=== PATIENT | male | born 1965 | race Caucasian/White ===

== ENCOUNTER 2019-03-15 06:37 | Outpatient (RCR) | payer MEDICARE, SELFPAY | END 2019-03-16 00:01 | LOC: GILAB 06:37 | PROVIDERS: Family Provider Internal Medicine Infectious Disease; Visit Provider Internal Medicine Cardiovascular Disease | DX: K81.9 Cholecystitis, unspecified (principal) | CPT/HCPCS: 80053; 82550; 83615; 85025; 85610; 96365 ×4; 96367 ×4; G0463 ×4; J0878 ×4; J1335 ×4; J7050 ×4 ==

== ENCOUNTER 2019-04-09 06:19 | Outpatient (RCR) | payer MEDICARE, SELFPAY ==
[2019-03-17 07:05] VITALS: BP 99/86; PULSE 88; RESP 18; O2SAT 98
[2019-03-17 07:17] VITALS: BMI 33.1
[2019-03-17] MEDS: ertapenem 1,000 MG in sodium chloride 0.9% (plus) 100 ML 200 MG IV (08:20)
[2019-03-18 07:01] VITALS: BP 102/80; PULSE 101; RESP 18; TEMP 36.8; O2SAT 96
[2019-03-18] MEDS: ertapenem 1,000 MG in sodium chloride 0.9% (plus) 100 ML 200 MG IV (07:10)
[2019-03-19] MEDS: ertapenem 1,000 MG in sodium chloride 0.9% (plus) 100 ML 200 MG IV (06:30)
[2019-03-19 06:48] VITALS: BP 95/79; PULSE 103; RESP 18; TEMP 36.4; O2SAT 94
[2019-03-20] MEDS: ertapenem 1,000 MG in sodium chloride 0.9% (plus) 100 ML 200 MG IV (07:03)
[2019-03-20 07:09] VITALS: BP 109/79; PULSE 88; RESP 18; TEMP 36.3; O2SAT 97
[2019-03-21] MEDS: ertapenem 1,000 MG in sodium chloride 0.9% (plus) 100 ML 200 MG IV (07:19)
[2019-03-21 07:49] VITALS: BP 106/85; PULSE 96; RESP 18; TEMP 36.2; O2SAT 96
[2019-03-21 08:09] LABS: Basophils % 0.1 %; Hematocrit 31.3 % (42.0-52.0); Mean Corpuscular HGB Conc 31.9 g/dL (30.0-36.0); Mean Corpuscular Volume 87.7 fL (80-94); Mean Platelet Volume 10.2 fL (7.4-10.4); Monocytes # 0.5 10^3/uL (0.2-0.9); Monocytes % 5.6 %; Neutrophils # 7.6 10^3/uL (1.8-7.7); Neutrophils % 82.6 %; Nucleated Red Blood Cells % 0 %; Platelet Count 279 10^3/cmm (130-400); Red Blood Count 3.57 10^6/uL (4.1-5.3); Red Cell Distribution Width 15.3 % (12.1-15.1); White Blood Count 9.2 10^3/uL (4.0-10.0)
[2019-03-21 08:23] LABS: Lactate Dehydrogenase 244 U/L (135-225)
[2019-03-21 08:24] LABS: Alanine Aminotransferase 39 U/L (0-41); Albumin Level 4.4 g/dL (3.5-5.2); Alkaline Phosphatase 144 IU/L (40-130); Aspartate Amino Transferase 28 U/L (0-40); Blood Urea Nitrogen 53 mg/dL (6-20); Calcium 10.2 mg/Dl (8.6-10.0); Carbon Dioxide 25 mmol/L (22-29); Chloride 103 mmol/L (98-107); Creatine Phosphokinase 15 U/L (39-308); Globulin 2.9 g/dL (1.3-4.6); Glucose 256 mg/dL (74-109); Sodium 141 mmol/L (136-145); Total Bilirubin 0.3 mg/dL (0.15-1.2); Total Protein 7.3 g/dL (6.6-8.7)
[2019-03-22 06:40] VITALS: BP 107/86; PULSE 96; RESP 16; TEMP 36.4; O2SAT 100
[2019-03-22] MEDS: ertapenem 1,000 MG in sodium chloride 0.9% (plus) 100 ML 200 MG IV (07:02)
--- NOTE | 2019-03-22 08:48 | SUR.OPER ---
BOTH CENTRAL LINES FLUSHED WITH 10ML STERILE SALINE PER WRITTEN ORDERS. END CAPS APPLIED. PT DC'ED IN STABLE CONDITION
[2019-03-23 06:47] VITALS: BP 125/92; PULSE 100; RESP 18; TEMP 36.1; O2SAT 100
[2019-03-23] MEDS: ertapenem 1,000 MG in sodium chloride 0.9% (plus) 100 ML 200 MG IV (06:55)
[2019-03-24] MEDS: ertapenem 1,000 MG in sodium chloride 0.9% (plus) 100 ML 200 MG IV (06:50)
[2019-03-24 06:55] VITALS: BP 106/90; PULSE 97; RESP 18; TEMP 36.3; O2SAT 100
--- NOTE | 2019-03-24 08:26 | SUR.OPER ---
OLD TRANSPARENT DRESSING REMOVED AND SITE CLEANED WITH CHLORAPREP. SUTURES PATENT. NEW TRANSPARENT DRESSING APPLIED.STERILE TECHNIQUE USED.
[2019-03-25 06:44] VITALS: BP 109/94; PULSE 90; RESP 18; TEMP 36; O2SAT 97
[2019-03-25] MEDS: ertapenem 1,000 MG in sodium chloride 0.9% (plus) 100 ML 200 MG IV (07:12)
--- NOTE | 2019-03-25 09:27 | PC.NURSE ---
Spoke with nurse at [facility] in contact with Dr. Jem Lerma. I explained the order stated to only flush the power port with 5 - 20 NS. However our facility protocol states to flush with 500 units Heparin. I received a verbal order to flush with 500 units Heparin per [facility] protocol. Order placed in computer chart.
[2019-03-26 06:45] VITALS: BP 139/89; PULSE 95; RESP 18; TEMP 36.2
[2019-03-26] MEDS: ertapenem 1,000 MG in sodium chloride 0.9% (plus) 100 ML 100 MG IV (07:15)
[2019-03-27] MEDS: ertapenem 1,000 MG in sodium chloride 0.9% (plus) 100 ML 100 MG IV (06:52)
[2019-03-27 07:09] VITALS: BP 104/90; PULSE 90; RESP 18; TEMP 36.9; O2SAT 97
--- NOTE | 2019-03-27 07:20 | SUR.PREOP ---
PATIENT STATED NO CHANGE IN MEDICATIONS
[2019-03-28] MEDS: ertapenem 1,000 MG in sodium chloride 0.9% (plus) 100 ML 200 MG IV (06:30)
[2019-03-28 06:47] VITALS: BP 110/88; PULSE 88; RESP 18; TEMP 36.5; O2SAT 95
[2019-03-28 07:58] LABS: Basophils # 0.1 10^3/uL (0.0-0.1); Basophils % 0.9 %; Eosinophils # 0.1 10^3/uL (0.0-0.8); Eosinophils % 1.9 %; Hematocrit 33.1 % (42.0-52.0); Hemoglobin 10.4 g/dL (11.7-16.6); Lymphocytes # 1.2 10^3/uL (0.8-4.8); Lymphocytes % 16.6 %; Mean Corpuscular HGB Conc 31.4 g/dL (30.0-36.0); Mean Corpuscular Hemoglobin 28.4 pg (28.0-34.0); Mean Corpuscular Volume 90.4 fL (80-94); Mean Platelet Volume 11.5 fL (7.4-10.4); Monocytes # 0.5 10^3/uL (0.2-0.9); Monocytes % 7.3 %; Neutrophils # 5.1 10^3/uL (1.8-7.7); Neutrophils % 72.6 %; Nucleated Red Blood Cells % 0 %; Platelet Count 187 10^3/cmm (130-400); Red Blood Count 3.66 10^6/uL (4.1-5.3); Red Cell Distribution Width 17.5 % (12.1-15.1)
[2019-03-28 08:12] LABS: INR 1.35 (0.8-1.2)
[2019-03-28 08:20] LABS: Alanine Aminotransferase 39 U/L (0-41); Albumin Level 3.9 g/dL (3.5-5.2); Alkaline Phosphatase 146 IU/L (40-130); Anion Gap 22.3 (5-19); Aspartate Amino Transferase 19 U/L (0-40); Blood Urea Nitrogen 39 mg/dL (6-20); Calcium 9.2 mg/Dl (8.6-10.0); Carbon Dioxide 22 mmol/L (22-29); Chloride 109 mmol/L (98-107); Creatine Phosphokinase 21 U/L (39-308); Globulin 3.4 g/dL (1.3-4.6); Glomerular Filtration Rate 57.3 mL/min (90-130); Glucose 206 mg/dL (74-109); Lactate Dehydrogenase 263 U/L (135-225); Potassium 4.3 mmol/L (3.5-5.1); Sodium 149 mmol/L (136-145); Total Bilirubin 0.3 mg/dL (0.15-1.2); Total Protein 7.3 g/dL (6.6-8.7)
[2019-03-29 06:25] VITALS: BP 104/85; PULSE 89; RESP 18; TEMP 36; O2SAT 97
[2019-03-29] MEDS: ertapenem 1,000 MG in sodium chloride 0.9% (plus) 100 ML 200 MG IV (07:00)
--- NOTE | 2019-03-29 08:07 | PC.NURSE ---
Pharmacy did not have enough Daptomycin to give the pt the correct dose. Humberto from pharmacy made some calls and determined more of the medication would be delivered around 0800. I appologized and informed the pt of the issue. The pt verbalized his frustrations and said he was here daily and didn't understand what takes so long to get the medication to him and infused. I explained that the Daptomycin is an expensive medication and had to be mixed up before it could be brought to us to give to him. I told him that this specific medication takes some time to mix, that I was very sorry we didn't have it this morning but explained he could wait on if he wanted. He did not want to wait for the medication. He stated maybe I should start calling you guys at 0600 and say I'm on my way. I told him this would be a good idea to let us know when he is headed our way and we could call the pharmacy so they can start mixing his medication and then maybe we can get it to him as soon as he gets here at 0630.
[2019-03-30] MEDS: ertapenem 1,000 MG in sodium chloride 0.9% (plus) 100 ML 200 MG IV (06:38)
[2019-03-30 06:59] VITALS: BP 116/97; PULSE 90; RESP 18; TEMP 36.2; O2SAT 98
[2019-03-31 06:36] VITALS: PULSE 85; RESP 18; TEMP 37.1; O2SAT 97
--- NOTE | 2019-03-31 06:38 | PC.NURSE ---
blood pressure would not read patient has a LVAD.
[2019-03-31] MEDS: ertapenem 1,000 MG in sodium chloride 0.9% (plus) 100 ML 200 MG IV (06:42)
[2019-04-02 06:15] VITALS: BP 115/90; PULSE 88; RESP 18; TEMP 36.9; O2SAT 98
[2019-04-02] MEDS: ertapenem 1,000 MG in sodium chloride 0.9% (plus) 100 ML 200 MG IV (06:20)
[2019-04-03 06:15] VITALS: BP 115/91; PULSE 92; RESP 18; TEMP 36.4; O2SAT 98
[2019-04-03] MEDS: ertapenem 1,000 MG in sodium chloride 0.9% (plus) 100 ML 200 MG IV (06:26)
[2019-04-04 06:30] VITALS: BP 100/79; PULSE 93; RESP 18; TEMP 36.2; O2SAT 94
[2019-04-04] MEDS: ertapenem 1,000 MG in sodium chloride 0.9% (plus) 100 ML 200 MG IV (06:52)
[2019-04-04 06:55] LABS: Basophils # 0.1 10^3/uL (0.0-0.1); Basophils % 0.8 %; Eosinophils # 0.1 10^3/uL (0.0-0.8); Eosinophils % 1.2 %; Hematocrit 33.4 % (42.0-52.0); Hemoglobin 10.8 g/dL (11.7-16.6); Lymphocytes # 1.3 10^3/uL (0.8-4.8); Lymphocytes % 18.2 %; Mean Corpuscular HGB Conc 32.3 g/dL (30.0-36.0); Mean Corpuscular Hemoglobin 28.7 pg (28.0-34.0); Mean Corpuscular Volume 88.8 fL (80-94); Monocytes # 0.7 10^3/uL (0.2-0.9); Monocytes % 9.2 %; Neutrophils # 5.1 10^3/uL (1.8-7.7); Neutrophils % 70.2 %; Nucleated Red Blood Cells % 0 %; Platelet Count 189 10^3/cmm (130-400); Red Blood Count 3.76 10^6/uL (4.1-5.3); Red Cell Distribution Width 18.9 % (12.1-15.1); White Blood Count 7.3 10^3/uL (4.0-10.0)
[2019-04-04 07:08] LABS: INR 1.55 (0.8-1.2)
[2019-04-04 07:14] LABS: Alanine Aminotransferase 31 U/L (0-41); Albumin Level 4.1 g/dL (3.5-5.2); Alkaline Phosphatase 120 IU/L (40-130); Anion Gap 14.2 (5-19); Aspartate Amino Transferase 24 U/L (0-40); Blood Urea Nitrogen 35 mg/dL (6-20); Calcium 9.3 mg/Dl (8.6-10.0); Carbon Dioxide 22 mmol/L (22-29); Chloride 105 mmol/L (98-107); Creatine Phosphokinase 31 U/L (39-308); Globulin 3.1 g/dL (1.3-4.6); Glomerular Filtration Rate 48.6 mL/min (90-130); Glucose 146 mg/dL (74-109); Lactate Dehydrogenase 264 U/L (135-225); Potassium 4.2 mmol/L (3.5-5.1); Sodium 137 mmol/L (136-145); Total Bilirubin 0.5 mg/dL (0.15-1.2); Total Protein 7.2 g/dL (6.6-8.7)
[2019-04-05] MEDS: ertapenem 1,000 MG in sodium chloride 0.9% (plus) 100 ML 200 MG IV (06:42)
[2019-04-05 06:43] VITALS: BP 112/90; PULSE 97; RESP 18; TEMP 36.4; O2SAT 100
--- NOTE | 2019-04-05 06:51 | PC.NURSE ---
DRESSING WAS CHANGED ON 04/01, AT [facility]
--- NOTE | 2019-04-05 07:29 | PC.NURSE ---
04/02/19 PATIENT STATED THAT [facility] CHANGED HIS CENTRAL LINE DRESSING ON 04/01/19; DRESSING WAS CLEAN, DRY AND INTACT, GOOD BLOOD RETURN, SALINE AND HEP FLUSH PER PROTOCOL.
[2019-04-06 06:15] VITALS: BP 124/101; PULSE 98; RESP 18; TEMP 36.5; O2SAT 99
[2019-04-06] MEDS: ertapenem 1,000 MG in sodium chloride 0.9% (plus) 100 ML 200 MG IV (06:32)
[2019-04-07 06:20] VITALS: BP 117/95; PULSE 105; RESP 18; TEMP 36.7; O2SAT 100
[2019-04-07] MEDS: ertapenem 1,000 MG in sodium chloride 0.9% (plus) 100 ML 200 MG IV (06:30)
[2019-04-07 06:42] LABS: Basophils # 0.1 10^3/uL (0.0-0.1); Basophils % 0.8 %; Eosinophils # 0.1 10^3/uL (0.0-0.8); Eosinophils % 1.6 %; Hematocrit 34.5 % (42.0-52.0); Lymphocytes # 1.2 10^3/uL (0.8-4.8); Lymphocytes % 18.7 %; Mean Corpuscular HGB Conc 31.9 g/dL (30.0-36.0); Mean Corpuscular Hemoglobin 28.6 pg (28.0-34.0); Mean Corpuscular Volume 89.6 fL (80-94); Mean Platelet Volume 10.9 fL (7.4-10.4); Monocytes # 0.5 10^3/uL (0.2-0.9); Monocytes % 7.6 %; Neutrophils # 4.3 10^3/uL (1.8-7.7); Neutrophils % 70.6 %; Nucleated Red Blood Cells % 0 %; Platelet Count 170 10^3/cmm (130-400); Red Blood Count 3.85 10^6/uL (4.1-5.3); Red Cell Distribution Width 19.1 % (12.1-15.1); White Blood Count 6.2 10^3/uL (4.0-10.0)
[2019-04-07 06:48] LABS: INR 1.62 (0.8-1.2)
[2019-04-07 06:56] LABS: Alanine Aminotransferase 31 U/L (0-41); Albumin Level 3.9 g/dL (3.5-5.2); Alkaline Phosphatase 108 IU/L (40-130); Anion Gap 15.4 (5-19); Aspartate Amino Transferase 22 U/L (0-40); Blood Urea Nitrogen 28 mg/dL (6-20); Calcium 9.9 mg/Dl (8.6-10.0); Carbon Dioxide 23 mmol/L (22-29); Chloride 107 mmol/L (98-107); Creatine Phosphokinase 22 U/L (39-308); Globulin 3.2 g/dL (1.3-4.6); Glomerular Filtration Rate 45.1 mL/min (90-130); Glucose 138 mg/dL (74-109); Lactate Dehydrogenase 276 U/L (135-225); Potassium 4.4 mmol/L (3.5-5.1); Sodium 141 mmol/L (136-145); Total Bilirubin 0.5 mg/dL (0.15-1.2); Total Protein 7.1 g/dL (6.6-8.7)
--- NOTE | 2019-04-07 07:47 | SUR.OPER ---
IV MEDS INFUSED.DOUBLE LUMEN CENTRAL LINE FLUSHED WITH HEPARIN FLUSH. LABS FAXED TO [facility] PER REQUESTED. PT LEFT IN STABLE CONDITION.
[2019-04-08 06:40] VITALS: BP 124/93; PULSE 88; RESP 18; TEMP 37.1; O2SAT 98
[2019-04-08] MEDS: ertapenem 1,000 MG in sodium chloride 0.9% (plus) 100 ML 200 MG IV (06:46)
--- NOTE | 2019-04-08 08:38 | PC.NURSE ---
BOTH PORTS FLUSHED WITH 10ML NS, AND 5ML HEP LOCK FLUSH AFTER INFUSIONS DONE
[2019-04-09 06:30] VITALS: BP 129/89; PULSE 93; RESP 18; TEMP 36.6; O2SAT 98
[2019-04-09] MEDS: ertapenem 1,000 MG in sodium chloride 0.9% (plus) 100 ML 200 MG IV (06:32)
[2019-04-10] MEDS: ertapenem 1,000 MG in sodium chloride 0.9% (plus) 100 ML 200 MG IV (06:46)
[2019-04-10 06:53] VITALS: BP 112/90; PULSE 94; RESP 18; TEMP 36.9; O2SAT 100
[2019-04-11] MEDS: ertapenem 1,000 MG in sodium chloride 0.9% (plus) 100 ML 200 MG IV (06:29)
[2019-04-11 06:32] VITALS: BP 120/93; PULSE 92; RESP 18; TEMP 36.8; O2SAT 96
[2019-04-12 06:25] VITALS: BP 117/91; PULSE 84; RESP 18; TEMP 36.6; O2SAT 98
[2019-04-12] MEDS: ertapenem 1,000 MG in sodium chloride 0.9% (plus) 100 ML 200 MG IV (06:38)
[2019-04-13 06:27] VITALS: BP 115/97; PULSE 87; RESP 18; TEMP 36.5; O2SAT 99
[2019-04-13] MEDS: ertapenem 1,000 MG in sodium chloride 0.9% (plus) 100 ML 200 MG IV (06:30)
[2019-04-13 07:13] LABS: Basophils % 0.6 %; Eosinophils # 0.1 10^3/uL (0.0-0.8); Eosinophils % 2.2 %; Hematocrit 36.1 % (42.0-52.0); Hemoglobin 11.4 g/dL (11.7-16.6); Lymphocytes # 1.2 10^3/uL (0.8-4.8); Lymphocytes % 21.4 %; Mean Corpuscular HGB Conc 31.6 g/dL (30.0-36.0); Mean Corpuscular Hemoglobin 29.4 pg (28.0-34.0); Mean Platelet Volume 11.2 fL (7.4-10.4); Monocytes # 0.5 10^3/uL (0.2-0.9); Monocytes % 8.5 %; Neutrophils # 3.6 10^3/uL (1.8-7.7); Neutrophils % 66.9 %; Nucleated Red Blood Cells % 0 %; Platelet Count 176 10^3/cmm (130-400); Red Blood Count 3.88 10^6/uL (4.1-5.3); Red Cell Distribution Width 19.9 % (12.1-15.1); White Blood Count 5.4 10^3/uL (4.0-10.0)
[2019-04-13 07:21] LABS: INR 1.25 (0.8-1.2)
[2019-04-13 07:31] LABS: Alanine Aminotransferase 28 U/L (0-41); Albumin Level 4.3 g/dL (3.5-5.2); Alkaline Phosphatase 97 IU/L (40-130); Anion Gap 15.4 (5-19); Aspartate Amino Transferase 20 U/L (0-40); Blood Urea Nitrogen 27 mg/dL (6-20); Calcium 9.2 mg/dL (8.5-10.5); Carbon Dioxide 22 mmol/L (22-29); Chloride 106 mmol/L (98-107); Creatine Phosphokinase 27 U/L (39-308); Globulin 2.8 g/dL (1.3-4.6); Glomerular Filtration Rate 45.1 mL/min (90-130); Glucose 137 mg/dL (74-109); Lactate Dehydrogenase 256 U/L (135-225); Potassium 4.4 mmol/L (3.5-5.1); Sodium 139 mmol/L (136-145); Total Bilirubin 0.8 mg/dL (0.15-1.2); Total Protein 7.1 g/dL (6.6-8.7)
[2019-04-14 06:25] VITALS: BP 112/95; PULSE 93; RESP 18; TEMP 36.2; O2SAT 97
[2019-04-14] MEDS: ertapenem 1,000 MG in sodium chloride 0.9% (plus) 100 ML 200 MG IV (06:27)
[2019-04-15] MEDS: ertapenem 1,000 MG in sodium chloride 0.9% (plus) 100 ML 200 MG IV (06:25)
[2019-04-15 06:34] VITALS: BP 118/98; PULSE 89; RESP 18; TEMP 36.7; O2SAT 98
[2019-04-16 06:20] VITALS: BP 113/95; PULSE 91; RESP 16; TEMP 36.5; O2SAT 97
[2019-04-16] MEDS: ertapenem 1,000 MG in sodium chloride 0.9% (plus) 100 ML 200 MG IV (06:26)
== END 2019-04-16 23:59 | disposition home or self-care (01) ==
LOC: GILAB 06:19
PROVIDERS: PCP Internal Medicine Cardiovascular Disease; Visit Provider Emergency Medicine
DX: Z95.811 Presence of heart assist device (principal)
CPT/HCPCS: 36415; 36430; 36592; 80053; 82550; 83615; 85025; 85610; 96365; 96366; 96367; 96374; 96375; J0878; J1335; J1642; J7050

== ENCOUNTER 2019-05-12 06:30 | Outpatient (RCR) | payer MEDICARE, SELFPAY ==
[2019-04-17] MEDS: ertapenem 1,000 MG in sodium chloride 0.9% (plus) 100 ML 200 MG IV (07:35)
[2019-04-17 07:48] VITALS: BP 103/89; PULSE 82; RESP 18; TEMP 36.6; O2SAT 97
[2019-04-18] MEDS: ertapenem 1,000 MG in sodium chloride 0.9% (plus) 100 ML 200 MG IV (06:10)
[2019-04-18 06:43] VITALS: BP 121/100; PULSE 89; RESP 18; TEMP 36.6; O2SAT 97
[2019-04-19 06:25] VITALS: BP 130/93; PULSE 84; RESP 16; TEMP 36.5; O2SAT 97
[2019-04-19] MEDS: ertapenem 1,000 MG in sodium chloride 0.9% (plus) 100 ML 200 MG IV (06:28)
[2019-04-19 06:30] VITALS: BMI 33.1
[2019-04-20 06:18] VITALS: BP 127/98; PULSE 95; RESP 18; TEMP 35.9; O2SAT 98
[2019-04-20] MEDS: ertapenem 1,000 MG in sodium chloride 0.9% (plus) 100 ML 200 MG IV (06:32)
[2019-04-20 06:33] LABS: Basophils % 0.2 %; Eosinophils % 0.2 %; Hematocrit 37.3 % (42.0-52.0); Hemoglobin 11.9 g/dL (11.7-16.6); Lymphocytes # 1.2 10^3/uL (0.8-4.8); Lymphocytes % 14.7 %; Mean Corpuscular HGB Conc 31.9 g/dL (30.0-36.0); Mean Corpuscular Hemoglobin 28.3 pg (28.0-34.0); Mean Corpuscular Volume 88.8 fL (80-94); Monocytes # 0.5 10^3/uL (0.2-0.9); Monocytes % 6.7 %; Neutrophils # 6.2 10^3/uL (1.8-7.7); Nucleated Red Blood Cells % 0 %; Platelet Count 208 10^3/cmm (130-400); Red Cell Distribution Width 18.5 % (12.1-15.1); White Blood Count 8.1 10^3/uL (4.0-10.0)
[2019-04-20 06:45] LABS: INR 4.81 (0.8-1.2)
[2019-04-20 06:53] LABS: Alanine Aminotransferase 42 U/L (0-41); Albumin Level 4.4 g/dL (3.5-5.2); Alkaline Phosphatase 157 IU/L (40-130); Anion Gap 17.5 (5-19); Aspartate Amino Transferase 26 U/L (0-40); Blood Urea Nitrogen 41 mg/dL (6-20); Calcium 10.2 mg/dL (8.5-10.5); Carbon Dioxide 26 mmol/L (22-29); Chloride 103 mmol/L (98-107); Creatine Phosphokinase 23 U/L (39-308); Globulin 3.1 g/dL (1.3-4.6); Glomerular Filtration Rate 48.6 mL/min (90-130); Glucose 291 mg/dL (74-109); Lactate Dehydrogenase 269 U/L (135-225); Potassium 4.5 mmol/L (3.5-5.1); Sodium 142 mmol/L (136-145); Total Bilirubin 0.4 mg/dL (0.15-1.2); Total Protein 7.5 g/dL (6.6-8.7)
[2019-04-21] MEDS: ertapenem 1,000 MG in sodium chloride 0.9% (plus) 100 ML 200 MG IV (06:17)
[2019-04-21 06:19] VITALS: BP 122/96; PULSE 101; RESP 16; TEMP 36.7
[2019-04-22] MEDS: ertapenem 1,000 MG in sodium chloride 0.9% (plus) 100 ML 200 MG IV (06:45)
[2019-04-22 06:50] VITALS: BP 111/94; PULSE 96; RESP 18; TEMP 36.6; O2SAT 98
[2019-04-23] MEDS: ertapenem 1,000 MG in sodium chloride 0.9% (plus) 100 ML 200 MG IV (06:49)
[2019-04-23 06:52] VITALS: BP 114/87; PULSE 88; RESP 16; TEMP 36.1; O2SAT 96
[2019-04-24 06:25] VITALS: BP 116/93; PULSE 99; RESP 18; TEMP 36.8; O2SAT 97
[2019-04-24] MEDS: ertapenem 1,000 MG in sodium chloride 0.9% (plus) 100 ML 200 MG IV (06:37)
[2019-04-25] MEDS: ertapenem 1,000 MG in sodium chloride 0.9% (plus) 100 ML 200 MG IV (06:28)
[2019-04-25 06:34] VITALS: BP 124/99; PULSE 104; RESP 18; TEMP 36.6; O2SAT 94
[2019-04-26] MEDS: ertapenem 1,000 MG in sodium chloride 0.9% (plus) 100 ML 200 MG IV (06:23)
[2019-04-26 06:34] VITALS: BP 101/85; PULSE 90; RESP 18; TEMP 37; O2SAT 95
[2019-04-27] MEDS: ertapenem 1,000 MG in sodium chloride 0.9% (plus) 100 ML 200 MG IV (06:15)
[2019-04-27 06:22] VITALS: BP 111/90; PULSE 100; RESP 18; TEMP 36.6; O2SAT 97
[2019-04-27 06:28] LABS: Basophils # 0.1 10^3/uL (0.0-0.1); Basophils % 0.6 %; Eosinophils # 0.1 10^3/uL (0.0-0.8); Eosinophils % 0.9 %; Hematocrit 38.1 % (42.0-52.0); Hemoglobin 12.4 g/dL (11.7-16.6); Lymphocytes # 1.5 10^3/uL (0.8-4.8); Lymphocytes % 16.6 %; Mean Corpuscular HGB Conc 32.5 g/dL (30.0-36.0); Mean Corpuscular Hemoglobin 29.3 pg (28.0-34.0); Mean Corpuscular Volume 90.1 fL (80-94); Mean Platelet Volume 10.6 fL (7.4-10.4); Monocytes # 0.9 10^3/uL (0.2-0.9); Monocytes % 10.1 %; Neutrophils # 6.3 10^3/uL (1.8-7.7); Nucleated Red Blood Cells % 0 %; Platelet Count 248 10^3/cmm (130-400); Red Blood Count 4.23 10^6/uL (4.1-5.3); Red Cell Distribution Width 18.8 % (12.1-15.1)
[2019-04-27 06:40] LABS: INR 3.04 (0.8-1.2)
[2019-04-27 06:50] LABS: Alanine Aminotransferase 42 U/L (0-41); Albumin Level 4.2 g/dL (3.5-5.2); Alkaline Phosphatase 153 IU/L (40-130); Anion Gap 16.5 (5-19); Aspartate Amino Transferase 27 U/L (0-40); Blood Urea Nitrogen 42 mg/dL (6-20); Calcium 9.6 mg/dL (8.5-10.5); Carbon Dioxide 25 mmol/L (22-29); Chloride 104 mmol/L (98-107); Creatine Phosphokinase 23 U/L (39-308); Creatinine Clr Calc Pharmacy 81.0627; Globulin 3.1 g/dL (1.3-4.6); Glomerular Filtration Rate 52.6 mL/min (90-130); Glucose 249 mg/dL (65-115); Lactate Dehydrogenase 336 U/L (135-225); Potassium 4.5 mmol/L (3.5-5.1); Sodium 141 mmol/L (136-145); Total Bilirubin 0.4 mg/dL (0.15-1.2); Total Protein 7.3 g/dL (6.6-8.7)
[2019-04-28 06:18] VITALS: BP 107/85; PULSE 88; RESP 18; TEMP 36.8; O2SAT 100
[2019-04-28] MEDS: ertapenem 1,000 MG in sodium chloride 0.9% (plus) 100 ML 200 MG IV (06:28)
[2019-04-29 06:22] VITALS: BP 116/92; PULSE 94; RESP 18; TEMP 36.5; O2SAT 100
[2019-04-29] MEDS: ertapenem 1,000 MG in sodium chloride 0.9% (plus) 100 ML 200 MG IV (06:31)
[2019-04-30 06:23] VITALS: BP 120/97; PULSE 109; RESP 18; TEMP 36; O2SAT 96
[2019-04-30] MEDS: ertapenem 1,000 MG in sodium chloride 0.9% (plus) 100 ML 200 MG IV (06:24)
--- NOTE | 2019-05-01 06:02 | SUR.PREOP ---
patient called at 0600 and stated he is sick and is not coming today,notified kenya in pharmacy of this
[2019-05-02] MEDS: ertapenem 1,000 MG in sodium chloride 0.9% (plus) 100 ML 175 MG IV (06:37)
[2019-05-02 06:45] VITALS: BP 98/81; PULSE 86; RESP 18; TEMP 36.9; O2SAT 99
[2019-05-03 06:14] VITALS: BP 107/90; PULSE 88; RESP 16; TEMP 36.3; O2SAT 99
[2019-05-03] MEDS: ertapenem 1,000 MG in sodium chloride 0.9% (plus) 100 ML 200 MG IV (06:15)
[2019-05-04] MEDS: ertapenem 1,000 MG in sodium chloride 0.9% (plus) 100 ML 200 MG IV (06:25)
[2019-05-04 06:26] LABS: Basophils % 0.6 %; Eosinophils # 0.1 10^3/uL (0.0-0.8); Eosinophils % 1.7 %; Hematocrit 35.3 % (42.0-52.0); Hemoglobin 11.7 g/dL (11.7-16.6); Lymphocytes # 1.3 10^3/uL (0.8-4.8); Lymphocytes % 18.2 %; Mean Corpuscular HGB Conc 33.1 g/dL (30.0-36.0); Mean Corpuscular Hemoglobin 29.9 pg (28.0-34.0); Mean Corpuscular Volume 90.3 fL (80-94); Mean Platelet Volume 10.5 fL (7.4-10.4); Monocytes # 0.7 10^3/uL (0.2-0.9); Monocytes % 9.7 %; Neutrophils % 68.8 %; Nucleated Red Blood Cells % 0 %; Platelet Count 212 10^3/cmm (130-400); Red Blood Count 3.91 10^6/uL (4.1-5.3); Red Cell Distribution Width 19.4 % (12.1-15.1); White Blood Count 7.2 10^3/uL (4.0-10.0)
[2019-05-04 06:32] VITALS: BP 120/96; PULSE 98; RESP 18; TEMP 36.4; O2SAT 98
[2019-05-04 06:40] LABS: INR 4.39 (0.8-1.2)
[2019-05-04 06:49] LABS: Alanine Aminotransferase 33 U/L (0-41); Alkaline Phosphatase 140 IU/L (40-130); Anion Gap 16.9 (5-19); Aspartate Amino Transferase 15 U/L (0-40); Blood Urea Nitrogen 40 mg/dL (6-20); Calcium 9.6 mg/dL (8.5-10.5); Carbon Dioxide 25 mmol/L (22-29); Chloride 101 mmol/L (98-107); Creatine Phosphokinase 21 U/L (39-308); Globulin 3.2 g/dL (1.3-4.6); Glomerular Filtration Rate 39.4 mL/min (90-130); Glucose 219 mg/dL (65-115); Lactate Dehydrogenase 288 U/L (135-225); Potassium 3.9 mmol/L (3.5-5.1); Sodium 139 mmol/L (136-145); Total Bilirubin 0.5 mg/dL (0.15-1.2); Total Protein 7.2 g/dL (6.6-8.7)
[2019-05-05 06:20] VITALS: BP 125/98; PULSE 107; RESP 20; TEMP 37.3; O2SAT 98
[2019-05-05] MEDS: ertapenem 1,000 MG in sodium chloride 0.9% (plus) 100 ML 200 MG IV (06:25)
[2019-05-06 06:34] VITALS: BP 123/71; PULSE 97; RESP 18; TEMP 36.6; O2SAT 98
[2019-05-06] MEDS: ertapenem 1,000 MG in sodium chloride 0.9% (plus) 100 ML 200 MG IV (06:36)
[2019-05-07 06:29] VITALS: BP 141/87; PULSE 104; RESP 18; TEMP 36.2; O2SAT 95
[2019-05-07] MEDS: ertapenem 1,000 MG in sodium chloride 0.9% (plus) 100 ML 200 MG IV (06:43)
[2019-05-08] MEDS: ertapenem 1,000 MG in sodium chloride 0.9% (plus) 100 ML 100 MG IV (06:34)
[2019-05-08 06:42] VITALS: BP 96/82; PULSE 51; RESP 18; TEMP 37.3; O2SAT 96
[2019-05-09 06:24] VITALS: BP 146/84; PULSE 83; RESP 18; TEMP 37.1; O2SAT 97
[2019-05-09] MEDS: ertapenem 1,000 MG in sodium chloride 0.9% (plus) 100 ML 100 MG IV (06:27)
[2019-05-10 06:30] VITALS: BP 114/75; PULSE 101; RESP 20; TEMP 36.4; O2SAT 97
[2019-05-10] MEDS: ertapenem 1,000 MG in sodium chloride 0.9% (plus) 100 ML 200 MG IV (06:33)
[2019-05-11 06:25] VITALS: BP 108/87; PULSE 84; RESP 18; TEMP 37.1; O2SAT 98
[2019-05-11] MEDS: ertapenem 1,000 MG in sodium chloride 0.9% (plus) 100 ML 200 MG IV (06:35)
[2019-05-11 06:53] LABS: Hematocrit 33.2 % (42.0-52.0); Hemoglobin 10.8 g/dL (11.7-16.6); Mean Corpuscular HGB Conc 32.5 g/dL (30.0-36.0); Mean Corpuscular Hemoglobin 28.6 pg (28.0-34.0); Mean Corpuscular Volume 88.1 fL (80-94); Mean Platelet Volume 10.8 fL (7.4-10.4); Platelet Count 227 10^3/cmm (130-400); Red Blood Count 3.77 10^6/uL (4.1-5.3); Red Cell Distribution Width 19.9 % (12.1-15.1); White Blood Count 6.9 10^3/uL (4.0-10.0)
[2019-05-11 07:09] LABS: Alanine Aminotransferase 18 U/L (0-41); Albumin Level 4.1 g/dL (3.5-5.2); Alkaline Phosphatase 121 IU/L (40-130); Anion Gap 17.3 (5-19); Aspartate Amino Transferase 13 U/L (0-40); Blood Urea Nitrogen 39 mg/dL (6-20); Calcium 9.9 mg/dL (8.5-10.5); Carbon Dioxide 25 mmol/L (22-29); Chloride 100 mmol/L (98-107); Creatine Phosphokinase 16 U/L (39-308); Glomerular Filtration Rate 48.6 mL/min (90-130); Glucose 159 mg/dL (65-115); Lactate Dehydrogenase 297 U/L (135-225); Potassium 4.3 mmol/L (3.5-5.1); Sodium 138 mmol/L (136-145); Total Bilirubin 0.6 mg/dL (0.15-1.2); Total Protein 7.1 g/dL (6.6-8.7)
[2019-05-11 07:12] LABS: INR 2.14 (0.8-1.2)
[2019-05-11 07:37] LABS: Absolute Segmented Neutrophil 3.5 10/cmm (1.6-7.1); Band Neutrophils Absolute 1.3 10^3/cmm (0.0-1.2); Lymphocytes 23 %; Monocytes Absolute 0.5 10^3/cmm (0.1-0.6); Ovalocytes 1+; Platelet Estimate Normal (Normal); Poikilocytosis 1+; Segmented Neutrophils 51 %; Tear Drop Cells 1+; Total Cells Counted 100 (0-100)
[2019-05-12 06:30] VITALS: BP 121/91; PULSE 95; RESP 18; TEMP 36.7; O2SAT 95
[2019-05-12] MEDS: ertapenem 1,000 MG in sodium chloride 0.9% (plus) 100 ML 200 MG IV (06:40)
[2019-05-13 06:23] VITALS: BP 108/89; PULSE 83; RESP 18; TEMP 36.5; O2SAT 97
[2019-05-13] MEDS: ertapenem 1,000 MG in sodium chloride 0.9% (plus) 100 ML 200 MG IV (06:32)
[2019-05-14 06:27] VITALS: BP 126/70; PULSE 84; RESP 18; TEMP 36.6; O2SAT 97
[2019-05-14] MEDS: ertapenem 1,000 MG in sodium chloride 0.9% (plus) 100 ML 200 MG IV (06:34)
== END 2019-05-15 23:59 | disposition home or self-care (01) ==
LOC: GILAB 06:30
PROVIDERS: Family Provider Internal Medicine Infectious Disease; PCP Internal Medicine Cardiovascular Disease; Visit Provider Internal Medicine Cardiovascular Disease
DX: Z95.811 Presence of heart assist device (principal)
CPT/HCPCS: 15852; 36415; 36592; 80053; 82550; 83615; 85007; 85025; 85027; 85610; 96365; 96367; J0878; J1335; J1642; J7050

== ENCOUNTER 2019-06-03 16:47 | Outpatient (CLI) | payer MEDICARE, SELFPAY ==
[2019-06-03 17:55] LABS: Basophils # 0.1 10^3/uL (0.0-0.1); Eosinophils # 0.2 10^3/uL (0.0-0.8); Eosinophils % 2.6 %; Hematocrit 28.6 % (42.0-52.0); Hemoglobin 8.8 g/dL (11.7-16.6); Lymphocytes # 1.3 10^3/uL (0.8-4.8); Lymphocytes % 16.8 %; Mean Corpuscular HGB Conc 30.8 g/dL (30.0-36.0); Mean Corpuscular Hemoglobin 30.4 pg (28.0-34.0); Mean Platelet Volume 10.2 fL (7.4-10.4); Monocytes # 0.6 10^3/uL (0.2-0.9); Monocytes % 7.7 %; Neutrophils # 5.4 10^3/uL (1.8-7.7); Neutrophils % 70.5 %; Nucleated Red Blood Cells % 0 %; Platelet Count 364 10^3/cmm (130-400); Red Blood Count 2.89 10^6/uL (4.1-5.3); Red Cell Distribution Width 20.9 % (12.1-15.1); White Blood Count 7.7 10^3/uL (4.0-10.0)
[2019-06-03 18:10] LABS: INR 1.29 (0.8-1.2)
[2019-06-03 18:33] LABS: Alanine Aminotransferase 13 U/L (0-41); Albumin Level 3.9 g/dL (3.5-5.2); Alkaline Phosphatase 136 IU/L (40-130); Anion Gap 19.5 (5-19); Aspartate Amino Transferase 19 U/L (0-40); Blood Urea Nitrogen 47 mg/dL (6-20); Calcium 9.6 mg/dL (8.5-10.5); Carbon Dioxide 22 mmol/L (22-29); Chloride 104 mmol/L (98-107); Globulin 3.9 g/dL (1.3-4.6); Glomerular Filtration Rate 26.8 mL/min (90-130); Glucose 151 mg/dL (65-115); Osmolality Calculated 291 mOsm/kg (285-295); Potassium 5.5 mmol/L (3.5-5.1); Sodium 140 mmol/L (136-145); Total Bilirubin 0.6 mg/dL (0.15-1.2); Total Protein 7.8 g/dL (6.6-8.7)
[2019-06-03 19:03] LABS: Lactate Dehydrogenase 426 U/L (135-225)
== END 2019-06-03 16:48 | disposition home or self-care (01) ==
LOC: LAB 16:53
PROVIDERS: Family Provider Internal Medicine Infectious Disease; PCP Internal Medicine Cardiovascular Disease; Visit Provider Internal Medicine Cardiovascular Disease
DX: I50.22 Chronic systolic (congestive) heart failure (principal); E11.9 Type 2 diabetes mellitus without complications; T82.7XXD Infection and inflammatory reaction due to other cardiac and vascular devices, implants and grafts, subsequent encounter; Y83.8 Other surgical procedures as the cause of abnormal reaction of the patient, or of later complication, without mention of misadventure at the time of the procedure
CPT/HCPCS: 80053; 83615; 85025; 85610

== ENCOUNTER 2019-06-11 13:30 | Outpatient (REF) | payer MEDICARE, SELFPAY | END 2019-06-11 13:31 | disposition home or self-care (01) | LOC: LAB 13:30 | PROVIDERS: Family Provider Internal Medicine Infectious Disease; PCP Internal Medicine Cardiovascular Disease; Visit Provider Internal Medicine Cardiovascular Disease | DX: Z01.89 Encounter for other specified special examinations (principal) | CPT/HCPCS: 85025 ==

== ENCOUNTER 2019-06-18 15:52 | Outpatient (CLI) | payer MEDICARE, SELFPAY ==
[2019-06-18 16:22] LABS: Basophils # 0.1 10^3/uL (0.0-0.1); Eosinophils # 0.2 10^3/uL (0.0-0.8); Eosinophils % 2.5 %; Hematocrit 32.7 % (42.0-52.0); Hemoglobin 10.2 g/dL (11.7-16.6); Lymphocytes # 1.4 10^3/uL (0.8-4.8); Lymphocytes % 20.6 %; Mean Corpuscular HGB Conc 31.2 g/dL (30.0-36.0); Mean Corpuscular Hemoglobin 31.8 pg (28.0-34.0); Mean Corpuscular Volume 101.9 fL (80-94); Mean Platelet Volume 11.5 fL (7.4-10.4); Monocytes # 0.6 10^3/uL (0.2-0.9); Monocytes % 8.5 %; Neutrophils # 4.6 10^3/uL (1.8-7.7); Nucleated Red Blood Cells % 0 %; Platelet Count 213 10^3/cmm (130-400); Red Blood Count 3.21 10^6/uL (4.1-5.3); Red Cell Distribution Width 19.3 % (12.1-15.1); White Blood Count 6.8 10^3/uL (4.0-10.0)
[2019-06-18 16:28] LABS: INR 1.33 (0.8-1.2)
[2019-06-18 17:50] LABS: Alanine Aminotransferase 22 U/L (0-41); Albumin Level 4.4 g/dL (3.5-5.2); Alkaline Phosphatase 134 IU/L (40-130); Anion Gap 18.9 (5-19); Aspartate Amino Transferase 17 U/L (0-40); Blood Urea Nitrogen 42 mg/dL (6-20); Calcium 9.4 mg/dL (8.5-10.5); Carbon Dioxide 20 mmol/L (22-29); Chloride 106 mmol/L (98-107); Glomerular Filtration Rate 36.9 mL/min (90-130); Glucose 128 mg/dL (65-115); Lactate Dehydrogenase 345 U/L (135-225); Osmolality Calculated 291 mOsm/kg (285-295); Potassium 3.9 mmol/L (3.5-5.1); Sodium 141 mmol/L (136-145); Total Bilirubin 0.6 mg/dL (0.15-1.2); Total Protein 7.4 g/dL (6.6-8.7)
== END 2019-06-18 15:53 | disposition home or self-care (01) ==
LOC: LAB 15:58
PROVIDERS: Family Provider Internal Medicine Infectious Disease; PCP Internal Medicine Cardiovascular Disease; Visit Provider Internal Medicine Cardiovascular Disease
DX: I50.22 Chronic systolic (congestive) heart failure (principal); N17.9 Acute kidney failure, unspecified; Z48.815 Encounter for surgical aftercare following surgery on the digestive system; Z43.9 Encounter for attention to unspecified artificial opening; Z79.01 Long term (current) use of anticoagulants
CPT/HCPCS: 80053; 83615; 85025; 85610

== ENCOUNTER 2019-06-24 13:59 | Outpatient (REF) | payer MEDICARE, SELFPAY ==
[2019-06-24 14:12] LABS: Basophils # 0.1 10^3/uL (0.0-0.1); Basophils % 1.1 %; Eosinophils # 0.1 10^3/uL (0.0-0.8); Eosinophils % 1.7 %; Hematocrit 33.1 % (42.0-52.0); Hemoglobin 10.5 g/dL (11.7-16.6); Lymphocytes # 1.2 10^3/uL (0.8-4.8); Lymphocytes % 18.4 %; Mean Corpuscular HGB Conc 31.7 g/dL (30.0-36.0); Mean Corpuscular Hemoglobin 31.6 pg (28.0-34.0); Mean Corpuscular Volume 99.7 fL (80-94); Mean Platelet Volume 11.3 fL (7.4-10.4); Monocytes # 0.6 10^3/uL (0.2-0.9); Monocytes % 8.9 %; Neutrophils # 4.4 10^3/uL (1.8-7.7); Neutrophils % 69.3 %; Nucleated Red Blood Cells % 0 %; Platelet Count 203 10^3/cmm (130-400); Red Blood Count 3.32 10^6/uL (4.1-5.3); Red Cell Distribution Width 18.6 % (12.1-15.1); White Blood Count 6.3 10^3/uL (4.0-10.0)
[2019-06-24 14:21] LABS: INR 1.24 (0.8-1.2)
[2019-06-24 14:33] LABS: Alanine Aminotransferase 16 U/L (0-41); Albumin Level 4.3 g/dL (3.5-5.2); Alkaline Phosphatase 134 IU/L (40-130); Anion Gap 21.2 (5-19); Aspartate Amino Transferase 15 U/L (0-40); Blood Urea Nitrogen 36 mg/dL (6-20); Calcium 9.8 mg/dL (8.5-10.5); Carbon Dioxide 21 mmol/L (22-29); Chloride 102 mmol/L (98-107); Globulin 2.7 g/dL (1.3-4.6); Glomerular Filtration Rate 39.2 mL/min (90-130); Glucose 260 mg/dL (65-115); Lactate Dehydrogenase 316 U/L (135-225); Osmolality Calculated 296 mOsm/kg (285-295); Potassium 4.2 mmol/L (3.5-5.1); Sodium 140 mmol/L (136-145); Total Bilirubin 0.5 mg/dL (0.15-1.2)
== END 2019-06-24 14:00 | disposition home or self-care (01) ==
LOC: LAB 13:59
PROVIDERS: Family Provider Internal Medicine Infectious Disease; PCP Internal Medicine Cardiovascular Disease; Visit Provider Dermatology
DX: I50.22 Chronic systolic (congestive) heart failure (principal); N17.9 Acute kidney failure, unspecified; Z48.815 Encounter for surgical aftercare following surgery on the digestive system; Z79.01 Long term (current) use of anticoagulants
CPT/HCPCS: 80053; 83615; 85025; 85610

== ENCOUNTER 2019-07-02 11:58 | Outpatient (CLI) | payer MEDICARE, SELFPAY ==
[2019-07-02 12:20] LABS: Basophils # 0.1 10^3/uL (0.0-0.1); Basophils % 0.8 %; Eosinophils # 0.1 10^3/uL (0.0-0.8); Eosinophils % 1.3 %; Hematocrit 36.8 % (42.0-52.0); Hemoglobin 11.7 g/dL (11.7-16.6); Lymphocytes # 1.4 10^3/uL (0.8-4.8); Lymphocytes % 13.4 %; Mean Corpuscular HGB Conc 31.8 g/dL (30.0-36.0); Mean Corpuscular Hemoglobin 31.5 pg (28.0-34.0); Mean Corpuscular Volume 99.2 fL (80-94); Mean Platelet Volume 11.1 fL (7.4-10.4); Monocytes # 0.9 10^3/uL (0.2-0.9); Monocytes % 8.3 %; Neutrophils % 75.6 %; Nucleated Red Blood Cells % 0 %; Platelet Count 243 10^3/cmm (130-400); Red Blood Count 3.71 10^6/uL (4.1-5.3); Red Cell Distribution Width 17.4 % (12.1-15.1); White Blood Count 10.6 10^3/uL (4.0-10.0)
[2019-07-02 12:28] LABS: INR 1.47 (0.8-1.2)
[2019-07-02 12:54] LABS: Alanine Aminotransferase 18 U/L (0-41); Albumin Level 4.2 g/dL (3.5-5.2); Alkaline Phosphatase 125 IU/L (40-130); Anion Gap 18.4 (5-19); Aspartate Amino Transferase 15 U/L (0-40); Blood Urea Nitrogen 40 mg/dL (6-20); Calcium 9.8 mg/dL (8.5-10.5); Carbon Dioxide 27 mmol/L (22-29); Chloride 97 mmol/L (98-107); Globulin 2.7 g/dL (1.3-4.6); Glomerular Filtration Rate 32.8 mL/min (90-130); Glucose 211 mg/dL (65-115); Lactate Dehydrogenase 260 U/L (135-225); Osmolality Calculated 290 mOsm/kg (285-295); Potassium 4.4 mmol/L (3.5-5.1); Sodium 138 mmol/L (136-145); Total Bilirubin 0.5 mg/dL (0.15-1.2); Total Protein 6.9 g/dL (6.6-8.7)
== END 2019-07-02 11:59 | disposition home or self-care (01) ==
LOC: LAB 12:01
PROVIDERS: Family Provider Internal Medicine Infectious Disease; PCP Internal Medicine Cardiovascular Disease; Visit Provider Family Medicine
DX: I50.9 Heart failure, unspecified (principal)
CPT/HCPCS: 80053; 83615; 85025; 85610

== ENCOUNTER 2019-12-09 08:11 | Outpatient (RCR) | payer MEDICARE, SELFPAY ==
[2019-12-04] MEDS: ertapenem 1,000 MG in sodium chloride 0.9% (plus) 100 ML 200 MG IV (10:10)
[2019-12-04 10:19] VITALS: BMI 33.1
[2019-12-04 10:23] VITALS: BP 109/92; PULSE 91; RESP 18; TEMP 36; O2SAT 97
[2019-12-05] MEDS: ertapenem 1,000 MG in sodium chloride 0.9% (plus) 100 ML 200 MG IV (08:45)
[2019-12-05 09:14] VITALS: BP 108/88; PULSE 87; RESP 18; TEMP 36.2; O2SAT 98
[2019-12-06] MEDS: ertapenem 1,000 MG in sodium chloride 0.9% (plus) 100 ML 200 MG IV (09:21)
[2019-12-06 09:22] VITALS: BP 94/79; PULSE 82; RESP 18; TEMP 36.4; O2SAT 95
--- NOTE | 2019-12-06 09:28 | SUR.PREOP ---
PATIENT'S WOUND VAC DRESSING CHANGED PER PHYSICIAN'S ORDERS. EXTRA THIN DUODERM APPLIED AROUND WOUNDS FOR SKIN PROTECTION. FOAM CUT TO SIZE AND PLACED IN WOUNDS. BIO-OCCLUSIVE DRESSINGS APPLIED. SUCTION TURNED ON AND WORKING PROPERLY. PATIENT'S OWN WOUND VAC SUPPLIES WERE USED FOR THE DRESSING CHANGE. PATIENT TOLERATED WELL.
[2019-12-07 09:25] VITALS: BP 109/90; PULSE 82; RESP 18; TEMP 36.7; O2SAT 98
[2019-12-07] MEDS: ertapenem 1,000 MG in sodium chloride 0.9% (plus) 100 ML 200 MG IV (09:26)
[2019-12-08 09:11] VITALS: BP 91/74; PULSE 79; RESP 18; TEMP 36.3; O2SAT 98
[2019-12-08] MEDS: ertapenem 1,000 MG in sodium chloride 0.9% (plus) 100 ML 200 MG IV (09:40)
--- NOTE | 2019-12-08 10:00 | SUR.OPER ---
0930 Wound vac to abdomen changed. Two separate wounds noted midline abdomen. Black foam inserted into wounds with bridge in place. Suction applied at 125 mmHg. Wound bed with red granulating tissue noted. Pt tolerated procedure well.
[2019-12-09] MEDS: ertapenem 1,000 MG in sodium chloride 0.9% (plus) 100 ML 200 MG IV (08:33)
[2019-12-09 08:34] VITALS: BP 178/98; PULSE 88; RESP 18; TEMP 36.8; O2SAT 98
[2019-12-10] MEDS: ertapenem 1,000 MG in sodium chloride 0.9% (plus) 100 ML 200 MG IV (06:15)
[2019-12-10 07:38] VITALS: BP 93/80; PULSE 73; RESP 18; TEMP 36.7; O2SAT 97
[2019-12-11] MEDS: ertapenem 1,000 MG in sodium chloride 0.9% (plus) 100 ML 200 MG IV (06:20)
[2019-12-11 06:59] LABS: Basophils # 0.1 10^3/uL (0.0-0.1); Eosinophils # 0.1 10^3/uL (0.0-0.8); Eosinophils % 2.1 %; Hematocrit 32.6 % (42.0-52.0); Hemoglobin 9.7 g/dL (11.7-16.6); Lymphocytes # 1.2 10^3/uL (0.8-4.8); Lymphocytes % 19.8 %; Mean Corpuscular HGB Conc 29.8 g/dL (30.0-36.0); Mean Corpuscular Volume 97.6 fL (80-94); Mean Platelet Volume 11.3 fL (7.4-10.4); Monocytes # 0.4 10^3/uL (0.2-0.9); Monocytes % 6.7 %; Neutrophils # 4.27 10^3/uL (1.8-7.7); Neutrophils % 70.1 %; Nucleated Red Blood Cells % 0 %; Platelet Count 213 10^3/cmm (130-400); Red Blood Count 3.34 10^6/uL (4.1-5.3); Red Cell Distribution Width 16.4 % (12.1-15.1); White Blood Count 6.1 10^3/uL (4.0-10.0)
[2019-12-11 07:20] LABS: Alanine Aminotransferase 16 U/L (0-41); Albumin Level 3.7 g/dL (3.5-5.2); Alkaline Phosphatase 106 IU/L (40-130); Anion Gap 14.3 (5-19); Aspartate Amino Transferase 15 U/L (0-40); Blood Urea Nitrogen 30 mg/dL (6-20); Calcium 8.6 mg/dL (8.5-10.5); Carbon Dioxide 22 mmol/L (22-29); Chloride 107 mmol/L (98-107); Globulin 3.3 g/dL (1.3-4.6); Glomerular Filtration Rate 39.2 mL/min (90-130); Glucose 180 mg/dL (65-115); Osmolality Calculated 299 mOsm/kg (285-295); Potassium 4.3 mmol/L (3.5-5.1); Sodium 139 mmol/L (136-145); Total Bilirubin 0.3 mg/dL (0.15-1.2)
[2019-12-11 07:25] LABS: Vancomycin Trough 16.1 ug/mL (10-15)
[2019-12-11 07:31] VITALS: BP 108/86; PULSE 91; RESP 18; TEMP 36.1; O2SAT 97
[2019-12-12 06:01] VITALS: BP 106/74; PULSE 56; RESP 18; TEMP 36.6; O2SAT 98
[2019-12-12] MEDS: ertapenem 1,000 MG in sodium chloride 0.9% (plus) 100 ML 200 MG IV (06:08)
[2019-12-12 07:24] VITALS: BP 157/107; PULSE 88; RESP 18; TEMP 36.1; O2SAT 99
[2019-12-13] MEDS: ertapenem 1,000 MG in sodium chloride 0.9% (plus) 100 ML 200 MG IV (06:05)
[2019-12-13 07:07] VITALS: BP 112/82; PULSE 81; RESP 18; TEMP 36.4; O2SAT 97
[2019-12-14] MEDS: ertapenem 1,000 MG in sodium chloride 0.9% (plus) 100 ML 200 MG IV (06:05)
[2019-12-14 06:19] VITALS: BP 101/82; PULSE 78; RESP 18; TEMP 36.7; O2SAT 97
[2019-12-15 06:12] VITALS: BP 112/85; PULSE 80; RESP 18; TEMP 36.3; O2SAT 97
[2019-12-15] MEDS: ertapenem 1,000 MG in sodium chloride 0.9% (plus) 100 ML 200 MG IV (06:20)
== END 2019-12-15 23:59 | disposition home or self-care (01) ==
LOC: OPS 08:11
PROVIDERS: PCP Internal Medicine Cardiovascular Disease; Visit Provider Nurse Practitioner
DX: T82.7XXA Infection and inflammatory reaction due to other cardiac and vascular devices, implants and grafts, initial encounter (principal); Y83.8 Other surgical procedures as the cause of abnormal reaction of the patient, or of later complication, without mention of misadventure at the time of the procedure; Z96.89 Presence of other specified functional implants; Z79.01 Long term (current) use of anticoagulants
CPT/HCPCS: 15852; 36415; 80053; 80202; 85025; 85610; 96365; 96367; J1335; J3370; J7050

== ENCOUNTER 2019-12-14 07:52 | Outpatient (CLI) | payer MEDICARE, SELFPAY | END 2019-12-14 07:53 | disposition home or self-care (01) | LOC: WOUND 07:53 | PROVIDERS: PCP Internal Medicine Cardiovascular Disease; Visit Provider Thoracic Surgery (Cardiothoracic Vascular Surgery) | DX: E11.622 Type 2 diabetes mellitus with other skin ulcer (principal); L98.492 Non-pressure chronic ulcer of skin of other sites with fat layer exposed | CPT/HCPCS: 11042; 11045; G0463 ==

== ENCOUNTER 2020-01-05 08:02 | Outpatient (CLI) | payer MEDICARE, SELFPAY | END 2020-01-05 08:03 | disposition home or self-care (01) | LOC: WOUND 08:02 | PROVIDERS: PCP Internal Medicine Cardiovascular Disease; Visit Provider Thoracic Surgery (Cardiothoracic Vascular Surgery) | DX: E11.622 Type 2 diabetes mellitus with other skin ulcer (principal); L98.492 Non-pressure chronic ulcer of skin of other sites with fat layer exposed | CPT/HCPCS: 11042; 11045 ==

== ENCOUNTER 2020-01-12 08:07 | Outpatient (CLI) | payer MEDICARE, SELFPAY | END 2020-01-12 08:08 | disposition home or self-care (01) | LOC: WOUND 08:08 | PROVIDERS: PCP Internal Medicine Cardiovascular Disease; Visit Provider Thoracic Surgery (Cardiothoracic Vascular Surgery) | DX: E11.622 Type 2 diabetes mellitus with other skin ulcer (principal); L98.492 Non-pressure chronic ulcer of skin of other sites with fat layer exposed | CPT/HCPCS: 11042 ==

== ENCOUNTER 2020-01-13 06:05 | Outpatient (RCR) | payer MEDICARE, SELFPAY ==
[2019-12-16 06:21] VITALS: BMI 33.2
[2019-12-16 06:23] VITALS: BP 103/87; PULSE 81; RESP 18; TEMP 36.4; O2SAT 98
[2019-12-16] MEDS: ertapenem 1,000 MG in sodium chloride 0.9% (plus) 100 ML 200 MG IV (06:59)
[2019-12-17] MEDS: ertapenem 1,000 MG in sodium chloride 0.9% (plus) 100 ML 200 MG IV (06:00)
[2019-12-17 07:26] VITALS: BP 101/77; PULSE 84; RESP 18; TEMP 36.8; O2SAT 97
[2019-12-18] MEDS: ertapenem 1,000 MG in sodium chloride 0.9% (plus) 100 ML 200 MG IV (06:20)
[2019-12-18 06:33] VITALS: BP 110/70; PULSE 80; RESP 18; TEMP 36.7; O2SAT 96
[2019-12-18 06:55] LABS: INR 1.94 (0.8-1.2)
[2019-12-18 07:02] LABS: Alanine Aminotransferase 13 U/L (0-41); Albumin Level 3.8 g/dL (3.5-5.2); Alkaline Phosphatase 127 IU/L (40-130); Anion Gap 14.4 (5-19); Aspartate Amino Transferase 13 U/L (0-40); Blood Urea Nitrogen 27 mg/dL (6-20); Calcium 9.1 mg/dL (8.5-10.5); Carbon Dioxide 24 mmol/L (22-29); Chloride 106 mmol/L (98-107); Globulin 3.2 g/dL (1.3-4.6); Glomerular Filtration Rate 48.4 mL/min (90-130); Glucose 123 mg/dL (65-115); Osmolality Calculated 296 mOsm/kg (285-295); Potassium 4.4 mmol/L (3.5-5.1); Sodium 140 mmol/L (136-145); Total Bilirubin 0.5 mg/dL (0.15-1.2)
[2019-12-18 07:47] LABS: Vancomycin Trough 15.3 ug/mL (10-15)
[2019-12-19] MEDS: ertapenem 1,000 MG in sodium chloride 0.9% (plus) 100 ML 200 MG IV (06:15)
[2019-12-19 06:44] VITALS: BP 108/75; PULSE 79; RESP 16; TEMP 36.6; O2SAT 98
[2019-12-19 06:51] LABS: Basophils # 0.1 10^3/uL (0.0-0.1); Basophils % 0.9 %; Eosinophils # 0.1 10^3/uL (0.0-0.8); Eosinophils % 2.1 %; Hematocrit 31.3 % (42.0-52.0); Hemoglobin 9.7 g/dL (11.7-16.6); Lymphocytes # 1.1 10^3/uL (0.8-4.8); Lymphocytes % 18.2 %; Mean Corpuscular Hemoglobin 29.6 pg (28.0-34.0); Mean Corpuscular Volume 95.4 fL (80-94); Mean Platelet Volume 11.3 fL (7.4-10.4); Monocytes # 0.6 10^3/uL (0.2-0.9); Monocytes % 9.5 %; Neutrophils # 3.98 10^3/uL (1.8-7.7); Nucleated Red Blood Cells % 0 %; Platelet Count 181 10^3/cmm (130-400); Red Blood Count 3.28 10^6/uL (4.1-5.3); Red Cell Distribution Width 16.7 % (12.1-15.1); White Blood Count 5.8 10^3/uL (4.0-10.0)
[2019-12-20] MEDS: ertapenem 1,000 MG in sodium chloride 0.9% (plus) 100 ML 200 MG IV (06:05)
[2019-12-20 06:52] VITALS: BP 110/92; PULSE 87; RESP 18; TEMP 36.7; O2SAT 98
[2019-12-21] MEDS: ertapenem 1,000 MG in sodium chloride 0.9% (plus) 100 ML 200 MG IV (06:26)
[2019-12-21 06:27] VITALS: BP 104/86; PULSE 85; RESP 18; TEMP 36.7; O2SAT 98
[2019-12-22] MEDS: ertapenem 1,000 MG in sodium chloride 0.9% (plus) 100 ML 200 MG IV (06:15)
[2019-12-22 07:13] VITALS: BP 112/78; PULSE 73; RESP 18; TEMP 36.3; O2SAT 99
[2019-12-24] MEDS: ertapenem 1,000 MG in sodium chloride 0.9% (plus) 100 ML 200 MG IV (06:15)
[2019-12-24 07:04] VITALS: BP 111/90; PULSE 84; RESP 18; TEMP 36.2; O2SAT 95
[2019-12-25] MEDS: ertapenem 1,000 MG in sodium chloride 0.9% (plus) 100 ML 200 MG IV (06:05)
[2019-12-25 06:17] VITALS: BP 103/80; PULSE 85; RESP 18; TEMP 36.9; O2SAT 98
[2019-12-26 05:45] VITALS: BP 114/80; PULSE 92; RESP 18; TEMP 36.6; O2SAT 94
[2019-12-26] MEDS: ertapenem 1,000 MG in sodium chloride 0.9% (plus) 100 ML 200 MG IV (06:15)
[2019-12-26 06:28] LABS: Basophils # 0.1 10^3/uL (0.0-0.1); Basophils % 1.1 %; Eosinophils # 0.2 10^3/uL (0.0-0.8); Eosinophils % 2.7 %; Hematocrit 32.3 % (42.0-52.0); Hemoglobin 9.9 g/dL (11.7-16.6); Lymphocytes # 1.2 10^3/uL (0.8-4.8); Lymphocytes % 19.1 %; Mean Corpuscular HGB Conc 30.7 g/dL (30.0-36.0); Mean Corpuscular Volume 94.7 fL (80-94); Mean Platelet Volume 10.7 fL (7.4-10.4); Monocytes # 0.6 10^3/uL (0.2-0.9); Monocytes % 9.9 %; Neutrophils # 4.18 10^3/uL (1.8-7.7); Neutrophils % 66.7 %; Nucleated Red Blood Cells % 0 %; Platelet Count 203 10^3/cmm (130-400); Red Blood Count 3.41 10^6/uL (4.1-5.3); Red Cell Distribution Width 16.3 % (12.1-15.1); White Blood Count 6.3 10^3/uL (4.0-10.0)
[2019-12-26 07:07] LABS: Alanine Aminotransferase 11 U/L (0-41); Albumin Level 3.8 g/dL (3.5-5.2); Alkaline Phosphatase 139 IU/L (40-130); Anion Gap 15.1 (5-19); Aspartate Amino Transferase 12 U/L (0-40); Blood Urea Nitrogen 34 mg/dL (6-20); Calcium 8.9 mg/dL (8.5-10.5); Carbon Dioxide 26 mmol/L (22-29); Chloride 101 mmol/L (98-107); Globulin 3.4 g/dL (1.3-4.6); Glomerular Filtration Rate 39.2 mL/min (90-130); Glucose 145 mg/dL (65-115); Osmolality Calculated 296 mOsm/kg (285-295); Potassium 4.1 mmol/L (3.5-5.1); Sodium 138 mmol/L (136-145); Total Bilirubin 0.4 mg/dL (0.15-1.2); Total Protein 7.2 g/dL (6.6-8.7)
[2019-12-26 07:14] LABS: Vancomycin Trough 16.4 ug/mL (10-15)
[2019-12-26 07:58] LABS: INR 1.72 (0.8-1.2)
[2019-12-27] MEDS: ertapenem 1,000 MG in sodium chloride 0.9% (plus) 100 ML 200 MG IV (06:25)
[2019-12-27 07:49] VITALS: BP 112/88; PULSE 75; RESP 18; TEMP 36.1; O2SAT 96
[2019-12-28] MEDS: ertapenem 1,000 MG in sodium chloride 0.9% (plus) 100 ML 200 MG IV (06:21)
[2019-12-28 06:59] VITALS: BP 133/75; PULSE 70; RESP 18; TEMP 36.7; O2SAT 100
[2019-12-29 06:10] VITALS: BP 102/81; PULSE 80; RESP 18; TEMP 36.6; O2SAT 97
[2019-12-29] MEDS: ertapenem 1,000 MG in sodium chloride 0.9% (plus) 100 ML 200 MG IV (06:30)
[2019-12-31 06:05] VITALS: BP 124/81; PULSE 80; RESP 18; TEMP 36.7; O2SAT 98
[2019-12-31] MEDS: ertapenem 1,000 MG in sodium chloride 0.9% (plus) 100 ML 200 MG IV (06:15)
[2020-01-01] MEDS: ertapenem 1,000 MG in sodium chloride 0.9% (plus) 100 ML 200 MG IV (06:25)
[2020-01-01 06:30] VITALS: BP 107/93; PULSE 90; RESP 18; TEMP 36.2; O2SAT 98
[2020-01-01 07:02] LABS: Alanine Aminotransferase 14 U/L (0-41); Albumin Level 3.9 g/dL (3.5-5.2); Alkaline Phosphatase 126 IU/L (40-130); Anion Gap 14.5 (5-19); Aspartate Amino Transferase 20 U/L (0-40); Blood Urea Nitrogen 39 mg/dL (6-20); Calcium 9.3 mg/dL (8.5-10.5); Carbon Dioxide 27 mmol/L (22-29); Chloride 103 mmol/L (98-107); Globulin 3.4 g/dL (1.3-4.6); Glomerular Filtration Rate 36.9 mL/min (90-130); Glucose 158 mg/dL (65-115); Osmolality Calculated 303 mOsm/kg (285-295); Potassium 4.5 mmol/L (3.5-5.1); Sodium 140 mmol/L (136-145); Total Bilirubin 0.4 mg/dL (0.15-1.2); Total Protein 7.3 g/dL (6.6-8.7)
[2020-01-01 07:05] LABS: Vancomycin Trough 14.5 ug/mL (10-15)
[2020-01-02] MEDS: ertapenem 1,000 MG in sodium chloride 0.9% (plus) 100 ML 200 MG IV (06:12)
[2020-01-02 06:25] VITALS: BP 104/80; PULSE 78; RESP 18; TEMP 36.8; O2SAT 97
[2020-01-03] MEDS: ertapenem 1,000 MG in sodium chloride 0.9% (plus) 100 ML 200 MG IV (06:10)
[2020-01-03 07:00] VITALS: BP 113/91; PULSE 96; RESP 18; TEMP 36.8; O2SAT 97
[2020-01-04] MEDS: ertapenem 1,000 MG in sodium chloride 0.9% (plus) 100 ML 200 MG IV (07:00)
[2020-01-04 07:24] VITALS: BP 128/83; PULSE 92; RESP 18; TEMP 36.8; O2SAT 98
[2020-01-04 08:28] LABS: Basophils # 0.1 10^3/uL (0.0-0.1); Basophils % 0.7 %; Eosinophils # 0.2 10^3/uL (0.0-0.8); Eosinophils % 2.1 %; Hematocrit 33.6 % (42.0-52.0); Hemoglobin 10.4 g/dL (11.7-16.6); Lymphocytes # 1.3 10^3/uL (0.8-4.8); Lymphocytes % 17.9 %; Mean Corpuscular Volume 93.6 fL (80-94); Mean Platelet Volume 10.9 fL (7.4-10.4); Monocytes # 0.6 10^3/uL (0.2-0.9); Neutrophils # 4.91 10^3/uL (1.8-7.7); Neutrophils % 70.3 %; Nucleated Red Blood Cells % 0 %; Platelet Count 201 10^3/cmm (130-400); Red Blood Count 3.59 10^6/uL (4.1-5.3); Red Cell Distribution Width 16.8 % (12.1-15.1)
[2020-01-04 08:54] LABS: INR 1.68 (0.8-1.2)
[2020-01-05] MEDS: ertapenem 1,000 MG in sodium chloride 0.9% (plus) 100 ML 300 MG IV (06:01)
[2020-01-05 06:02] VITALS: BP 102/83; PULSE 80; RESP 18; TEMP 36.6; O2SAT 97
[2020-01-06] MEDS: ertapenem 1,000 MG in sodium chloride 0.9% (plus) 100 ML 200 MG IV (06:14)
[2020-01-06 06:17] VITALS: BP 105/89; PULSE 83; RESP 18; TEMP 35.9; O2SAT 98
[2020-01-07] MEDS: ertapenem 1,000 MG in sodium chloride 0.9% (plus) 100 ML 200 MG IV (06:35)
[2020-01-07 06:38] VITALS: BP 114/83; PULSE 83; RESP 18; TEMP 36.4; O2SAT 97
[2020-01-08] MEDS: ertapenem 1,000 MG in sodium chloride 0.9% (plus) 100 ML 200 MG IV (06:20)
[2020-01-08 06:22] VITALS: BP 100/86; PULSE 91; RESP 18; TEMP 36.8; O2SAT 97
[2020-01-08 06:34] LABS: Basophils # 0.1 10^3/uL (0.0-0.1); Basophils % 1.1 %; Eosinophils # 0.1 10^3/uL (0.0-0.8); Eosinophils % 1.6 %; Hematocrit 31.4 % (42.0-52.0); Hemoglobin 9.9 g/dL (11.7-16.6); Lymphocytes # 1.1 10^3/uL (0.8-4.8); Lymphocytes % 17.3 %; Mean Corpuscular HGB Conc 31.5 g/dL (30.0-36.0); Mean Corpuscular Hemoglobin 29.1 pg (28.0-34.0); Mean Corpuscular Volume 92.4 fL (80-94); Mean Platelet Volume 11.2 fL (7.4-10.4); Monocytes # 0.6 10^3/uL (0.2-0.9); Monocytes % 8.8 %; Neutrophils # 4.38 10^3/uL (1.8-7.7); Neutrophils % 70.1 %; Nucleated Red Blood Cells % 0 %; Platelet Count 211 10^3/cmm (130-400); Red Cell Distribution Width 17.5 % (12.1-15.1); White Blood Count 6.3 10^3/uL (4.0-10.0)
[2020-01-08 07:02] LABS: Alanine Aminotransferase 15 U/L (0-41); Albumin Level 3.8 g/dL (3.5-5.2); Alkaline Phosphatase 162 IU/L (40-130); Anion Gap 13.3 (5-19); Aspartate Amino Transferase 11 U/L (0-40); Blood Urea Nitrogen 36 mg/dL (6-20); Calcium 8.8 mg/dL (8.5-10.5); Carbon Dioxide 25 mmol/L (22-29); Chloride 105 mmol/L (98-107); Globulin 3.2 g/dL (1.3-4.6); Glomerular Filtration Rate 41.9 mL/min (90-130); Glucose 248 mg/dL (65-115); Osmolality Calculated 305 mOsm/kg (285-295); Potassium 4.3 mmol/L (3.5-5.1); Sodium 139 mmol/L (136-145); Total Bilirubin 0.4 mg/dL (0.15-1.2)
[2020-01-08 07:23] LABS: Vancomycin Trough 17.2 ug/mL (10-15)
[2020-01-08 07:31] LABS: INR 1.46 (0.8-1.2)
[2020-01-09] MEDS: ertapenem 1,000 MG in sodium chloride 0.9% (plus) 100 ML 200 MG IV (06:17)
[2020-01-09 06:18] VITALS: BP 109/77; PULSE 82; RESP 18; TEMP 36.4; O2SAT 96
[2020-01-10] MEDS: ertapenem 1,000 MG in sodium chloride 0.9% (plus) 100 ML 200 MG IV (06:00)
[2020-01-10 06:48] VITALS: BP 104/89; PULSE 66; RESP 18; TEMP 36.6; O2SAT 98
[2020-01-11] MEDS: ertapenem 1,000 MG in sodium chloride 0.9% (plus) 100 ML 200 MG IV (06:10)
[2020-01-11 06:43] VITALS: BP 110/80; PULSE 92; RESP 18; TEMP 36.7; O2SAT 95
[2020-01-12] MEDS: ertapenem 1,000 MG in sodium chloride 0.9% (plus) 100 ML 200 MG IV (06:15)
[2020-01-12 06:27] VITALS: BP 112/94; PULSE 82; RESP 18; TEMP 36.1; O2SAT 97
[2020-01-13] MEDS: ertapenem 1,000 MG in sodium chloride 0.9% (plus) 100 ML 200 MG IV (06:14)
[2020-01-13 06:16] VITALS: BP 107/87; PULSE 84; RESP 18; TEMP 36.6; O2SAT 97
[2020-01-14] MEDS: ertapenem 1,000 MG in sodium chloride 0.9% (plus) 100 ML 200 MG IV (06:05)
[2020-01-14 06:36] LABS: Basophils # 0.1 10^3/uL (0.0-0.1); Eosinophils # 0.2 10^3/uL (0.0-0.8); Eosinophils % 2.4 %; Hematocrit 32.6 % (42.0-52.0); Hemoglobin 10.4 g/dL (11.7-16.6); Lymphocytes # 1.2 10^3/uL (0.8-4.8); Lymphocytes % 18.3 %; Mean Corpuscular HGB Conc 31.9 g/dL (30.0-36.0); Mean Corpuscular Hemoglobin 29.4 pg (28.0-34.0); Mean Corpuscular Volume 92.1 fL (80-94); Mean Platelet Volume 10.9 fL (7.4-10.4); Monocytes # 0.6 10^3/uL (0.2-0.9); Monocytes % 9.4 %; Neutrophils # 4.62 10^3/uL (1.8-7.7); Nucleated Red Blood Cells % 0 %; Platelet Count 219 10^3/cmm (130-400); Red Blood Count 3.54 10^6/uL (4.1-5.3); Red Cell Distribution Width 18.6 % (12.1-15.1); White Blood Count 6.8 10^3/uL (4.0-10.0)
[2020-01-14 06:48] LABS: INR 1.94 (0.8-1.2)
[2020-01-14 06:54] LABS: Alanine Aminotransferase 14 U/L (0-41); Albumin Level 3.9 g/dL (3.5-5.2); Alkaline Phosphatase 134 IU/L (40-130); Anion Gap 15.2 (5-19); Aspartate Amino Transferase 14 U/L (0-40); Blood Urea Nitrogen 36 mg/dL (6-20); Calcium 9.2 mg/dL (8.5-10.5); Carbon Dioxide 24 mmol/L (22-29); Chloride 103 mmol/L (98-107); Globulin 3.5 g/dL (1.3-4.6); Glomerular Filtration Rate 44.9 mL/min (90-130); Glucose 204 mg/dL (65-115); Osmolality Calculated 300 mOsm/kg (285-295); Potassium 4.2 mmol/L (3.5-5.1); Sodium 138 mmol/L (136-145); Total Bilirubin 0.4 mg/dL (0.15-1.2); Total Protein 7.4 g/dL (6.6-8.7)
[2020-01-14 07:28] VITALS: BP 101/86; PULSE 85; RESP 18; TEMP 36.6; O2SAT 97
[2020-01-15] MEDS: ertapenem 1,000 MG in sodium chloride 0.9% (plus) 100 ML 200 MG IV (06:10)
[2020-01-15 06:27] VITALS: BP 102/82; PULSE 84; RESP 18; TEMP 36.8; O2SAT 96
== END 2020-01-15 23:59 | disposition home or self-care (01) ==
LOC: OPS 06:05
PROVIDERS: PCP Internal Medicine Cardiovascular Disease; Visit Provider Nurse Practitioner
DX: T82.7XXA Infection and inflammatory reaction due to other cardiac and vascular devices, implants and grafts, initial encounter (principal); Y84.8 Other medical procedures as the cause of abnormal reaction of the patient, or of later complication, without mention of misadventure at the time of the procedure; Z79.01 Long term (current) use of anticoagulants
CPT/HCPCS: 15852; 36415; 36592; 80053; 80202; 85025; 85610; 96365; 96366; 96367; J1335; J3370; J7050

== ENCOUNTER 2020-01-16 06:58 | Outpatient (RCR) | payer MEDICARE, SELFPAY ==
[2020-01-16] MEDS: ertapenem 1,000 MG in sodium chloride 0.9% (plus) 100 ML 200 MG IV (07:28)
[2020-01-16 07:38] VITALS: BP 113/87; PULSE 89; RESP 18; TEMP 36.6; O2SAT 95
[2020-01-16 07:42] VITALS: BMI 33.2
[2020-01-17] MEDS: ertapenem 1,000 MG in sodium chloride 0.9% (plus) 100 ML 200 MG IV (06:10)
[2020-01-17 07:01] VITALS: BP 97/81; PULSE 89; RESP 18; TEMP 36.7; O2SAT 96
[2020-01-18] MEDS: ertapenem 1,000 MG in sodium chloride 0.9% (plus) 100 ML 200 MG IV (06:16)
[2020-01-18 06:27] VITALS: BP 108/89; PULSE 90; RESP 18; TEMP 37.1; O2SAT 96
[2020-01-19] MEDS: ertapenem 1,000 MG in sodium chloride 0.9% (plus) 100 ML 200 MG IV (06:37)
[2020-01-19 06:39] VITALS: BP 107/85; PULSE 79; RESP 18; TEMP 36.9; O2SAT 98
[2020-01-21] MEDS: ertapenem 1,000 MG in sodium chloride 0.9% (plus) 100 ML 200 MG IV (06:17)
[2020-01-21 06:20] VITALS: BP 116/82; PULSE 81; RESP 18; TEMP 36.7; O2SAT 98
[2020-01-21 06:26] LABS: Basophils # 0.1 10^3/uL (0.0-0.1); Eosinophils # 0.2 10^3/uL (0.0-0.8); Eosinophils % 2.9 %; Hematocrit 32.8 % (42.0-52.0); Hemoglobin 10.5 g/dL (11.7-16.6); Lymphocytes # 1.2 10^3/uL (0.8-4.8); Lymphocytes % 19.2 %; Mean Corpuscular Hemoglobin 29.6 pg (28.0-34.0); Mean Corpuscular Volume 92.4 fL (80-94); Mean Platelet Volume 10.9 fL (7.4-10.4); Monocytes # 0.6 10^3/uL (0.2-0.9); Monocytes % 9.1 %; Neutrophils # 4.23 10^3/uL (1.8-7.7); Neutrophils % 67.2 %; Nucleated Red Blood Cells % 0 %; Platelet Count 204 10^3/cmm (130-400); Red Blood Count 3.55 10^6/uL (4.1-5.3); Red Cell Distribution Width 19.1 % (12.1-15.1); White Blood Count 6.3 10^3/uL (4.0-10.0)
[2020-01-21 06:42] LABS: Alanine Aminotransferase 14 U/L (0-41); Albumin Level 3.9 g/dL (3.5-5.2); Alkaline Phosphatase 121 IU/L (40-130); Anion Gap 17.2 (5-19); Aspartate Amino Transferase 16 U/L (0-40); Blood Urea Nitrogen 54 mg/dL (6-20); Calcium 8.8 mg/dL (8.5-10.5); Carbon Dioxide 26 mmol/L (22-29); Chloride 102 mmol/L (98-107); Globulin 3.2 g/dL (1.3-4.6); Glomerular Filtration Rate 32.8 mL/min (90-130); Glucose 201 mg/dL (65-115); Osmolality Calculated 312 mOsm/kg (285-295); Potassium 4.2 mmol/L (3.5-5.1); Sodium 141 mmol/L (136-145); Total Bilirubin 0.5 mg/dL (0.15-1.2); Total Protein 7.1 g/dL (6.6-8.7)
[2020-01-22] MEDS: ertapenem 1,000 MG in sodium chloride 0.9% (plus) 100 ML 200 MG IV (06:06)
[2020-01-22 06:22] VITALS: BP 101/80; PULSE 79; RESP 18; TEMP 36.7; O2SAT 98
[2020-01-23] MEDS: ertapenem 1,000 MG in sodium chloride 0.9% (plus) 100 ML 200 MG IV (06:05)
[2020-01-23 06:28] VITALS: BP 96/83; PULSE 81; RESP 18; TEMP 36.7; O2SAT 98
[2020-01-24] MEDS: ertapenem 1,000 MG in sodium chloride 0.9% (plus) 100 ML 200 MG IV (06:10)
[2020-01-24 06:26] VITALS: BP 104/86; PULSE 75; RESP 20; TEMP 36.6; O2SAT 96
[2020-01-25] MEDS: ertapenem 1,000 MG in sodium chloride 0.9% (plus) 100 ML 200 MG IV (06:45)
[2020-01-25 06:46] VITALS: BP 106/90; PULSE 88; RESP 18; TEMP 36.7; O2SAT 98
[2020-01-26] MEDS: ertapenem 1,000 MG in sodium chloride 0.9% (plus) 100 ML 200 MG IV (06:30)
[2020-01-26 06:40] VITALS: BP 98/64; PULSE 86; RESP 18; TEMP 36.7; O2SAT 98
[2020-01-27] MEDS: ertapenem 1,000 MG in sodium chloride 0.9% (plus) 100 ML 200 MG IV (06:23)
[2020-01-27 06:24] VITALS: BP 109/89; PULSE 75; RESP 18; TEMP 36.3; O2SAT 96
[2020-01-28] MEDS: ertapenem 1,000 MG in sodium chloride 0.9% (plus) 100 ML 200 MG IV (06:31)
[2020-01-28 06:32] VITALS: BP 113/85; PULSE 84; RESP 18; TEMP 36.2; O2SAT 99
[2020-01-28 06:43] LABS: Basophils # 0.1 10^3/uL (0.0-0.1); Eosinophils # 0.2 10^3/uL (0.0-0.8); Eosinophils % 2.2 %; Hematocrit 32.2 % (42.0-52.0); Hemoglobin 10.3 g/dL (11.7-16.6); Lymphocytes # 1.1 10^3/uL (0.8-4.8); Lymphocytes % 16.6 %; Mean Corpuscular Hemoglobin 29.3 pg (28.0-34.0); Mean Corpuscular Volume 91.5 fL (80-94); Monocytes # 0.7 10^3/uL (0.2-0.9); Monocytes % 9.5 %; Neutrophils % 70.1 %; Nucleated Red Blood Cells % 0 %; Platelet Count 210 10^3/cmm (130-400); Red Blood Count 3.52 10^6/uL (4.1-5.3); Red Cell Distribution Width 20.1 % (12.1-15.1); White Blood Count 6.9 10^3/uL (4.0-10.0)
[2020-01-28 06:49] LABS: INR 3.23 (0.8-1.2)
[2020-01-28 06:55] LABS: Alanine Aminotransferase 15 U/L (0-41); Albumin Level 4.1 g/dL (3.5-5.2); Alkaline Phosphatase 130 IU/L (40-130); Anion Gap 16.3 (5-19); Aspartate Amino Transferase 14 U/L (0-40); Blood Urea Nitrogen 56 mg/dL (6-20); Carbon Dioxide 25 mmol/L (22-29); Chloride 101 mmol/L (98-107); Globulin 3.4 g/dL (1.3-4.6); Glomerular Filtration Rate 44.9 mL/min (90-130); Glucose 274 mg/dL (65-115); Osmolality Calculated 311 mOsm/kg (285-295); Potassium 4.3 mmol/L (3.5-5.1); Sodium 138 mmol/L (136-145); Total Bilirubin 0.4 mg/dL (0.15-1.2); Total Protein 7.5 g/dL (6.6-8.7)
[2020-01-31 06:10] VITALS: BP 110/89; PULSE 87; RESP 18; TEMP 36.3; O2SAT 99
[2020-01-31] MEDS: ertapenem 1,000 MG in sodium chloride 0.9% (plus) 100 ML 200 MG IV (06:20)
[2020-02-01] MEDS: ertapenem 1,000 MG in sodium chloride 0.9% (plus) 100 ML 200 MG IV (06:00)
[2020-02-01 06:19] VITALS: BP 113/87; PULSE 92; RESP 18; TEMP 36.3; O2SAT 98
[2020-02-02] MEDS: ertapenem 1,000 MG in sodium chloride 0.9% (plus) 100 ML 200 MG IV (06:10)
[2020-02-02 06:14] VITALS: BP 101/83; PULSE 96; RESP 18; TEMP 36.4; O2SAT 96
[2020-02-03 06:16] VITALS: BP 116/93; PULSE 72; RESP 18; TEMP 36.2
[2020-02-03] MEDS: ertapenem 1,000 MG in sodium chloride 0.9% (plus) 100 ML 200 MG IV (06:16)
[2020-02-04] MEDS: ertapenem 1,000 MG in sodium chloride 0.9% (plus) 100 ML 200 MG IV (06:10)
[2020-02-04 06:24] VITALS: PULSE 84; RESP 18; TEMP 36.1; O2SAT 97
[2020-02-05] MEDS: ertapenem 1,000 MG in sodium chloride 0.9% (plus) 100 ML 200 MG IV (06:10)
[2020-02-05 06:27] VITALS: BP 100/60; PULSE 84; RESP 16; TEMP 36.6; O2SAT 97
[2020-02-06] MEDS: ertapenem 1,000 MG in sodium chloride 0.9% (plus) 100 ML 200 MG IV (07:36)
[2020-02-06 07:54] VITALS: BP 109/91; PULSE 103; RESP 18; TEMP 36.6; O2SAT 95
[2020-02-07] MEDS: ertapenem 1,000 MG in sodium chloride 0.9% (plus) 100 ML 200 MG IV (06:20)
[2020-02-07 06:21] VITALS: BP 118/92; PULSE 54; RESP 18; TEMP 36.6; O2SAT 98
[2020-02-08] MEDS: ertapenem 1,000 MG in sodium chloride 0.9% (plus) 100 ML 200 MG IV (07:30)
[2020-02-08 07:31] VITALS: BP 118/93; PULSE 94; RESP 18; TEMP 36.1; O2SAT 100
[2020-02-09] MEDS: ertapenem 1,000 MG in sodium chloride 0.9% (plus) 100 ML 200 MG IV (06:05)
[2020-02-09 06:47] VITALS: BP 108/91; PULSE 88; RESP 18; TEMP 36.5; O2SAT 95
[2020-02-10] MEDS: ertapenem 1,000 MG in sodium chloride 0.9% (plus) 100 ML 200 MG IV (06:00)
[2020-02-10 06:24] VITALS: BP 99/81; PULSE 93; RESP 18; TEMP 36.4; O2SAT 96
[2020-02-11] MEDS: ertapenem 1,000 MG in sodium chloride 0.9% (plus) 100 ML 200 MG IV (06:05)
[2020-02-11 06:10] VITALS: BP 110/60; PULSE 81; RESP 18; TEMP 36.3; O2SAT 96
[2020-02-12 05:57] VITALS: BP 110/87; PULSE 90; RESP 18; TEMP 36.6; O2SAT 94
[2020-02-12] MEDS: ertapenem 1,000 MG in sodium chloride 0.9% (plus) 100 ML 200 MG IV (06:04)
[2020-02-13] MEDS: ertapenem 1,000 MG in sodium chloride 0.9% (plus) 100 ML 200 MG IV (06:00)
[2020-02-13 06:18] VITALS: BP 103/82; PULSE 93; RESP 18; TEMP 36.7; O2SAT 93
[2020-02-14] MEDS: ertapenem 1,000 MG in sodium chloride 0.9% (plus) 100 ML 200 MG IV (06:03)
[2020-02-14 06:05] VITALS: BP 117/88; PULSE 85; RESP 16; TEMP 36.3; O2SAT 97
== END 2020-02-14 23:59 | disposition home or self-care (01) ==
LOC: OPS 06:58
PROVIDERS: PCP Internal Medicine Cardiovascular Disease; Visit Provider Nurse Practitioner
DX: T82.7XXA Infection and inflammatory reaction due to other cardiac and vascular devices, implants and grafts, initial encounter (principal); Z79.01 Long term (current) use of anticoagulants
CPT/HCPCS: 15852; 36415; 80053; 85025; 85610; 96365; 96367; J1335; J3370; J7050

== ENCOUNTER 2020-01-19 07:59 | Outpatient (CLI) | payer MEDICARE, SELFPAY | END 2020-01-19 08:00 | disposition home or self-care (01) | LOC: WOUND 08:00 | PROVIDERS: PCP Internal Medicine Cardiovascular Disease; Visit Provider Thoracic Surgery (Cardiothoracic Vascular Surgery) | DX: E11.622 Type 2 diabetes mellitus with other skin ulcer (principal); L98.492 Non-pressure chronic ulcer of skin of other sites with fat layer exposed | CPT/HCPCS: 11042 ==

== ENCOUNTER 2020-01-25 08:08 | Outpatient (CLI) | payer MEDICARE, SELFPAY | END 2020-01-25 08:09 | disposition home or self-care (01) | LOC: WOUND 08:09 | PROVIDERS: PCP Internal Medicine Cardiovascular Disease; Visit Provider Thoracic Surgery (Cardiothoracic Vascular Surgery) | DX: E11.622 Type 2 diabetes mellitus with other skin ulcer (principal); L98.492 Non-pressure chronic ulcer of skin of other sites with fat layer exposed | CPT/HCPCS: 11042 ==

== ENCOUNTER 2020-02-09 07:51 | Outpatient (CLI) | payer MEDICARE, SELFPAY | END 2020-02-09 07:52 | disposition home or self-care (01) | LOC: WOUND 07:52 | PROVIDERS: PCP Internal Medicine Cardiovascular Disease; Visit Provider Nurse Practitioner Family | DX: E11.622 Type 2 diabetes mellitus with other skin ulcer (principal); L98.492 Non-pressure chronic ulcer of skin of other sites with fat layer exposed | CPT/HCPCS: 11042 ==

== ENCOUNTER 2020-02-23 07:54 | Outpatient (CLI) | payer MEDICARE, SELFPAY | END 2020-02-23 07:55 | disposition home or self-care (01) | LOC: WOUND 07:55 | PROVIDERS: PCP Internal Medicine Cardiovascular Disease; Visit Provider Nurse Practitioner Family | DX: Z09 Encounter for follow-up examination after completed treatment for conditions other than malignant neoplasm (principal) | CPT/HCPCS: 99212 ==

== ENCOUNTER 2020-03-14 08:59 | Outpatient (RCR) | payer MEDICARE, SELFPAY ==
[2020-02-15] MEDS: ertapenem 1,000 MG in sodium chloride 0.9% (plus) 100 ML 200 MG IV (06:00)
[2020-02-15 06:40] VITALS: BP 123/79; PULSE 89; RESP 18; TEMP 35.9; O2SAT 99; BMI 33.0
[2020-02-16] MEDS: ertapenem 1,000 MG in sodium chloride 0.9% (plus) 100 ML 200 MG IV (06:05)
[2020-02-16 06:08] VITALS: BP 111/88; PULSE 83; RESP 18; TEMP 36.2; O2SAT 97
[2020-02-16 06:30] VITALS: BMI 33.0
[2020-02-17] MEDS: ertapenem 1,000 MG in sodium chloride 0.9% (plus) 100 ML 200 MG IV (06:14)
[2020-02-17 06:22] VITALS: BP 101/69; PULSE 86; RESP 18; TEMP 36.6; O2SAT 96
[2020-02-18] MEDS: ertapenem 1,000 MG in sodium chloride 0.9% (plus) 100 ML 200 MG IV (06:10)
[2020-02-18 06:22] VITALS: BP 101/85; PULSE 101; RESP 18; TEMP 36.4; O2SAT 97
[2020-02-18 06:24] LABS: Basophils # 0.1 10^3/uL (0.0-0.1); Eosinophils # 0.2 10^3/uL (0.0-0.8); Eosinophils % 2.4 %; Hematocrit 31.7 % (42.0-52.0); Hemoglobin 10.6 g/dL (11.7-16.6); Lymphocytes # 1.3 10^3/uL (0.8-4.8); Lymphocytes % 18.7 %; Mean Corpuscular HGB Conc 33.4 g/dL (30.0-36.0); Mean Corpuscular Hemoglobin 29.9 pg (28.0-34.0); Mean Corpuscular Volume 89.5 fL (80-94); Mean Platelet Volume 10.7 fL (7.4-10.4); Monocytes # 0.6 10^3/uL (0.2-0.9); Monocytes % 8.8 %; Neutrophils % 68.3 %; Nucleated Red Blood Cells % 0 %; Platelet Count 212 10^3/cmm (130-400); Red Blood Count 3.54 10^6/uL (4.1-5.3); Red Cell Distribution Width 20.7 % (12.1-15.1); White Blood Count 7.2 10^3/uL (4.0-10.0)
[2020-02-18 06:34] LABS: INR 2.58 (0.8-1.2)
[2020-02-18 06:41] LABS: Alanine Aminotransferase 13 U/L (0-41); Albumin Level 3.9 g/dL (3.5-5.2); Alkaline Phosphatase 152 IU/L (40-130); Anion Gap 15.1 (5-19); Aspartate Amino Transferase 12 U/L (0-40); Blood Urea Nitrogen 48 mg/dL (6-20); Calcium 8.9 mg/dL (8.5-10.5); Carbon Dioxide 26 mmol/L (22-29); Chloride 103 mmol/L (98-107); Globulin 3.3 g/dL (1.3-4.6); Glomerular Filtration Rate 41.9 mL/min (90-130); Glucose 321 mg/dL (65-115); Osmolality Calculated 315 mOsm/kg (285-295); Potassium 4.1 mmol/L (3.5-5.1); Sodium 140 mmol/L (136-145); Total Bilirubin 0.5 mg/dL (0.15-1.2); Total Protein 7.2 g/dL (6.6-8.7)
[2020-02-19] MEDS: ertapenem 1,000 MG in sodium chloride 0.9% (plus) 100 ML 200 MG IV (06:10)
[2020-02-19 06:20] VITALS: BP 103/78; PULSE 92; RESP 18; TEMP 36.5; O2SAT 95
[2020-02-20] MEDS: ertapenem 1,000 MG in sodium chloride 0.9% (plus) 100 ML 200 MG IV (06:00)
[2020-02-20 06:19] VITALS: BP 105/85; PULSE 87; RESP 18; TEMP 36; O2SAT 96
[2020-02-21] MEDS: ertapenem 1,000 MG in sodium chloride 0.9% (plus) 100 ML 200 MG IV (06:09)
[2020-02-21 06:26] VITALS: BP 111/77; PULSE 88; RESP 18; TEMP 36.1; O2SAT 96
[2020-02-22] MEDS: ertapenem 1,000 MG in sodium chloride 0.9% (plus) 100 ML 200 MG IV (06:15)
[2020-02-22 06:59] VITALS: BP 111/82; PULSE 95; RESP 18; TEMP 36.1; O2SAT 99
[2020-02-23] MEDS: ertapenem 1,000 MG in sodium chloride 0.9% (plus) 100 ML 200 MG IV (06:32)
[2020-02-23 06:33] VITALS: BP 119/86; PULSE 92; RESP 18; TEMP 36.5; O2SAT 97
[2020-02-24] MEDS: ertapenem 1,000 MG in sodium chloride 0.9% (plus) 100 ML 200 MG IV (06:13)
[2020-02-24 06:19] VITALS: BP 114/81; PULSE 92; RESP 18; TEMP 36.4; O2SAT 94
[2020-02-25 06:27] LABS: Hematocrit 32.9 % (42.0-52.0); Hemoglobin 10.8 g/dL (11.7-16.6); Lymphocytes # 0.7 10^3/uL (0.8-4.8); Lymphocytes % 6.3 %; Mean Corpuscular HGB Conc 32.8 g/dL (30.0-36.0); Mean Corpuscular Hemoglobin 30.1 pg (28.0-34.0); Mean Corpuscular Volume 91.6 fL (80-94); Mean Platelet Volume 10.8 fL (7.4-10.4); Monocytes # 0.5 10^3/uL (0.2-0.9); Neutrophils # 9.48 10^3/uL (1.8-7.7); Neutrophils % 87.9 %; Nucleated Red Blood Cells % 0 %; Platelet Count 253 10^3/cmm (130-400); Red Blood Count 3.59 10^6/uL (4.1-5.3); Red Cell Distribution Width 19.5 % (12.1-15.1); White Blood Count 10.8 10^3/uL (4.0-10.0)
[2020-02-25] MEDS: ertapenem 1,000 MG in sodium chloride 0.9% (plus) 100 ML 200 MG IV (06:29)
[2020-02-25 06:30] VITALS: BP 123/88; PULSE 101; RESP 18; TEMP 36.1; O2SAT 96
[2020-02-25 06:38] LABS: INR 3.16 (0.8-1.2)
[2020-02-25 06:43] LABS: Alanine Aminotransferase 16 U/L (0-41); Albumin Level 3.8 g/dL (3.5-5.2); Alkaline Phosphatase 256 IU/L (40-130); Anion Gap 14.7 (5-19); Aspartate Amino Transferase 10 U/L (0-40); Blood Urea Nitrogen 57 mg/dL (6-20); Calcium 9.6 mg/dL (8.5-10.5); Carbon Dioxide 26 mmol/L (22-29); Chloride 95 mmol/L (98-107); Globulin 3.5 g/dL (1.3-4.6); Glomerular Filtration Rate 39.2 mL/min (90-130); Potassium 4.7 mmol/L (3.5-5.1); Sodium 131 mmol/L (136-145); Total Bilirubin 0.3 mg/dL (0.15-1.2); Total Protein 7.3 g/dL (6.6-8.7)
[2020-02-25 06:56] LABS: Glucose 826 mg/dL (65-115); Osmolality Calculated 328 mOsm/kg (285-295)
[2020-02-25 07:23] LABS: Glucose Point of Care > 600 mg/dL (70-110)
--- NOTE | 2020-02-25 07:41 | PC.NURSE ---
THIS NURSE NOTIFIED BY LAB THAT GLUCOSE IS 826. THIS WAS AFTER PATIENT HAD ALREADY LEFT AFTER HIS APPOINTMENT. PATIENT WAS IMMEDIATELY CALLED TO COME BACK AND HAVE GLUCOSE RECHECKED. PATIENT DROVE BACK WITHIN 20 MINUTES AND GLUCOSE READ HI ON ACCU CHECK. BLOOD WAS DRAWN VIA VENOUS STICK AND SENT TO LAB AND ORDERED STAT. PATIENT WAS TOLD TO GO STRAIGHT TO ER REGARDING HIS GLUCOSE. PT STATED HE WAS NOT STAYING AND THAT HE WAS GOING HOME. PT ALSO STATED THAT HE FELT GOOD AND THAT HE EXPECTED HIS GLUCOSE TO BE HIGH D/T THE CORTISONE SHOTS HE'S HAD TWO DAYS AGO, HE HAD DRANK CHOCOLATE MILK LAST NIGHT, AND HAD NOT TAKEN ANY INSULIN THIS AM. HE LEFT BEFORE SIGNING OUT AMA. PT REQUESTED JUST BEING CALLED WHEN PHYSICIAN NOTIFIED. AFTER PATIENT LEFT, THIS NURSE ATTEMPTED TO NOTIFIY DR. PITTMAN, PATIENT'S RUG CLEANER HELPER IN [facility] WHO MANAGES THE LVAD LINE. CLINIC WAS CLOSED AND THE TIRE MECHANIC ATTEMPTED TO REACH HIM. THE VOCATIONAL NURSING INSTRUCTOR NAMED ELIZABETH WAS REACHED AND THIS NURSE INSISTED TO SPEAK WITH THE PHYSICIAN OR OFFSHORE DIVER NURSE. SHE STATED THAT SHE NEEDED TO TAKE THE INFORMATION AND WOULD CONTACT THE OFFSHORE DIVER NURSE FOR DR. PITTMAN. THIS NURSE STATED THIS WAS AN EMERGENCY AND HAD CRITICAL GLUCOSE LEVEL OF [address] AND NEEDED THIS INFORMATION RELAYED STAT. SHE WAS ALSO TOLD THAT MR. FERNANDEZ AND LEFT AMA AND TO RELAY INFORMATION WELL. SHE STATED SHE WOULD HAVE THE OFFSHORE DIVER NURSE CALL ME BACK WOOD.
[2020-02-25 07:53] LABS: Alanine Aminotransferase 16 U/L (0-41); Albumin Level 4.1 g/dL (3.5-5.2); Alkaline Phosphatase 245 IU/L (40-130); Anion Gap 18.9 (5-19); Aspartate Amino Transferase 11 U/L (0-40); Blood Urea Nitrogen 60 mg/dL (6-20); Calcium 9.7 mg/dL (8.5-10.5); Carbon Dioxide 22 mmol/L (22-29); Chloride 93 mmol/L (98-107); Globulin 3.4 g/dL (1.3-4.6); Glomerular Filtration Rate 39.2 mL/min (90-130); Osmolality Calculated 319 mOsm/kg (285-295); Potassium 4.9 mmol/L (3.5-5.1); Sodium 129 mmol/L (136-145); Total Bilirubin 0.3 mg/dL (0.15-1.2); Total Protein 7.5 g/dL (6.6-8.7)
[2020-02-25 07:57] LABS: Glucose 720 mg/dL (65-115)
--- NOTE | 2020-02-25 07:57 | PC.NURSE ---
NOTIFIED ORLANDO SYED, RN, DR. PITTMAN'S NURSE THAT PATIENT'S GLUCOSE WAS 826 AND NOW 720 AFTER REPEATED LAB. SHE STATED SHE WOULD CALL MR. FERNANDEZ AND ENCOURAGED HIM TO GO THE NEAREST EMERGENCY ROOM. SHE STATED PATIENT WILL MOST LIKELY REFUSE, BUT EVERYTHING WILL BE DOCUMENTED.
[2020-02-26] MEDS: ertapenem 1,000 MG in sodium chloride 0.9% (plus) 100 ML 200 MG IV (07:15)
[2020-02-26 07:29] VITALS: BP 140/78; PULSE 96; RESP 18; TEMP 36; O2SAT 96
[2020-02-27] MEDS: ertapenem 1,000 MG in sodium chloride 0.9% (plus) 100 ML 200 MG IV (06:10)
[2020-02-27 06:23] VITALS: BP 113/93; PULSE 96; RESP 18; TEMP 36.2; O2SAT 97
[2020-02-27 06:24] LABS: Glucose Point of Care 400 mg/dL (70-110)
--- NOTE | 2020-02-27 06:26 | PC.NURSE ---
pt requested bs to be taken. He stated it was 800 a few days prior. He recently had cortisone shots to both knees and ankles he said. He had refused to get any medical assistance with the 800 BS. Today it was 400. I encouraged him to seek medical attention However he said he is taken care of it himself. He has no blurry vision and states he feels great.
[2020-02-28] MEDS: ertapenem 1,000 MG in sodium chloride 0.9% (plus) 100 ML 200 MG IV (12:46)
[2020-02-28 13:35] VITALS: BP 133/75; PULSE 98; RESP 18; TEMP 35.8; O2SAT 98
[2020-02-29] MEDS: ertapenem 1,000 MG in sodium chloride 0.9% (plus) 100 ML 200 MG IV (06:08)
[2020-02-29 06:13] VITALS: BP 132/97; PULSE 97; RESP 18; TEMP 36.3; O2SAT 97
[2020-03-01 06:00] VITALS: BP 102/84; PULSE 89; RESP 18; TEMP 36; O2SAT 94
[2020-03-01] MEDS: ertapenem 1,000 MG in sodium chloride 0.9% (plus) 100 ML 200 MG IV (06:00)
[2020-03-03] MEDS: ertapenem 1,000 MG in sodium chloride 0.9% (plus) 100 ML 200 MG IV (06:10)
[2020-03-03 06:36] LABS: Glucose Point of Care 416 mg/dL (70-110)
[2020-03-03 06:46] VITALS: BP 103/86; PULSE 90; RESP 18; O2SAT 98
--- NOTE | 2020-03-03 07:46 | PC.NURSE ---
Pt requested his blood sugar to be checked. He stated it has been running 800, but had dropped to the the 200s in the last few days. His glucose today was 415. I instructed the pt to call his doctor's office that tx his diabetes and get direction on what to do immediately and any changes that may need to be made to his care. The pt verbalized understanding.
[2020-03-04] MEDS: ertapenem 1,000 MG in sodium chloride 0.9% (plus) 100 ML 200 MG IV (06:05)
[2020-03-04 06:08] VITALS: BP 103/81; PULSE 86; RESP 16; TEMP 36.5; O2SAT 95
[2020-03-05] MEDS: ertapenem 1,000 MG in sodium chloride 0.9% (plus) 100 ML 200 MG IV (06:11)
[2020-03-05 06:22] VITALS: BP 115/83; PULSE 86; RESP 18; TEMP 36.4; O2SAT 98
[2020-03-06] MEDS: ertapenem 1,000 MG in sodium chloride 0.9% (plus) 100 ML 200 MG IV (06:15)
[2020-03-06 06:17] VITALS: BP 118/88; PULSE 87; RESP 18; TEMP 36.5; O2SAT 97
[2020-03-07] MEDS: ertapenem 1,000 MG in sodium chloride 0.9% (plus) 100 ML 200 MG IV (06:00)
[2020-03-07 06:11] VITALS: BP 109/84; PULSE 76; RESP 18; TEMP 36.6; O2SAT 96
[2020-03-08] MEDS: ertapenem 1,000 MG in sodium chloride 0.9% (plus) 100 ML 200 MG IV (06:07)
[2020-03-08 06:25] VITALS: BP 109/88; PULSE 82; RESP 18; TEMP 36.2; O2SAT 97
--- NOTE | 2020-03-08 08:59 | SUR.PREOP ---
Patient stated today that he was called by his infectious disease DrNeida yesterday and told he would be discontinuing his infusions this Saturday 03/10. 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 I contacted the [facility] clinic- Dr. Vance ([phone]) about a new order to be sent to [facility] [place] for a new PT/INR machine. I contacted the Infectious Disease clinic at [facility] Dr. Andrews ) and left a message for them to contact us about his order to DC his antibiotic and central line.
[2020-03-09] MEDS: ertapenem 1,000 MG in sodium chloride 0.9% (plus) 100 ML 200 MG IV (06:14)
--- NOTE | 2020-03-09 06:22 | PC.NURSE ---
Patients correct physicians added to care team. Dr. Carlos Vance is his Volleyball Commentator at the [facility], Dr. Asa Matta is his Infectious Disease provider. Patient says he does not remember ever seeing Cony Beaver NP or Dr. Vernon Guo.
[2020-03-09 06:25] VITALS: BP 103/80; PULSE 84; RESP 18; TEMP 36.2; O2SAT 95
--- NOTE | 2020-03-09 08:53 | PC.NURSE ---
patient received call from Infectious Disease clinic this morning and was told they would work on sending the order to DC antibiotics and central line but may not get them sent until Friday or Friday of next week. I was unable to reach anyone when I called this morning for orders. He said he would continue coming until the order was received to DC.
[2020-03-10] MEDS: ertapenem 1,000 MG in sodium chloride 0.9% (plus) 100 ML 200 MG IV (06:10)
[2020-03-10 06:22] LABS: Basophils # 0.1 10^3/uL (0.0-0.1); Basophils % 1.1 %; Eosinophils # 0.2 10^3/uL (0.0-0.8); Eosinophils % 2.2 %; Hematocrit 34.8 % (42.0-52.0); Hemoglobin 11.9 g/dL (11.7-16.6); Lymphocytes # 1.5 10^3/uL (0.8-4.8); Lymphocytes % 17.4 %; Mean Corpuscular HGB Conc 34.2 g/dL (30.0-36.0); Mean Corpuscular Hemoglobin 30.2 pg (28.0-34.0); Mean Corpuscular Volume 88.3 fL (80-94); Mean Platelet Volume 10.9 fL (7.4-10.4); Monocytes # 0.7 10^3/uL (0.2-0.9); Monocytes % 8.2 %; Neutrophils # 6.01 10^3/uL (1.8-7.7); Neutrophils % 70.2 %; Nucleated Red Blood Cells % 0 %; Platelet Count 220 10^3/cmm (130-400); Red Blood Count 3.94 10^6/uL (4.1-5.3); Red Cell Distribution Width 17.6 % (12.1-15.1); White Blood Count 8.6 10^3/uL (4.0-10.0)
[2020-03-10 06:24] VITALS: BP 99/85; PULSE 82; RESP 18; TEMP 36.3; O2SAT 97
[2020-03-10 06:33] LABS: INR 3.76 (0.8-1.2)
[2020-03-10 06:41] LABS: Alanine Aminotransferase 26 U/L (0-41); Albumin Level 3.8 g/dL (3.5-5.2); Alkaline Phosphatase 174 IU/L (40-130); Anion Gap 13.2 (5-19); Aspartate Amino Transferase 18 U/L (0-40); Blood Urea Nitrogen 46 mg/dL (6-20); Calcium 9.6 mg/dL (8.5-10.5); Carbon Dioxide 32 mmol/L (22-29); Chloride 94 mmol/L (98-107); Globulin 3.2 g/dL (1.3-4.6); Glomerular Filtration Rate 48.4 mL/min (90-130); Glucose 448 mg/dL (65-115); Osmolality Calculated 311 mOsm/kg (285-295); Potassium 4.2 mmol/L (3.5-5.1); Sodium 135 mmol/L (136-145); Total Bilirubin 0.8 mg/dL (0.15-1.2)
[2020-03-14 09:05] VITALS: BP 109/86; PULSE 82; RESP 18; TEMP 36.1; O2SAT 99
--- NOTE | 2020-03-14 10:30 | SUR.PREOP ---
[address] Asa Matta to remove central line. Sutures to right chest central line removed. Attempt at removing central line unsuccessful. Moderate amount of pressure used while attempting to pull line with line staying firmly in place. Pt denies pain with central line removal attempt. Dr. Matta's office notified of inability to remove central line from right chest. Leonie, Dr. Matta's nurse, stated she would notify patient of further orders for central line removal. Dressing to right chest central line replaced using sterile technique. Pt denies pain, difficulty breathing, or shortness of breath. Central line site clear without redness, drainage, or bleeding.
== END 2020-03-16 23:59 | disposition home or self-care (01) ==
LOC: OPS 08:59
PROVIDERS: Internal Medicine Infectious Disease; PCP Internal Medicine Cardiovascular Disease; Visit Provider Nurse Practitioner
DX: T82.7XXA Infection and inflammatory reaction due to other cardiac and vascular devices, implants and grafts, initial encounter (principal)
CPT/HCPCS: 15852; 36415; 36416; 36592; 80053; 82962; 85025; 85610; 96365; J1335

== ENCOUNTER 2020-03-15 23:36 | Emergency (ER) | payer MEDICARE, SELFPAY ==
[2020-03-15 23:43] VITALS: BP 98/75; PULSE 89; RESP 18; TEMP 36.7; O2SAT 95; BMI 33.3
--- NOTE | 2020-03-16 00:09 | ED_ITS ---
HPI - General Adult General: Chief complaint: General Medical Stated complaint: Picc line pulled site still bleeding Time Seen by Provider: 03/15/20 23:54 History of Present Illness: HPI narrative: Patient had central line pulled earlier today up in [place] is been approximately 12 hours to the site is still bleeding oozing blood. Onset (ago): hour(s) Review of Systems Narrative: Patient has applied pressure throughout day without success in stopping bleeding or central line had been pulled is still bleeding Psych: Denies: anxiety or depression Physical Exam Const: COMMON NORMALS: no acute distress Psych: COMMON NORMALS: mental status grossly normal Skin: OTHER: Central line site where it was pulled is oozing blood I went and applied sutures to the area and closed it did use silver nitrate without success on stopping the bleed Procedures Laceration Laceration 1: Site: other (Central line site) Side (If applicable): right Size (cm): 0.5 Description: irregular Size (cm): 4-0 Number of sutures: 3 Technique: other ([id number]) Course Vital Signs: Vital signs: Vital Signs Temperature 98.1 F 03/15/20 23:43 Pulse Rate 89 03/15/20 23:43 Respiratory Rate 18 03/15/20 23:43 Blood Pressure 98/75 03/15/20 23:43 Pulse Oximetry 95 03/15/20 23:43 Discharge Plan Discharge Prescriptions: No Action furosemide 40 mg Tablet 40 mg PO BID RF: 0 carvedilol [Coreg] 6.25 mg Tablet 6.25 mg PO BID RF: 0 warfarin 10 mg Tablet See Rx Instructions .ROUTE .COMPLEX RF: 0 allopurinol 100 mg Tablet 200 mg PO DAILY RF: 0 aspirin 81 mg Tablet,Delayed Release (Dr/Ec) 81 mg PO DAILY RF: 0 sildenafil (pulm.hypertension) 20 mg Tablet 20 mg PO TID RF: 0 Victoza 3-Lenny 0.6 mg/0.1 mL (18 mg/3 mL) Pen Injector 1.8 mg SUBCUT DAILY RF: 0 Tresiba FlexTouch U-200 200 unit/mL (3 mL) Insulin Pen 40 unit SUBCUT DAILY RF: 0 potassium chloride 20 mEq Tablet Extended Release 20 meq PO BID RF: 0 sulfamethoxazole-trimethoprim [Bactrim DS] 800-160 mg Tablet 1 tab PO BID RF: 0 Coding Level of Care Code ED Communications Consultant for Chg Fwd
[2020-03-16] MEDS: silver nitrate applicator 1 EACH TOPICAL (00:22)
[2020-03-16 00:23] VITALS: BP 121/87; PULSE 102; RESP 17; O2SAT 95
== END 2020-03-16 00:23 | disposition home or self-care (01) ==
PROVIDERS: Emergency Provider Nurse Practitioner Family; PCP Internal Medicine Cardiovascular Disease
DX: T82.898A Other specified complication of vascular prosthetic devices, implants and grafts, initial encounter (principal); Z79.01 Long term (current) use of anticoagulants; Z79.4 Long term (current) use of insulin
CPT/HCPCS: 12001; 12345; 99281; 99282

== ENCOUNTER 2020-04-04 00:56 | Emergency (ER) | payer MEDICARE, SELFPAY ==
[2020-04-04 01:38] VITALS: BP 99/76; PULSE 94; RESP 17; TEMP 36.8; O2SAT 98; BMI 33.0
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
[2020-04-04 01:55] VITALS: PULSE 92; RESP 17; O2SAT 96
[2020-04-04 02:19] LABS: Glucose Point of Care 580 mg/dL (70-110)
[2020-04-04] MEDS: sodium chloride 0.9% 500 ML 999 ML IV (02:23)
[2020-04-04] MEDS: insulin regular-human 100 units/1 mL 10 UNIT IVP (02:24)
[2020-04-04 02:32] LABS: INR 2.21 (0.8-1.2)
[2020-04-04 02:35] VITALS: BP 99/73
[2020-04-04 02:35] LABS: Ketone (Acetest) Serum Negative (Negative)
[2020-04-04 02:43] LABS: Alanine Aminotransferase 21 U/L (0-41); Albumin Level 3.7 g/dL (3.5-5.2); Alkaline Phosphatase 163 IU/L (40-130); Anion Gap 16.6 (5-19); Aspartate Amino Transferase 19 U/L (0-40); Blood Urea Nitrogen 35 mg/dL (6-20); Calcium 9.1 mg/dL (8.5-10.5); Carbon Dioxide 23 mmol/L (22-29); Chloride 92 mmol/L (98-107); Glomerular Filtration Rate 44.9 mL/min (90-130); Osmolality Calculated 301 mOsm/kg (285-295); Potassium 4.6 mmol/L (3.5-5.1); Sodium 127 mmol/L (136-145); Total Bilirubin 0.7 mg/dL (0.15-1.2); Total Protein 6.7 g/dL (6.6-8.7)
[2020-04-04 02:43] LABS: Add Urine Microscopic? NO
[2020-04-04 02:44] LABS: Basophils # 0.1 10^3/uL (0.0-0.1); Basophils % 1.2 %; Eosinophils # 0.1 10^3/uL (0.0-0.8); Eosinophils % 1.6 %; Hematocrit 33.2 % (42.0-52.0); Hemoglobin 11.3 g/dL (11.7-16.6); Lymphocytes # 1.4 10^3/uL (0.8-4.8); Mean Corpuscular Hemoglobin 32.5 pg (28.0-34.0); Mean Corpuscular Volume 95.4 fL (80-94); Mean Platelet Volume 10.9 fL (7.4-10.4); Monocytes # 0.6 10^3/uL (0.2-0.9); Monocytes % 8.8 %; Neutrophils # 4.57 10^3/uL (1.8-7.7); Neutrophils % 66.7 %; Nucleated Red Blood Cells % 0 %; Platelet Count 231 10^3/cmm (130-400); Red Blood Count 3.48 10^6/uL (4.1-5.3); Red Cell Distribution Width 20.3 % (12.1-15.1); White Blood Count 6.9 10^3/uL (4.0-10.0)
[2020-04-04 02:46] LABS: Glucose 620 mg/dL (65-115)
[2020-04-04 02:55] LABS: Protein Urine Neg (Negative); Specific Gravity, Urine 1.015 (1.005-1.030); Urine Appearance Clear (CLEAR); Urine Color Yellow (Yellow)
[2020-04-04 02:56] LABS: Bilirubin Urine Neg (Negative); Blood Urine Neg (Negative); Glucose Urine UA 4+ (Normal); Ketones Urine Negative (Negative); Leukocyte Esterase Urine Negative (Negative); Nitrate Urine Negative (Negative); Urobilinogen Urine Norm (Negative)
[2020-04-04 02:58] LABS: Glucose Point of Care 456 mg/dL (70-110)
[2020-04-04 03:21] LABS: ABG PH Result 7.43 (7.35-7.45); Arterial Blood Gas Hematocrit 33.2 % (42-52); Base Excess ABG -0.9 mmol/L (-2.0-2.0); Blood Gas Allen Test Pos; Blood Gas Sample Site Radial, right; Blood Gas Sample Type Arterial; HCO3 ABG 23.1 mmol/L (22-26); PO2 ABG 80.8 mmHg (80.0-100.0)
[2020-04-04 03:54] LABS: Estmated Average Glucose 283; Hemoglobin A1C 11.5 % (4.0-6.0)
[2020-04-04 03:58] VITALS: BP 110/78; O2SAT 98
[2020-04-04 04:00] LABS: Glucose Point of Care 454 mg/dL (70-110)
[2020-04-04 04:53] VITALS: PULSE 88; RESP 19; O2SAT 97
[2020-04-04 04:54] VITALS: BP 102/81; PULSE 96; RESP 19; O2SAT 96
[2020-04-04 04:58] LABS: Glucose Point of Care 428 mg/dL (70-110)
--- NOTE | 2020-04-04 11:35 | DCPLANNER ---
manager building had message to schedule a follow up appointment for patient primary care. manager building called patient he stated that he has a primary care physician at the [facility]. manager building called the [facility], a follow up appointment was scheduled for Friday, April 10, 2020 at 1:30. manager building called patient and gave patient the appointment information.
--- NOTE | 2020-04-20 14:39 | DCPLANNER ---
Patient had a follow up appointment scheduled for 04.10.20 with Elvira Sidhu at [facility] - patient did attend appointment.
== END 2020-04-04 04:57 | disposition home or self-care (01) ==
PROVIDERS: Emergency Medicine; Emergency Provider Nurse Practitioner Family; PCP Internal Medicine Cardiovascular Disease
DX: E11.65 Type 2 diabetes mellitus with hyperglycemia (principal); Z95.811 Presence of heart assist device; Z79.01 Long term (current) use of anticoagulants; Z79.82 Long term (current) use of aspirin; Z79.4 Long term (current) use of insulin
CPT/HCPCS: 12345; 36416; 36600; 80053; 81003; 82009; 82803; 82962; 83036; 85025; 85610; 96372; 96374; 99283; 99284; J1815; J7040

== ENCOUNTER 2020-05-02 08:33 | Emergency (ER) | payer MEDICARE, SELFPAY ==
[2020-05-02 08:35] VITALS: BP 119/86; PULSE 98; RESP 16; TEMP 36.3; O2SAT 98; BMI 31.6
--- NOTE | 2020-05-02 08:36 | XR_ITS ---
WS: [id number] RIGHT ELBOW: 3 VIEW(S) TECHNIQUE: AP, oblique and lateral. HISTORY: pain, no trauma history. COMPARISON: None available. No acute fractures are identified. Small hypertrophic osteophytes or prior avulsion fractures over th e epicondyles bilaterally. There is also mild spurring at the radial neck. Large osteophyte at the ol ecranon. There is a large joint effusion at the elbow. There is also a large amount of soft tissue edema and s welling around the elbow. XR/XR elbow RT min 3V* [id number] IMPRESSION: 1. No acute fracture. 2. Large joint effusion with soft tissue edema. With no history of trauma eval uate for possible septic joint. 3. Degenerative changes in the form of osteophytes at the epicondyles and olec ranon.
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
[2020-05-02 08:45] VITALS: BP 119/86; PULSE 105; RESP 16; O2SAT 100
[2020-05-02 09:14] LABS: Basophils # 0.1 10^3/uL (0.0-0.1); Basophils % 1.1 %; Eosinophils # 0.1 10^3/uL (0.0-0.8); Eosinophils % 1.4 %; Hematocrit 35.4 % (42.0-52.0); Hemoglobin 11.7 g/dL (11.7-16.6); Lymphocytes # 1.7 10^3/uL (0.8-4.8); Lymphocytes % 18.7 %; Mean Corpuscular HGB Conc 33.1 g/dL (30.0-36.0); Mean Corpuscular Hemoglobin 30.2 pg (28.0-34.0); Mean Corpuscular Volume 91.5 fL (80-94); Mean Platelet Volume 10.2 fL (7.4-10.4); Monocytes # 0.7 10^3/uL (0.2-0.9); Monocytes % 7.6 %; Neutrophils # 6.38 10^3/uL (1.8-7.7); Nucleated Red Blood Cells % 0 %; Platelet Count 331 10^3/cmm (130-400); Red Blood Count 3.87 10^6/uL (4.1-5.3); Red Cell Distribution Width 15.8 % (12.1-15.1)
[2020-05-02 09:19] LABS: INR 2.36 (0.8-1.2)
[2020-05-02] MEDS: HYDROcodone-acetaminophen 10-325 mg Tablet 1 TAB PO (09:43)
--- NOTE | 2020-05-02 09:48 | DCPLANNER ---
base manager received message to schedule follow-up appointment with ortho within the next 3 to 4 days. base manager called and spoke to Nickie who took patient's information. Ortho will contact patient with appointment information.
[2020-05-02 09:50] VITALS: BP 118/68; PULSE 100; RESP 18; TEMP 37.1; O2SAT 96
--- NOTE | 2020-05-16 15:10 | DCPLANNER ---
Patient has a follow up appointment scheduled for Saturday, May 23, 2020 at 3:[address] Mccracken at [facility]. Clinic will call patient with appointment information.
--- NOTE | 2020-06-02 08:10 | DCPLANNER ---
Patient had a follow up appointment scheduled for 05.23.[address] Mccracken at [facility] - patient did attend appointment.
== END 2020-05-02 09:54 | disposition home or self-care (01) ==
PROVIDERS: Emergency Provider Family Medicine; PCP Internal Medicine Cardiovascular Disease
DX: M10.9 Gout, unspecified (principal); Z79.01 Long term (current) use of anticoagulants; Z79.82 Long term (current) use of aspirin; Z79.4 Long term (current) use of insulin; I25.10 Atherosclerotic heart disease of native coronary artery without angina pectoris; E11.9 Type 2 diabetes mellitus without complications; I11.0 Hypertensive heart disease with heart failure; I50.9 Heart failure, unspecified
CPT/HCPCS: 73080; 85025; 85610; 86140; 96374; 99283; J2930

== ENCOUNTER → 2020-05-04 13:20 | Day surgery (SDC) | payer MEDICARE, SELFPAY | PROVIDERS: PCP Internal Medicine Cardiovascular Disease; Visit Provider Internal Medicine Infectious Disease | DX: T82.7XXA Infection and inflammatory reaction due to other cardiac and vascular devices, implants and grafts, initial encounter (principal) | CPT/HCPCS: 87070; 87075; 87077; 87186; 87205 ==

== ENCOUNTER → 2020-05-23 15:20 | Outpatient (BNVA) | payer MEDICARE, SELFPAY | PROVIDERS: PCP Family Medicine; Referring Provider Family Medicine; Visit Provider Orthopaedic Surgery | DX: M70.20 Olecranon bursitis, unspecified elbow (principal) | CPT/HCPCS: 80500; 87070; 87075; 87205 ==

== ENCOUNTER 2020-06-06 18:57 | Emergency (ER) | payer MEDICARE, SELFPAY ==
[2020-06-06 19:07] VITALS: BP 95/70; PULSE 92; RESP 22; TEMP 36.8; O2SAT 97; BMI 30.9
--- NOTE | 2020-06-06 19:55 | ED_ITS ---
HPI - Extremity Problem General: Chief complaint: Extremity Problem,Nontraumatic Stated complaint: gout left knee Time Seen by Provider: 06/06/20 19:33 History of Present Illness: HPI Narrative: The patient is a 55-year-old male who comes to the ER complaining of a few days of left knee pain which is increasing. He says he has gout frequently in his knees and elbows bilaterally as well as his feet and gets steroid injections or steroid packs to help. He f channing home orthopedic surgery for this as well. He also has significant CHF and a LVAD. Also history of diabetes on insulin. He says he is able to titrate his insulin to keep his sugars down while on steroids well. 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 Follows Dr. Mccracken and has appointment with him soon. MD Complaint: extremity pain Location: left and knee Quality: sharp Relieving factors: nothing Associated symptoms: Reports no associated symptoms; Deny chest pain or rash Review of Systems General: Reports: 10 or more systems reviewed and unremarkable except in HPI and below Const: Denies: fatigue Eyes: Denies: change in vision, blurry vision or eye redness ENMT: Denies: throat pain, swelling of lips/tongue, ear or mastoid pain or nasal congestion Card: Denies: chest pain, palpitations, irregular heart rhythm, edema, dyspnea on exertion or orthopnea Resp: Denies: dyspnea, productive cough or non-productive cough GI: Denies: abdominal pain, diarrhea or GI cramping : Denies: flank pain, urinary frequency or urinary urgency Musc: Reports: joint pain; Denies: neck pain, back pain, extremity pain, joint redness, limited range of motion or muscle weakness Skin/Breast: Denies: rash, pruritus, erythema, skin pain or skin tenderness Neuro: Denies: headache(s), numbness in extremities, weakness in extremities, sensory changes, difficulty walking, dizziness, confusion or Slurred speech present Psych: Denies: anxiety or depression Endo: Denies: polyuria All/Imm: Denies: urticaria, throat swelling or tongue swelling PFSH ED PFSH: Medical History Arrhythmia CAD (coronary artery disease) Cardiac defibrillator in place CHF (congestive heart failure) Cholecystectomy planned Cholecystitis Chronic kidney disease Diabetes Encounter for central line placement Gallbladder disease Gout Hypertension Ischemic cardiomyopathy LVAD (left ventricular assist device) present Type II diabetes mellitus Surgical History H/O cardiac catheterization History of esophagogastroduodenoscopy (EGD) S/P coronary artery stent placement Social History Smoking and tobacco status: never smoked Second hand smoke exposure: No Alcohol intake: never Physical Exam Const: COMMON NORMALS: no acute distress, average body habitus, patient oriented x3, no limitations, healthy appearing, alert and well nourished GENERAL APPEARANCE: cooperative, comfortable, well kempt and well developed ORIENTATION/CONSCIOUSNESS: Yes awake, Yes oriented to person, Yes oriented to place and Yes oriented to time HENMT: COMMON NORMALS: normocephalic, external ears normal and Normal external nose present HEAD & SCALP: normal to inspection and normocephalic NOSE: Normal external nose present EXTERNAL EAR: Yes external ears normal MOUTH: Normal oral and palatal mucosa present THROAT: posterior oropharynx normal Eye: COMMON NORMALS: Equal, round and reactive pupils present and EOMs intact bilaterally GENERAL EYE: appearance normal, both eyes and all related structures PUPIL: Yes Equal, round and reactive pupils present Neck/C-Spine: COMMON NORMALS: full ROM, no lymphadenopathy, no meningeal signs and no JVD GENERAL: Yes normal visual inspection Lymph: LYMPHATIC: no lymphadenopathy noted Chest: COMMONS NORMALS: normal inspection of the chest and normal palpation of entire chest wall Resp: COMMON NORMALS: normal respiratory effort, No retractions, No use of accessory muscles, clear to auscultation bilaterally and percussion normal EFFORT & INSPECTION: Yes able to speak in complete sentences AUSCULTATION: clear to auscultation bilaterally PERCUSSION: percussion normal Cardio: COMMON NORMALS: no JVD, regular rate, regular rhythm and Peripheral pulses 2+ throughout RATE: regular rate RHYTHM: regular rhythm PERIPHERAL PULSES: Peripheral pulses 2+ throughout OTHER: Noise from LVAD GI: COMMON NORMALS: Normal to inspection, nondistended, normoactive bowel sounds present, Soft to palpation, non-tender and no masses INSPECTION: Yes normal to inspection PALPATION: Yes Soft to palpation : COMMON NORMALS: Yes no CVA tenderness BLADDER/KIDNEY EXAM: Yes no CVA tenderness Back/Pelvis: COMMON NORMALS: no CVA tenderness, thoracic and lumbar spine normal to inspection, no thoracic nor lumbar tenderness and thoraco-lumbar ROM normal Extremity: COMMON NORMALS: normal to inspection, full ROM, capillary refill normal, no joint enlargement and no pedal edema GENERAL: Yes normal exam except as noted Neuro: COMMON NORMALS: patient oriented x3, CN's II-XII intact bilaterally, moves all extremities, no focal motor deficits, no sensory deficits noted and gait normal SENSORIUM/ORIENTATION: Yes alert, Yes oriented to person, Yes oriented to place and Yes oriented to time MENINGEAL SIGNS: Yes no meningeal signs Psych: COMMON NORMALS: mental status grossly normal, Normal thought process present, cooperative, normal affect and speech normal APPEARANCE: Yes well kempt ATTITUDE: Yes calm SPEECH: Yes normal speech THOUGHT PROCESS: Normal thought process present Skin: COMMON NORMALS: no rashes or lesions noted GENERAL SKIN EXAM: no rashes or lesions noted Course Vital Signs: Vital signs: Vital Signs Temperature 98.3 F 06/06/20 19:07 Pulse Rate 91 06/06/20 20:30 Respiratory Rate 14 06/06/20 20:30 Blood Pressure 94/72 06/06/20 20:30 Pulse Oximetry 96 06/06/20 20:30 MDM - Extremity (Nontraumatic) MDM Narrative: Medical decision making narrative: The patient comes to the ER complaining of left knee pain. He has some type of arthritis and has a history of gout. We will treat him with a steroid pack and hydrocodone. Discussed with him not to mix with drugs, alcohol, nor operate machinery while taking this medicine. ER with worsening symptoms. Follow-up with orthopedic surgeon as he already has an appointment scheduled. Also check his kidneys within a week his levels are consistent with his trend but it should be monitored. He is aware of these medical problems as he has an LVAD and follows up regularly. Lab Data: Labs: Lab Results 06/06/20 06/06/20 06/06/20 Range/Units 20:24 20:24 20:24 WBC 9.5 (4.0-10.0) 10^3/ uL RBC 3.66 L (4.1-5.3) 10^6/u L Hgb 10.7 L (11.7-16.6) g/dL Hct 33.6 L (42.0-52.0) % MCV 91.8 (80-94) fL MCH 29.2 (28.0-34.0) pg MCHC 31.8 (30.0-36.0) g/dL RDW 16.3 H (12.1-15.1) % Plt Count 323 (130-400) 10^3/c mm MPV 10.6 H (7.4-10.4) fL Neut % (Auto) 77.4 % Lymph % (Auto) 13.8 % Pershing % (Auto) 6.7 % Eos % (Auto) 1.2 % Baso % (Auto) 0.6 % Neut # (Auto) 7.32 (1.8-7.7) 10^3/u L Lymph # (Auto) 1.3 (0.8-4.8) 10^3/u L Pershing # (Auto) 0.6 (0.2-0.9) 10^3/u L Eos # (Auto) 0.1 (0.0-0.8) 10^3/u L Baso # (Auto) 0.1 (0.0-0.1) 10^3/u L Nucleated RBC % (a uto) 0 % Nucleated RBCs # 0.0 /100WBC PT 25.10 H (12.1-14.9) SECO NDS INR 2.18 H (0.8-1.2) Sodium 137 (136-145) mmol/L Potassium 4.1 (3.5-5.1) mmol/L Chloride 101 (98-107) mmol/L Carbon Dioxide 23 (22-29) mmol/L Anion Gap 17.1 (5-19) BUN 46 H (6-20) mg/dL Creatinine 2.0 H (0.7-1.2) mg/dL GFR Calculation 34.6 L (90-130) mL/min Glucose 164 H (65-115) mg/dL Calculated Osmolal ity 300 H (285-295) mOsm/k g Calcium 8.8 (8.5-10.5) mg/dL Total Bilirubin 0.4 (0.15-1.2) mg/dL AST 15 (0-40) U/L ALT 17 (0-41) U/L Alkaline Phosphata se 120 (40-130) IU/L C-Reactive Protein 36.9 H (0.0-4.9) mg/L Total Protein 7.2 (6.6-8.7) g/dL Albumin 3.8 (3.5-5.2) g/dL Globulin 3.4 (1.3-4.6) g/dL Discharge Plan Discharge Patient Disposition: Home Clinical Impression: Arthritis of knee Condition: Stable Prescriptions: New hydrocodone-acetaminophen 5-325 mg tablet 1 tab PO Q6H PRN (Reason: pain) Qty: 10 RF: 0 Medrol (Lenny) 4 mg tablets,dose pack See Rx Instructions .ROUTE .COMPLEX Qty: 21 RF: 0 No Action furosemide 40 mg Tablet 80 mg PO BID@ RF: 0 carvedilol [Coreg] 6.25 mg Tablet 6.25 mg PO BID RF: 0 warfarin 10 mg Tablet See Rx Instructions .ROUTE .COMPLEX RF: 0 aspirin 81 mg Tablet,Delayed Release (Dr/Ec) 81 mg PO QAM RF: 0 Victoza 3-Lenny 0.6 mg/0.1 mL (18 mg/3 mL) Pen Injector 1.8 mg SUBCUT DAILY@21 RF: 0 insulin lispro [Humalog KwikPen Insulin] 100 unit/mL insulin pen See Rx Instructions .ROUTE .COMPLEX Qty: 3 RF: 0 amoxicillin 500 mg capsule 1,000 mg PO Q8H RF: 0 doxycycline hyclate 100 mg capsule 100 mg PO BID RF: 0 sildenafil 50 mg tablet 50 mg PO PRN RF: 0 Toujeo SoloStar U-300 Insulin 300 unit/mL (1.5 mL) insulin pen 25 unit SUBCUT DAILY@21 RF: 0 Discharge Orders: Discharge ED (Routine); Ordered 06/06/20 Ordered By: Dudley Tena Referrals: Cheng Doan, DO [Primary Care Provider] - Discharge Diet: Advance as tolerated Discharge Activity: Resume usual activity Patient Instructions: Osteoarthritis (ED), Opioid Safety Activity Restrictions/Additional Instructions: You are having either osteoarthritis or gouty arthritis of your knee but it is unclear which. Either way please take the steroids to help with your swelling and continue taking your antibiotics as well. You may take the [place] for severe pain only and do not mix it with drugs, alcohol, nor operate machinery while using this medication. Return to the ER with worsening symptoms. Please continue to get your kidneys regularly checked as you have poor kidney function already. Return to the ER with worsening symptoms and follow-up with your orthopedic surgeon as you already have scheduled. 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
--- NOTE | 2020-06-06 20:12 | PC.PHAR ---
pt states he takes care of his own medications-pt states he is taking amoxil (ext med history shows last filled 05/17/20 30d/s and doxycycline (ext med history shows last filled on 04/04/20 30d/s)-pt states he is still taking 80mg of lasix bid ext med history shows last filled on 01/10/20 90d/s-pt states he hasnt taken kcl for a month or so pt state when he was taking last he was only taking 20meq daily ext med history shows last filled on 12/03/19 30d/s-pt states he hardly uses his humalog kwikpen ss tid prn-
[2020-06-06 20:30] VITALS: BP 94/72; PULSE 91; RESP 14; O2SAT 96
[2020-06-06 20:33] LABS: Basophils # 0.1 10^3/uL (0.0-0.1); Basophils % 0.6 %; Eosinophils # 0.1 10^3/uL (0.0-0.8); Eosinophils % 1.2 %; Hematocrit 33.6 % (42.0-52.0); Hemoglobin 10.7 g/dL (11.7-16.6); Lymphocytes # 1.3 10^3/uL (0.8-4.8); Lymphocytes % 13.8 %; Mean Corpuscular HGB Conc 31.8 g/dL (30.0-36.0); Mean Corpuscular Hemoglobin 29.2 pg (28.0-34.0); Mean Corpuscular Volume 91.8 fL (80-94); Mean Platelet Volume 10.6 fL (7.4-10.4); Monocytes # 0.6 10^3/uL (0.2-0.9); Monocytes % 6.7 %; Neutrophils # 7.32 10^3/uL (1.8-7.7); Neutrophils % 77.4 %; Nucleated Red Blood Cells % 0 %; Platelet Count 323 10^3/cmm (130-400); Red Blood Count 3.66 10^6/uL (4.1-5.3); Red Cell Distribution Width 16.3 % (12.1-15.1); White Blood Count 9.5 10^3/uL (4.0-10.0)
[2020-06-06 20:54] LABS: INR 2.18 (0.8-1.2)
[2020-06-06 21:28] LABS: Alanine Aminotransferase 17 U/L (0-41); Albumin Level 3.8 g/dL (3.5-5.2); Alkaline Phosphatase 120 IU/L (40-130); Anion Gap 17.1 (5-19); Aspartate Amino Transferase 15 U/L (0-40); Blood Urea Nitrogen 46 mg/dL (6-20); C Reactive Protein 36.9 mg/L (0.0-4.9); Calcium 8.8 mg/dL (8.5-10.5); Carbon Dioxide 23 mmol/L (22-29); Chloride 101 mmol/L (98-107); Globulin 3.4 g/dL (1.3-4.6); Glomerular Filtration Rate 34.6 mL/min (90-130); Glucose 164 mg/dL (65-115); Osmolality Calculated 300 mOsm/kg (285-295); Potassium 4.1 mmol/L (3.5-5.1); Sodium 137 mmol/L (136-145); Total Bilirubin 0.4 mg/dL (0.15-1.2); Total Protein 7.2 g/dL (6.6-8.7)
[2020-06-06] MEDS: HYDROcodone-acetaminophen 5-325 mg Tablet 1 TAB PO (21:56)
[2020-06-06 21:58] VITALS: PULSE 94; RESP 14; O2SAT 98
== END 2020-06-06 21:58 | disposition home or self-care (01) ==
PROVIDERS: Emergency Provider Family Medicine; PCP Family Medicine
DX: M17.12 Unilateral primary osteoarthritis, left knee (principal); Z79.01 Long term (current) use of anticoagulants; Z79.82 Long term (current) use of aspirin; Z79.4 Long term (current) use of insulin; I25.10 Atherosclerotic heart disease of native coronary artery without angina pectoris; I11.0 Hypertensive heart disease with heart failure; I50.9 Heart failure, unspecified; E11.9 Type 2 diabetes mellitus without complications; Z95.810 Presence of automatic (implantable) cardiac defibrillator
CPT/HCPCS: 80053; 85025; 85610; 86140; 99283

== ENCOUNTER 2020-09-11 11:42 | Outpatient (CLI) | payer MEDICARE, SELFPAY ==
[2020-09-11 12:36] LABS: Basophils # 0.1 10^3/uL (0.0-0.1); Basophils % 0.6 %; Eosinophils # 0.1 10^3/uL (0.0-0.8); Eosinophils % 0.9 %; Hematocrit 38.3 % (42.0-52.0); Hemoglobin 11.8 g/dL (11.7-16.6); Lymphocytes # 1.4 10^3/uL (0.8-4.8); Lymphocytes % 12.9 %; Mean Corpuscular HGB Conc 30.8 g/dL (30.0-36.0); Mean Corpuscular Hemoglobin 27.9 pg (28.0-34.0); Mean Corpuscular Volume 90.5 fL (80-94); Monocytes # 0.9 10^3/uL (0.2-0.9); Monocytes % 8.7 %; Neutrophils # 8.21 10^3/uL (1.8-7.7); Neutrophils % 76.3 %; Nucleated Red Blood Cells % 0 %; Platelet Count 239 10^3/cmm (130-400); Red Blood Count 4.23 10^6/uL (4.1-5.3); Red Cell Distribution Width 19.1 % (12.1-15.1); White Blood Count 10.8 10^3/uL (4.0-10.0)
[2020-09-11 12:49] LABS: INR 1.79 (0.8-1.2)
[2020-09-11 12:53] LABS: Alanine Aminotransferase 28 U/L (0-41); Alkaline Phosphatase 101 IU/L (40-130); Anion Gap 15.1 (5-19); Aspartate Amino Transferase 14 U/L (0-40); Blood Urea Nitrogen 36 mg/dL (6-20); Calcium 9.1 mg/dL (8.5-10.5); Carbon Dioxide 21 mmol/L (22-29); Chloride 107 mmol/L (98-107); Globulin 2.8 g/dL (1.3-4.6); Glomerular Filtration Rate 48.2 mL/min (90-130); Glucose 174 mg/dL (65-115); Lactate Dehydrogenase 240 U/L (135-225); Osmolality Calculated 301 mOsm/kg (285-295); Potassium 4.1 mmol/L (3.5-5.1); Sodium 139 mmol/L (136-145); Total Bilirubin 0.7 mg/dL (0.15-1.2); Total Protein 6.8 g/dL (6.6-8.7)
== END 2020-09-11 11:43 | disposition home or self-care (01) ==
LOC: LAB 11:45
PROVIDERS: PCP Family Medicine; Visit Provider Internal Medicine
DX: I50.22 Chronic systolic (congestive) heart failure (principal); I25.5 Ischemic cardiomyopathy; Z95.811 Presence of heart assist device
CPT/HCPCS: 36415; 80053; 83615; 85025; 85610

== ENCOUNTER 2020-11-16 11:41 | Outpatient (CLI) | payer MEDICARE, SELFPAY ==
[2020-11-16 12:16] LABS: Basophils # 0.1 10^3/uL (0.0-0.1); Basophils % 1.2 %; Eosinophils # 0.2 10^3/uL (0.0-0.8); Eosinophils % 1.6 %; Hematocrit 40.4 % (42.0-52.0); Hemoglobin 12.7 g/dL (11.7-16.6); Lymphocytes # 2.1 10^3/uL (0.8-4.8); Lymphocytes % 20.4 %; Mean Corpuscular HGB Conc 31.4 g/dL (30.0-36.0); Mean Corpuscular Hemoglobin 29.5 pg (28.0-34.0); Mean Corpuscular Volume 93.7 fl (80-94); Mean Platelet Volume 10.5 fL (7.4-10.4); Monocytes # 0.8 10^3/uL (0.2-0.9); Monocytes % 8.2 %; Neutrophils # 6.92 10^3/uL (1.8-7.7); Nucleated Red Blood Cells % 0 %; Platelet Count 313 10^3/cmm (130-400); Red Blood Count 4.31 10^6/uL (4.1-5.3); Red Cell Distribution Width 20.4 % (12.1-15.1); White Blood Count 10.2 10^3/uL (4.0-10.0)
[2020-11-16 12:30] LABS: INR 2.16 (0.8-1.2)
[2020-11-16 12:46] LABS: Alanine Aminotransferase 15 U/L (0-41); Albumin Level 4.2 g/dL (3.5-5.2); Alkaline Phosphatase 95 IU/L (40-130); Anion Gap 15.3 (5-19); Aspartate Amino Transferase 13 U/L (0-40); Blood Urea Nitrogen 30 mg/dL (6-20); Calcium 9.1 mg/dL (8.5-10.5); Carbon Dioxide 22 mmol/L (22-29); Chloride 106 mmol/L (98-107); Globulin 2.9 g/dL (1.3-4.6); Glomerular Filtration Rate 52.2 mL/min (90-130); Glucose 146 mg/dL (65-115); Lactate Dehydrogenase 265 U/L (135-225); Osmolality Calculated 295 mOsm/kg (285-295); Potassium 5.3 mmol/L (3.5-5.1); Sodium 138 mmol/L (136-145); Total Bilirubin 0.4 mg/dL (0.15-1.2); Total Protein 7.1 g/dL (6.6-8.7)
== END 2020-11-16 11:42 | disposition home or self-care (01) ==
LOC: LAB 11:50
PROVIDERS: PCP Family Medicine; Visit Provider Internal Medicine
DX: Z95.811 Presence of heart assist device (principal)
CPT/HCPCS: 80053; 83615; 85025; 85610

== ENCOUNTER 2020-11-16 23:48 | Emergency (ER) | payer MEDICARE, SELFPAY ==
[2020-11-16 23:56] VITALS: BP 130/95; PULSE 104; RESP 18; TEMP 36.7; O2SAT 94; BMI 31.6
--- NOTE | 2020-11-17 00:14 | W.ED.GENADLT ---
HPI - General Adult General: Chief complaint: General Medical Stated complaint: left hand swollen and hurts Time Seen by Provider: 11/17/20 00:04 History of Present Illness: HPI narrative: Patient is a 55-year-old male who comes to the ED with left hand swelling and pain. Symptoms started in 3 days ago. Patient says he is had similar episodes like this before and has a history of gout and arthritis. Denies any injury or trauma to cause pain or swelling in left hand. Swelling and pain is located at the MCP second digit of left hand. There is some redness, warmth and is tender to any slight touch. He rates the pain a 10 out of 10. Patient sees a doctor for his joint pain and inflammation. Associated symptoms: Deny chest pain, dyspnea, headache(s), nausea, rash, palpitations or vomiting Review of Systems Const: Denies: fever(s), chills or fatigue Eyes: Denies: change in vision or eye discomfort ENMT: Denies: throat pain, odynophagia, nasal discharge or nasal congestion Card: Denies: chest pain, palpitations, edema, swelling of feet/ankles, dyspnea on exertion or orthopnea Resp: Denies: dyspnea, productive cough or non-productive cough GI: Denies: abdominal pain, nausea, vomiting, diarrhea, constipation or hematochezia : Denies: flank pain, difficulty urinating, dysuria or hematuria Musc: Reports: extremity pain (left hand), extremity swelling (left hand), joint pain (2nd mcp- Left hand), joint redness (2 mcp- Left hand) and joint warmth (2 mcp- Left hand); Denies: neck pain or back pain Skin/Breast: Denies: rash or new lesions Neuro: Denies: headache(s), numbness in extremities or weakness in extremities PFS ED PFSH: Medical History Arrhythmia CAD (coronary artery disease) Cardiac defibrillator in place CHF (congestive heart failure) Cholecystectomy planned Cholecystitis Chronic kidney disease Diabetes Encounter for central line placement Gallbladder disease Gout Hypertension Ischemic cardiomyopathy LVAD (left ventricular assist device) present Type II diabetes mellitus Surgical History H/O cardiac catheterization History of esophagogastroduodenoscopy (EGD) S/P coronary artery stent placement Social History Smoking and tobacco status: never smoked Second hand smoke exposure: No Alcohol intake: never Physical Exam Const: COMMON NORMALS: no acute distress, patient oriented x3 and alert GENERAL APPEARANCE: cooperative and comfortable HENMT: COMMON NORMALS: normocephalic HEAD & SCALP: normocephalic MOUTH: Normal oral and palatal mucosa present THROAT: posterior oropharynx normal and uvula midline Neck/C-Spine: COMMON NORMALS: supple GENERAL: Yes normal visual inspection Resp: COMMON NORMALS: normal respiratory effort, No retractions, No use of accessory muscles and clear to auscultation bilaterally AUSCULTATION: clear to auscultation bilaterally Cardio: COMMON NORMALS: regular rate, regular rhythm, S1 normal heart sound present, S2 normal heart sound present, No gallops present (Cardio), No clicks present (Cardio), No murmurs present (Cardio) and Peripheral pulses 2+ throughout RATE: regular rate RHYTHM: regular rhythm HEART SOUNDS: S1 normal heart sound present and S2 normal heart sound present PERIPHERAL PULSES: Peripheral pulses 2+ throughout GI: COMMON NORMALS: Normal to inspection, nondistended, normoactive bowel sounds present, Soft to palpation, non-tender and no masses PALPATION: Yes Soft to palpation : COMMON NORMALS: Yes no CVA tenderness BLADDER/KIDNEY EXAM: Yes no CVA tenderness Back/Pelvis: COMMON NORMALS: no CVA tenderness Extremity: COMMON NORMALS: capillary refill normal GENERAL: Yes normal exam except as noted LEFT UPPER EXTREMITY: Yes hand & digits (Findings suggestive of gout.) Left hand and digits: Yes inspection (Erythema, warmth and swelling over second digit MCP), Yes palpation (Tenderness even to light touch), Yes ROM (Limited due to pain) and Yes neurovascular exam (intact) Neuro: COMMON NORMALS: patient oriented x3 and moves all extremities SENSORIUM/ORIENTATION: Yes alert Skin: GENERAL SKIN EXAM: dry skin Course Vital Signs: Vital signs: Vital Signs Temperature 98.1 F 11/16/20 23:56 Pulse Rate 93 11/17/20 01:10 Respiratory Rate 18 11/17/20 01:10 Blood Pressure 130/95 11/16/20 23:56 Pulse Oximetry 97 11/17/20 01:10 MDM - General Adult MDM Narrative: Medical decision making narrative: Patient is a 55-year-old male comes to the ED with left hand second MCP joint erythema, warmth, swelling and tenderness. Patient has a history of gout and states he has had similar episodes of gout like this in the past. Denies any injury or trauma to cause swelling or pain. Exam findings suggestive of gout. Left hand x-ray shows no fracture dislocation or bony abnormality. Patient was given an initial dose of colchicine 1.2 mg here in the ED and sent home with a second dose of colchicine and told to take it an hour after first dose. Patient was also given dose of Solu-Medrol and hydrocodone while here in the ED as well. He was also discharged home with Medrol Dosepak and some hydrocodone for pain. Return to ED precautions given. Follow-up with PCP in 7 to 10 days reevaluation. Patient understood agree with plan. Imaging Data^: Xray Ortho: Attestation: I personally reviewed and interpreted this imaging study as follows: Radiologist's impression: [address] [address] XRay Report Signed Patient: Damian Escalona Unit #: [id number] : [id number] Age/Sex: 55 / M ADM Date: 11/16/20 Loc: ER Room/Bed: Attending Dr: Ordering Provider/Ordering MD: Juanito Pineda Date of Service: 11/17/20 Procedure(s): XR hand LT min 3V* [id number] Accession Number(s): [id number] Report Number: [id number] PROCEDURE INFORMATION: Exam: XR Left Hand Exam date and time: 11/17/2020 12:13 AM Age: 55 years old Clinical indication: Swelling; Hand; Left; Additional info: 2 mcp swelling and pain TECHNIQUE: Imaging protocol: XR Left hand. Views: 3 or more views. COMPARISON: No relevant prior studies available. FINDINGS: Bones/joints: Normal. Soft tissues: Punctate radiodensity in the soft tissues between 1st and 2nd digits, please correlate clinically for a foreign body. Diffuse soft tissue swelling. XR/XR hand LT min 3V* [id number] IMPRESSION: 1. Negative for fracture, dislocation or bony abnormality. 2. Punctate radiodensity in the soft tissues between 1st and 2nd digits, please correlate clinically for a foreign body. 3. Diffuse soft tissue swelling. Dictated By: Fahad Gooden MD Signed By: Fahad Gooden MD Signed Date/Time: 11/17/20158 DD/ 7 Discharge Plan Discharge Patient Disposition: Home Clinical Impression: Gout Qualifiers: Gout site: hand Gout etiology: idiopathic Chronicity: acute Laterality: left Qualified Code(s): M10.042 - Idiopathic gout, left hand Condition: Stable Prescriptions: New methylprednisolone 4 mg tablets,dose pack See Rx Instructions .ROUTE .COMPLEX Qty: 21 RF: 0 No Action furosemide 40 mg Tablet 80 mg PO BID@ RF: 0 carvedilol [Coreg] 6.25 mg Tablet 6.25 mg PO BID RF: 0 warfarin 10 mg Tablet See Rx Instructions .ROUTE .COMPLEX RF: 0 aspirin 81 mg Tablet,Delayed Release (Dr/Ec) 81 mg PO QAM RF: 0 Victoza 3-Lenny 0.6 mg/0.1 mL (18 mg/3 mL) Pen Injector 1.8 mg SUBCUT DAILY@21 RF: 0 insulin lispro [Humalog KwikPen Insulin] 100 unit/mL insulin pen See Rx Instructions .ROUTE .COMPLEX Qty: 3 RF: 0 amoxicillin 500 mg capsule 1,000 mg PO Q8H RF: 0 doxycycline hyclate 100 mg capsule 100 mg PO BID RF: 0 sildenafil 50 mg tablet 50 mg PO PRN RF: 0 Toujeo SoloStar U-300 Insulin 300 unit/mL (1.5 mL) insulin pen 25 unit SUBCUT DAILY@21 RF: 0 hydrocodone-acetaminophen 5-325 mg tablet 1 tab PO Q6H PRN (Reason: pain) Qty: 10 RF: 0 Medrol (Lenny) 4 mg tablets,dose pack See Rx Instructions .ROUTE .COMPLEX Qty: 21 RF: 0 Discharge Orders: Discharge ED (Routine); Ordered 11/17/20 Ordered By: Juanito Pineda Discharge Diet: Regular Discharge Activity: Increase activity as tolerated Patient Instructions: Gout, Opioid Safety Activity Restrictions/Additional Instructions: Follow-up with medical provider as directed in 7 to 10 days for reevaluation. Take medications as prescribed. Take the second dose of colchicine at 01:23am. return to the ER or your medical provider if condition worsens. Please read and understand discharge instructions. Thank you for choosing [facility] for your healthcare needs today. Please realize this is an emergency room and that we are providing you with a medical screening exam and this may not be complete and all inclusive of all the testing and or work up that you may need to determine your ailment or severity of your illness. It is very important that you follow up as instructed or that you return to the Emergency Department should you have concerns or if your condition changes or worsens in any way. Coding Level of Care Code ED Cargo And Container Inspector for Yossi Fwasia Exam Comprehensive
[2020-11-17] MEDS: HYDROcodone-acetaminophen 7.5-325 mg Tablet 1 TAB PO (00:23)
[2020-11-17] MEDS: colchicine 0.6 mg Tablet 1.2 MG PO (00:23)
[2020-11-17 01:10] VITALS: PULSE 93; RESP 18; O2SAT 97
== END 2020-11-17 01:11 | disposition home or self-care (01) ==
PROVIDERS: Emergency Provider Physician Assistant
DX: M10.042 Idiopathic gout, left hand (principal); Z79.01 Long term (current) use of anticoagulants; Z79.4 Long term (current) use of insulin; I25.10 Atherosclerotic heart disease of native coronary artery without angina pectoris; I11.0 Hypertensive heart disease with heart failure; I50.9 Heart failure, unspecified; E11.9 Type 2 diabetes mellitus without complications
CPT/HCPCS: 73130; 96372; 99283; J2930

== ENCOUNTER 2020-11-24 09:50 | Emergency (ER) | payer MEDICARE, SELFPAY ==
[2020-11-24 10:26] VITALS: BP 112/84; PULSE 92; RESP 15; TEMP 36.6; O2SAT 97; BMI 33.6
--- NOTE | 2020-11-24 10:40 | W.ED.BACK ---
HPI - Back Pain/Injury General: Chief Complaint: Back Pain/Injury Stated Complaint: Back Pain on Left Time Seen by Provider: 11/24/20 10:38 Source: patient Mode of arrival: ambulatory Limitations: no limitations History of Present Illness: HPI Narrative: 55-year-old male presents to the ER today for back pain that is worsening at this time. Patient reports this pain began 2 days ago when he woke up. He denies any injury or work that could have caused this pain. He reports the pain is worse with standing, sitting, and walking after short distances. Patient has been using a wheelchair because his legs give out on him. Patient reports he was seen by his chiropractor yesterday however the manipulation did not do anything. He has been taking ibuprofen occasionally however has to be careful due to kidney problems. He admits to taking hydrocodone that he had at home and reports it did not touch his pain. Patient denies any loss of bowel or bladder control. Denies any blood in the urine. Denies any radiating pain down either leg. The pain is more associated on the left side and he feels like there is a knot in his low back. Patient is unable to have an MRI due to several devices implanted in him. Patient denies headache, fever, chills, chest pain, shortness of breath, nausea, vomiting, diarrhea, constipation, change in bowel or bladder habits. MD elicited complaint: back pain Pertinent past history: prior back pain and recent trauma Onset (ago): day(s) (2) Timing: constant Severity: severe Pain scale (0-10): 9 Similar Symptoms Previously: No Quality: stabbing, aching and throbbing Location: lumbar spine and left flank Radiation: none Exacerbating factors: movement and walking Relieving factors: none Associated symptoms: Deny abdominal pain, chills, fatigue, fever(s), nausea or vomiting Treatments prior to arrival: NSAIDS and prescription analgesics Review of Systems Const: Reports: change in sleep pattern (due to pain); Denies: fever(s), chills or fatigue ENMT: Denies: throat pain, nasal discharge or nasal congestion Card: Denies: chest pain, palpitations or irregular heart rhythm Resp: Denies: dyspnea GI: Denies: abdominal pain, nausea, vomiting, diarrhea or constipation Musc: Reports: back pain Skin/Breast: Denies: rash Neuro: Denies: headache(s) Psych: Denies: anxiety or depression PFSH ED PFSH: Medical History Arrhythmia CAD (coronary artery disease) Cardiac defibrillator in place CHF (congestive heart failure) Cholecystectomy planned Cholecystitis Chronic kidney disease Diabetes Encounter for central line placement Gallbladder disease Gout Hypertension Ischemic cardiomyopathy LVAD (left ventricular assist device) present Type II diabetes mellitus Surgical History H/O cardiac catheterization History of esophagogastroduodenoscopy (EGD) S/P coronary artery stent placement Social History Smoking and tobacco status: never smoked Second hand smoke exposure: No Alcohol intake: never Physical Exam Const: COMMON NORMALS: no acute distress, patient oriented x3 and no limitations GENERAL APPEARANCE: cooperative; not comfortable NUTRITIONAL APPEARANCE: obese Resp: COMMON NORMALS: normal respiratory effort, No retractions and clear to auscultation bilaterally EFFORT & INSPECTION: Yes able to speak in complete sentences AUSCULTATION: clear to auscultation bilaterally Cardio: COMMON NORMALS: regular rate, regular rhythm and No murmurs present (Cardio) RATE: regular rate RHYTHM: regular rhythm GI: COMMON NORMALS: Normal to inspection, nondistended, normoactive bowel sounds present, Soft to palpation and non-tender PALPATION: Yes Soft to palpation : COMMON NORMALS: Yes no CVA tenderness BLADDER/KIDNEY EXAM: Yes no CVA tenderness and No CVA tenderness Back/Pelvis: COMMON NORMALS: no CVA tenderness GENERAL BACK: No CVA tenderness THORACIC SPINE/UPPER BACK: Yes thoracic ROM normal LUMBAR SPINE/LOWER BACK: Yes ROM limited, Yes pain with ROM and Yes paraspinal muscle tenderness SACROILIAC JOINTS: No SI joints normal (Tenderness noted over the left SI joint) Extremity: COMMON NORMALS: normal to inspection and full ROM Neuro: COMMON NORMALS: patient oriented x3 Psych: COMMON NORMALS: mental status grossly normal Skin: COMMON NORMALS: no rashes or lesions noted GENERAL SKIN EXAM: no rashes or lesions noted Course ED course: We will get x-ray of the L-spine at this time. Would recommend conservative treatment as this time if imaging appears okay. Patient can follow-up with PCP to discuss further imaging. Vital Signs: Vital signs: Vital Signs Temperature 97.8 F 11/24/20 10:26 Pulse Rate 92 11/24/20 10:26 Respiratory Rate 15 11/24/20 10:26 Blood Pressure 112/84 11/24/20 10:26 Pulse Oximetry 97 11/24/20 10:26 MDM - Back Pain/Injury MDM Narrative: Medical decision making narrative: Patient presents with new onset low back pain for the last several days. X-ray indicates degenerative changes but is otherwise unremarkable. We will treat patient conservatively at this time with steroid and muscle relaxer. Patient has elevated creatinine so unable to do anti-inflammatories. Aware patient is a diabetic and did discuss that his blood sugars would likely be affected by the Medrol Dosepak. I would recommend patient follow-up with PCP next week for possible further imaging or discussed referral. Rest recommended. Imaging Data^: xray of L spine: Radiologist's impression: [facility] [address] [place] [address] XRay Report Signed Patient: Damian Escalona Unit #: [id number] : [id number] Age/Sex: 55 / M ADM Date: 11/24/20 Loc: ER Room/Bed: Attending Dr: Ordering Provider/Ordering MD: Veronique Constantino Date of Service: 11/24/20 Procedure(s): XR lumbar spine 2-3V* 34797 Accession Number(s): [id number] Report Number: [id number] WS: [id number] Lumbar spine, 3 views, 11/24/2020 Clinical Data: low back pain x 2 days Comparison: None. Findings: No compression fractures or subluxation is seen. There is disc space narrowing at L5-S1. There is minimal osteoarthritis of all the lumbar vertebral bodies. The transverse processes and SI joints are normal. XR/XR lumbar spine 2-3V* 74670 Impression: 1. Degenerative disc narrowing at L5-S1. 2. 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 Dictated By: Jemma Landin MD Signed By: Jemma Landin MD Signed Date/Time: 11/24/20 1102 DD/ 1100 Critical Care Time Critical Care Time: Critical Care Time: No Discharge Plan Discharge Patient Disposition: Home Clinical Impression: Acute low back pain Qualifiers: Back pain laterality: left Sciatica presence: without sciatica Qualified Code(s): M54.5 - Low back pain Condition: Stable Prescriptions: New Medrol (Lenny) 4 mg tablets,dose pack See Rx Instructions .ROUTE .COMPLEX Qty: 21 RF: 0 methocarbamol 750 mg tablet 750 mg PO TID Qty: 20 RF: 0 No Action furosemide 40 mg Tablet 80 mg PO BID@06,21 RF: 0 carvedilol [Coreg] 6.25 mg Tablet 6.25 mg PO BID RF: 0 warfarin 10 mg Tablet See Rx Instructions .ROUTE .COMPLEX RF: 0 aspirin 81 mg Tablet,Delayed Release (Dr/Ec) 81 mg PO QAM RF: 0 Victoza 3-Lenny 0.6 mg/0.1 mL (18 mg/3 mL) Pen Injector 1.8 mg SUBCUT DAILY@21 RF: 0 insulin lispro [Humalog KwikPen Insulin] 100 unit/mL insulin pen See Rx Instructions .ROUTE .COMPLEX Qty: 3 RF: 0 amoxicillin 500 mg capsule 1,000 mg PO Q8H RF: 0 doxycycline hyclate 100 mg capsule 100 mg PO BID RF: 0 sildenafil 50 mg tablet 50 mg PO PRN RF: 0 Toujeo SoloStar U-300 Insulin 300 unit/mL (1.5 mL) insulin pen 25 unit SUBCUT DAILY@21 RF: 0 hydrocodone-acetaminophen 5-325 mg tablet 1 tab PO Q6H PRN (Reason: pain) Qty: 10 RF: 0 Medrol (Lenny) 4 mg tablets,dose pack See Rx Instructions .ROUTE .COMPLEX Qty: 21 RF: 0 methylprednisolone 4 mg tablets,dose pack See Rx Instructions .ROUTE .COMPLEX Qty: 21 RF: 0 Discharge Orders: Discharge ED (Routine); Ordered 11/24/20 Ordered By: Veronique Constantino Discharge Diet: Diabetic Discharge Activity: Limit activity as instructed Patient Instructions: Acute Low Back Pain (ED), Opioid Safety Activity Restrictions/Additional Instructions: Take Medrol Dosepak and Robaxin as prescribed. Alternate warm moist heat and ice. Apply topical muscle rub but do not apply with ice or heat. Rest recommended along with any stretching exercises. Avoid heavy lifting. Follow-up with PCP next week to discuss further imaging if no improvement. Return to the ER with any new or worsening symptoms. Coding Level of Care Code ED Brazing Machine Operator Helper for Chg Fwd Exam Comprehensive
--- NOTE | 2020-11-24 10:47 | XR_ITS ---
WS: [id number] Lumbar spine, 3 views, 11/24/2020 Clinical Data: low back pain x 2 days Comparison: None. Findings: No compression fractures or subluxation is seen. There is disc space narrowing at L5-S1. There is min imal osteoarthritis of all the lumbar vertebral bodies. The transverse processes and SI joints are no rmal. XR/XR lumbar spine 2-3V* 45338 Impression: 1. Degenerative disc narrowing at L5-S1. 2. 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
[2020-11-24 11:49] VITALS: BP 118/91; PULSE 90; RESP 18; O2SAT 97
== END 2020-11-24 11:45 | disposition home or self-care (01) ==
PROVIDERS: Emergency Provider Physician Assistant
DX: M54.5 Low back pain (principal); Z79.01 Long term (current) use of anticoagulants; Z79.82 Long term (current) use of aspirin; Z79.4 Long term (current) use of insulin; I25.10 Atherosclerotic heart disease of native coronary artery without angina pectoris; I11.0 Hypertensive heart disease with heart failure; I50.9 Heart failure, unspecified; E11.9 Type 2 diabetes mellitus without complications; Z95.811 Presence of heart assist device
CPT/HCPCS: 72100; 99282

== ENCOUNTER 2020-12-22 10:50 | Outpatient (CLI) | payer MEDICARE, SELFPAY ==
[2020-12-22 11:28] LABS: Basophils # 0.1 10^3/uL (0.0-0.1); Basophils % 1.1 %; Eosinophils # 0.2 10^3/uL (0.0-0.8); Eosinophils % 1.4 %; Hematocrit 24.9 % (42.0-52.0); Hemoglobin 8.4 g/dL (11.7-16.6); Lymphocytes # 2.1 10^3/uL (0.8-4.8); Lymphocytes % 19.7 %; Mean Corpuscular HGB Conc 33.7 g/dL (30.0-36.0); Mean Corpuscular Hemoglobin 31.7 pg (28.0-34.0); Mean Platelet Volume 10.4 fL (7.4-10.4); Monocytes % 9.4 %; Neutrophils # 7.13 10^3/uL (1.8-7.7); Neutrophils % 65.9 %; Nucleated Red Blood Cells # 0.1 /100WBC; Nucleated Red Blood Cells % 0.6 %; Platelet Count 265 10^3/cmm (130-400); Red Blood Count 2.65 10^6/uL (4.1-5.3); Red Cell Distribution Width 21.2 % (12.1-15.1); White Blood Count 10.8 10^3/uL (4.0-10.0)
[2020-12-22 11:38] LABS: INR 2.87 (0.8-1.2)
[2020-12-22 12:02] LABS: Alanine Aminotransferase 15 U/L (0-41); Albumin Level 3.8 g/dL (3.5-5.2); Alkaline Phosphatase 83 IU/L (40-130); Anion Gap 17.1 (5-19); Aspartate Amino Transferase 10 U/L (0-40); Blood Urea Nitrogen 61 mg/dL (6-20); Calcium 8.7 mg/dL (8.5-10.5); Carbon Dioxide 21 mmol/L (22-29); Chloride 101 mmol/L (98-107); Globulin 2.4 g/dL (1.3-4.6); Glomerular Filtration Rate 56.9 mL/min (90-130); Glucose 307 mg/dL (65-115); Lactate Dehydrogenase 258 U/L (135-225); Osmolality Calculated 309 mOsm/kg (285-295); Potassium 4.1 mmol/L (3.5-5.1); Sodium 135 mmol/L (136-145); Total Bilirubin 0.6 mg/dL (0.15-1.2); Total Protein 6.2 g/dL (6.6-8.7)
== END 2020-12-22 10:51 | disposition home or self-care (01) ==
LOC: LAB 10:59
PROVIDERS: Visit Provider Internal Medicine
DX: I50.22 Chronic systolic (congestive) heart failure (principal); I25.5 Ischemic cardiomyopathy; Z95.811 Presence of heart assist device
CPT/HCPCS: 36415; 80053; 83615; 85025; 85610

== ENCOUNTER → 2021-02-21 10:18 | Outpatient (BNVA) | payer MEDICARE, SELFPAY | PROVIDERS: PCP Family Medicine; Visit Provider Anesthesiology Pain Medicine | DX: M25.511 Pain in right shoulder (principal); M47.816 Spondylosis without myelopathy or radiculopathy, lumbar region; M10.9 Gout, unspecified; E11.9 Type 2 diabetes mellitus without complications; Z79.4 Long term (current) use of insulin | CPT/HCPCS: 99204 ==

== ENCOUNTER 2021-03-29 23:59 | Emergency (ER) | payer MEDICARE, SELFPAY ==
[2021-03-30 00:08] VITALS: PULSE 67; RESP 18; TEMP 36.6; O2SAT 97; BMI 30.8
--- NOTE | 2021-03-30 00:21 | ED_ITS ---
HPI - General Adult General: Chief complaint: General Medical Stated complaint: Nose bleed on right nostril Time Seen by Provider: 03/30/21 00:21 History of Present Illness: HPI narrative: Mr. Escalona is a 55-year-old gentleman with complex past medical history including LVAD for approximately 40 years on chronic anticoagulation who presents to the emergency department due to nosebleed. He has been more or less at her baseline health with exception of some discomfort in his right hand. He was seen and evaluated and started on colchicine for gout which he took today. He went to bed at about 7 or 8 PM and woke up at 10 noticing blood. He denies history of frequent nosebleeds. He tried direct pressure however was unable to get the bleeding to stop. No associated chest pain, shortness of breath, worsening volume status, lightheadedness, or any other changes in health. He denies infectious symptoms. No facial trauma. No other specific exacerbating or relieving factors identified. Patient reports INR on Friday 2.4. Onset (ago): hour(s) Treatments prior to arrival: other Review of Systems General: Reports: 10 or more systems reviewed and unremarkable except in HPI and below PFSH ED PFSH: Medical History Arrhythmia CAD (coronary artery disease) Cardiac defibrillator in place CHF (congestive heart failure) Cholecystectomy planned Cholecystitis Chronic kidney disease Diabetes Encounter for central line placement Gallbladder disease Gout Hypertension Ischemic cardiomyopathy LVAD (left ventricular assist device) present Type II diabetes mellitus Surgical History H/O cardiac catheterization History of esophagogastroduodenoscopy (EGD) S/P coronary artery stent placement Social History Smoking and tobacco status: never smoked Second hand smoke exposure: No Alcohol intake: never Physical Exam Const: COMMON NORMALS: alert GENERAL APPEARANCE: cooperative and well developed HENMT: COMMON NORMALS: normocephalic and atraumatic HEAD & SCALP: normocephalic and atraumatic NOSE: Epistaxis present on the right anterior source, active bleeding and source not visualized (Generalized oozing) THROAT: posterior oropharynx normal Eye: COMMON NORMALS: conjunctivae normal CONJUNCTIVA: Yes conjunctivae normal SCLERA: sclerae normal Neck/C-Spine: COMMON NORMALS: supple GENERAL: Yes trachea midline Resp: COMMON NORMALS: normal respiratory effort EFFORT & INSPECTION: Yes able to speak in complete sentences Cardio: OTHER: No evidence of significant volume overload or LVAD alarms. GI: COMMON NORMALS: Soft to palpation PALPATION: Yes Soft to palpation and No Tenderness to palpation present (GI) PERCUSSION: normal to percussion Extremity: GENERAL: Yes normal exam except as noted and No edema Neuro: COMMON NORMALS: moves all extremities SENSORIUM/ORIENTATION: Yes alert and No Orientation impaired Psych: COMMON NORMALS: mental status grossly normal and Normal thought process present THOUGHT PROCESS: Normal thought process present Course ED course: - Patient was seen and evaluated by me at bedside - Vital signs obtained - Initial evaluation notable for right anterior nare epistaxis without focal bleeding source identified - Attempted Afrin followed by direct pressure with reevaluation in 20 minutes, continued bleeding present. - Placed right sided Merisel Bob nasal packing with satisfactory results - Patient is already on prophylactic antibiotic - Upon serial reexamination after treatment the patient was improved. Discussed need for removal in 24 to 48 hours - Based on patient history, evaluation, labs, and imaging as interpreted the most likely cause of the patient's condition is epistaxis likely secondary to chronic anticoagulation - The results of ED evaluation were discussed with the patient including prescriptions and/or symptomatic cares (if applicable) including appropriate and responsible use, followup plan, and return precautions. The patient verbalized understanding and felt safe for discharge. - Patient discharged in satisfactory condition. Note: Click bubbles or prepopulated hussein in note writing are used for assistance with data collection and billing and are inherently more limited than narrative and other text portions of this note. Please use narrative for additional clinical history and defer to narrative/free test for any case of contradictory information. If information appears in only free text or click bubble it should be considered present or absent as reported. Please contact note program writer for clarifications of clinical information or contradictory information. MDM is a brief summary, contradictory or erroneous seeming information should be clarified and full note should be reviewed. Vital Signs: Vital signs: Vital Signs Temperature 97.8 F 03/30/21 02:52 Pulse Rate 65 03/30/21 02:52 Respiratory Rate 18 03/30/21 02:52 Blood Pressure 135/79 03/30/21 02:52 Pulse Oximetry 97 03/30/21 02:52 MDM - General Adult MDM Narrative: Medical decision making narrative: 55-year-old gentleman with history of chronic anticoagulation secondary to LVAD device in place presenting with epistaxis. Attempted conservative measures including direct pressure and Afrin with direct pressure without significant improvement. There was no focal vessel bleeding noted however generalized oozing in the anterior region, no evidence of posterior involvement. Nasal packing placed. Patient already on prophylactic antibiotics. Patient instructed to return to ED or follow-up with primary care provider in 24 to 48 hours for packing removal and reassessment. Medical Records: Attestation: I reviewed the patient's medical records. Lab Data: Attestation: I reviewed the patient's lab results. Discharge Plan Discharge Patient Disposition: Home Clinical Impression: Anterior epistaxis Condition: Stable Prescriptions: No Action furosemide 40 mg Tablet 80 mg PO BID@06,21 RF: 0 carvedilol [Coreg] 6.25 mg Tablet 6.25 mg PO BID RF: 0 warfarin 10 mg Tablet See Rx Instructions .ROUTE .COMPLEX RF: 0 aspirin 81 mg Tablet,Delayed Release (Dr/Ec) 81 mg PO QAM RF: 0 Victoza 3-Lenny 0.6 mg/0.1 mL (18 mg/3 mL) Pen Injector 1.8 mg SUBCUT DAILY@21 RF: 0 insulin lispro [Humalog KwikPen Insulin] 100 unit/mL insulin pen See Rx Instructions .ROUTE .COMPLEX Qty: 3 RF: 0 amoxicillin 500 mg capsule 1,000 mg PO Q8H RF: 0 doxycycline hyclate 100 mg capsule 100 mg PO BID RF: 0 sildenafil 50 mg tablet 50 mg PO PRN RF: 0 Toujeo SoloStar U-300 Insulin 300 unit/mL (1.5 mL) insulin pen 25 unit SUBCUT DAILY@21 RF: 0 methylprednisolone 4 mg tablets,dose pack See Rx Instructions .ROUTE .COMPLEX Qty: 21 RF: 0 Discharge Orders: Discharge ED (Routine); Ordered 03/30/21 Ordered By: Damian Burgess Referrals: Jose Maciel MD [Primary Care Provider] - Discharge Diet: Usual diet Discharge Activity: Resume usual activity Patient Instructions: Nosebleed (ED) Activity Restrictions/Additional Instructions: Thank you for visiting the emergency department. You were seen and evaluated for nosebleed. This is likely exacerbated by your use of anticoagulation. However, given your LVAD, you should continue to take all your medications as prescribed including your warfarin. Please continue your antibiotics as well. Please follow-up with your primary care provider or return to the emergency department in the next 24 to 48 hours for packing removal and reassessment. Please return to the emergency department for worsening bleeding or anything else that you are concerned about and feel needs emergency department evaluation. Coding Level of Care Code ED Machine Setter Sheet Metal for Yossi Andujar
[2021-03-30] MEDS: oxymetazoline 0.05% Nasal Spray 15 mL 2 SPRAY NOSTRIL-B (01:26)
[2021-03-30 01:38] VITALS: BP 143/70; PULSE 68; RESP 18; TEMP 36.6; O2SAT 97
[2021-03-30 02:52] VITALS: BP 135/79; PULSE 65; RESP 18; TEMP 36.6; O2SAT 97
== END 2021-03-30 02:55 | disposition home or self-care (01) ==
PROVIDERS: Emergency Provider Emergency Medicine; PCP Family Medicine
DX: R04.0 Epistaxis (principal); Z79.01 Long term (current) use of anticoagulants; Z79.82 Long term (current) use of aspirin; Z79.4 Long term (current) use of insulin; I25.10 Atherosclerotic heart disease of native coronary artery without angina pectoris; I11.0 Hypertensive heart disease with heart failure; I50.9 Heart failure, unspecified; Z95.810 Presence of automatic (implantable) cardiac defibrillator; Z95.811 Presence of heart assist device; E11.9 Type 2 diabetes mellitus without complications
CPT/HCPCS: 99283

== ENCOUNTER 2021-04-06 10:37 | Outpatient (CLI) | payer MEDICARE, SELFPAY ==
--- NOTE | 2021-04-06 10:53 | XR_ITS ---
WS: [id number] Exam: XR wrist RT 2V [id number] Date/Time of Exam: 04/06/2021 11:04 AM Reason For Exam: GOUT No fracture or dislocation. The radiocarpal joint is intact. Vascular calcifications seen in the vola r soft tissues. XR/XR wrist RT 2V [id number] IMPRESSION: 1. No fracture or dislocation noted. 2. No evidence of the bony erosion.
--- NOTE | 2021-04-06 10:53 | XR_ITS ---
WS: [email or web address] Exam: XR hand RT 2V [id number] Date/Time of Exam: 04/06/2021 11:04 AM Reason For Exam: GOUT/CHF No fracture or dislocation noted. Soft tissues are unremarkable. Joint structures are relatively well maintained. No bony changes that would suggest gouty arthritis. XR/XR hand RT 2V 33000 IMPRESSION: 1. Negative right hand.
== END 2021-04-06 10:38 | disposition home or self-care (01) ==
PROVIDERS: PCP Family Medicine; Visit Provider Nurse Practitioner Family
DX: F32.9 Major depressive disorder, single episode, unspecified (principal); M10.9 Gout, unspecified; Z95.810 Presence of automatic (implantable) cardiac defibrillator; I50.9 Heart failure, unspecified
CPT/HCPCS: 73100; 73120

== ENCOUNTER 2021-04-13 10:27 | Outpatient (CLI) | payer MEDICARE, SELFPAY ==
[2021-04-13 11:12] LABS: Basophils # 0.1 10^3/uL (0.0-0.1); Basophils % 0.8 %; Eosinophils # 0.1 10^3/uL (0.0-0.8); Eosinophils % 0.9 %; Hematocrit 37.8 % (42.0-52.0); Hemoglobin 12.1 g/dL (11.7-16.6); Lymphocytes # 1.6 10^3/uL (0.8-4.8); Lymphocytes % 16.2 %; Mean Corpuscular Hemoglobin 27.8 pg (28.0-34.0); Mean Corpuscular Volume 86.7 fl (80-94); Monocytes # 0.6 10^3/uL (0.2-0.9); Monocytes % 6.3 %; Nucleated Red Blood Cells % 0 %; Platelet Count 297 10^3/cmm (130-400); Red Blood Count 4.36 10^6/uL (4.1-5.3); Red Cell Distribution Width 20.3 % (12.1-15.1); White Blood Count 9.7 10^3/uL (4.0-10.0)
[2021-04-13 11:29] LABS: INR 2.77 (0.8-1.2)
[2021-04-13 11:38] LABS: Alanine Aminotransferase 14 U/L (0-41); Albumin Level 4.2 g/dL (3.5-5.2); Alkaline Phosphatase 150 IU/L (40-130); Anion Gap 20.2 (5-19); Aspartate Amino Transferase 12 U/L (0-40); Blood Urea Nitrogen 25 mg/dL (6-20); Calcium 9.9 mg/dL (8.5-10.5); Carbon Dioxide 24 mmol/L (22-29); Chloride 97 mmol/L (98-107); Globulin 2.8 g/dL (1.3-4.6); Glucose 210 mg/dL (65-115); Lactate Dehydrogenase 239 U/L (135-225); Osmolality Calculated 295 mOsm/kg (285-295); Potassium 4.2 mmol/L (3.5-5.1); Sodium 137 mmol/L (136-145); Total Bilirubin 0.6 mg/dL (0.15-1.2)
== END 2021-04-13 10:28 | disposition home or self-care (01) ==
PROVIDERS: PCP Family Medicine; Visit Provider Internal Medicine
DX: I50.22 Chronic systolic (congestive) heart failure (principal); I25.5 Ischemic cardiomyopathy; Z95.811 Presence of heart assist device
CPT/HCPCS: 80053; 83615; 85025; 85610

== ENCOUNTER 2021-05-26 09:07 | Outpatient (CLI) | payer MEDICARE, SELFPAY ==
[2021-05-26 09:34] LABS: Basophils % 0.1 %; Hematocrit 37.6 % (42.0-52.0); Hemoglobin 12.1 g/dL (11.7-16.6); Lymphocytes # 0.5 10^3/uL (0.8-4.8); Lymphocytes % 5.4 %; Mean Corpuscular HGB Conc 32.2 g/dL (30.0-36.0); Mean Corpuscular Hemoglobin 28.6 pg (28.0-34.0); Mean Corpuscular Volume 88.9 fl (80-94); Mean Platelet Volume 10.7 fL (7.4-10.4); Monocytes # 0.2 10^3/uL (0.2-0.9); Neutrophils # 8.18 10^3/uL (1.8-7.7); Neutrophils % 91.7 %; Nucleated Red Blood Cells % 0 %; Platelet Count 266 10^3/cmm (130-400); Red Blood Count 4.23 10^6/uL (4.1-5.3); Red Cell Distribution Width 20.3 % (12.1-15.1); White Blood Count 8.9 10^3/uL (4.0-10.0)
[2021-05-26 09:46] LABS: INR 1.76 (0.8-1.2)
[2021-05-26 09:51] LABS: Estmated Average Glucose 246; Hemoglobin A1C 10.2 % (4.0-6.0)
[2021-05-26 10:00] LABS: Alanine Aminotransferase 13 U/L (0-41); Albumin Level 4.3 g/dL (3.5-5.2); Alkaline Phosphatase 114 IU/L (40-130); Anion Gap 19.1 (5-19); Aspartate Amino Transferase 10 U/L (0-40); Blood Urea Nitrogen 43 mg/dL (6-20); Calcium 8.7 mg/dL (8.5-10.5); Carbon Dioxide 18 mmol/L (22-29); Chloride 99 mmol/L (98-107); Globulin 2.7 g/dL (1.3-4.6); Glomerular Filtration Rate 38.9 mL/min (90-130); Lactate Dehydrogenase 265 U/L (135-225); Osmolality Calculated 308 mOsm/kg (285-295); Potassium 5.1 mmol/L (3.5-5.1); Sodium 131 mmol/L (136-145); Total Bilirubin 0.5 mg/dL (0.15-1.2)
[2021-05-26 10:51] LABS: Glucose 548 mg/dL (65-115)
== END 2021-05-26 09:08 | disposition home or self-care (01) ==
PROVIDERS: PCP Family Medicine; Visit Provider Internal Medicine
DX: I50.22 Chronic systolic (congestive) heart failure (principal); I25.5 Ischemic cardiomyopathy; Z95.811 Presence of heart assist device
CPT/HCPCS: 36415; 80053; 83036; 83615; 85025; 85610

== ENCOUNTER 2021-06-06 06:56 | Outpatient (CLI) | payer MEDICARE, SELFPAY ==
--- NOTE | 2021-06-06 07:04 | US_ITS ---
WS: [id number] RENAL ULTRASOUND HISTORY: RENAL MASS, RIGHT COMPARISON: CT 03/07/2017 TECHNIQUE: 2-D and color Doppler imaging of the kidney submitted. Right kidney: 11.3 cm x 4.6 cm x 5.0 cm. Normal echogenicity with no hydronephrosis or mass. There is a small exophytic cyst from the lower po le measuring 1.1 x 1.0 x 1.0 cm. Left kidney: 10.0 cm x 4.9 cm x 5.9 cm. Normal echogenicity with no hydronephrosis or mass. Aorta: Normal. Urinary Bladder: Normal distention. Mildly enlarged prostate gland is slightly lobulated. No significant extension into the bladder. US/US renal BI* 13096 IMPRESSION: 1. No solid renal mass or obstruction. 2. Small exophytic cyst with a maximum diameter 1.1 cm lower pole RIGHT kidney .
== END 2021-06-06 06:57 | disposition home or self-care (01) ==
LOC: RAD 06:57
PROVIDERS: PCP Family Medicine; Visit Provider Nurse Practitioner Family
DX: N28.89 Other specified disorders of kidney and ureter (principal); N28.1 Cyst of kidney, acquired
CPT/HCPCS: 76770

== ENCOUNTER 2021-07-01 15:12 | Emergency (ER) | payer MEDICARE, SELFPAY ==
[2021-07-01 15:20] VITALS: PULSE 84; RESP 18; TEMP 36.6; O2SAT 98; BMI 28.8
[2021-07-01 15:36] VITALS: BP 95/70
--- NOTE | 2021-07-01 15:47 | W.ED.EXTPRO ---
HPI - Extremity Problem General: Chief complaint: Extremity Injury, Upper Stated complaint: Right elbow hurting pretty bad Time Seen by Provider: 07/01/21 15:32 History of Present Illness: Patient presents with right elbow pain is flared up the last few days. Patient has history of gout and a bone spur in this right elbow. Has taken colchicine in the past. Full is tender to the touch has not had any drainage and no injury to it. Patient is diabetic and also has moderate kidney disease. Associated symptoms: Deny chest pain, fever(s) or rash Review of Systems Const: Denies: fever(s), chills or body aches Eyes: Denies: eye discomfort ENMT: Denies: throat pain Card: Denies: chest pain Resp: Denies: dyspnea GI: Denies: abdominal pain, nausea or vomiting Musc: Reports: joint pain (Right elbow has been hurting last few days a lot more than normal.); Denies: joint redness or joint warmth Skin/Breast: Denies: rash Neuro: Denies: headache(s) Psych: Denies: depression or suicidal ideation [facility] ED PFSH: Medical History Arrhythmia CAD (coronary artery disease) Cardiac defibrillator in place CHF (congestive heart failure) Cholecystectomy planned Cholecystitis Chronic kidney disease Diabetes Encounter for central line placement Gallbladder disease Gout Hypertension Ischemic cardiomyopathy LVAD (left ventricular assist device) present Type II diabetes mellitus Surgical History H/O cardiac catheterization History of esophagogastroduodenoscopy (EGD) S/P coronary artery stent placement Social History Smoking and tobacco status: never smoked Second hand smoke exposure: No Alcohol intake: never Physical Exam Const: COMMON NORMALS: no acute distress and patient oriented x3 Resp: COMMON NORMALS: normal respiratory effort Extremity: OTHER: Patient's right elbow appears to be having a gout attack. No erythema but bursa is swollen and has what appears to be multiple gouty tophi. Tender to touch. Rest arm exam is negative for any contributing problems. No signs of infection. Neuro: COMMON NORMALS: patient oriented x3 Course Vital Signs: Vital signs: Vital Signs Temperature 97.9 F 07/01/21 15:20 Pulse Rate 84 07/01/21 15:20 Respiratory Rate 18 07/01/21 15:20 Blood Pressure 95/70 07/01/21 15:36 Pulse Oximetry 98 07/01/21 15:20 MDM - Extremity (Nontraumatic) Medical Decision Making Gout right elbow with multiple appearing tophi. Discharge Plan Discharge Patient Disposition: Home Clinical Impression: Gout Condition: Stable Prescriptions: New hydrocodone-acetaminophen 5-325 mg tablet 1 tab PO TID PRN (Reason: pain) Qty: 14 0RF prednisone 20 mg tablet 20 mg PO DAILY Qty: 7 0RF No Action furosemide 40 mg Tablet 80 mg PO BID@06,21 0RF Rx Instructions: see pharmacy comments carvedilol [Coreg] 6.25 mg Tablet 6.25 mg PO BID 0RF warfarin 10 mg Tablet See Rx Instructions .ROUTE .COMPLEX 0RF Rx Instructions: 10mg po daily@21:00 on sat and sun 9mg po daily@21:00 on mon,,fri,,fri aspirin 81 mg Tablet,Delayed Release (Dr/Ec) 81 mg PO QAM 0RF Victoza 3-Lenny 0.6 mg/0.1 mL (18 mg/3 mL) Pen Injector 1.8 mg SUBCUT DAILY@21 0RF insulin lispro [Humalog KwikPen Insulin] 100 unit/mL insulin pen See Rx Instructions .ROUTE .COMPLEX Qty: 3 0RF Rx Instructions: sliding scale tid prn amoxicillin 500 mg capsule 1,000 mg PO Q8H 0RF doxycycline hyclate 100 mg capsule 100 mg PO BID 0RF Rx Instructions: see pharmacy comments sildenafil 50 mg tablet 50 mg PO PRN 0RF Toujeo SoloStar U-300 Insulin 300 unit/mL (1.5 mL) insulin pen 25 unit SUBCUT DAILY@21 0RF methylprednisolone 4 mg tablets,dose pack See Rx Instructions .ROUTE .COMPLEX Qty: 21 0RF Rx Instructions: orally per package directions Discharge Orders: Discharge ED (Routine); Ordered 07/01/21 Ordered By: Connor Mistry Referrals: Jose Maciel MD [Primary Care Provider] - Discharge Diet: Usual diet Discharge Activity: Increase activity as tolerated Patient Instructions: Gout (ED) Activity Restrictions/Additional Instructions: Follow-up with medical provider as directed. Take medications as prescribed. Return to the ER or your medical provider if condition worsens. Please read and understand discharge instructions. If any questions ask please. Coding Level of Care Code ED Painter Maintenance for Yossi Andujar
[2021-07-01] MEDS: predniSONE 20 mg Tablet 60 MG PO (16:00)
== END 2021-07-01 16:02 | disposition home or self-care (01) ==
PROVIDERS: Emergency Provider Nurse Practitioner Family; PCP Family Medicine
DX: M1A.9XX1 Chronic gout, unspecified, with tophus (tophi) (principal); I50.9 Heart failure, unspecified; E11.22 Type 2 diabetes mellitus with diabetic chronic kidney disease; I13.0 Hypertensive heart and chronic kidney disease with heart failure and stage 1 through stage 4 chronic kidney disease, or unspecified chronic kidney disease; N18.9 Chronic kidney disease, unspecified; Z95.810 Presence of automatic (implantable) cardiac defibrillator; Z79.01 Long term (current) use of anticoagulants; Z79.4 Long term (current) use of insulin; Z79.82 Long term (current) use of aspirin
CPT/HCPCS: 99283; J7512

== ENCOUNTER → 2021-07-24 11:44 | Day surgery (SDC) | payer MEDICARE, SELFPAY ==
[2021-07-20 09:48] LABS: Anion Gap 18.2 (5-19); Blood Urea Nitrogen 25 mg/dL (6-20); Calcium 9.5 mg/dL (8.5-10.5); Carbon Dioxide 18 mmol/L (22-29); Chloride 102 mmol/L (98-107); Glomerular Filtration Rate 62.2 mL/min (90-130); Glucose 284 mg/dL (65-115); Osmolality Calculated 293 mOsm/kg (285-295); Potassium 4.2 mmol/L (3.5-5.1); Sodium 134 mmol/L (136-145)
[2021-07-24 12:18] VITALS: BP 104/84; PULSE 90; RESP 18; TEMP 36.3; O2SAT 99
--- NOTE | 2021-07-24 12:49 | XR_ITS ---
WS: [id number] XR chest 1V portable [id number] REASON FOR EXAM: post PICC placement FINDINGS: Initial chest x-ray demonstrated the PICC line to be at the inferior margin of the right atrium and i t was recommended be retracted 4 to 5 cm. The PICC line catheter was repositioned and the PICC line tip is located at the superior cavoatrial j unction in proper position for use on the examination of 1:30 PM 07/24/2021. XR/XR chest 1V portable [id number] IMPRESSION: PICC line placement as above.
[2021-07-24] MEDS: vancomycin 1,250 MG/250 ML PIGGYBACK 250 MG IV (13:30)
== END ==
LOC: GILAB 11:46
PROVIDERS: PCP Family Medicine; Visit Provider Internal Medicine
DX: T82.7XXA Infection and inflammatory reaction due to other cardiac and vascular devices, implants and grafts, initial encounter (principal)
CPT/HCPCS: 36569; 71045; 80048; 96365; C1751; J3370

== ENCOUNTER 2021-08-04 07:46 | Emergency (ER) | payer MEDICARE, SELFPAY ==
--- NOTE | 2021-08-04 07:58 | USR_ITS ---
PROCEDURE INFORMATION: Exam: US Duplex Right Lower Extremity Veins, Limited Exam date and time: 08/04/2021 8:49 AM Age: 56 years old Clinical indication: Pain; Leg, lower; Right; Additional info: Dvt TECHNIQUE: Imaging protocol: Real-time Duplex ultrasound of the Right Lower Extremity with 2-D morales scale, color Doppler flow and spectral waveform analysis with image documentation. Limited exam was focused on the right lower extremity veins. Total images: 2 COMPARISON: US renal BI* [id number] 06/06/2021 7:23 AM FINDINGS: Right deep veins: Unremarkable. The common femoral, femoral, proximal profunda femoral and popliteal veins are patent without thrombus. Normal Doppler waveforms. Normal compressibility and/or augmentation response. Right superficial veins: Unremarkable. Saphenofemoral junction is patent without thrombus. Soft tissues: Mild subcutaneous edema noted within the calf. US/[place] [id number] IMPRESSION: No evidence of deep vein thrombosis.
[2021-08-04 08:21] VITALS: BP 99/74; PULSE 105; RESP 16; TEMP 36.8; O2SAT 98
[2021-08-04 08:27] VITALS: PULSE 110
[2021-08-04 10:00] VITALS: BP 93/67; PULSE 103; RESP 18; O2SAT 97
--- NOTE | 2021-08-04 15:13 | ED_ITS ---
HPI - Extremity Problem General: Chief complaint: Extremity Problem,Nontraumatic Stated complaint: Right foot and ankle swelling Time Seen by Provider: 08/04/21 07:51 History of Present Illness: 56 yo male patient presents to ER with right foot and ankle swelling. Pt states he has gout and this feels just like a gout flare up. Pt denies any trauma or injury. Pt denies any nishant pain or tenderness. Pt nies any chest pain or SOB. Associated symptoms: Deny chest pain, fever(s) or rash Review of Systems Const: Denies: fever(s), chills, body aches, change in appetite, change in weight, fatigue, malaise or diaphoresis Eyes: Denies: change in vision, blurry vision, blind spots, photophobia, eye discomfort, eye discharge, eye redness, floaters or seeing flashes ENMT: Denies: throat pain, uvular edema, enlarged tonsils, odynophagia, hoarseness, mouth pain, swelling of lips/tongue, oral sores, bleeding gums, d ental pain, dry mouth, ear or mastoid pain, ear discharge, change in hearing, tinnitus, disequilibrium, nasal discharge, nasal congestion, post nasal drip or sinus pain Card: Denies: chest pain, palpitations, irregular heart rhythm, edema, swelling of feet/ankles, lightheadedness, syncope, pre-syncope, dyspnea on exertion, orthopnea, leg pain with exertion or acrocyanosis Resp: Denies: dyspnea, productive cough, non-productive cough, wheezing, stridor, pain on inspiration, change in phlegm color, hemoptysis or chest congestion GI: Denies: abdominal pain, nausea, vomiting, hematemesis, dysphagia, diarrhea, constipation, GI cramping, change in bowel habits or rectal pain : Denies: flank pain, dysuria, urinary frequency, urinary urgency, urinary hesitancy or hematuria Musc: Reports: extremity pain, extremity swelling, joint pain, joint swelling, joint redness and joint warmth; Denies: neck pain, back pain or deformity Skin/Breast: Denies: rash, pruritus, erythema, sores, new lesions, changes in skin color or dry skin Neuro: Denies: headache(s), numbness in extremities, weakness in extremities, sensory changes, lack of coordination, difficulty walking, frequent falls, dizz iness, vertigo, confusion, behavioral changes, Slurred speech present, difficulty communicating thoughts or seizure-like activity Psych: Denies: anxiety, depression, suicidal ideation or homicidal ideation Endo: Denies: polyuria, polydipsia, tired all the time, cold intolerance, excessive sweating, flushing, hot flashes or heat intolerance Adolfo/Lymph: Denies: easy bruising, easy bleeding, petechiae, purpura, enlarged lymph nodes or tender lymph nodes All/Imm: Denies: urticaria, throat swelling, tongue swelling, facial swelling, acute wheezing or itchy eyes PFSH ED PFSH: Medical History Arrhythmia CAD (coronary artery disease) Cardiac defibrillator in place CHF (congestive heart failure) Cholecystectomy planned Cholecystitis Chronic kidney disease Diabetes Encounter for central line placement Gallbladder disease Gout Hypertension Ischemic cardiomyopathy LVAD (left ventricular assist device) present Type II diabetes mellitus Surgical History H/O cardiac catheterization History of esophagogastroduodenoscopy (EGD) S/P coronary artery stent placement Social History Smoking and tobacco status: never smoked Second hand smoke exposure: No Alcohol intake: never Physical Exam Const: COMMON NORMALS: patient oriented x3 and alert HENMT: THROAT: no uvular edema Eye: COMMON NORMALS: Equal, round and reactive pupils present, EOMs intact bilaterally and conjunctivae normal CONJUNCTIVA: Yes conjunctivae normal PUPIL: Yes Equal, round and reactive pupils present Neck/C-Spine: COMMON NORMALS: no JVD Cardio: COMMON NORMALS: no JVD, regular rate and regular rhythm RATE: regular rate RHYTHM: regular rhythm : COMMON NORMALS: Yes no CVA tenderness BLADDER/KIDNEY EXAM: Yes no CVA tenderness Back/Pelvis: COMMON NORMALS: no CVA tenderness, thoracic and lumbar spine normal to inspection, no thoracic nor lumbar tenderness, thoraco-lumbar ROM normal and straight leg raise negative bilaterally Extremity: GENERAL: Yes normal exam except as noted Neuro: COMMON NORMALS: patient oriented x3, CN's II-XII intact bilaterally, moves all extremities, no focal motor deficits and no sensory deficits noted SENSORIUM/ORIENTATION: Yes alert Course Vital Signs: Vital signs: Vital Signs Temperature 98.3 F 08/04/21 08:21 Pulse Rate 103 H 08/04/21 10:00 Respiratory Rate 18 08/04/21 10:00 Blood Pressure 93/67 08/04/21 10:00 Pulse Oximetry 97 08/04/21 10:00 MDM - Extremity (Nontraumatic) Medical Decision Making Patient is well appearig non toxic and in no acute distress. 56 yo male patient presents to ER with right foot and ankle swelling. Pt states he has gout and this feels just like a gout flare up. Pt denies any trauma or injury. Pt denies any penitentiary pain or tenderness. Pt nies any chest pain or SOB. US negative for DVT. Pt has 2+ pedal pulses but states this is normal for him, Pt is NVI distally. Pts findings are c/w gout I will start on steroids and give pain meds Lab Data Radiology Impressions Venous Duplex 08/04/21 07:58 IMPRESSION: No evidence of deep vein thrombosis. Discharge Plan Discharge Patient Disposition: Home Clinical Impression: Gout Condition: Stable Prescriptions: New prednisone 20 mg tablet 20 mg PO BID 5 Days Qty: 10 0RF No Action furosemide 40 mg Tablet 80 mg PO BID@, 0RF Rx Instructions: see pharmacy comments carvedilol [Coreg] 6.25 mg Tablet 6.25 mg PO BID 0RF warfarin 10 mg Tablet See Rx Instructions .ROUTE .COMPLEX 0RF Rx Instructions: 10mg po daily@21:00 on sat and sun 9mg po daily@21:00 on mon,tues,wed,thurs,fri aspirin 81 mg Tablet,Delayed Release (Dr/Ec) 81 mg PO QAM 0RF Victoza 3-Lenny 0.6 mg/0.1 mL (18 mg/3 mL) Pen Injector 1.8 mg SUBCUT DAILY@21 0RF insulin lispro [Humalog KwikPen Insulin] 100 unit/mL insulin pen See Rx Instructions .ROUTE .COMPLEX Qty: 3 0RF Rx Instructions: sliding scale tid prn amoxicillin 500 mg capsule 1,000 mg PO Q8H 0RF doxycycline hyclate 100 mg capsule 100 mg PO BID 0RF Rx Instructions: see pharmacy comments sildenafil 50 mg tablet 50 mg PO PRN 0RF Toujeo SoloStar U-300 Insulin 300 unit/mL (1.5 mL) insulin pen 25 unit SUBCUT DAILY@21 0RF methylprednisolone 4 mg tablets,dose pack See Rx Instructions .ROUTE .COMPLEX Qty: 21 0RF Rx Instructions: orally per package directions hydrocodone-acetaminophen 5-325 mg tablet 1 tab PO TID PRN (Reason: pain) Qty: 14 0RF prednisone 20 mg tablet 20 mg PO DAILY Qty: 7 0RF Discharge Orders: Discharge ED (Routine); Ordered 08/04/21 Ordered By: Lila Levy Referrals: Jose Maciel MD [Primary Care Provider] - Discharge Diet: Advance as tolerated Discharge Activity: Resume usual activity Patient Instructions: Opioid Safety Activity Restrictions/Additional Instructions: Please take medications as prescribed Please follow up with PCP Please return to ER with any worsening of symtoms Coding Level of Care Code 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
== END 2021-08-04 11:58 | disposition home or self-care (01) ==
PROVIDERS: Emergency Provider Registered Nurse; PCP Family Medicine
DX: M25.471 Effusion, right ankle (principal); M10.9 Gout, unspecified; M79.604 Pain in right leg
CPT/HCPCS: 93971; 99283

== ENCOUNTER 2021-08-14 12:42 | Outpatient (RCR) | payer MEDICARE, SELFPAY ==
[2021-07-25 12:33] VITALS: BP 100/70; PULSE 90; RESP 18; TEMP 36.1; O2SAT 95
[2021-07-26 14:02] LABS: Anion Gap 16.5 (5-19); Blood Urea Nitrogen 41 mg/dL (6-20); Calcium 9.1 mg/dL (8.5-10.5); Carbon Dioxide 18 mmol/L (22-29); Chloride 106 mmol/L (98-107); Glomerular Filtration Rate 48.1 mL/min (90-130); Glucose 231 mg/dL (65-115); Osmolality Calculated 301 mOsm/kg (285-295); Potassium 3.5 mmol/L (3.5-5.1); Sodium 137 mmol/L (136-145)
[2021-07-26 14:03] LABS: Vancomycin Trough 9.2 ug/mL (10-15)
[2021-07-30 11:25] VITALS: BP 104/88; PULSE 92; RESP 18; TEMP 36.3; O2SAT 98
[2021-07-30 12:04] LABS: Basophils # 0.1 10^3/uL (0.0-0.1); Basophils % 0.7 %; Eosinophils # 0.1 10^3/uL (0.0-0.8); Eosinophils % 0.9 %; Hematocrit 32.8 % (42.0-52.0); Hemoglobin 10.4 g/dL (11.7-16.6); Lymphocytes # 1.3 10^3/uL (0.8-4.8); Lymphocytes % 15.5 %; Mean Corpuscular HGB Conc 31.7 g/dL (30.0-36.0); Mean Corpuscular Volume 91.4 fl (80-94); Mean Platelet Volume 11.1 fL (7.4-10.4); Monocytes # 0.6 10^3/uL (0.2-0.9); Monocytes % 7.4 %; Neutrophils # 6.39 10^3/uL (1.8-7.7); Neutrophils % 74.8 %; Nucleated Red Blood Cells % 0 %; Platelet Count 255 10^3/cmm (130-400); Red Blood Count 3.59 10^6/uL (4.1-5.3); Red Cell Distribution Width 18.4 % (12.1-15.1); White Blood Count 8.5 10^3/uL (4.0-10.0)
[2021-07-30 12:10] LABS: INR 1.69 (0.8-1.2)
[2021-07-30 12:16] LABS: Alanine Aminotransferase 11 U/L (0-41); Albumin Level 3.6 g/dL (3.5-5.2); Alkaline Phosphatase 118 IU/L (40-130); Anion Gap 15.9 (5-19); Aspartate Amino Transferase 11 U/L (0-40); Blood Urea Nitrogen 33 mg/dL (6-20); Calcium 8.8 mg/dL (8.5-10.5); Carbon Dioxide 19 mmol/L (22-29); Chloride 106 mmol/L (98-107); Globulin 2.7 g/dL (1.3-4.6); Glomerular Filtration Rate 56.7 mL/min (90-130); Glucose 253 mg/dL (65-115); Lactate Dehydrogenase 210 U/L (135-225); Osmolality Calculated 300 mOsm/kg (285-295); Potassium 3.9 mmol/L (3.5-5.1); Sodium 137 mmol/L (136-145); Total Bilirubin 0.3 mg/dL (0.15-1.2); Total Protein 6.3 g/dL (6.6-8.7); Vancomycin Trough 10.1 ug/mL (10-15)
--- NOTE | 2021-08-02 12:00 | PC.NURSE ---
Pt to GI lab for lab draw and PICC dressing change. Dressing to right upper arm PICC changed using sterile technique. BMP and Vanc trough drawn as ordered. Results faxed to [facility] as requested.
[2021-08-02 12:29] LABS: Vancomycin Trough 12.5 ug/mL (10-15)
[2021-08-02 13:59] LABS: Anion Gap 15.6 (5-19); Blood Urea Nitrogen 38 mg/dL (6-20); Calcium 8.4 mg/dL (8.5-10.5); Carbon Dioxide 20 mmol/L (22-29); Chloride 105 mmol/L (98-107); Glomerular Filtration Rate 62.2 mL/min (90-130); Glucose 250 mg/dL (65-115); Osmolality Calculated 301 mOsm/kg (285-295); Potassium 3.6 mmol/L (3.5-5.1); Sodium 137 mmol/L (136-145)
[2021-08-06 14:06] LABS: Basophils % 0.3 %; Eosinophils % 0.3 %; Hematocrit 34.4 % (42.0-52.0); Hemoglobin 11.2 g/dL (11.7-16.6); Lymphocytes # 1.2 10^3/uL (0.8-4.8); Lymphocytes % 11.4 %; Mean Corpuscular HGB Conc 32.6 g/dL (30.0-36.0); Mean Corpuscular Hemoglobin 28.4 pg (28.0-34.0); Mean Corpuscular Volume 87.3 fl (80-94); Mean Platelet Volume 10.3 fL (7.4-10.4); Monocytes # 0.6 10^3/uL (0.2-0.9); Monocytes % 6.2 %; Neutrophils # 8.34 10^3/uL (1.8-7.7); Neutrophils % 80.9 %; Nucleated Red Blood Cells % 0 %; Platelet Count 282 10^3/cmm (130-400); Red Blood Count 3.94 10^6/uL (4.1-5.3); Red Cell Distribution Width 17.2 % (12.1-15.1); White Blood Count 10.3 10^3/uL (4.0-10.0)
[2021-08-06 14:07] VITALS: BP 109/91; PULSE 100; RESP 18; TEMP 36.2; O2SAT 99
[2021-08-06 14:34] LABS: Vancomycin Trough 15.4 ug/mL (10-15)
[2021-08-06 15:04] LABS: Alanine Aminotransferase 28 U/L (0-41); Albumin Level 3.9 g/dL (3.5-5.2); Alkaline Phosphatase 152 IU/L (40-130); Anion Gap 20.3 (5-19); Aspartate Amino Transferase 12 U/L (0-40); Blood Urea Nitrogen 50 mg/dL (6-20); Calcium 9.6 mg/dL (8.5-10.5); Carbon Dioxide 24 mmol/L (22-29); Chloride 93 mmol/L (98-107); Globulin 2.9 g/dL (1.3-4.6); Glomerular Filtration Rate 44.6 mL/min (90-130); Osmolality Calculated 315 mOsm/kg (285-295); Potassium 4.3 mmol/L (3.5-5.1); Sodium 133 mmol/L (136-145); Total Bilirubin 0.3 mg/dL (0.15-1.2); Total Protein 6.8 g/dL (6.6-8.7)
[2021-08-06 15:26] LABS: Glucose 556 mg/dL (65-115)
[2021-08-09 12:35] VITALS: BP 106/88; PULSE 93; RESP 18; TEMP 36.4; O2SAT 99
[2021-08-09 13:22] LABS: Vancomycin Trough 13.6 ug/mL (10-15)
[2021-08-09 13:25] LABS: Anion Gap 12.4 (5-19); Blood Urea Nitrogen 35 mg/dL (6-20); Calcium 8.9 mg/dL (8.5-10.5); Carbon Dioxide 27 mmol/L (22-29); Chloride 101 mmol/L (98-107); Glomerular Filtration Rate 62.2 mL/min (90-130); Glucose 294 mg/dL (65-115); Osmolality Calculated 301 mOsm/kg (285-295); Potassium 4.4 mmol/L (3.5-5.1); Sodium 136 mmol/L (136-145)
[2021-08-14 13:00] VITALS: BP 122/89; PULSE 120; RESP 18; TEMP 36.4; O2SAT 99
--- NOTE | 2021-08-14 13:00 | PC.NURSE ---
Pt to GI lab for lab draw via PICC. Unable to draw blood via PICC. PICC flushes without difficulty. Pt reports no difficulty with infusion at home. Blood drawn peripherally. Results faxed to [facility] as requested.
[2021-08-14 13:14] LABS: Basophils # 0.1 10^3/uL (0.0-0.1); Basophils % 0.6 %; Eosinophils # 0.1 10^3/uL (0.0-0.8); Hematocrit 37.9 % (42.0-52.0); Hemoglobin 12.6 g/dL (11.7-16.6); Lymphocytes # 1.4 10^3/uL (0.8-4.8); Lymphocytes % 14.6 %; Mean Corpuscular HGB Conc 33.2 g/dL (30.0-36.0); Mean Corpuscular Hemoglobin 28.4 pg (28.0-34.0); Mean Corpuscular Volume 85.4 fl (80-94); Mean Platelet Volume 10.5 fL (7.4-10.4); Monocytes # 0.7 10^3/uL (0.2-0.9); Monocytes % 7.3 %; Neutrophils # 7.41 10^3/uL (1.8-7.7); Neutrophils % 75.5 %; Nucleated Red Blood Cells % 0 %; Platelet Count 253 10^3/cmm (130-400); Red Blood Count 4.44 10^6/uL (4.1-5.3); Red Cell Distribution Width 17.6 % (12.1-15.1); White Blood Count 9.8 10^3/uL (4.0-10.0)
[2021-08-14 13:31] LABS: Vancomycin Trough 15.5 ug/mL (10-15)
[2021-08-14 13:32] LABS: Alanine Aminotransferase 24 U/L (0-41); Alkaline Phosphatase 150 IU/L (40-130); Anion Gap 16.2 (5-19); Aspartate Amino Transferase 15 U/L (0-40); Blood Urea Nitrogen 32 mg/dL (6-20); Calcium 9.3 mg/dL (8.5-10.5); Carbon Dioxide 23 mmol/L (22-29); Chloride 98 mmol/L (98-107); Globulin 3.1 g/dL (1.3-4.6); Glomerular Filtration Rate 62.2 mL/min (90-130); Glucose 271 mg/dL (65-115); Osmolality Calculated 292 mOsm/kg (285-295); Potassium 4.2 mmol/L (3.5-5.1); Sodium 133 mmol/L (136-145); Total Bilirubin 0.8 mg/dL (0.15-1.2); Total Protein 7.1 g/dL (6.6-8.7)
== END 2021-08-14 23:59 | disposition home or self-care (01) ==
LOC: GILAB 12:42
PROVIDERS: Internal Medicine; PCP Family Medicine; Visit Provider Internal Medicine
DX: T82.7XXA Infection and inflammatory reaction due to other cardiac and vascular devices, implants and grafts, initial encounter (principal)
CPT/HCPCS: 36415; 36592; 80048; 80053; 80202; 83615; 85025; 85610

== ENCOUNTER 2021-09-06 07:58 | Outpatient (CLI) | payer MEDICARE, SELFPAY ==
--- NOTE | 2021-09-06 08:26 | CT_ITS ---
WS: [id number] CT CHEST AND ABDOMEN WITH CONTRAST HISTORY: LVAD INFECTION TECHNIQUE: Axial imaging is performed through the chest and abdomen with IV and oral contrast.. Sagit inés and coronal reformats. All CT scans at [facility] use at least one of these dose optimiza tion techniques: automated exposure control; mA and/or kV adjustment per patient size (includes targe dharmesh exams where dose is matched to clinical indication); or iterative reconstruction. CONTRAST: Visipaque 320; 95 mL IV. DLP: 1416.59 mGy.cm COMPARISON: 03/07/[address]: Mildly hyperinflated lungs. Linear areas of scarring and thin linear atelectasis in the upper lung fi elds. Very mild pleural thickening throughout the mid and lower LEFT thorax. Mild dependent changes i n the posterior lower lung hussein. No pneumonia. No mass. Numerous small mediastinal and hilar lymph nodes. The largest lymph node is RIGHT paratracheal measuring 12 mm in diameter. Atherosclerosis aort a. Normal size pulmonary artery. Marked enlargement of the LEFT heart chambers. Patient has a LEFT ve ntricular assisted device obscuring detail in the lower thorax and upper abdomen. This device has bee n placed since 2017. No significant pleural effusion. No pneumothorax or pericardial effusion. Abdomen CT: Liver is mildly enlarged and contains hepatic steatosis. Spleen is normal size at 12 mm. Gallbladder has been surgically removed. No bile duct dilatation. Normal enhancement of the portal vein. Negative pancreas and adrenal glands. Moderate atherosclerotic plaque within the aorta. No aneurysm. Mild per inephric stranding around each kidney. Exophytic dense cyst measures 12 mm from the lower pole RIGHT kidney. Not definitely present in 2017. On a prior ultrasound from 06/06/2021 a cyst was identified in this location similar in size. No adenopathy or mass. Small umbilical hernia. No abscess is identified along the anterior abdominal soft tissues. CT/CT chest abdomen w con* IMPRESSION: 1. Interval placement of an LVAD since the prior study of 2016. Device is caus ing significant artifact through the lower LEFT thorax and upper abdomen. No ab scess or significant inflammation is identified on this examination. 2. Markedly enlarged LEFT heart chambers. 3. Small mediastinal and hilar lymph nodes. The largest is 12 mm in the RIGHT paratracheal region. May be reactive from the surgery and history of infection. 4. Hyperdense cyst RIGHT kidney noted to be a simple cyst on a prior ultrasoun d. 5. Prior cholecystectomy.
[2021-09-06] MEDS: barium sulfate 450 mL Oral Susp PO (08:31)
[2021-09-06] MEDS: iodixanol 320 mg/mL 100mL Btl IV (09:11)
== END 2021-09-06 07:59 | disposition home or self-care (01) ==
LOC: RAD 08:02
PROVIDERS: PCP Family Medicine; Visit Provider Internal Medicine
DX: T82.7XXA Infection and inflammatory reaction due to other cardiac and vascular devices, implants and grafts, initial encounter (principal); I50.22 Chronic systolic (congestive) heart failure; I25.5 Ischemic cardiomyopathy; Z95.811 Presence of heart assist device
CPT/HCPCS: 36592; 71260; 74160; 80048; 80202; 96365; J0692

== ENCOUNTER 2021-09-09 11:30 | Emergency (ER) | payer MEDICARE, SELFPAY ==
[2021-09-09 12:15] VITALS: PULSE 101; RESP 18; TEMP 36.4; O2SAT 100; BMI 30.2
--- NOTE | 2021-09-09 12:54 | ED_ITS ---
HPI - Extremity Problem General: Chief complaint: Extremity Problem,Nontraumatic Stated complaint: RT foot swollen/gout Time Seen by Provider: 09/09/21 12:51 Source: patient Mode of arrival: ambulatory Limitations: no limitations History of Present Illness: 56-year-old male with a history of gout, diabetes, CAD, hypertension and LV assist device presents to the ER today for increasing right knee and foot pain x1 week. Patient reports he is currently on antibiotics to flush out his LVAD and when he has this, he routinely gets gout. Patient reports this happens about once to twice a year. Patient reports he has a PICC line and is on antibiotics at home at this time. Patient reports about a week ago he noticed some right foot pain and redness. That has continued to worsen over the last week. He reports it is now moved up to his knee. Patient reports he takes allopurinol daily however even on the allopurinol he tends to get gout when on the antibiotics. Patient reports typically prednisone works well for him. He has reported these problems as doctors however they are unsure if the antibiotic treatment and gout are related. Patient denies any kidney issues at this time. He has no other concerns. Review of Systems General: Reports: 10 or more systems reviewed and unremarkable except in HPI and below PFSH ED PFSH: Medical History Arrhythmia CAD (coronary artery disease) Cardiac defibrillator in place CHF (congestive heart failure) Cholecystectomy planned Cholecystitis Chronic kidney disease Diabetes Encounter for central line placement Gallbladder disease Gout Hypertension Ischemic cardiomyopathy LVAD (left ventricular assist device) present Type II diabetes mellitus Surgical History H/O cardiac catheterization History of esophagogastroduodenoscopy (EGD) S/P coronary artery stent placement Social History Smoking and tobacco status: never smoked Second hand smoke exposure: No Alcohol intake: never Physical Exam Const: COMMON NORMALS: average body habitus, patient oriented x3, no limitations and alert Neck/C-Spine: COMMON NORMALS: full ROM Resp: COMMON NORMALS: normal respiratory effort EFFORT & INSPECTION: Yes able to speak in complete sentences Cardio: COMMON NORMALS: regular rate and regular rhythm RATE: regular rate RHYTHM: regular rhythm GI: COMMON NORMALS: Normal to inspection, nondistended, normoactive bowel sounds present, Soft to palpation and non-tender PALPATION: Yes Soft to palpation Extremity: NARRATIVE EXTREMITY EXAM: Patient is noted to have swelling of the right knee and right foot in comparison to the left. There is some erythema over the PIP joint of the right great toe. Patient is very tender to light palpation over this area. Findings consistent with gout. Neuro: COMMON NORMALS: patient oriented x3 SENSORIUM/ORIENTATION: Yes alert Psych: COMMON NORMALS: mental status grossly normal and Normal thought process present THOUGHT PROCESS: Normal thought process present Skin: COMMON NORMALS: no rashes or lesions noted GENERAL SKIN EXAM: no rashes or lesions noted Course ED course: 56-year-old male with a significant past medical history presents to the ER today for possible gout. Patient has had this before and usually occurs when he is on PICC line antibiotics for his ventricular assist device. Patient reports this is happened before and usually requires prednisone treatment. He reports this started about a week ago and has continued to worsen. Patient reports redness and swelling from the knee down. He reports it started in the toe and has moved up to the knee at this point. Patient reports it is getting difficult to walk given the pain. On exam, patient does appear to be swollen from the knee down with some erythema over the PIP joint of the right great toe. Patient is tender to soft palpation which is consistent with gout. Given history, likely patient has a gout flareup. Vital Signs: Vital signs: Vital Signs Temperature 97.6 F 09/09/21 12:15 Pulse Rate 101 H 09/09/21 12:15 Respiratory Rate 18 09/09/21 12:15 Pulse Oximetry 100 09/09/21 12:15 MDM - Extremity (Nontraumatic) Medical Decision Making 56-year-old male with a significant past medical history presents to the ER today for possible gout. Patient has had this before and usually occurs when he is on PICC line antibiotics for his ventricular assist device. Patient reports this is happened before and usually requires prednisone treatment. He reports this started about a week ago and has continued to worsen. Patient reports redness and swelling from the knee down. He reports it started in the toe and has moved up to the knee at this point. Patient reports it is getting difficult to walk given the pain. On exam, patient does appear to be swollen from the knee down with some erythema over the PIP joint of the right great toe. Patient is tender to soft palpation which is consistent with gout. Given history, likely patient has a gout flareup. He is on allopurinol however it does not seem to help when on antibiotics. We will go ahead and treat with prednisone at this time. Recommended patient follow-up with PCP in 3 to 5 days. Return to the ER with any new or worsening symptoms. Patient verbalized understanding and is in agreement with the treatment plan. Critical Care Time Critical Care Time: Critical Care Time: No Discharge Plan Discharge Patient Disposition: Home Clinical Impression: Gout Condition: Stable Prescriptions: New prednisone 10 mg tablet 10 mg PO DAILY Qty: 40 0RF Rx Instructions: Take 4 tabs PO daily x 4 days, then 3 tabs daily x 4 days, then 2 tabs daily x 4 days, then 1 tab daily x 4 days No Action furosemide 40 mg Tablet 80 mg PO BID@06,21 0RF Rx Instructions: see pharmacy comments carvedilol [Coreg] 6.25 mg Tablet 6.25 mg PO BID 0RF warfarin 10 mg Tablet See Rx Instructions .ROUTE .COMPLEX 0RF Rx Instructions: 10mg po daily@21:00 on sat and sun 9mg po daily@21:00 on mon,tu,wed,th,fri aspirin 81 mg Tablet,Delayed Release (Dr/Ec) 81 mg PO QAM 0RF Victoza 3-Lenny 0.6 mg/0.1 mL (18 mg/3 mL) Pen Injector 1.8 mg SUBCUT DAILY@21 0RF insulin lispro [Humalog KwikPen Insulin] 100 unit/mL insulin pen See Rx Instructions .ROUTE .COMPLEX Qty: 3 0RF Rx Instructions: sliding scale tid prn amoxicillin 500 mg capsule 1,000 mg PO Q8H 0RF doxycycline hyclate 100 mg capsule 100 mg PO BID 0RF Rx Instructions: see pharmacy comments sildenafil 50 mg tablet 50 mg PO PRN 0RF Toujeo SoloStar U-300 Insulin 300 unit/mL (1.5 mL) insulin pen 25 unit SUBCUT DAILY@21 0RF methylprednisolone 4 mg tablets,dose pack See Rx Instructions .ROUTE .COMPLEX Qty: 21 0RF Rx Instructions: orally per package directions hydrocodone-acetaminophen 5-325 mg tablet 1 tab PO TID PRN (Reason: pain) Qty: 14 0RF prednisone 20 mg tablet 20 mg PO DAILY Qty: 7 0RF Discharge Orders: Discharge ED (Routine); Ordered 09/09/21 Ordered By: Veronique Constantino Referrals: Jose Maciel MD [Primary Care Provider] - Discharge Diet: Usual diet Discharge Activity: Increase activity as tolerated Patient Instructions: Gout (ED), Opioid Safety Activity Restrictions/Additional Instructions: Take prednisone as prescribed. Continue home medications as previously prescribed. Follow-up with PCP in 5 to 7 days if no improvement. Return to the ER with new or worsening symptoms. 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
== END 2021-09-09 13:43 | disposition home or self-care (01) ==
PROVIDERS: Emergency Provider Physician Assistant; PCP Family Medicine
DX: M10.9 Gout, unspecified (principal); Z79.01 Long term (current) use of anticoagulants; Z79.4 Long term (current) use of insulin; Z79.82 Long term (current) use of aspirin; I25.10 Atherosclerotic heart disease of native coronary artery without angina pectoris; I11.0 Hypertensive heart disease with heart failure; I50.9 Heart failure, unspecified; E11.9 Type 2 diabetes mellitus without complications
CPT/HCPCS: 99283

== ENCOUNTER 2021-09-13 09:31 | Outpatient (RCR) | payer MEDICARE, SELFPAY ==
[2021-08-16 13:43] VITALS: RESP 18
[2021-08-16 13:49] LABS: Anion Gap 17.3 (5-19); Blood Urea Nitrogen 32 mg/dL (6-20); Carbon Dioxide 23 mmol/L (22-29); Chloride 99 mmol/L (98-107); Glomerular Filtration Rate 52.1 mL/min (90-130); Glucose 297 mg/dL (65-115); Osmolality Calculated 298 mOsm/kg (285-295); Potassium 4.3 mmol/L (3.5-5.1); Sodium 135 mmol/L (136-145)
[2021-08-16 13:50] LABS: Vancomycin Trough 15.6 ug/mL (10-15)
[2021-08-20 10:50] VITALS: RESP 18
--- NOTE | 2021-08-20 10:52 | PC.NURSE ---
Unable to draw blood from PICC. Peripheral draw completed for labs.
[2021-08-20 11:01] LABS: Basophils # 0.1 10^3/uL (0.0-0.1); Basophils % 0.6 %; Eosinophils # 0.1 10^3/uL (0.0-0.8); Eosinophils % 0.9 %; Hematocrit 35.5 % (42.0-52.0); Hemoglobin 11.7 g/dL (11.7-16.6); Lymphocytes # 1.4 10^3/uL (0.8-4.8); Lymphocytes % 13.7 %; Mean Corpuscular Volume 87.9 fl (80-94); Mean Platelet Volume 10.4 fL (7.4-10.4); Monocytes # 0.7 10^3/uL (0.2-0.9); Monocytes % 6.9 %; Neutrophils # 7.97 10^3/uL (1.8-7.7); Neutrophils % 76.8 %; Nucleated Red Blood Cells % 0 %; Platelet Count 252 10^3/cmm (130-400); Red Blood Count 4.04 10^6/uL (4.1-5.3); White Blood Count 10.4 10^3/uL (4.0-10.0)
[2021-08-20 11:40] LABS: Alanine Aminotransferase 18 U/L (0-41); Albumin Level 4.1 g/dL (3.5-5.2); Alkaline Phosphatase 148 IU/L (40-130); Anion Gap 17.2 (5-19); Aspartate Amino Transferase 12 U/L (0-40); Blood Urea Nitrogen 40 mg/dL (6-20); Calcium 9.1 mg/dL (8.5-10.5); Carbon Dioxide 22 mmol/L (22-29); Chloride 101 mmol/L (98-107); Glomerular Filtration Rate 36.6 mL/min (90-130); Glucose 329 mg/dL (65-115); Osmolality Calculated 305 mOsm/kg (285-295); Potassium 4.2 mmol/L (3.5-5.1); Sodium 136 mmol/L (136-145); Total Bilirubin 0.5 mg/dL (0.15-1.2); Total Protein 7.1 g/dL (6.6-8.7)
[2021-08-20 11:44] LABS: Vancomycin Trough 18.6 ug/mL (10-15)
[2021-08-23 13:00] VITALS: BP 106/85; PULSE 100; RESP 18; TEMP 36.3; O2SAT 98
[2021-08-23 13:45] LABS: Anion Gap 16.9 (5-19); Blood Urea Nitrogen 47 mg/dL (6-20); Carbon Dioxide 20 mmol/L (22-29); Chloride 102 mmol/L (98-107); Glomerular Filtration Rate 52.1 mL/min (90-130); Glucose 226 mg/dL (65-115); Osmolality Calculated 299 mOsm/kg (285-295); Potassium 3.9 mmol/L (3.5-5.1); Sodium 135 mmol/L (136-145)
[2021-08-27 11:05] VITALS: BP 104/89; PULSE 98; RESP 18; TEMP 36.7; O2SAT 98
[2021-08-27 11:40] LABS: Basophils # 0.1 10^3/uL (0.0-0.1); Basophils % 0.8 %; Eosinophils # 0.1 10^3/uL (0.0-0.8); Eosinophils % 0.8 %; Hematocrit 35.2 % (42.0-52.0); Hemoglobin 11.5 g/dL (11.7-16.6); Lymphocytes # 1.5 10^3/uL (0.8-4.8); Lymphocytes % 16.9 %; Mean Corpuscular HGB Conc 32.7 g/dL (30.0-36.0); Mean Corpuscular Hemoglobin 28.5 pg (28.0-34.0); Mean Corpuscular Volume 87.3 fl (80-94); Mean Platelet Volume 10.9 fL (7.4-10.4); Monocytes # 0.6 10^3/uL (0.2-0.9); Monocytes % 7.3 %; Neutrophils # 6.43 10^3/uL (1.8-7.7); Neutrophils % 73.4 %; Nucleated Red Blood Cells % 0 %; Platelet Count 272 10^3/cmm (130-400); Red Blood Count 4.03 10^6/uL (4.1-5.3); Red Cell Distribution Width 19.3 % (12.1-15.1); White Blood Count 8.8 10^3/uL (4.0-10.0)
[2021-08-27 11:44] LABS: Vancomycin Trough 15.1 ug/mL (10-15)
[2021-08-27 11:45] LABS: Alanine Aminotransferase 17 U/L (0-41); Albumin Level 3.8 g/dL (3.5-5.2); Alkaline Phosphatase 137 IU/L (40-130); Anion Gap 17.6 (5-19); Aspartate Amino Transferase 12 U/L (0-40); Blood Urea Nitrogen 37 mg/dL (6-20); Calcium 8.7 mg/dL (8.5-10.5); Carbon Dioxide 21 mmol/L (22-29); Chloride 103 mmol/L (98-107); Glomerular Filtration Rate 48.1 mL/min (90-130); Glucose 304 mg/dL (65-115); Osmolality Calculated 304 mOsm/kg (285-295); Potassium 4.6 mmol/L (3.5-5.1); Sodium 137 mmol/L (136-145); Total Bilirubin 0.4 mg/dL (0.15-1.2); Total Protein 6.8 g/dL (6.6-8.7)
[2021-08-30 13:25] VITALS: RESP 18
[2021-08-30 13:50] LABS: Vancomycin Trough 14.7 ug/mL (10-15)
[2021-08-30 14:20] LABS: Anion Gap 18.9 (5-19); Blood Urea Nitrogen 36 mg/dL (6-20); Calcium 9.1 mg/dL (8.5-10.5); Carbon Dioxide 20 mmol/L (22-29); Chloride 101 mmol/L (98-107); Glomerular Filtration Rate 48.1 mL/min (90-130); Glucose 272 mg/dL (65-115); Osmolality Calculated 300 mOsm/kg (285-295); Potassium 3.9 mmol/L (3.5-5.1); Sodium 136 mmol/L (136-145)
[2021-09-03 10:35] VITALS: BP 112/82; PULSE 86; RESP 18; TEMP 36.3; O2SAT 98
[2021-09-03 11:01] LABS: Basophils # 0.1 10^3/uL (0.0-0.1); Basophils % 0.7 %; Eosinophils # 0.1 10^3/uL (0.0-0.8); Eosinophils % 0.9 %; Hematocrit 32.2 % (42.0-52.0); Hemoglobin 10.3 g/dL (11.7-16.6); Lymphocytes # 1.2 10^3/uL (0.8-4.8); Lymphocytes % 15.7 %; Mean Corpuscular Hemoglobin 28.8 pg (28.0-34.0); Mean Corpuscular Volume 89.9 fl (80-94); Mean Platelet Volume 10.6 fL (7.4-10.4); Monocytes # 0.6 10^3/uL (0.2-0.9); Monocytes % 8.5 %; Neutrophils # 5.57 10^3/uL (1.8-7.7); Neutrophils % 73.7 %; Nucleated Red Blood Cells % 0 %; Platelet Count 214 10^3/cmm (130-400); Red Blood Count 3.58 10^6/uL (4.1-5.3); Red Cell Distribution Width 18.6 % (12.1-15.1); White Blood Count 7.6 10^3/uL (4.0-10.0)
[2021-09-03 11:17] LABS: Vancomycin Trough 15.7 ug/mL (10-15)
[2021-09-03 11:18] LABS: Alanine Aminotransferase 18 U/L (0-41); Albumin Level 3.6 g/dL (3.5-5.2); Alkaline Phosphatase 123 IU/L (40-130); Anion Gap 17.3 (5-19); Aspartate Amino Transferase 13 U/L (0-40); Blood Urea Nitrogen 41 mg/dL (6-20); Carbon Dioxide 21 mmol/L (22-29); Chloride 104 mmol/L (98-107); Globulin 2.8 g/dL (1.3-4.6); Glomerular Filtration Rate 44.6 mL/min (90-130); Glucose 282 mg/dL (65-115); Osmolality Calculated 306 mOsm/kg (285-295); Potassium 4.3 mmol/L (3.5-5.1); Sodium 138 mmol/L (136-145); Total Bilirubin 0.3 mg/dL (0.15-1.2); Total Protein 6.4 g/dL (6.6-8.7)
[2021-09-06 09:38] VITALS: BP 120/80; PULSE 88; RESP 18; TEMP 36.5; O2SAT 99
[2021-09-06] MEDS: cefepime 2,000 MG in sodium chloride 0.9% (plus) 50 ML 100 MG IV (09:54)
--- NOTE | 2021-09-06 10:20 | PC.NURSE ---
Cefepime 2 gm IVPB once in hospital as ordered. Pt tolerated well without reaction. Home infusion company, [employer], to continue IV therapy at home. Shirley at [facility] notified of dose timing.
[2021-09-06 10:24] LABS: Anion Gap 17.3 (5-19); Blood Urea Nitrogen 51 mg/dL (6-20); Calcium 9.2 mg/dL (8.5-10.5); Carbon Dioxide 23 mmol/L (22-29); Chloride 101 mmol/L (98-107); Glomerular Filtration Rate 41.6 mL/min (90-130); Glucose 196 mg/dL (65-115); Osmolality Calculated 303 mOsm/kg (285-295); Potassium 4.3 mmol/L (3.5-5.1); Sodium 137 mmol/L (136-145)
[2021-09-06 10:25] LABS: Vancomycin Trough 22.4 ug/mL (10-15)
[2021-09-10 10:00] VITALS: BP 110/90; PULSE 97; RESP 18; TEMP 36.5; O2SAT 99
[2021-09-10 10:19] LABS: Basophils % 0.2 %; Hematocrit 31.8 % (42.0-52.0); Hemoglobin 10.6 g/dL (11.7-16.6); Lymphocytes # 0.8 10^3/uL (0.8-4.8); Lymphocytes % 6.8 %; Mean Corpuscular HGB Conc 33.3 g/dL (30.0-36.0); Mean Corpuscular Hemoglobin 28.1 pg (28.0-34.0); Mean Corpuscular Volume 84.4 fl (80-94); Mean Platelet Volume 10.4 fL (7.4-10.4); Monocytes # 0.9 10^3/uL (0.2-0.9); Neutrophils # 9.68 10^3/uL (1.8-7.7); Neutrophils % 83.9 %; Nucleated Red Blood Cells % 0 %; Platelet Count 263 10^3/cmm (130-400); Red Blood Count 3.77 10^6/uL (4.1-5.3); Red Cell Distribution Width 18.4 % (12.1-15.1); White Blood Count 11.5 10^3/uL (4.0-10.0)
[2021-09-10 10:32] LABS: Alanine Aminotransferase 20 U/L (0-41); Albumin Level 3.9 g/dL (3.5-5.2); Alkaline Phosphatase 144 IU/L (40-130); Anion Gap 19.5 (5-19); Aspartate Amino Transferase 13 U/L (0-40); Blood Urea Nitrogen 42 mg/dL (6-20); Carbon Dioxide 20 mmol/L (22-29); Chloride 98 mmol/L (98-107); Globulin 3.5 g/dL (1.3-4.6); Glomerular Filtration Rate 44.6 mL/min (90-130); Glucose 416 mg/dL (65-115); Osmolality Calculated 304 mOsm/kg (285-295); Potassium 4.5 mmol/L (3.5-5.1); Sodium 133 mmol/L (136-145); Total Bilirubin 0.5 mg/dL (0.15-1.2); Total Protein 7.4 g/dL (6.6-8.7)
[2021-09-10 11:14] LABS: Vancomycin Trough 9.9 ug/mL (10-15)
[2021-09-13 10:01] LABS: Vancomycin Trough 10.7 ug/mL (10-15)
[2021-09-13 10:07] VITALS: BP 122/95; PULSE 99; RESP 18; TEMP 36.2; O2SAT 99
[2021-09-13 10:09] LABS: Anion Gap 17.4 (5-19); Blood Urea Nitrogen 46 mg/dL (6-20); Carbon Dioxide 24 mmol/L (22-29); Chloride 99 mmol/L (98-107); Glomerular Filtration Rate 48.1 mL/min (90-130); Glucose 457 mg/dL (65-115); Osmolality Calculated 314 mOsm/kg (285-295); Potassium 4.4 mmol/L (3.5-5.1); Sodium 136 mmol/L (136-145)
== END 2021-09-13 23:59 | disposition home or self-care (01) ==
LOC: GILAB 09:31
PROVIDERS: PCP Family Medicine; Visit Provider Internal Medicine
DX: I50.22 Chronic systolic (congestive) heart failure (principal); I25.5 Ischemic cardiomyopathy; Z95.811 Presence of heart assist device
CPT/HCPCS: 36415; 36592; 80048; 80053; 80202; 85025; 96365; J0692

== ENCOUNTER 2021-10-11 10:25 | Outpatient (RCR) | payer MEDICARE, SELFPAY ==
[2021-09-18 09:50] VITALS: BP 100/85; PULSE 100; RESP 18; TEMP 36.4; O2SAT 99
[2021-09-18 10:09] LABS: Basophils # 0.1 10^3/uL (0.0-0.1); Basophils % 0.6 %; Eosinophils # 0.1 10^3/uL (0.0-0.8); Eosinophils % 0.7 %; Hemoglobin 11.1 g/dL (11.7-16.6); Lymphocytes % 19.2 %; Mean Corpuscular HGB Conc 32.6 g/dL (30.0-36.0); Mean Corpuscular Volume 85.6 fl (80-94); Monocytes # 0.8 10^3/uL (0.2-0.9); Monocytes % 7.5 %; Neutrophils # 7.35 10^3/uL (1.8-7.7); Neutrophils % 70.1 %; Nucleated Red Blood Cells % 0 %; Platelet Count 276 10^3/cmm (130-400); Red Blood Count 3.97 10^6/uL (4.1-5.3); Red Cell Distribution Width 18.7 % (12.1-15.1); White Blood Count 10.5 10^3/uL (4.0-10.0)
[2021-09-18 10:59] LABS: Vancomycin Trough 10.5 ug/mL (10-15)
[2021-09-18 11:37] LABS: Alanine Aminotransferase 23 U/L (0-41); Aspartate Amino Transferase 13 U/L (0-40); Total Bilirubin 0.3 mg/dL (0.15-1.2); Total Protein 6.9 g/dL (6.6-8.7)
[2021-09-18 11:54] LABS: Chloride 97 mmol/L (98-107); Osmolality Calculated 308 mOsm/kg (285-295); Sodium 132 mmol/L (136-145)
[2021-09-18 11:57] LABS: Blood Urea Nitrogen 52 mg/dL (6-20); Carbon Dioxide 19 mmol/L (22-29); Glomerular Filtration Rate 36.6 mL/min (90-130); Glucose 452 mg/dL (65-115)
[2021-09-18 11:58] LABS: Calcium 9.3 mg/dL (8.5-10.5)
[2021-09-18 12:11] LABS: Globulin 2.9 g/dL (1.3-4.6)
[2021-09-18 12:46] LABS: Alkaline Phosphatase 135 IU/L (40-130)
[2021-09-20 09:50] VITALS: BP 121/99; PULSE 103; RESP 18; TEMP 36.3; O2SAT 99
[2021-09-20 10:15] LABS: Blood Urea Nitrogen 45 mg/dL (6-20); Calcium 9.3 mg/dL (8.5-10.5); Carbon Dioxide 20 mmol/L (22-29); Chloride 97 mmol/L (98-107); Glomerular Filtration Rate 56.7 mL/min (90-130); Glucose 357 mg/dL (65-115); Osmolality Calculated 300 mOsm/kg (285-295); Sodium 132 mmol/L (136-145); Vancomycin Trough 10.5 ug/mL (10-15)
[2021-09-24 09:40] VITALS: BP 111/83; PULSE 86; RESP 18; TEMP 36; O2SAT 99
[2021-09-24 10:03] LABS: Basophils % 0.3 %; Hematocrit 34.7 % (42.0-52.0); Hemoglobin 11.6 g/dL (11.7-16.6); Lymphocytes # 1.2 10^3/uL (0.8-4.8); Lymphocytes % 11.2 %; Mean Corpuscular HGB Conc 33.4 g/dL (30.0-36.0); Mean Corpuscular Hemoglobin 27.8 pg (28.0-34.0); Mean Corpuscular Volume 83.2 fl (80-94); Mean Platelet Volume 10.7 fL (7.4-10.4); Monocytes # 0.6 10^3/uL (0.2-0.9); Monocytes % 5.5 %; Neutrophils # 9.01 10^3/uL (1.8-7.7); Neutrophils % 81.8 %; Nucleated Red Blood Cells % 0 %; Platelet Count 261 10^3/cmm (130-400); Red Blood Count 4.17 10^6/uL (4.1-5.3); Red Cell Distribution Width 18.7 % (12.1-15.1)
[2021-09-24 10:33] LABS: Vancomycin Trough 10.5 ug/mL (10-15)
[2021-09-24 12:19] LABS: Alanine Aminotransferase 14 U/L (0-41); Albumin Level 4.1 g/dL (3.5-5.2); Alkaline Phosphatase 117 IU/L (40-130); Anion Gap 19.8 (5-19); Aspartate Amino Transferase 8 U/L (0-40); Blood Urea Nitrogen 45 mg/dL (6-20); Carbon Dioxide 16 mmol/L (22-29); Chloride 99 mmol/L (98-107); Globulin 3.3 g/dL (1.3-4.6); Glomerular Filtration Rate 34.5 mL/min (90-130); Glucose 409 mg/dL (65-115); Osmolality Calculated 299 mOsm/kg (285-295); Potassium 4.8 mmol/L (3.5-5.1); Sodium 130 mmol/L (136-145); Total Bilirubin 0.4 mg/dL (0.15-1.2); Total Protein 7.4 g/dL (6.6-8.7)
[2021-09-24 12:20] LABS: Creatinine Clr Calc Pharmacy 53.9145
[2021-09-27 09:30] VITALS: BP 127/86; PULSE 87; RESP 18; TEMP 35.9; O2SAT 98
[2021-09-27 10:18] LABS: Vancomycin Trough 9.5 ug/mL (10-15)
[2021-09-27 10:33] LABS: Blood Urea Nitrogen 56 mg/dL (6-20); Calcium 9.4 mg/dL (8.5-10.5); Carbon Dioxide 20 mmol/L (22-29); Chloride 91 mmol/L (98-107); Glomerular Filtration Rate 44.6 mL/min (90-130); Osmolality Calculated 305 mOsm/kg (285-295); Sodium 125 mmol/L (136-145)
[2021-09-27 10:37] LABS: Anion Gap 19.1 (5-19); Potassium 5.1 mmol/L (3.5-5.1)
[2021-09-27 10:50] LABS: Glucose 632 mg/dL (65-115)
[2021-10-01 09:30] VITALS: BP 112/80; PULSE 97; RESP 18; TEMP 36.2; O2SAT 100
[2021-10-01 10:01] LABS: Basophils % 0.3 %; Eosinophils % 0.2 %; Hematocrit 36.8 % (42.0-52.0); Lymphocytes # 0.9 10^3/uL (0.8-4.8); Lymphocytes % 10.2 %; Mean Corpuscular HGB Conc 32.6 g/dL (30.0-36.0); Mean Corpuscular Hemoglobin 28.2 pg (28.0-34.0); Mean Corpuscular Volume 86.6 fl (80-94); Mean Platelet Volume 11.6 fL (7.4-10.4); Monocytes # 0.7 10^3/uL (0.2-0.9); Monocytes % 7.9 %; Neutrophils # 7.21 10^3/uL (1.8-7.7); Neutrophils % 79.7 %; Nucleated Red Blood Cells % 0 %; Platelet Count 160 10^3/cmm (130-400); Red Blood Count 4.25 10^6/uL (4.1-5.3); Red Cell Distribution Width 18.7 % (12.1-15.1)
[2021-10-01 10:49] LABS: Vancomycin Trough 9.5 ug/mL (10-15)
[2021-10-01 11:54] LABS: Alanine Aminotransferase 16 U/L (0-41); Albumin Level 3.9 g/dL (3.5-5.2); Alkaline Phosphatase 140 IU/L (40-130); Anion Gap 19.3 (5-19); Aspartate Amino Transferase 10 U/L (0-40); Blood Urea Nitrogen 56 mg/dL (6-20); Calcium 9.2 mg/dL (8.5-10.5); Carbon Dioxide 17 mmol/L (22-29); Chloride 97 mmol/L (98-107); Globulin 3.7 g/dL (1.3-4.6); Glomerular Filtration Rate 41.6 mL/min (90-130); Osmolality Calculated 308 mOsm/kg (285-295); Potassium 5.3 mmol/L (3.5-5.1); Sodium 128 mmol/L (136-145); Total Bilirubin 0.6 mg/dL (0.15-1.2); Total Protein 7.6 g/dL (6.6-8.7)
[2021-10-01 11:57] LABS: Glucose 575 mg/dL (65-115)
--- NOTE | 2021-10-01 12:35 | PC.NURSE ---
Pt supplies own dressing change kits for his PICC line through his IV infusion company.
--- NOTE | 2021-10-01 13:39 | PC.NURSE ---
Critical glucose of 575 called to Gaby Ramires RN at [facility] Infectious Disease.
[2021-10-04 13:05] VITALS: BP 94/79; PULSE 98; RESP 18; TEMP 37; O2SAT 99; BMI 32.1
[2021-10-04 14:06] LABS: Blood Urea Nitrogen 43 mg/dL (6-20); Calcium 8.7 mg/dL (8.5-10.5); Carbon Dioxide 20 mmol/L (22-29); Chloride 97 mmol/L (98-107); Glomerular Filtration Rate 52.1 mL/min (90-130); Glucose 417 mg/dL (65-115); Osmolality Calculated 301 mOsm/kg (285-295); Sodium 131 mmol/L (136-145)
[2021-10-04 14:58] LABS: Vancomycin Trough 10.7 ug/mL (10-15)
[2021-10-11 10:30] VITALS: BP 119/94; PULSE 58; RESP 18; TEMP 36; O2SAT 97
[2021-10-11 11:14] LABS: Blood Urea Nitrogen 32 mg/dL (6-20); Calcium 8.7 mg/dL (8.5-10.5); Carbon Dioxide 17 mmol/L (22-29); Chloride 105 mmol/L (98-107); Glomerular Filtration Rate 62.2 mL/min (90-130); Glucose 134 mg/dL (65-115); Osmolality Calculated 293 mOsm/kg (285-295); Sodium 137 mmol/L (136-145); Vancomycin Trough 17.4 ug/mL (10-15)
== END 2021-10-14 23:59 | disposition home or self-care (01) ==
LOC: GILAB 10:25
PROVIDERS: PCP Family Medicine; Visit Provider Internal Medicine
DX: I50.22 Chronic systolic (congestive) heart failure (principal); I25.5 Ischemic cardiomyopathy; Z95.811 Presence of heart assist device
CPT/HCPCS: 36415; 36592; 80048; 80053; 80202; 85025

== ENCOUNTER 2021-10-25 09:37 | Outpatient (RCR) | payer MEDICARE, SELFPAY ==
[2021-10-15 09:40] VITALS: BP 112/93; PULSE 81; RESP 18; TEMP 36.1; O2SAT 99
[2021-10-15 10:08] LABS: Basophils % 0.4 %; Eosinophils % 0.5 %; Hematocrit 32.6 % (42.0-52.0); Hemoglobin 10.7 g/dL (11.7-16.6); Lymphocytes # 1.4 10^3/uL (0.8-4.8); Mean Corpuscular HGB Conc 32.8 g/dL (30.0-36.0); Mean Corpuscular Hemoglobin 27.9 pg (28.0-34.0); Mean Corpuscular Volume 85.1 fl (80-94); Mean Platelet Volume 10.7 fL (7.4-10.4); Monocytes # 0.9 10^3/uL (0.2-0.9); Monocytes % 11.6 %; Neutrophils # 5.51 10^3/uL (1.8-7.7); Neutrophils % 69.2 %; Nucleated Red Blood Cells % 0 %; Platelet Count 227 10^3/cmm (130-400); Red Blood Count 3.83 10^6/uL (4.1-5.3); Red Cell Distribution Width 18.5 % (12.1-15.1)
[2021-10-15 10:26] LABS: Vancomycin Trough 18.1 ug/mL (10-15)
[2021-10-15 10:29] LABS: Alanine Aminotransferase 26 U/L (0-41); Albumin Level 3.6 g/dL (3.5-5.2); Alkaline Phosphatase 101 IU/L (40-130); Anion Gap 16.1 (5-19); Aspartate Amino Transferase 13 U/L (0-40); Blood Urea Nitrogen 36 mg/dL (6-20); Calcium 8.9 mg/dL (8.5-10.5); Carbon Dioxide 18 mmol/L (22-29); Chloride 107 mmol/L (98-107); Glomerular Filtration Rate 56.7 mL/min (90-130); Glucose 223 mg/dL (65-115); Osmolality Calculated 299 mOsm/kg (285-295); Potassium 4.1 mmol/L (3.5-5.1); Sodium 137 mmol/L (136-145); Total Bilirubin 0.4 mg/dL (0.15-1.2); Total Protein 6.6 g/dL (6.6-8.7)
[2021-10-18 10:12] VITALS: PULSE 84; RESP 18; TEMP 36.2; O2SAT 98
[2021-10-18 10:19] LABS: Vancomycin Trough 19.2 ug/mL (10-15)
[2021-10-18 11:08] LABS: Anion Gap 14.9 (5-19); Blood Urea Nitrogen 30 mg/dL (6-20); Carbon Dioxide 24 mmol/L (22-29); Chloride 104 mmol/L (98-107); Glomerular Filtration Rate 68.8 mL/min (90-130); Glucose 203 mg/dL (65-115); Osmolality Calculated 300 mOsm/kg (285-295); Potassium 3.9 mmol/L (3.5-5.1); Sodium 139 mmol/L (136-145)
[2021-10-22 09:45] VITALS: BP 105/89; PULSE 88; RESP 18; TEMP 36.5; O2SAT 96
[2021-10-22 10:11] LABS: Basophils # 0.1 10^3/uL (0.0-0.1); Eosinophils % 0.6 %; Hematocrit 34.7 % (42.0-52.0); Hemoglobin 11.5 g/dL (11.7-16.6); Lymphocytes # 1.4 10^3/uL (0.8-4.8); Lymphocytes % 19.3 %; Mean Corpuscular HGB Conc 33.1 g/dL (30.0-36.0); Mean Corpuscular Hemoglobin 28.3 pg (28.0-34.0); Mean Corpuscular Volume 85.5 fl (80-94); Mean Platelet Volume 11.4 fL (7.4-10.4); Monocytes # 0.7 10^3/uL (0.2-0.9); Monocytes % 10.3 %; Neutrophils # 4.82 10^3/uL (1.8-7.7); Neutrophils % 68.2 %; Nucleated Red Blood Cells % 0 %; Platelet Count 220 10^3/cmm (130-400); Red Blood Count 4.06 10^6/uL (4.1-5.3); Red Cell Distribution Width 19.2 % (12.1-15.1); White Blood Count 7.1 10^3/uL (4.0-10.0)
[2021-10-22 10:26] LABS: Vancomycin Trough 14.8 ug/mL (10-15)
[2021-10-22 10:59] LABS: Alanine Aminotransferase 16 U/L (0-41); Albumin Level 3.8 g/dL (3.5-5.2); Alkaline Phosphatase 88 IU/L (40-130); Anion Gap 17.8 (5-19); Aspartate Amino Transferase 12 U/L (0-40); Blood Urea Nitrogen 40 mg/dL (6-20); Calcium 9.2 mg/dL (8.5-10.5); Carbon Dioxide 21 mmol/L (22-29); Chloride 104 mmol/L (98-107); Glomerular Filtration Rate 56.7 mL/min (90-130); Glucose 172 mg/dL (65-115); Osmolality Calculated 300 mOsm/kg (285-295); Potassium 4.8 mmol/L (3.5-5.1); Sodium 138 mmol/L (136-145); Total Bilirubin 0.4 mg/dL (0.15-1.2); Total Protein 6.8 g/dL (6.6-8.7)
[2021-10-25 09:57] VITALS: BP 109/89; PULSE 90; RESP 18; TEMP 36.3; O2SAT 100
[2021-10-25 10:32] LABS: Anion Gap 15.4 (5-19); Blood Urea Nitrogen 37 mg/dL (6-20); Calcium 8.9 mg/dL (8.5-10.5); Carbon Dioxide 20 mmol/L (22-29); Chloride 106 mmol/L (98-107); Glomerular Filtration Rate 62.2 mL/min (90-130); Glucose 160 mg/dL (65-115); Osmolality Calculated 296 mOsm/kg (285-295); Potassium 4.4 mmol/L (3.5-5.1); Sodium 137 mmol/L (136-145)
[2021-10-25 10:42] LABS: Vancomycin Trough 21.7 ug/mL (10-15)
--- NOTE | 2021-10-29 11:20 | PC.NURSE ---
Pt did not arrive for his appointment as scheduled. Unable to reach pt by phone.
--- NOTE | 2021-10-29 14:18 | PC.NURSE ---
Leonie MONET, [facility] Infectious disease, notified that pt did not attend appointment or have labs drawn. Pt found to be admitted at [facility] for issues with his drive line for his LVAD.
== END 2021-11-14 23:59 | disposition home or self-care (01) ==
LOC: GILAB 09:37
PROVIDERS: PCP Family Medicine; Visit Provider Internal Medicine
DX: T82.7XXA Infection and inflammatory reaction due to other cardiac and vascular devices, implants and grafts, initial encounter (principal)
CPT/HCPCS: 36415; 80048; 80053; 80202; 85025

== ENCOUNTER 2021-11-20 11:38 | Emergency (ER) | payer MEDICARE, SELFPAY ==
[2021-11-20 12:01] VITALS: BP 100/79; PULSE 106; RESP 15; TEMP 36.7; O2SAT 100
--- NOTE | 2021-11-20 12:37 | USCV_ITS ---
Damian Escalona Age: 56 Gender: M : 1965 Exam Date: 11/20/2021 13:13 Ordering Phys: Lila Levy XX Technologist: JOSHUA [place] [facility] [place] RLE PAIN AND SWELLING HISTORY: Lower extremity swelling. Lower extremity pain. PROCEDURES: Venous duplex imaging was performed in only the right lower extremity. The following venous structures were evaluated: common femoral vein, profunda vein, proximal portion of the greater saphenous vein, superficial femoral vein, and the popliteal vein. In addition, the posterior tibial and peroneal trunk were evaluated. Serial compression, augmentation maneuvers, and spectral Doppler flow evaluation were performed. FINDINGS: No evidence of DVT seen in any vessel visualized at this time. S/P angio x3 weeks ago. Right Groin fluid collection seen. CONCLUSIONS No evidence of right lower extremity DVT. Right groin fluid collection likely seroma seen also on CT measuring 3.6 x 1.7 x 2.7cm Konrad Parra MD (Electronically Signed) Final Date: 20 November 2021 16:53 S
[2021-11-20] MEDS: HYDROcodone-acetaminophen 5-325 mg Tablet 1 TAB PO (12:58)
--- NOTE | 2021-11-20 14:32 | CT_ITS ---
WS: [id number] CT ABDOMEN PELVIS TECHNIQUE: Contrast-enhanced CT of the abdomen and pelvis with coronal and sagittal reformatted image s. CLINICAL INFORMATION: fluid collecction in groin COMPARISON: None. DLP: 997.[address] scans at [facility] use at least one of these dose optimization techniques: automated e xposure control; mA and/or kV adjustment per patient size (includes targeted exams where dose is matc hed to clinical indication); or iterative reconstruction. FINDINGS: Prior placement of LVAD. Associated beam hardening artifact. Cardiomegaly. Cardiomegaly. Diffuse fatty infiltration of the liver. Hepatomegaly. Normal spleen. Normal GE junction. Adrenal gla nds are normal. Normal renal parenchymal enhancement. Mild bilateral renal cortical atrophy. Normal c aliber abdominal aorta. Celiac and SMA are patent. Lung bases are well aerated. Hyperdense presumed R IGHT renal cyst unchanged measuring 12 mm. Small amount of free fluid in the pelvis. Mild sigmoid col on constipation. No evidence of high-grade obstruction. Tiny fat-containing umbilical hernia. Postoperative changes surgical clips in the RIGHT groin. Small low-attenuation fluid collection measu ring 3.7 x 2.2 x 2.7 cm likely incidental postoperative seroma. Normal opacification of the adjacent femoral artery. A few prominent periaortic and iliac chain lymph nodes largest in the RIGHT iliac sandeep in measuring 12 mm. Small fat-containing RIGHT inguinal hernia. CT/CT abdomen pelvis w con* [id number] IMPRESSION: 1. Postoperative changes RIGHT groin with surgical clips. Simple appearing flu id collection likely postoperative seroma measuring 3.7 x 2.2 x 2.7cm 2. Cardiomegaly with LVAD. 3. Hepatomegaly with diffuse fatty infiltration of the liver. 4. Small amount of free fluid in the pelvis. 5. A few slightly shotty and slightly prominent periaortic and iliac chain lym ph nodes the largest measuring 12 mm on the RIGHT nonspecific but may be reacti ve. RIGHT iliac node appears stable compared to March 07, 2017. Pelvis is no t included on the prior August 2021 CT.
[2021-11-20 14:44] LABS: Basophils # 0.1 10^3/uL (0.0-0.1); Basophils % 1.1 %; Eosinophils # 0.1 10^3/uL (0.0-0.8); Eosinophils % 0.7 %; Hematocrit 30.3 % (42.0-52.0); Hemoglobin 9.1 g/dL (11.7-16.6); Lymphocytes # 1.1 10^3/uL (0.8-4.8); Lymphocytes % 12.4 %; Mean Corpuscular Hemoglobin 26.9 pg (28.0-34.0); Mean Corpuscular Volume 89.6 fl (80-94); Mean Platelet Volume 9.3 fL (7.4-10.4); Monocytes # 0.9 10^3/uL (0.2-0.9); Monocytes % 9.7 %; Neutrophils # 6.85 10^3/uL (1.8-7.7); Neutrophils % 75.5 %; Nucleated Red Blood Cells % 0.3 %; Platelet Count 414 10^3/cmm (130-400); Red Blood Count 3.38 10^6/uL (4.1-5.3); Red Cell Distribution Width 17.2 % (12.1-15.1); White Blood Count 9.1 10^3/uL (4.0-10.0)
[2021-11-20 15:04] LABS: Alanine Aminotransferase 57 U/L (0-41); Albumin Level 3.8 g/dL (3.5-5.2); Alkaline Phosphatase 193 U/L (40-130); Anion Gap 15.2 (5-19); Aspartate Amino Transferase 49 U/L (0-40); Blood Urea Nitrogen 41 mg/dL (6-20); Calcium 8.7 mg/dL (8.5-10.5); Carbon Dioxide 19 mmol/L (22-29); Chloride 106 mmol/L (98-107); Globulin 3.3 g/dL (1.3-4.6); Glomerular Filtration Rate 56.7 mL/min (90-130); Glucose 120 mg/dL (65-115); Osmolality Calculated 293 mOsm/kg (285-295); Potassium 4.2 mmol/L (3.5-5.1); Sodium 136 mmol/L (136-145); Total Bilirubin 0.5 mg/dL (0.15-1.2); Total Protein 7.1 g/dL (6.6-8.7)
[2021-11-20] MEDS: iohexol 350 mg/mL 100 mL Btl IV (15:23)
--- NOTE | 2021-11-20 16:25 | W.ED.EXTPRO ---
HPI - Extremity Problem General: Chief complaint: Extremity Problem,Nontraumatic Stated complaint: RT foot and knee swollen/gout Time Seen by Provider: 11/20/21 11:45 History of Present Illness: 56-year-old male patient presents to the emergency department complaining of right leg pain and swelling. Patient states this is a gout flareup. Patient states he gets gout flareups frequently and states this is where he typically gets it and this is what it typically feels like. Patient is on anticoagulants. Patient does not have history of DVTs. Patient denies any fever. Patient denies any trauma or injury. Associated symptoms: Deny chest pain, fever(s) or rash Review of Systems Const: Denies: fever(s), chills, body aches, change in appetite, change in weight, fatigue, malaise or diaphoresis Eyes: Denies: change in vision, blurry vision, blind spots, photophobia, eye discomfort, eye discharge, eye redness, floaters or seeing flashes ENMT: Reports: uvular edema; Denies: throat pain, enlarged tonsils, odynophagia, hoarseness, mouth pain, swelling of lips/tongue, oral sores, bleeding gums, dental pain, dry mouth, ear or mastoid pain, ear discharge, change in hearing, tinnitus, disequilibrium, nasal discharge, nasal congestion, post nasal drip or sinus pain Card: Denies: chest pain, palpitations, irregular heart rhythm, edema, swelling of feet/ankles, lightheadedness, syncope, pre-syncope, dyspnea on exertion, orthopnea, leg pain with exertion or acrocyanosis Resp: Denies: dyspnea, productive cough, non-productive cough, wheezing, stridor, pain on inspiration, change in phlegm color, hemoptysis or chest congestion GI: Denies: abdominal pain, nausea, vomiting, hematemesis, dysphagia, diarrhea, constipation, GI cramping, change in bowel habits or rectal pain : Denies: flank pain, dysuria, urinary frequency, urinary urgency, urinary hesitancy or hematuria Musc: Reports: extremity pain; Denies: neck pain, back pain, extremity swelling, joint pain, joint swelling, joint redness, joint warmth or deformity Skin/Breast: Denies: rash, pruritus, erythema, sores, new lesions, changes in skin color or dry skin Neuro: Denies: headache(s), numbness in extremities, weakness in extremities, sensory changes, lack of coordination, difficulty walking, frequent falls, dizziness, vertigo, confusion, behavioral changes, Slurred speech present, difficulty communicating thoughts or seizure-like activity Psych: Denies: anxiety, depression, suicidal ideation or homicidal ideation Endo: Denies: polyuria, polydipsia, tired all the time, cold intolerance, excessive sweating, flushing, hot flashes or heat intolerance Adolfo/Lymph: Denies: easy bruising, easy bleeding, petechiae, purpura, enlarged lymph nodes or tender lymph nodes All/Imm: Denies: urticaria, throat swelling, tongue swelling, facial swelling, acute wheezing or itchy eyes PFSH ED PFSH: Medical History Arrhythmia CAD (coronary artery disease) Cardiac defibrillator in place CHF (congestive heart failure) Cholecystectomy planned Cholecystitis Chronic kidney disease Diabetes Encounter for central line placement Gallbladder disease Gout Hypertension Ischemic cardiomyopathy LVAD (left ventricular assist device) present Type II diabetes mellitus Surgical History H/O cardiac catheterization History of esophagogastroduodenoscopy (EGD) S/P coronary artery stent placement Social History Smoking and tobacco status: never smoked Second hand smoke exposure: No Alcohol intake: never Physical Exam Const: COMMON NORMALS: no acute distress, average body habitus, patient oriented x3, no limitations, healthy appearing, alert and well nourished HENMT: THROAT: uvular edema Neck/C-Spine: COMMON NORMALS: no JVD Chest: COMMONS NORMALS: normal inspection of the chest and normal palpation of entire chest wall Resp: COMMON NORMALS: normal respiratory effort, No retractions, No use of accessory muscles, clear to auscultation bilaterally and percussion normal AUSCULTATION: clear to auscultation bilaterally PERCUSSION: percussion normal Cardio: COMMON NORMALS: no JVD, regular rate, regular rhythm, S1 normal heart sound present, S2 normal heart sound present, No gallops present (Cardio), No clicks present (Cardio), No murmurs present (Cardio), No rub (Cardio) and Peripheral pulses 2+ throughout RATE: regular rate RHYTHM: regular rhythm HEART SOUNDS: S1 normal heart sound present and S2 normal heart sound present PERIPHERAL PULSES: Peripheral pulses 2+ throughout : COMMON NORMALS: Yes no CVA tenderness BLADDER/KIDNEY EXAM: Yes no CVA tenderness Back/Pelvis: COMMON NORMALS: no CVA tenderness, thoracic and lumbar spine normal to inspection and no thoracic nor lumbar tenderness Extremity: NARRATIVE EXTREMITY EXAM: Right lower leg swelling noted. Patient does have calf tenderness. Patient is neurovascularly intact distally. There is no erythema noted patient's leg is warm to touch Neuro: COMMON NORMALS: patient oriented x3 SENSORIUM/ORIENTATION: Yes alert Course Vital Signs: Vital signs: Vital Signs Temperature 98.1 F 11/20/21 12:01 Pulse Rate 106 H 11/20/21 12:01 Respiratory Rate 15 11/20/21 12:01 Blood Pressure 100/79 11/20/21 12:01 Pulse Oximetry 100 11/20/21 12:01 Oxygen Delivery Me thod 11/20/21 12:01 MDM - Extremity (Nontraumatic) Medical Decision Making Patient is well-appearing nontoxic and in no acute distress 56-year-old male patient presents to the emergency department complaining of right leg pain and swelling. Patient states this is a gout flareup. Patient states he gets gout flareups frequently and states this is where he typically gets it and this is what it typically feels like. Patient is on anticoagulants. Patient does not have history of DVTs. Patient denies any fever. Patient denies any trauma or injury. I did ultrasound right lower extremity to rule out DVT. There is no DVT noted but there is a fluid collection in the right groin area. Patient did have a cardiac procedure that involve the femoral 3 weeks ago. We will CT for further examination. Based on CT there does show what appears to be a simple appearing fluid collection likely a postoperative seroma to the right groin. I discussed the CT findings with patient. Patient states he sees his surgeon on . Patient will follow-up with surgeon at that time. Given patient's history of gout and complaint I will start patient on steroids at this time.. Lab Data : 11/20/21 14:38 11/20/21 14:38 Radiology Impressions Abdomen/Pelvis CT 11/20/21 14:32 IMPRESSION: 1. Postoperative changes RIGHT groin with surgical clips. Simple appearing fluid collection likely postoperative seroma measuring 3.7 x 2.2 x 2.7cm 2. Cardiomegaly with LVAD. 3. Hepatomegaly with diffuse fatty infiltration of the liver. 4. Small amount of free fluid in the pelvis. 5. A few slightly shotty and slightly prominent periaortic and iliac chain lymph nodes the largest measuring 12 mm on the RIGHT nonspecific but may be reactive. RIGHT iliac node appears stable compared to March 07, 2017. Pelvis is not included on the prior August 2021 CT. Laboratory Results WBC 9.1 10^3/uL (4.0-10.0) 11/20/21 14:38 RBC 3.38 10^6/uL (4.1-5.3) L 11/20/21 14:38 Hgb 9.1 g/dL (11.7-16.6) L 11/20/21 14:38 Hct 30.3 % (42.0-52.0) L 11/20/21 14:38 MCV 89.6 fl (80-94) 11/20/21 14:38 MCH 26.9 pg (28.0-34.0) L 11/20/21 14:38 MCHC 30.0 g/dL (30.0-36.0) 11/20/21 14:38 RDW 17.2 % (12.1-15.1) H 11/20/21 14:38 Plt Count 414 10^3/cmm (130-400) H 11/20/21 14:38 MPV 9.3 fL (7.4-10.4) 11/20/21 14:38 Neut % (Auto) 75.5 % 11/20/21 14:38 Lymph % (Auto) 12.4 % 11/20/21 14:38 Dupage % (Auto) 9.7 % 11/20/21 14:38 Eos % (Auto) 0.7 % 11/20/21 14:38 Baso % (Auto) 1.1 % 11/20/21 14:38 Neut # (Auto) 6.85 10^3/uL (1.8-7.7) 11/20/21 14:38 Lymph # (Auto) 1.1 10^3/uL (0.8-4.8) 11/20/21 14:38 Dupage # (Auto) 0.9 10^3/uL (0.2-0.9) 11/20/21 14:38 Eos # (Auto) 0.1 10^3/uL (0.0-0.8) 11/20/21 14:38 Baso # (Auto) 0.1 10^3/uL (0.0-0.1) 11/20/21 14:38 Nucleated RBC % (auto) 0.3 % 11/20/21 14:38 Nucleated RBCs # 0.0 /100WBC 11/20/21 14:38 Sodium 136 mmol/L (136-145) 11/20/21 14:38 Potassium 4.2 mmol/L (3.5-5.1) 11/20/21 14:38 Chloride 106 mmol/L (98-107) 11/20/21 14:38 Carbon Dioxide 19 mmol/L (22-29) L 11/20/21 14:38 Anion Gap 15.2 (5-19) 11/20/21 14:38 BUN 41 mg/dL (6-20) H 11/20/21 14:38 Creatinine 1.3 mg/dL (0.7-1.2) H 11/20/21 14:38 GFR Calculation 56.7 mL/min (90-130) L 11/20/21 14:38 Glucose 120 mg/dL (65-115) H 11/20/21 14:38 Calculated Osmolality 293 mOsm/kg (285-295) 11/20/21 14:38 Calcium 8.7 mg/dL (8.5-10.5) 11/20/21 14:38 Total Bilirubin 0.5 mg/dL (0.15-1.2) 11/20/21 14:38 AST 49 U/L (0-40) H 11/20/21 14:38 ALT 57 U/L (0-41) H 11/20/21 14:38 Alkaline Phosphatase 193 U/L (40-130) H 11/20/21 14:38 Total Protein 7.1 g/dL (6.6-8.7) 11/20/21 14:38 Albumin 3.8 g/dL (3.5-5.2) 11/20/21 14:38 Globulin 3.3 g/dL (1.3-4.6) 11/20/21 14:38 Discharge Plan Discharge Patient Disposition: Home Clinical Impression: Gout Condition: Stable Prescriptions: New prednisone 20 mg tablet 20 mg PO BID 5 Days Qty: 10 0RF No Action warfarin 10 mg Tablet 3 mg PO DAILY aspirin 81 mg Tablet,Delayed Release (Dr/Ec) 81 mg PO QAM Victoza 3-Lenny 0.6 mg/0.1 mL (18 mg/3 mL) Pen Injector 0.6 mg SUBCUT DAILY@21 insulin lispro [Humalog KwikPen Insulin] 100 unit/mL insulin pen See Rx Instructions .ROUTE .COMPLEX Qty: 3 0RF Rx Instructions: sliding scale tid prn Toujeo SoloStar U-300 Insulin 300 unit/mL (1.5 mL) insulin pen 15 unit SUBCUT DAILY@21 hydrocodone-acetaminophen 5-325 mg tablet 1 tab PO TID PRN (Reason: pain) Qty: 14 0RF vancomycin 1,000 mg recon soln 1,500 g IV DAILY citalopram 20 mg tablet 20 mg PO DAILY amlodipine 5 mg Tablet 5 mg PO DAILY fluconazole 400 mg PO DAILY Discharge Orders: Discharge ED (Routine); Ordered 11/20/21 Ordered By: Lila Levy Referrals: Jose Maciel MD [Primary Care Provider] - Discharge Diet: Advance as tolerated Discharge Activity: Increase activity as tolerated Patient Instructions: Opioid Safety Activity Restrictions/Additional Instructions: Please take medications as discussed Please keep your follow up appointment with your surgeon on regarding CT findings Return to ER with any worsning of symoms Coding Level of Care Code ED Chemical Unit Operator for Yossi Andujar
[2021-11-20 16:44] VITALS: PULSE 76; RESP 16; O2SAT 92
== END 2021-11-20 16:45 | disposition home or self-care (01) ==
PROVIDERS: Emergency Provider Registered Nurse; PCP Family Medicine
DX: M10.9 Gout, unspecified (principal); M79.604 Pain in right leg; Z79.01 Long term (current) use of anticoagulants; Z98.890 Other specified postprocedural states
CPT/HCPCS: 74177; 80053; 85025; 93971; 99285; Q9967

== ENCOUNTER 2021-12-11 08:28 | Outpatient (RCR) | payer MEDICARE, SELFPAY ==
[2021-11-15 10:22] LABS: Basophils # 0.1 10^3/uL (0.0-0.1); Basophils % 1.3 %; Eosinophils % 0.3 %; Hematocrit 25.5 % (42.0-52.0); Hemoglobin 8.1 g/dL (11.7-16.6); Lymphocytes # 0.9 10^3/uL (0.8-4.8); Lymphocytes % 8.4 %; Mean Corpuscular HGB Conc 31.8 g/dL (30.0-36.0); Mean Corpuscular Hemoglobin 27.8 pg (28.0-34.0); Mean Corpuscular Volume 87.6 fl (80-94); Mean Platelet Volume 9.7 fL (7.4-10.4); Monocytes % 9.5 %; Neutrophils # 8.64 10^3/uL (1.8-7.7); Neutrophils % 79.2 %; Nucleated Red Blood Cells % 0 %; Platelet Count 454 10^3/cmm (130-400); Red Blood Count 2.91 10^6/uL (4.1-5.3); Red Cell Distribution Width 17.5 % (12.1-15.1); White Blood Count 10.9 10^3/uL (4.0-10.0)
[2021-11-15 10:30] VITALS: BP 96/81; PULSE 68; RESP 18; TEMP 36.4; O2SAT 95
[2021-11-15 10:49] LABS: Alanine Aminotransferase 17 U/L (0-41); Albumin Level 3.5 g/dL (3.5-5.2); Alkaline Phosphatase 109 U/L (40-130); Anion Gap 16.7 (5-19); Aspartate Amino Transferase 16 U/L (0-40); Blood Urea Nitrogen 34 mg/dL (6-20); Calcium 8.5 mg/dL (8.5-10.5); Carbon Dioxide 18 mmol/L (22-29); Chloride 104 mmol/L (98-107); Globulin 3.1 g/dL (1.3-4.6); Glomerular Filtration Rate 48.1 mL/min (90-130); Glucose 181 mg/dL (65-115); Osmolality Calculated 290 mOsm/kg (285-295); Potassium 4.7 mmol/L (3.5-5.1); Sodium 134 mmol/L (136-145); Total Bilirubin 0.5 mg/dL (0.15-1.2); Total Protein 6.6 g/dL (6.6-8.7)
[2021-11-15 10:51] LABS: Vancomycin Trough 15.7 ug/mL (10-15)
--- NOTE | 2021-11-20 13:42 | PC.NURSE ---
Pt called this nurse from ER stating he is being seen for gout pain but needed lab draw. Pt was supposed to be seen at [facility] today as follow-up but stated [facility] rescheduled his appointment to 11/22/21. This nurse caught patient on way to US and isadora labs peripherally in US. Unable to draw labs through right IJ. No blood return noted. Right IJ flushed without difficulty. No redness or drainage noted. Labs to be faxed on to LVAD office as requested.
[2021-11-20 13:44] LABS: Basophils # 0.1 10^3/uL (0.0-0.1); Basophils % 1.2 %; Eosinophils # 0.1 10^3/uL (0.0-0.8); Eosinophils % 0.8 %; Hematocrit 30.1 % (42.0-52.0); Hemoglobin 9.1 g/dL (11.7-16.6); Lymphocytes # 1.1 10^3/uL (0.8-4.8); Lymphocytes % 11.7 %; Mean Corpuscular HGB Conc 30.2 g/dL (30.0-36.0); Mean Corpuscular Hemoglobin 27.2 pg (28.0-34.0); Mean Corpuscular Volume 90.1 fl (80-94); Mean Platelet Volume 9.9 fL (7.4-10.4); Monocytes # 0.8 10^3/uL (0.2-0.9); Monocytes % 9.2 %; Neutrophils % 76.3 %; Nucleated Red Blood Cells % 0.3 %; Platelet Count 396 10^3/cmm (130-400); Red Blood Count 3.34 10^6/uL (4.1-5.3); Red Cell Distribution Width 17.4 % (12.1-15.1)
[2021-11-20 14:36] LABS: Vancomycin Trough 16.7 ug/mL (10-15)
[2021-11-20 14:37] LABS: Alanine Aminotransferase 57 U/L (0-41); Albumin Level 3.5 g/dL (3.5-5.2); Alkaline Phosphatase 192 U/L (40-130); Anion Gap 18.3 (5-19); Aspartate Amino Transferase 48 U/L (0-40); Blood Urea Nitrogen 40 mg/dL (6-20); Carbon Dioxide 18 mmol/L (22-29); Chloride 105 mmol/L (98-107); Globulin 3.3 g/dL (1.3-4.6); Glomerular Filtration Rate 52.1 mL/min (90-130); Glucose 128 mg/dL (65-115); Lactate Dehydrogenase 254 U/L (135-225); Osmolality Calculated 295 mOsm/kg (285-295); Potassium 4.3 mmol/L (3.5-5.1); Sodium 137 mmol/L (136-145); Total Bilirubin 0.5 mg/dL (0.15-1.2); Total Protein 6.8 g/dL (6.6-8.7)
[2021-11-26 09:30] VITALS: BP 117/88; PULSE 104; RESP 18; TEMP 36.1; O2SAT 100
--- NOTE | 2021-11-26 09:45 | PC.NURSE ---
Pt to GI lab for lab draw and dressing change to right IJ. No blood return noted from central line. Flushes without difficulty. Labs drawn peripherally. Dressing to abdomen changed per pt request. Site cleaned with NS and then packed with iodoform gauze supplied by patient. Covered with dry 2x2 and secured with medipore tape.
[2021-11-26 09:53] LABS: Basophils # 0.1 10^3/uL (0.0-0.1); Basophils % 1.1 %; Eosinophils # 0.2 10^3/uL (0.0-0.8); Hematocrit 30.2 % (42.0-52.0); Hemoglobin 8.6 g/dL (11.7-16.6); Lymphocytes # 1.5 10^3/uL (0.8-4.8); Lymphocytes % 18.9 %; Mean Corpuscular HGB Conc 28.5 g/dL (30.0-36.0); Mean Corpuscular Hemoglobin 25.1 pg (28.0-34.0); Mean Corpuscular Volume 88.3 fl (80-94); Monocytes # 0.7 10^3/uL (0.2-0.9); Monocytes % 8.4 %; Neutrophils % 69.1 %; Nucleated Red Blood Cells % 0 %; Platelet Count 300 10^3/cmm (130-400); Red Blood Count 3.42 10^6/uL (4.1-5.3); Red Cell Distribution Width 17.1 % (12.1-15.1)
[2021-11-26 10:11] LABS: INR 2.18 (0.8-1.2)
[2021-11-26 10:33] LABS: Alanine Aminotransferase 36 U/L (0-41); Albumin Level 3.5 g/dL (3.5-5.2); Alkaline Phosphatase 158 U/L (40-130); Anion Gap 16.1 (5-19); Aspartate Amino Transferase 17 U/L (0-40); Blood Urea Nitrogen 45 mg/dL (6-20); Calcium 8.7 mg/dL (8.5-10.5); Carbon Dioxide 19 mmol/L (22-29); Chloride 106 mmol/L (98-107); Globulin 3.4 g/dL (1.3-4.6); Glomerular Filtration Rate 44.6 mL/min (90-130); Glucose 158 mg/dL (65-115); Lactate Dehydrogenase 222 U/L (135-225); Osmolality Calculated 299 mOsm/kg (285-295); Potassium 4.1 mmol/L (3.5-5.1); Sodium 137 mmol/L (136-145); Total Bilirubin 0.4 mg/dL (0.15-1.2); Total Protein 6.9 g/dL (6.6-8.7)
[2021-11-26 10:35] LABS: Vancomycin Trough 15.2 ug/mL (10-15)
[2021-11-29 08:45] VITALS: BP 110/86; PULSE 105; RESP 18; TEMP 36.3; O2SAT 100
--- NOTE | 2021-11-29 08:45 | PC.NURSE ---
Unable to draw blood via right IJ. Attempted peripheral draw x3 without success. Lab called for blood draw. Lab successful on 3rd attempt. Results faxed as requested.
[2021-11-29 09:33] LABS: Basophils # 0.1 10^3/uL (0.0-0.1); Basophils % 1.2 %; Eosinophils # 0.1 10^3/uL (0.0-0.8); Eosinophils % 1.2 %; Hematocrit 31.2 % (42.0-52.0); Hemoglobin 9.1 g/dL (11.7-16.6); Lymphocytes # 1.2 10^3/uL (0.8-4.8); Lymphocytes % 15.8 %; Mean Corpuscular HGB Conc 29.2 g/dL (30.0-36.0); Mean Corpuscular Hemoglobin 25.9 pg (28.0-34.0); Mean Corpuscular Volume 88.9 fl (80-94); Monocytes # 0.6 10^3/uL (0.2-0.9); Monocytes % 7.7 %; Neutrophils # 5.46 10^3/uL (1.8-7.7); Neutrophils % 73.6 %; Nucleated Red Blood Cells % 0 %; Platelet Count 311 10^3/cmm (130-400); Red Blood Count 3.51 10^6/uL (4.1-5.3); Red Cell Distribution Width 17.1 % (12.1-15.1); White Blood Count 7.4 10^3/uL (4.0-10.0)
[2021-11-29 09:52] LABS: Vancomycin Trough 16.4 ug/mL (10-15)
[2021-11-29 09:53] LABS: Alanine Aminotransferase 27 U/L (0-41); Albumin Level 3.4 g/dL (3.5-5.2); Alkaline Phosphatase 148 U/L (40-130); Anion Gap 16.7 (5-19); Aspartate Amino Transferase 18 U/L (0-40); Blood Urea Nitrogen 35 mg/dL (6-20); Calcium 8.3 mg/dL (8.5-10.5); Carbon Dioxide 19 mmol/L (22-29); Chloride 108 mmol/L (98-107); Globulin 2.8 g/dL (1.3-4.6); Glomerular Filtration Rate 52.1 mL/min (90-130); Glucose 170 mg/dL (65-115); Lactate Dehydrogenase 237 U/L (135-225); Osmolality Calculated 302 mOsm/kg (285-295); Potassium 3.7 mmol/L (3.5-5.1); Sodium 140 mmol/L (136-145); Total Bilirubin 0.4 mg/dL (0.15-1.2); Total Protein 6.2 g/dL (6.6-8.7)
[2021-12-03 08:20] VITALS: BP 99/80; PULSE 109; RESP 18; TEMP 36.2; O2SAT 96
--- NOTE | 2021-12-03 09:00 | PC.NURSE ---
Right IJ dressing changed. Ports flushed without difficulty with saline. Unable to draw blood for labs from IJ. Unsuccessful attempt x2 for peripheral lab draw. Ultrasound obtained and labs drawn from right AC. Pt tolerated well.
[2021-12-03 09:19] LABS: Basophils # 0.1 10^3/uL (0.0-0.1); Basophils % 1.6 %; Eosinophils # 0.1 10^3/uL (0.0-0.8); Eosinophils % 1.1 %; Hematocrit 30.2 % (42.0-52.0); Hemoglobin 8.9 g/dL (11.7-16.6); Lymphocytes # 1.1 10^3/uL (0.8-4.8); Lymphocytes % 17.7 %; Mean Corpuscular HGB Conc 29.5 g/dL (30.0-36.0); Mean Corpuscular Hemoglobin 25.8 pg (28.0-34.0); Mean Corpuscular Volume 87.5 fl (80-94); Mean Platelet Volume 10.6 fL (7.4-10.4); Monocytes # 0.5 10^3/uL (0.2-0.9); Monocytes % 7.3 %; Neutrophils # 4.65 10^3/uL (1.8-7.7); Nucleated Red Blood Cells % 0 %; Platelet Count 308 10^3/cmm (130-400); Red Blood Count 3.45 10^6/uL (4.1-5.3); Red Cell Distribution Width 17.1 % (12.1-15.1); White Blood Count 6.5 10^3/uL (4.0-10.0)
[2021-12-03 09:34] LABS: INR 2.03 (0.8-1.2)
[2021-12-03 09:49] LABS: Glomerular Filtration Rate 52.1 mL/min (90-130); Vancomycin Trough 17.4 ug/mL (10-15)
[2021-12-03 09:50] LABS: Anion Gap 16.6 (5-19); Chloride 105 mmol/L (98-107); Lactate Dehydrogenase 227 U/L (135-225); Osmolality Calculated 299 mOsm/kg (285-295); Potassium 3.6 mmol/L (3.5-5.1); Sodium 139 mmol/L (136-145)
[2021-12-03 09:51] LABS: Alanine Aminotransferase 20 U/L (0-41); Aspartate Amino Transferase 20 U/L (0-40); Blood Urea Nitrogen 34 mg/dL (6-20); Calcium 8.5 mg/dL (8.5-10.5); Carbon Dioxide 21 mmol/L (22-29); Globulin 3.1 g/dL (1.3-4.6); Glucose 159 mg/dL (65-115); Total Bilirubin 0.4 mg/dL (0.15-1.2); Total Protein 6.7 g/dL (6.6-8.7)
[2021-12-03 09:52] LABS: Albumin Level 3.6 g/dL (3.5-5.2); Alkaline Phosphatase 142 U/L (40-130)
[2021-12-06 08:30] VITALS: BP 113/84; PULSE 93; RESP 18; TEMP 36.6; O2SAT 100
--- NOTE | 2021-12-06 09:18 | PC.NURSE ---
Leonie Ramires RN from [facility] notified this nurse of change of orders. Last day of Vancomycin scheduled 12/10/21. Dalvance 1500 mg IV to be started Friday12/11/21 and to be administered every 2 weeks. Pt to have weekly IJ dressing changes and lab draws on Friday, changed from twice weekly lab draws. Pt informed of change in schedule and agrees with plan of care.
[2021-12-06 09:33] LABS: Alanine Aminotransferase 17 U/L (0-41); Albumin Level 3.4 g/dL (3.5-5.2); Alkaline Phosphatase 130 U/L (40-130); Blood Urea Nitrogen 30 mg/dL (6-20); Calcium 8.6 mg/dL (8.5-10.5); Carbon Dioxide 17 mmol/L (22-29); Chloride 102 mmol/L (98-107); Globulin 3.1 g/dL (1.3-4.6); Glomerular Filtration Rate 52.1 mL/min (90-130); Glucose 238 mg/dL (65-115); Osmolality Calculated 290 mOsm/kg (285-295); Sodium 133 mmol/L (136-145); Total Bilirubin 0.6 mg/dL (0.15-1.2); Total Protein 6.5 g/dL (6.6-8.7)
[2021-12-06 09:37] LABS: Aspartate Amino Transferase 23 U/L (0-40)
[2021-12-06 10:04] LABS: Vancomycin Trough 17.5 ug/mL (10-15)
[2021-12-11 08:40] VITALS: BP 107/82; PULSE 78; RESP 18; TEMP 36.3; O2SAT 96
[2021-12-11 09:07] LABS: Basophils # 0.1 10^3/uL (0.0-0.1); Eosinophils # 0.1 10^3/uL (0.0-0.8); Eosinophils % 1.2 %; Hematocrit 32.8 % (42.0-52.0); Hemoglobin 9.6 g/dL (11.7-16.6); Lymphocytes # 1.9 10^3/uL (0.8-4.8); Lymphocytes % 21.3 %; Mean Corpuscular HGB Conc 29.3 g/dL (30.0-36.0); Mean Corpuscular Hemoglobin 24.7 pg (28.0-34.0); Mean Corpuscular Volume 84.3 fl (80-94); Mean Platelet Volume 10.2 fL (7.4-10.4); Monocytes # 0.7 10^3/uL (0.2-0.9); Monocytes % 7.9 %; Neutrophils # 6.22 10^3/uL (1.8-7.7); Neutrophils % 68.3 %; Nucleated Red Blood Cells % 0 %; Platelet Count 336 10^3/cmm (130-400); Red Blood Count 3.89 10^6/uL (4.1-5.3); Red Cell Distribution Width 17.1 % (12.1-15.1); White Blood Count 9.1 10^3/uL (4.0-10.0)
[2021-12-11 09:12] LABS: INR 2.14 (0.8-1.2)
[2021-12-11] MEDS: dalbavancin 1,500 MG in dextrose 5% 250 ML 325 MG IV (09:17)
[2021-12-11 09:25] LABS: Alanine Aminotransferase 26 U/L (0-41); Albumin Level 3.6 g/dL (3.5-5.2); Alkaline Phosphatase 158 U/L (40-130); Anion Gap 17.5 (5-19); Aspartate Amino Transferase 25 U/L (0-40); Blood Urea Nitrogen 48 mg/dL (6-20); Calcium 9.2 mg/dL (8.5-10.5); Carbon Dioxide 22 mmol/L (22-29); Chloride 102 mmol/L (98-107); Globulin 3.1 g/dL (1.3-4.6); Glomerular Filtration Rate 48.1 mL/min (90-130); Glucose 145 mg/dL (65-115); Lactate Dehydrogenase 226 U/L (135-225); Osmolality Calculated 301 mOsm/kg (285-295); Potassium 3.5 mmol/L (3.5-5.1); Sodium 138 mmol/L (136-145); Total Bilirubin 0.5 mg/dL (0.15-1.2); Total Protein 6.7 g/dL (6.6-8.7)
--- NOTE | 2021-12-11 10:20 | PC.NURSE ---
Pt tolerated first dose of Dalvance 1500 mg without difficulty. No reaction noted. Labs drawn and faxed to LVAD office as requested. Dressing to abdomen changed per pt request. Pt states he has not been sleeping well. States he has been having joint pain in his right shoulder.
== END 2021-12-14 23:59 | disposition home or self-care (01) ==
LOC: GILAB 08:28
PROVIDERS: Internal Medicine; PCP Family Medicine; Visit Provider Internal Medicine
DX: T82.7XXA Infection and inflammatory reaction due to other cardiac and vascular devices, implants and grafts, initial encounter (principal)
CPT/HCPCS: 36415; 36592; 80053; 80202; 83615; 85025; 85610; 96365; J0875

== ENCOUNTER → 2021-12-27 09:36 | Outpatient (BNVA) | payer MEDICARE, SELFPAY | PROVIDERS: PCP Family Medicine; Visit Provider Podiatrist Foot & Ankle Surgery | DX: M10.9 Gout, unspecified (principal); E11.22 Type 2 diabetes mellitus with diabetic chronic kidney disease; N18.9 Chronic kidney disease, unspecified; Z79.4 Long term (current) use of insulin | CPT/HCPCS: 20550; 73610; 99204 ==

== ENCOUNTER 2021-12-29 06:02 | Emergency (ER) | payer MEDICARE, SELFPAY ==
[2021-12-29 06:07] VITALS: BP 119/91; PULSE 58; RESP 17; TEMP 36.7; O2SAT 97; BMI 26.2
--- NOTE | 2021-12-29 06:30 | ED_ITS ---
HPI - General Adult General: Chief complaint: General Medical Stated complaint: Port issues, bleeding Time Seen by Provider: 12/29/21 06:17 History of Present Illness: 56-year-old male presenting today with accidental removal of his central line. Patient had a central line for several months secondary to vancomycin infusions. Patient is no longer receiving his infusions. He notes in the middle of the night he woke up in a pool of blood. As he had accidentally removed his central line. Bleeding is now stopped. Patient is on warfarin for an LVAD. Recently had LVAD replaced. No issues with LVAD today. No chest pain or shortness of breath. Review of Systems General: Reports: 10 or more systems reviewed and unremarkable except in HPI and below PFSH ED PFSH: Medical History Arrhythmia CAD (coronary artery disease) Cardiac defibrillator in place CHF (congestive heart failure) Cholecystectomy planned Cholecystitis Chronic kidney disease Diabetes Encounter for central line placement Gallbladder disease Gout Hypertension Ischemic cardiomyopathy LVAD (left ventricular assist device) present Type II diabetes mellitus Surgical History H/O cardiac catheterization History of esophagogastroduodenoscopy (EGD) S/P coronary artery stent placement Social History Smoking and tobacco status: never smoked Second hand smoke exposure: No Alcohol intake: never Physical Exam Const: COMMON NORMALS: no acute distress, patient oriented x3 and alert GENERAL APPEARANCE: cooperative ORIENTATION/CONSCIOUSNESS: Yes awake, Yes oriented to person, Yes oriented to place and Yes oriented to time HENMT: COMMON NORMALS: normocephalic, atraumatic, external ears normal, Normal external nose present and moist oral mucous membranes HEAD & SCALP: normal to inspection, normocephalic and atraumatic NOSE: Normal external nose present GENERAL EAR: hearing grossly impaired EXTERNAL EAR: Yes external ears normal Eye: COMMON NORMALS: Equal, round and reactive pupils present, EOMs intact bilaterally, conjunctivae normal and no scleral icterus GENERAL EYE: appearance normal, both eyes and all related structures EYELID: eyelids nor mal CONJUNCTIVA: Yes conjunctivae normal SCLERA: sclerae normal PUPIL: Yes Equal, round and reactive pupils present Neck/C-Spine: COMMON NORMALS: full ROM, supple and no JVD GENERAL: Yes normal visual inspection Lymph: LYMPHATIC: no lymphadenopathy noted and no lymphedema noted Chest: COMMONS NORMALS: normal inspection of the chest Resp: COMMON NORMALS: normal respiratory effort, No retractions and No use of accessory muscles Cardio: COMMON NORMALS: no JVD, regular rate and regular rhythm RATE: regular rate RHYTHM: regular rhythm GI: COMMON NORMALS: Normal to inspection, nondistended, normoactive bowel sounds present : COMMON NORMALS: Yes no CVA tenderness BLADDER/KIDNEY EXAM: Yes no CVA tenderness Back/Pelvis: COMMON NORMALS: no CVA tenderness and thoracic and lumbar spine normal to inspection Extremity: COMMON NORMALS: normal to inspection, full ROM and capillary refill normal GENERAL: Yes normal exam except as noted Neuro: COMMON NORMALS: patient oriented x3, CN's II-XII intact bilaterally, moves all extremities, no focal motor deficits, no sensory deficits noted and gait normal SENSORIUM/ORIENTATION: Yes alert, Yes oriented to person, Yes oriented to place and Yes oriented to time Psych: COMMON NORMALS: mental status grossly normal, Normal thought process present, cooperative and normal affect THOUGHT PROCESS: Normal thought process present Skin: COMMON NORMALS: no rashes or lesions noted and no wounds GENERAL SKIN EXAM: no rashes or lesions noted Course Vital Signs: Vital signs: Vital Signs Temperature 98.1 F 12/29/21 06:07 Pulse Rate 58 L 12/29/21 06:07 Respiratory Rate 17 12/29/21 06:07 Blood Pressure 119/91 12/29/21 06:07 Pulse Oximetry 97 12/29/21 06:07 [facility]07 [facility] - General Adult Medical Decision Making 56-year-old male presenting today with accidental removal of central line. Bleeding is controlled. Sutures were cut and rest of central line removed from exterior body. Lumen no longer within the body. Patient's flow approximately 4.5 to 4.9 L/min. Patient was bolused 1 L normal saline with improvement of flow rates. PT/INR was within patient's range. Patient was given strict return precautions and recommended routine outpatient follow-up. Discharge Plan Discharge Patient Disposition: Home Clinical Impression: Accidental loss of central line Condition: Stable Prescriptions: No Action warfarin 10 mg Tablet 3 mg PO DAILY aspirin 81 mg Tablet,Delayed Release (Dr/Ec) 81 mg PO QAM Victoza 3-Lenny 0.6 mg/0.1 mL (18 mg/3 mL) Pen Injector 0.6 mg SUBCUT DAILY@21 insulin lispro [Humalog KwikPen Insulin] 100 unit/mL insulin pen See Rx Instructions .ROUTE .COMPLEX Qty: 3 0RF Rx Instructions: sliding scale tid prn Toujeo SoloStar U-300 Insulin 300 unit/mL (1.5 mL) insulin pen 15 unit SUBCUT DAILY@21 hydrocodone-acetaminophen 5-325 mg tablet 1 tab PO TID PRN (Reason: pain) Qty: 14 0RF vancomycin 1,000 mg recon soln 1,500 g IV DAILY citalopram 20 mg tablet 20 mg PO DAILY amlodipine 5 mg Tablet 5 mg PO DAILY fluconazole 400 mg PO DAILY Discharge Orders: Discharge ED (Routine); Ordered 12/29/21 Ordered By: Simeno Nick Referrals: Jose Maciel MD [Primary Care Provider] - Patient Instructions: Opioid Safety, Pain Management Coding Level of Care Code ED Cigarette Making Machine Operator for Yossi Andujar
[2021-12-29] MEDS: sodium chloride 0.9% 1,000 ML 999 ML IV (06:42)
[2021-12-29 06:57] LABS: Basophils % 0.1 %; Hematocrit 34.9 % (42.0-52.0); Hemoglobin 10.3 g/dL (11.7-16.6); Lymphocytes # 0.7 10^3/uL (0.8-4.8); Lymphocytes % 6.1 %; Mean Corpuscular HGB Conc 29.5 g/dL (30.0-36.0); Mean Corpuscular Hemoglobin 25.8 pg (28.0-34.0); Mean Corpuscular Volume 87.3 fl (80-94); Mean Platelet Volume 12.1 fL (7.4-10.4); Monocytes # 0.6 10^3/uL (0.2-0.9); Monocytes % 5.4 %; Neutrophils # 9.33 10^3/uL (1.8-7.7); Neutrophils % 87.3 %; Nucleated Red Blood Cells % 0 %; Platelet Count 297 10^3/cmm (130-400); Red Cell Distribution Width 22.4 % (12.1-15.1); White Blood Count 10.7 10^3/uL (4.0-10.0)
[2021-12-29 07:12] VITALS: PULSE 88; RESP 18; O2SAT 91
[2021-12-29 07:37] LABS: Alanine Aminotransferase 20 U/L (0-41); Albumin Level 3.5 g/dL (3.5-5.2); Alkaline Phosphatase 135 U/L (40-130); Anion Gap 16.4 (5-19); Aspartate Amino Transferase 14 U/L (0-40); Blood Urea Nitrogen 60 mg/dL (6-20); Calcium 8.6 mg/dL (8.5-10.5); Carbon Dioxide 18 mmol/L (22-29); Chloride 107 mmol/L (98-107); Globulin 2.8 g/dL (1.3-4.6); Glomerular Filtration Rate 48.1 mL/min (90-130); Glucose 251 mg/dL (65-115); Osmolality Calculated 311 mOsm/kg (285-295); Potassium 3.4 mmol/L (3.5-5.1); Sodium 138 mmol/L (136-145); Total Bilirubin 0.5 mg/dL (0.15-1.2); Total Protein 6.3 g/dL (6.6-8.7)
[2021-12-29 07:46] LABS: INR 1.63 (0.8-1.2)
[2021-12-29 08:03] VITALS: BP 109/94; PULSE 100; O2SAT 90
== END 2021-12-29 08:04 | disposition home or self-care (01) ==
PROVIDERS: Emergency Provider Emergency Medicine; PCP Family Medicine
DX: T82.524A Displacement of infusion catheter, initial encounter (principal); Z79.01 Long term (current) use of anticoagulants; Z79.82 Long term (current) use of aspirin; Z79.4 Long term (current) use of insulin; I25.10 Atherosclerotic heart disease of native coronary artery without angina pectoris; I11.0 Hypertensive heart disease with heart failure; I50.9 Heart failure, unspecified; E11.9 Type 2 diabetes mellitus without complications
CPT/HCPCS: 80053; 85025; 85610; 96360; 99284; J7030

== ENCOUNTER 2022-01-08 08:38 | Outpatient (RCR) | payer MEDICARE, SELFPAY ==
[2021-12-18 09:15] VITALS: BP 150/70; PULSE 80; RESP 18; TEMP 36.1; O2SAT 96
--- NOTE | 2021-12-18 09:30 | PC.NURSE ---
Right IJ flushed without difficulty. Unable to draw sufficient amount of blood for lab work. Peripheral blood draw performed using US guidance due to difficult peripheral stick. Dressing to right IJ changed per protocol. Pt tolerated well. Labs faxed to LVAD team and [facility] as requested.
[2021-12-18 10:08] LABS: Basophils # 0.1 10^3/uL (0.0-0.1); Eosinophils # 0.1 10^3/uL (0.0-0.8); Eosinophils % 0.9 %; Hematocrit 32.6 % (42.0-52.0); Hemoglobin 9.3 g/dL (11.7-16.6); Lymphocytes # 1.4 10^3/uL (0.8-4.8); Lymphocytes % 16.5 %; Mean Corpuscular HGB Conc 28.5 g/dL (30.0-36.0); Mean Corpuscular Hemoglobin 24.6 pg (28.0-34.0); Mean Corpuscular Volume 86.2 fl (80-94); Monocytes # 0.8 10^3/uL (0.2-0.9); Monocytes % 10.1 %; Neutrophils % 70.9 %; Nucleated Red Blood Cells % 0 %; Platelet Count 312 10^3/cmm (130-400); Red Blood Count 3.78 10^6/uL (4.1-5.3); Red Cell Distribution Width 18.4 % (12.1-15.1); White Blood Count 8.2 10^3/uL (4.0-10.0)
[2021-12-18 10:25] LABS: INR 1.95 (0.8-1.2)
[2021-12-18 10:34] LABS: Alanine Aminotransferase 19 U/L (0-41); Albumin Level 3.5 g/dL (3.5-5.2); Alkaline Phosphatase 144 U/L (40-130); Aspartate Amino Transferase 17 U/L (0-40); Blood Urea Nitrogen 42 mg/dL (6-20); Calcium 9.2 mg/dL (8.5-10.5); Carbon Dioxide 21 mmol/L (22-29); Chloride 105 mmol/L (98-107); Globulin 2.7 g/dL (1.3-4.6); Glomerular Filtration Rate 52.1 mL/min (90-130); Glucose 104 mg/dL (65-115); Osmolality Calculated 297 mOsm/kg (285-295); Sodium 138 mmol/L (136-145); Total Bilirubin 0.4 mg/dL (0.15-1.2); Total Protein 6.2 g/dL (6.6-8.7)
[2021-12-18 10:38] LABS: Anion Gap 16.2 (5-19); Lactate Dehydrogenase 252 U/L (135-225); Potassium 4.2 mmol/L (3.5-5.1)
[2021-12-25 09:20] LABS: Basophils # 0.1 10^3/uL (0.0-0.1); Basophils % 0.9 %; Eosinophils # 0.1 10^3/uL (0.0-0.8); Eosinophils % 0.7 %; Hematocrit 33.1 % (42.0-52.0); Hemoglobin 9.7 g/dL (11.7-16.6); Lymphocytes # 1.5 10^3/uL (0.8-4.8); Lymphocytes % 16.5 %; Mean Corpuscular HGB Conc 29.3 g/dL (30.0-36.0); Mean Corpuscular Hemoglobin 25.6 pg (28.0-34.0); Mean Corpuscular Volume 87.3 fl (80-94); Mean Platelet Volume 10.5 fL (7.4-10.4); Monocytes # 0.9 10^3/uL (0.2-0.9); Neutrophils # 6.52 10^3/uL (1.8-7.7); Neutrophils % 71.5 %; Nucleated Red Blood Cells % 0 %; Platelet Count 260 10^3/cmm (130-400); Red Blood Count 3.79 10^6/uL (4.1-5.3); Red Cell Distribution Width 21.1 % (12.1-15.1); White Blood Count 9.1 10^3/uL (4.0-10.0)
[2021-12-25 09:24] VITALS: BP 105/88; PULSE 70; RESP 18; TEMP 36.3; O2SAT 94
[2021-12-25 09:25] LABS: INR 1.78 (0.8-1.2)
[2021-12-25 09:38] LABS: Alanine Aminotransferase 17 U/L (0-41); Albumin Level 3.5 g/dL (3.5-5.2); Alkaline Phosphatase 144 U/L (40-130); Anion Gap 16.8 (5-19); Aspartate Amino Transferase 17 U/L (0-40); Blood Urea Nitrogen 36 mg/dL (6-20); Calcium 9.2 mg/dL (8.5-10.5); Carbon Dioxide 23 mmol/L (22-29); Chloride 100 mmol/L (98-107); Globulin 3.3 g/dL (1.3-4.6); Glomerular Filtration Rate 56.7 mL/min (90-130); Glucose 165 mg/dL (65-115); Lactate Dehydrogenase 201 U/L (135-225); Osmolality Calculated 294 mOsm/kg (285-295); Potassium 3.8 mmol/L (3.5-5.1); Sodium 136 mmol/L (136-145); Total Bilirubin 0.5 mg/dL (0.15-1.2); Total Protein 6.8 g/dL (6.6-8.7)
[2022-01-01 09:10] VITALS: BP 132/110; PULSE 100; RESP 18; TEMP 36.3; O2SAT 97
[2022-01-01 09:43] LABS: Basophils % 0.1 %; Eosinophils % 0.2 %; Hematocrit 35.4 % (42.0-52.0); Hemoglobin 10.5 g/dL (11.7-16.6); Lymphocytes # 1.4 10^3/uL (0.8-4.8); Lymphocytes % 10.5 %; Mean Corpuscular HGB Conc 29.7 g/dL (30.0-36.0); Mean Corpuscular Hemoglobin 25.7 pg (28.0-34.0); Mean Corpuscular Volume 86.8 fl (80-94); Mean Platelet Volume 10.7 fL (7.4-10.4); Monocytes # 1.2 10^3/uL (0.2-0.9); Neutrophils # 10.48 10^3/uL (1.8-7.7); Neutrophils % 78.3 %; Nucleated Red Blood Cells % 0 %; Platelet Count 363 10^3/cmm (130-400); Red Blood Count 4.08 10^6/uL (4.1-5.3); Red Cell Distribution Width 22.1 % (12.1-15.1); White Blood Count 13.4 10^3/uL (4.0-10.0)
[2022-01-01 10:11] LABS: Alanine Aminotransferase 48 U/L (0-41); Albumin Level 3.6 g/dL (3.5-5.2); Alkaline Phosphatase 144 U/L (40-130); Anion Gap 15.9 (5-19); Aspartate Amino Transferase 33 U/L (0-40); Blood Urea Nitrogen 52 mg/dL (6-20); Calcium 8.9 mg/dL (8.5-10.5); Carbon Dioxide 21 mmol/L (22-29); Chloride 103 mmol/L (98-107); Globulin 3.1 g/dL (1.3-4.6); Glomerular Filtration Rate 52.1 mL/min (90-130); Glucose 227 mg/dL (65-115); Lactate Dehydrogenase 237 U/L (135-225); Osmolality Calculated 303 mOsm/kg (285-295); Potassium 3.9 mmol/L (3.5-5.1); Sodium 136 mmol/L (136-145); Total Bilirubin 0.5 mg/dL (0.15-1.2); Total Protein 6.7 g/dL (6.6-8.7)
[2022-01-04 08:35] VITALS: BP 116/92; PULSE 70; RESP 18; TEMP 35.9; O2SAT 94
--- NOTE | 2022-01-04 08:35 | PC.NURSE ---
Pt to GI lab for dressing change of left central line. Pt had line placed in left subclavian per Interventional Radiology at [facility] yesterday. States physician requested dressing to be changed today. Old dressing removed with large amount old dried blood noted. Site cleansed with CHG, Biopatch applied and covered with Sorbaview dressing. Site very tender for patient. Moderate amount of bruising noted. Tolerated procedure fair.
[2022-01-08 09:12] LABS: Basophils % 0.3 %; Eosinophils % 0.3 %; Hemoglobin 10.2 g/dL (11.7-16.6); Lymphocytes # 1.2 10^3/uL (0.8-4.8); Lymphocytes % 13.2 %; Mean Corpuscular HGB Conc 30.9 g/dL (30.0-36.0); Mean Corpuscular Hemoglobin 26.8 pg (28.0-34.0); Mean Corpuscular Volume 86.6 fl (80-94); Mean Platelet Volume 11.1 fL (7.4-10.4); Monocytes # 0.9 10^3/uL (0.2-0.9); Monocytes % 9.4 %; Neutrophils # 7.11 10^3/uL (1.8-7.7); Neutrophils % 75.8 %; Nucleated Red Blood Cells % 0 %; Platelet Count 237 10^3/cmm (130-400); Red Blood Count 3.81 10^6/uL (4.1-5.3); White Blood Count 9.4 10^3/uL (4.0-10.0)
[2022-01-08 09:23] LABS: INR 1.44 (0.8-1.2)
[2022-01-08] MEDS: dalbavancin 1,500 MG in dextrose 5% 250 ML 500 MG IV (09:27)
[2022-01-08 09:29] VITALS: BP 102/81; PULSE 83; RESP 18; TEMP 36.2; O2SAT 96
[2022-01-08 09:35] LABS: Alanine Aminotransferase 36 U/L (0-41); Albumin Level 3.6 g/dL (3.5-5.2); Alkaline Phosphatase 177 U/L (40-130); Aspartate Amino Transferase 19 U/L (0-40); Blood Urea Nitrogen 49 mg/dL (6-20); Calcium 9.3 mg/dL (8.5-10.5); Carbon Dioxide 23 mmol/L (22-29); Chloride 100 mmol/L (98-107); Globulin 2.8 g/dL (1.3-4.6); Glomerular Filtration Rate 52.1 mL/min (90-130); Glucose 204 mg/dL (65-115); Lactate Dehydrogenase 230 U/L (135-225); Osmolality Calculated 299 mOsm/kg (285-295); Sodium 135 mmol/L (136-145); Total Bilirubin 0.4 mg/dL (0.15-1.2); Total Protein 6.4 g/dL (6.6-8.7)
== END 2022-01-14 23:59 | disposition home or self-care (01) ==
LOC: GILAB 08:38
PROVIDERS: Internal Medicine; PCP Family Medicine; Visit Provider Internal Medicine
DX: T82.7XXA Infection and inflammatory reaction due to other cardiac and vascular devices, implants and grafts, initial encounter (principal); Z79.01 Long term (current) use of anticoagulants
CPT/HCPCS: 36415; 36592; 76937; 80053; 83615; 85025; 85610; 96365; J0875; J7060

== ENCOUNTER → 2022-01-28 13:34 | Outpatient (BNVA) | payer MEDICARE, SELFPAY | PROVIDERS: PCP Family Medicine; Visit Provider Podiatrist Foot & Ankle Surgery | DX: M25.571 Pain in right ankle and joints of right foot (principal); M10.9 Gout, unspecified; E11.9 Type 2 diabetes mellitus without complications; N18.9 Chronic kidney disease, unspecified; Z79.4 Long term (current) use of insulin; M19.071 Primary osteoarthritis, right ankle and foot; M25.572 Pain in left ankle and joints of left foot | CPT/HCPCS: 20610; 73610; J1100; J3301 ==

== ENCOUNTER 2022-02-05 08:41 | Outpatient (RCR) | payer MEDICARE, SELFPAY ==
[2022-01-15 09:08] VITALS: BP 109/91; PULSE 110; RESP 18; TEMP 36.1; O2SAT 100
[2022-01-15 09:25] LABS: Basophils # 0.1 10^3/uL (0.0-0.1); Basophils % 0.7 %; Eosinophils # 0.1 10^3/uL (0.0-0.8); Eosinophils % 0.7 %; Hematocrit 33.9 % (42.0-52.0); Hemoglobin 10.4 g/dL (11.7-16.6); Lymphocytes # 1.5 10^3/uL (0.8-4.8); Lymphocytes % 15.2 %; Mean Corpuscular HGB Conc 30.7 g/dL (30.0-36.0); Mean Corpuscular Volume 88.1 fl (80-94); Mean Platelet Volume 11.4 fL (7.4-10.4); Monocytes # 0.8 10^3/uL (0.2-0.9); Monocytes % 8.3 %; Neutrophils # 7.24 10^3/uL (1.8-7.7); Neutrophils % 74.7 %; Nucleated Red Blood Cells % 0 %; Platelet Count 193 10^3/cmm (130-400); Red Blood Count 3.85 10^6/uL (4.1-5.3); Red Cell Distribution Width 24.3 % (12.1-15.1); White Blood Count 9.7 10^3/uL (4.0-10.0)
[2022-01-15 09:43] LABS: Alanine Aminotransferase 24 U/L (0-41); Albumin Level 3.6 g/dL (3.5-5.2); Alkaline Phosphatase 161 U/L (40-130); Aspartate Amino Transferase 17 U/L (0-40); Blood Urea Nitrogen 43 mg/dL (6-20); Calcium 9.2 mg/dL (8.5-10.5); Carbon Dioxide 22 mmol/L (22-29); Chloride 104 mmol/L (98-107); Globulin 2.8 g/dL (1.3-4.6); Glomerular Filtration Rate 56.7 mL/min (90-130); Glucose 158 mg/dL (65-115); Lactate Dehydrogenase 237 U/L (135-225); Osmolality Calculated 298 mOsm/kg (285-295); Sodium 137 mmol/L (136-145); Total Bilirubin 0.5 mg/dL (0.15-1.2); Total Protein 6.4 g/dL (6.6-8.7)
[2022-01-22 09:00] VITALS: BP 120/85; PULSE 96; RESP 18; TEMP 36.6; O2SAT 99
--- NOTE | 2022-01-22 09:00 | PC.NURSE ---
Dilcia catheter to left chest patent. Labs drawn and line flushed per protocol. Dressing changed. Sutures in place. Pt tolerated well.
[2022-01-22 09:29] LABS: Basophils # 0.1 10^3/uL (0.0-0.1); Basophils % 0.8 %; Eosinophils # 0.1 10^3/uL (0.0-0.8); Eosinophils % 1.1 %; Hematocrit 34.2 % (42.0-52.0); Hemoglobin 10.3 g/dL (11.7-16.6); Lymphocytes # 1.3 10^3/uL (0.8-4.8); Lymphocytes % 16.8 %; Mean Corpuscular HGB Conc 30.1 g/dL (30.0-36.0); Mean Corpuscular Hemoglobin 26.4 pg (28.0-34.0); Mean Corpuscular Volume 87.7 fl (80-94); Mean Platelet Volume 9.8 fL (7.4-10.4); Monocytes # 0.5 10^3/uL (0.2-0.9); Monocytes % 6.3 %; Neutrophils # 5.57 10^3/uL (1.8-7.7); Neutrophils % 74.3 %; Nucleated Red Blood Cells % 0 %; Platelet Count 299 10^3/cmm (130-400); Red Cell Distribution Width 23.5 % (12.1-15.1); White Blood Count 7.5 10^3/uL (4.0-10.0)
[2022-01-22 09:37] LABS: INR 2.02 (0.8-1.2)
[2022-01-22 09:57] LABS: Alanine Aminotransferase 21 U/L (0-41); Albumin Level 3.4 g/dL (3.5-5.2); Alkaline Phosphatase 161 U/L (40-130); Anion Gap 17.3 (5-19); Aspartate Amino Transferase 17 U/L (0-40); Blood Urea Nitrogen 43 mg/dL (6-20); Carbon Dioxide 22 mmol/L (22-29); Chloride 104 mmol/L (98-107); Globulin 3.3 g/dL (1.3-4.6); Glomerular Filtration Rate 52.1 mL/min (90-130); Glucose 174 mg/dL (65-115); Lactate Dehydrogenase 268 U/L (135-225); Osmolality Calculated 303 mOsm/kg (285-295); Potassium 4.3 mmol/L (3.5-5.1); Sodium 139 mmol/L (136-145); Total Bilirubin 0.5 mg/dL (0.15-1.2); Total Protein 6.7 g/dL (6.6-8.7)
[2022-02-05 08:45] VITALS: BP 140/70; PULSE 70; RESP 18; TEMP 36.6; O2SAT 96
--- NOTE | 2022-02-05 08:45 | PC.NURSE ---
Pt to GI infusions for lab draw and dressing change to left chest Dilcia catheter.
[2022-02-05 09:09] LABS: Basophils % 0.2 %; Eosinophils % 0.1 %; Hematocrit 36.6 % (42.0-52.0); Hemoglobin 11.3 g/dL (11.7-16.6); Lymphocytes # 1.6 10^3/uL (0.8-4.8); Lymphocytes % 9.3 %; Mean Corpuscular HGB Conc 30.9 g/dL (30.0-36.0); Mean Corpuscular Hemoglobin 26.2 pg (28.0-34.0); Mean Corpuscular Volume 84.7 fl (80-94); Mean Platelet Volume 10.3 fL (7.4-10.4); Monocytes # 1.4 10^3/uL (0.2-0.9); Monocytes % 8.5 %; Neutrophils % 76.2 %; Nucleated Red Blood Cells % 0 %; Platelet Count 424 10^3/cmm (130-400); Red Blood Count 4.32 10^6/uL (4.1-5.3); White Blood Count 16.9 10^3/uL (4.0-10.0)
[2022-02-05 09:26] LABS: Alanine Aminotransferase 57 U/L (0-41); Albumin Level 3.4 g/dL (3.5-5.2); Alkaline Phosphatase 159 U/L (40-130); Anion Gap 15.1 (5-19); Aspartate Amino Transferase 28 U/L (0-40); Blood Urea Nitrogen 42 mg/dL (6-20); Carbon Dioxide 19 mmol/L (22-29); Chloride 107 mmol/L (98-107); Globulin 3.2 g/dL (1.3-4.6); Glomerular Filtration Rate 68.8 mL/min (90-130); Glucose 114 mg/dL (65-115); Lactate Dehydrogenase 287 U/L (135-225); Osmolality Calculated 295 mOsm/kg (285-295); Potassium 4.1 mmol/L (3.5-5.1); Sodium 137 mmol/L (136-145); Total Bilirubin 0.7 mg/dL (0.15-1.2); Total Protein 6.6 g/dL (6.6-8.7)
[2022-02-05 09:28] LABS: Slide Review Slide Review Perform
== END 2022-02-13 23:59 | disposition home or self-care (01) ==
LOC: GILAB 08:41
PROVIDERS: Internal Medicine; PCP Family Medicine; Visit Provider Internal Medicine
DX: T82.7XXA Infection and inflammatory reaction due to other cardiac and vascular devices, implants and grafts, initial encounter (principal); Z79.01 Long term (current) use of anticoagulants
CPT/HCPCS: 36592; 80053; 83615; 85025; 85610

== ENCOUNTER 2022-02-23 07:01 | Emergency (ER) | payer MEDICARE, SELFPAY ==
[2022-02-23 07:06] VITALS: PULSE 91; O2SAT 100; BMI 26.9
[2022-02-23 07:18] VITALS: O2SAT 77
--- NOTE | 2022-02-23 07:20 | W.ED.EXTPRO ---
HPI - Extremity Problem General: Chief complaint: Extremity Problem,Nontraumatic Stated complaint: gout on left leg Time Seen by Provider: 02/23/22 07:08 Source: patient Mode of arrival: ambulatory Limitations: no limitations History of Present Illness: Patient is a 56-year-old male who presents to ED today with a concern of gout to his left knee. Patient has noticed pain and swelling to the left knee over the past few days. He states the characteristics of his discomfort are similar to previous gouty flares. He states he has had gout flares in his feet, ankles, elbows, and knees previously. He used to be on allopurinol however was taken off of this medication due to chronic kidney disease. He also states because of this he is often not treated with indomethacin or colchicine and they often place him on steroids which are successful. Patient is a diabetic but states he can often times tailor his insulin to combat the steroid use and keep good control of his glucose. Patient has been seen by podiatry, primary care, and orthopedics for previous gout infections. He has had an elbow aspirated which did confirm gouty arthritis. MD Complaint: extremity pain and extremity swelling Onset (ago): day(s) Pain Consistency: constant Location: left and knee Radiation: none Relieving factors: immobilization Exacerbating factors: range of motion, weight bearing and walking Associated symptoms: Reports no associated symptoms; Deny chest pain, fever(s) or rash Context: history of gout Review of Systems Const: Denies: fever(s), chills, body aches, fatigue or malaise Card: Denies: chest pain Resp: Denies: dyspnea or hemoptysis GI: Denies: abdominal pain, nausea, vomiting or diarrhea Musc: Reports: joint pain (L knee) and joint swelling (L knee); Denies: neck pain, back pain, extremity pain, extremity swelling or joint redness Skin/Breast: Denies: rash Neuro: Denies: headache(s), numbness in extremities, weakness in extremities or sensory changes [facility] ED PFSH: Medical History Arrhythmia CAD (coronary artery disease) Cardiac defibrillator in place CHF (congestive heart failure) Cholecystectomy planned Cholecystitis Chronic kidney disease Diabetes Encounter for central line placement Gallbladder disease Gout Hypertension Ischemic cardiomyopathy LVAD (left ventricular assist device) present Type II diabetes mellitus Surgical History H/O cardiac catheterization History of esophagogastroduodenoscopy (EGD) S/P coronary artery stent placement Social History Smoking and tobacco status: never smoked Second hand smoke exposure: No Alcohol intake: never Physical Exam Const: COMMON NORMALS: no acute distress, patient oriented x3, no limitations and alert GENERAL APPEARANCE: cooperative ORIENTATION/CONSCIOUSNESS: Yes awake, Yes oriented to person, Yes oriented to place and Yes oriented to time Resp: COMMON NORMALS: normal respiratory effort and clear to auscultation bilaterally AUSCULTATION: clear to auscultation bilaterally Cardio: COMMON NORMALS: regular rate and regular rhythm RATE: regular rate RHYTHM: regular rhythm Extremity: COMMON NORMALS: capillary refill normal and no calf tenderness GENERAL: Yes normal exam except as noted LEFT LOWER EXTREMITY: Yes knee joint and Yes lower leg OTHER: pt has swelling/mild warmth to L knee without overlying erythema; there are no signs of trauma or infection; knee has fairly good ROM and pain is not out of proportion to exam; he has some mild L lower leg swelling that he states he gets with gouty flares-he states they often order LE US to assess for DVTs but that they are always reassuring Neuro: ENA COMA SCALE: document GCS findings Ena coma scale eye opening: Spontaneous [place] coma scale verbal response: Orientated Ena coma scale motor response: Obey commands Ena coma scale total score: 15 COMMON NORMALS: patient oriented x3, moves all extremities, no focal motor deficits and no sensory deficits noted SENSORIUM/ORIENTATION: Yes alert, Yes oriented to person, Yes oriented to place and Yes oriented to time Skin: COMMON NORMALS: no rashes or lesions noted GENERAL SKIN EXAM: no rashes or lesions noted Course Vital Signs: Vital signs: Vital Signs Pulse Rate 90 02/23/22 07:21 Blood Pressure 91/72 02/23/22 07:21 Pulse Oximetry 100 02/23/22 07:21 Oxygen Delivery Me thod 02/23/22 07:06 MDM - Extremity (Nontraumatic) Medical Decision Making Patient is a 56-year-old male here for concerns of possible gout to his left knee. Patient has a longstanding history of gouty infections affecting multiple joints. He does have pathology confirmation of gouty arthritis that was performed during a flare to his right elbow. Patient states he is not a candidate for allopurinol, indomethacin, or colchicine secondary to chronic kidney disease. He states his gouty infections are often successfully treated with prednisone. On exam patient does have swelling to his left knee. There is no evidence for infection or septic joint at this time. There is some mild swelling to his left lower leg that he states he has had previously. No calf pain/negative Nicolás's. Patient has had multiple lower extremity ultrasounds to assess for DVTs but these are always negative. Patient does take warfarin. He was therapeutic on his last INR check less than a week ago. Patient states he has follow-up with his primary care next week. I think it is appropriate at this time to place patient on prednisone for probable gout and have him follow-up with PCP. Return ED precautions given. Discharge Plan Discharge Patient Disposition: Home Clinical Impression: Gouty arthritis of left knee Condition: Stable Prescriptions: New hydrocodone-acetaminophen 5-325 mg tablet 1 tab PO Q6H PRN (Reason: pain) Qty: 6 0RF prednisone 10 mg tablet 20 mg PO BID 5 Days Qty: 20 0RF No Action warfarin 10 mg Tablet 3 mg PO DAILY aspirin 81 mg Tablet,Delayed Release (Dr/Ec) 81 mg PO QAM Victoza 3-Lenny 0.6 mg/0.1 mL (18 mg/3 mL) Pen Injector 0.6 mg SUBCUT DAILY@21 insulin lispro [Humalog KwikPen Insulin] 100 unit/mL insulin pen See Rx Instructions .ROUTE .COMPLEX Qty: 3 0RF Rx Instructions: sliding scale tid prn Toujeo SoloStar U-300 Insulin 300 unit/mL (1.5 mL) insulin pen 15 unit SUBCUT DAILY@21 hydrocodone-acetaminophen 5-325 mg tablet 1 tab PO TID PRN (Reason: pain) Qty: 14 0RF vancomycin 1,000 mg recon soln 1,500 g IV DAILY citalopram 20 mg tablet 20 mg PO DAILY amlodipine 5 mg Tablet 5 mg PO DAILY fluconazole 400 mg PO DAILY Discharge Orders: Discharge ED (Routine); Ordered 02/23/22 Ordered By: Norma Matamoros Referrals: Jose Maciel MD [Primary Care Provider] - Patient Instructions: Gout (ED), Opioid Safety, Pain Management Coding Level of Care Code ED Nuisance Wildlife Control Operator for Chg Fwd Exam Detailed
[2022-02-23 07:21] VITALS: BP 91/72; PULSE 90; O2SAT 100
== END 2022-02-23 07:50 | disposition home or self-care (01) ==
PROVIDERS: Emergency Provider Physician Assistant; PCP Family Medicine
DX: M10.062 Idiopathic gout, left knee (principal); Z79.01 Long term (current) use of anticoagulants; Z79.82 Long term (current) use of aspirin; Z79.4 Long term (current) use of insulin; I25.10 Atherosclerotic heart disease of native coronary artery without angina pectoris; I13.0 Hypertensive heart and chronic kidney disease with heart failure and stage 1 through stage 4 chronic kidney disease, or unspecified chronic kidney disease; E11.22 Type 2 diabetes mellitus with diabetic chronic kidney disease; N18.9 Chronic kidney disease, unspecified; I50.9 Heart failure, unspecified
CPT/HCPCS: 99283

== ENCOUNTER 2022-03-12 09:32 | Outpatient (RCR) | payer MEDICARE, SELFPAY ==
[2022-02-19 09:00] VITALS: BP 140/60; PULSE 98; RESP 18; TEMP 36.5; O2SAT 99
[2022-02-19 09:24] LABS: Basophils # 0.1 10^3/uL (0.0-0.1); Basophils % 0.9 %; Eosinophils % 0.4 %; Hematocrit 29.4 % (42.0-52.0); Hemoglobin 9.1 g/dL (11.7-16.6); Lymphocytes # 1.2 10^3/uL (0.8-4.8); Mean Corpuscular Hemoglobin 26.6 pg (28.0-34.0); Mean Platelet Volume 10.5 fL (7.4-10.4); Monocytes # 0.5 10^3/uL (0.2-0.9); Monocytes % 8.7 %; Neutrophils # 3.71 10^3/uL (1.8-7.7); Neutrophils % 67.5 %; Nucleated Red Blood Cells % 0 %; Platelet Count 144 10^3/cmm (130-400); Red Blood Count 3.42 10^6/uL (4.1-5.3); Red Cell Distribution Width 22.5 % (12.1-15.1); White Blood Count 5.5 10^3/uL (4.0-10.0)
[2022-02-19 09:40] LABS: INR 3.45 (0.8-1.2)
[2022-02-19 09:46] LABS: Alanine Aminotransferase 24 U/L (0-41); Albumin Level 3.4 g/dL (3.5-5.2); Alkaline Phosphatase 167 U/L (40-130); Anion Gap 14.6 (5-19); Aspartate Amino Transferase 17 U/L (0-40); Blood Urea Nitrogen 27 mg/dL (6-20); Calcium 8.6 mg/dL (8.5-10.5); Carbon Dioxide 21 mmol/L (22-29); Chloride 105 mmol/L (98-107); Globulin 2.7 g/dL (1.3-4.6); Glomerular Filtration Rate 68.8 mL/min (90-130); Glucose 103 mg/dL (65-115); Lactate Dehydrogenase 245 U/L (135-225); Osmolality Calculated 289 mOsm/kg (285-295); Potassium 3.6 mmol/L (3.5-5.1); Sodium 137 mmol/L (136-145); Total Bilirubin 0.5 mg/dL (0.15-1.2); Total Protein 6.1 g/dL (6.6-8.7)
[2022-03-05 09:00] VITALS: BP 96/75; PULSE 107; RESP 18; TEMP 36.1; O2SAT 100
--- NOTE | 2022-03-05 09:15 | PC.NURSE ---
Pt to gi infusions for picc maintenance. Left Dilcia catheter flush per protocol. Slight old bloody drainage noted, tolerated well.
[2022-03-05 09:37] LABS: Basophils # 0.1 10^3/uL (0.0-0.1); Basophils % 0.5 %; Eosinophils % 0.1 %; Hematocrit 32.5 % (42.0-52.0); Lymphocytes # 1.6 10^3/uL (0.8-4.8); Lymphocytes % 12.6 %; Mean Corpuscular HGB Conc 30.8 g/dL (30.0-36.0); Mean Corpuscular Hemoglobin 26.9 pg (28.0-34.0); Mean Corpuscular Volume 87.4 fl (80-94); Mean Platelet Volume 10.1 fL (7.4-10.4); Monocytes # 1.2 10^3/uL (0.2-0.9); Monocytes % 9.3 %; Neutrophils # 9.71 10^3/uL (1.8-7.7); Neutrophils % 74.7 %; Nucleated Red Blood Cells % 0 %; Platelet Count 375 10^3/cmm (130-400); Red Blood Count 3.72 10^6/uL (4.1-5.3); Red Cell Distribution Width 22.7 % (12.1-15.1)
[2022-03-05 09:51] LABS: INR 1.82 (0.8-1.2)
[2022-03-05 10:01] LABS: Alanine Aminotransferase 38 U/L (0-41); Albumin Level 3.5 g/dL (3.5-5.2); Total Bilirubin 1.1 mg/dL (0.15-1.2)
[2022-03-05 10:07] LABS: Anion Gap 18.8 (5-19); Aspartate Amino Transferase 22 U/L (0-40); Blood Urea Nitrogen 28 mg/dL (6-20); Calcium 8.8 mg/dL (8.5-10.5); Carbon Dioxide 24 mmol/L (22-29); Chloride 99 mmol/L (98-107); Glomerular Filtration Rate 52.1 mL/min (90-130); Glucose 205 mg/dL (65-115); Lactate Dehydrogenase 264 U/L (135-225); Osmolality Calculated 297 mOsm/kg (285-295); Potassium 3.8 mmol/L (3.5-5.1); Sodium 138 mmol/L (136-145)
[2022-03-05 10:08] LABS: Alkaline Phosphatase 157 U/L (40-130); Globulin 2.7 g/dL (1.3-4.6); Total Protein 6.2 g/dL (6.6-8.7)
--- NOTE | 2022-03-05 12:40 | PC.NURSE ---
Arabella Wagoner, LVAD Coordinator at [facility], and Leonie with [facility], notified of pt increased WBC counts and c/o right elbow being sore and swollen. Pt has history of gout and recently seen in the ER on 02/23/22 for flare in left knee. Pt stated at his visit earlier today that the right elbow opened yesterday and started draining. This nurse observed elbow to be red and swollen but no current drainage. Small, pencil-sized opening noted in center of elbow. These findings reported.
--- NOTE | 2022-03-12 09:40 | PC.NURSE ---
Pt to GI infusions for dressing change to left Dilcia catheter. Pt states [facility] has changed his Dalvance to every 3 weeks instead of every other week and he will be coming more often for dressing changes and lab draws. Left message for Leonie at [facility] to clarify orders. Left Dilcia catheter patent with good blood return. Flushed per protocol. Sutures in place and patent. Pt tolerated well.
[2022-03-12 09:41] VITALS: BP 106/85; PULSE 98; RESP 18; TEMP 36.1; O2SAT 99
[2022-03-12 09:54] LABS: Basophils # 0.1 10^3/uL (0.0-0.1); Basophils % 0.4 %; Eosinophils % 0.2 %; Hematocrit 31.3 % (42.0-52.0); Hemoglobin 9.6 g/dL (11.7-16.6); Lymphocytes # 2.2 10^3/uL (0.8-4.8); Lymphocytes % 18.4 %; Mean Corpuscular HGB Conc 30.7 g/dL (30.0-36.0); Mean Corpuscular Hemoglobin 27.3 pg (28.0-34.0); Mean Corpuscular Volume 88.9 fl (80-94); Mean Platelet Volume 10.2 fL (7.4-10.4); Monocytes # 0.8 10^3/uL (0.2-0.9); Monocytes % 6.5 %; Neutrophils % 71.5 %; Nucleated Red Blood Cells % 0 %; Platelet Count 283 10^3/cmm (130-400); Red Blood Count 3.52 10^6/uL (4.1-5.3); Red Cell Distribution Width 21.6 % (12.1-15.1); White Blood Count 12.2 10^3/uL (4.0-10.0)
[2022-03-12 10:05] LABS: INR 3.61 (0.8-1.2)
[2022-03-12 10:31] LABS: Alanine Aminotransferase 24 U/L (0-41); Albumin Level 3.5 g/dL (3.5-5.2); Alkaline Phosphatase 134 U/L (40-130); Anion Gap 15.1 (5-19); Aspartate Amino Transferase 17 U/L (0-40); Blood Urea Nitrogen 29 mg/dL (6-20); Calcium 8.6 mg/dL (8.5-10.5); Carbon Dioxide 22 mmol/L (22-29); Chloride 104 mmol/L (98-107); Globulin 2.5 g/dL (1.3-4.6); Glomerular Filtration Rate 68.8 mL/min (90-130); Glucose 145 mg/dL (65-115); Lactate Dehydrogenase 200 U/L (135-225); Osmolality Calculated 292 mOsm/kg (285-295); Potassium 4.1 mmol/L (3.5-5.1); Sodium 137 mmol/L (136-145); Total Bilirubin 0.4 mg/dL (0.15-1.2)
== END 2022-03-16 23:59 | disposition home or self-care (01) ==
LOC: GILAB 09:32
PROVIDERS: Internal Medicine; PCP Family Medicine; Visit Provider Internal Medicine
DX: T82.7XXA Infection and inflammatory reaction due to other cardiac and vascular devices, implants and grafts, initial encounter (principal); Y83.8 Other surgical procedures as the cause of abnormal reaction of the patient, or of later complication, without mention of misadventure at the time of the procedure; Z79.01 Long term (current) use of anticoagulants
CPT/HCPCS: 36592; 80053; 83615; 85025; 85610

== ENCOUNTER 2022-04-09 08:37 | Outpatient (RCR) | payer MEDICARE, SELFPAY ==
[2022-03-26 09:00] VITALS: BP 91/76; PULSE 90; RESP 18; TEMP 36; O2SAT 100
--- NOTE | 2022-03-26 09:33 | PC.NURSE ---
Pt to GI infusions for dressing change and lab draw from left Dilcia catheter. Site clear. Good blood return noted. Flushed without difficulty. Sutures in place. Pt tolerated well.
[2022-03-26 09:40] LABS: Basophils # 0.1 10^3/uL (0.0-0.1); Basophils % 0.8 %; Eosinophils # 0.1 10^3/uL (0.0-0.8); Eosinophils % 0.8 %; Hematocrit 30.3 % (42.0-52.0); Hemoglobin 9.3 g/dL (11.7-16.6); Lymphocytes # 1.5 10^3/uL (0.8-4.8); Mean Corpuscular HGB Conc 30.7 g/dL (30.0-36.0); Mean Corpuscular Hemoglobin 27.6 pg (28.0-34.0); Mean Corpuscular Volume 89.9 fl (80-94); Mean Platelet Volume 10.1 fL (7.4-10.4); Monocytes # 0.6 10^3/uL (0.2-0.9); Monocytes % 8.3 %; Neutrophils # 4.89 10^3/uL (1.8-7.7); Neutrophils % 68.1 %; Nucleated Red Blood Cells % 0 %; Platelet Count 315 10^3/cmm (130-400); Red Blood Count 3.37 10^6/uL (4.1-5.3); Red Cell Distribution Width 21.5 % (12.1-15.1); White Blood Count 7.2 10^3/uL (4.0-10.0)
[2022-03-26 09:57] LABS: INR 2.59 (0.8-1.2)
[2022-03-26 11:23] LABS: Alanine Aminotransferase 14 U/L (0-41); Albumin Level 3.7 g/dL (3.5-5.2); Alkaline Phosphatase 185 U/L (40-130); Aspartate Amino Transferase 19 U/L (0-40); Blood Urea Nitrogen 36 mg/dL (6-20); Calcium 9.6 mg/dL (8.5-10.5); Carbon Dioxide 21 mmol/L (22-29); Chloride 102 mmol/L (98-107); Glomerular Filtration Rate 52.1 mL/min (90-130); Glucose 117 mg/dL (65-115); Lactate Dehydrogenase 258 U/L (135-225); Osmolality Calculated 295 mOsm/kg (285-295); Sodium 138 mmol/L (136-145); Total Bilirubin 0.4 mg/dL (0.15-1.2); Total Protein 6.7 g/dL (6.6-8.7)
[2022-04-02 08:50] VITALS: BP 91/76; PULSE 97; RESP 18; TEMP 36.3; O2SAT 97
[2022-04-02] MEDS: dalbavancin 1,500 MG in dextrose 5% 250 ML 500 MG IV (09:16)
[2022-04-02 09:17] LABS: Basophils # 0.1 10^3/uL (0.0-0.1); Eosinophils # 0.1 10^3/uL (0.0-0.8); Hematocrit 30.7 % (42.0-52.0); Hemoglobin 9.5 g/dL (11.7-16.6); Lymphocytes # 1.4 10^3/uL (0.8-4.8); Lymphocytes % 17.9 %; Mean Corpuscular HGB Conc 30.9 g/dL (30.0-36.0); Mean Corpuscular Volume 90.6 fl (80-94); Mean Platelet Volume 9.1 fL (7.4-10.4); Monocytes # 0.7 10^3/uL (0.2-0.9); Monocytes % 9.1 %; Neutrophils # 5.49 10^3/uL (1.8-7.7); Neutrophils % 70.2 %; Nucleated Red Blood Cells % 0 %; Platelet Count 354 10^3/cmm (130-400); Red Blood Count 3.39 10^6/uL (4.1-5.3); White Blood Count 7.8 10^3/uL (4.0-10.0)
[2022-04-02 09:34] LABS: INR 3.91 (0.8-1.2)
[2022-04-02 09:40] LABS: Alanine Aminotransferase 16 U/L (0-41); Albumin Level 3.7 g/dL (3.5-5.2); Alkaline Phosphatase 194 U/L (40-130); Anion Gap 17.6 (5-19); Aspartate Amino Transferase 20 U/L (0-40); Blood Urea Nitrogen 30 mg/dL (6-20); Calcium 9.4 mg/dL (8.5-10.5); Carbon Dioxide 22 mmol/L (22-29); Chloride 103 mmol/L (98-107); Globulin 3.3 g/dL (1.3-4.6); Glomerular Filtration Rate 52.1 mL/min (90-130); Glucose 132 mg/dL (65-115); Lactate Dehydrogenase 186 U/L (135-225); Osmolality Calculated 296 mOsm/kg (285-295); Potassium 3.6 mmol/L (3.5-5.1); Sodium 139 mmol/L (136-145); Total Bilirubin 0.5 mg/dL (0.15-1.2)
[2022-04-09 08:50] VITALS: BP 95/61; PULSE 98; RESP 18; TEMP 36.4; O2SAT 100
--- NOTE | 2022-04-09 09:00 | PC.NURSE ---
Pt to GI infusions for PICC dressing change and lab draws. Dilcia catheter to left neck dressing changed. Labs drawn and sent to LVAD office and [facility] as requested.
[2022-04-09 09:06] LABS: Basophils % 0.4 %; Eosinophils % 0.4 %; Hematocrit 27.4 % (42.0-52.0); Hemoglobin 8.4 g/dL (11.7-16.6); Lymphocytes # 1.8 10^3/uL (0.8-4.8); Lymphocytes % 20.9 %; Mean Corpuscular HGB Conc 30.7 g/dL (30.0-36.0); Mean Corpuscular Hemoglobin 27.5 pg (28.0-34.0); Mean Corpuscular Volume 89.8 fl (80-94); Monocytes # 0.8 10^3/uL (0.2-0.9); Neutrophils # 5.81 10^3/uL (1.8-7.7); Neutrophils % 68.1 %; Nucleated Red Blood Cells % 0 %; Platelet Count 341 10^3/cmm (130-400); Red Blood Count 3.05 10^6/uL (4.1-5.3); Red Cell Distribution Width 19.8 % (12.1-15.1); White Blood Count 8.5 10^3/uL (4.0-10.0)
[2022-04-09 09:18] LABS: INR 2.35 (0.8-1.2)
[2022-04-09 09:26] LABS: Alanine Aminotransferase 26 U/L (0-41); Albumin Level 3.6 g/dL (3.5-5.2); Alkaline Phosphatase 157 U/L (40-130); Anion Gap 17.5 (5-19); Aspartate Amino Transferase 24 U/L (0-40); Blood Urea Nitrogen 39 mg/dL (6-20); Calcium 9.4 mg/dL (8.5-10.5); Carbon Dioxide 22 mmol/L (22-29); Chloride 102 mmol/L (98-107); Globulin 2.9 g/dL (1.3-4.6); Glomerular Filtration Rate 52.1 mL/min (90-130); Glucose 169 mg/dL (65-115); Lactate Dehydrogenase 187 U/L (135-225); Osmolality Calculated 299 mOsm/kg (285-295); Potassium 3.5 mmol/L (3.5-5.1); Sodium 138 mmol/L (136-145); Total Bilirubin 0.4 mg/dL (0.15-1.2); Total Protein 6.5 g/dL (6.6-8.7)
--- NOTE | 2022-04-16 08:11 | PC.NURSE ---
Due to bad weather and icy roads, pt unable to make appointment today. Pt had recent visit to ER on 04/13/22 for flare up of gout to left wrist. Labs noted Hg at 8.0. CBC and CMP results from 04/13/22 faxed to [facility] infectious disease and pt's LVAD team at [place]. Pt rescheduled for appointment this week on , 04/18/22.
== END 2022-04-16 23:59 | disposition home or self-care (01) ==
LOC: GILAB 08:37
PROVIDERS: Internal Medicine; PCP Family Medicine; Visit Provider Internal Medicine
DX: T82.7XXA Infection and inflammatory reaction due to other cardiac and vascular devices, implants and grafts, initial encounter (principal); Y83.8 Other surgical procedures as the cause of abnormal reaction of the patient, or of later complication, without mention of misadventure at the time of the procedure
CPT/HCPCS: 36592; 80053; 83615; 85025; 85610; 96365; J0875; J1642; J7060

== ENCOUNTER 2022-04-13 09:32 | Emergency (ER) | payer MEDICARE, SELFPAY ==
--- NOTE | 2022-04-13 09:34 | XRR_ITS ---
PROCEDURE INFORMATION: Exam: XR Left Wrist Exam date and time: 04/13/2022 10:05 AM Age: 56 years old Clinical indication: Pain; Wrist; Left; Patient HX: HX of gout; Additional info: Injury TECHNIQUE: Imaging protocol: Radiologic exam of the Left wrist. Views: 3 or more views. COMPARISON: No relevant prior studies available. FINDINGS: Bones/joints: Osseous structures are intact. No fracture or malalignment. Visualized joint surfaces are preserved. Soft tissues: Vascular calcifications are noted within the soft tissues. XR/XR wrist LT min 3V* [id number] IMPRESSION: Negative exam. No acute bony abnormalities.
[2022-04-13 09:41] VITALS: BP 92/66; PULSE 95; RESP 18; TEMP 36.8; O2SAT 93; BMI 24.0
--- NOTE | 2022-04-13 09:59 | W.ED.EXTPRO ---
HPI - Extremity Problem General: Chief complaint: Extremity Problem,Nontraumatic Stated complaint: left wrist pain Time Seen by Provider: 04/13/22 09:39 Source: patient Mode of arrival: ambulatory Limitations: no limitations History of Present Illness: Patient is a nice 56-year-old male who presents to ED today with a complaint of left wrist pain and swelling that he attributes to an acute gouty infection. Patient states he has a longstanding history of gout mainly affecting his knees and ankles. He has had a gouty flare to his right wrist before but never to his left. He states symptoms started approximately 48 hours ago and feel very typical to previous gout flares. Patient states he has a history of chronic kidney disease so cannot take allopurinol and often times is not treated with colchicine/indomethacin because of this. He states he normally is treated successfully with steroids. Patient is a diabetic states he can usually titrate his insulin to account for the steroid use and keep sugars under control. Patient has not had any injury or trauma to the wrist. He denies fevers. Patient is on warfarin. INR was checked recently and was 3.0. MD Complaint: extremity pain, extremity swelling, joint swelling and joint pain Onset (ago): day(s) Pain Consistency: constant Location: left and upper extremity (wrist/hand) Radiation: none Relieving factors: nothing Exacerbating factors: range of motion and palpation Associated symptoms: Reports no associated symptoms; Deny chest pain or fever(s) Context: history of gout Review of Systems Const: Denies: fever(s), chills, body aches, fatigue or malaise Card: Denies: chest pain Resp: Denies: dyspnea GI: Denies: abdominal pain Musc: Reports: extremity pain, extremity swelling, joint pain, joint swelling, joint redness, joint warmth, limited range of motion and other (above findings localized to L wrist/hand); Denies: neck pain or back pain Neuro: Denies: headache(s), numbness in extremities, weakness in extremities or sensory changes [facility] PFSH: Medical History Arrhythmia CAD (coronary artery disease) Cardiac defibrillator in place CHF (congestive heart failure) Cholecystectomy planned Cholecystitis Chronic kidney disease Diabetes Encounter for central line placement Gallbladder disease Gout Hypertension Ischemic cardiomyopathy LVAD (left ventricular assist device) present Type II diabetes mellitus Surgical History H/O cardiac catheterization History of esophagogastroduodenoscopy (EGD) S/P coronary artery stent placement Social History Smoking and tobacco status: never smoked Second hand smoke exposure: No Alcohol intake: never Physical Exam Const: COMMON NORMALS: no acute distress, patient oriented x3, no limitations, alert and well nourished GENERAL APPEARANCE: cooperative ORIENTATION/CONSCIOUSNESS: Yes awake, Yes oriented to person, Yes oriented to place and Yes oriented to time Resp: COMMON NORMALS: normal respiratory effort and clear to auscultation bilaterally AUSCULTATION: clear to auscultation bilaterally Cardio: COMMON NORMALS: regular rate and regular rhythm RATE: regular rate RHYTHM: regular rhythm Extremity: COMMON NORMALS: capillary refill normal GENERAL: Yes normal exam except as noted LEFT UPPER EXTREMITY: Yes wrist and Yes hand & digits OTHER: pt has diffuse tenderness, swelling, and warmth affecting left wrist extending down into hand; he can move/wiggle all digits normally; NV intact; scant erythema noted to ulnar wrist; normal micro-motion of wrist making suspicion for a septic arthritis low Neuro: COMMON NORMALS: patient oriented x3 SENSORIUM/ORIENTATION: Yes alert, Yes oriented to person, Yes oriented to place and Yes oriented to time Course Vital Signs: Vital signs: Vital Signs Temperature 98.2 F 04/13/22 09:41 Pulse Rate 95 04/13/22 09:41 Respiratory Rate 18 04/13/22 10:18 Blood Pressure 92/66 04/13/22 09:41 Pulse Oximetry 93 04/13/22 09:41 Oxygen Delivery Me thod 04/13/22 09:41 MDM - Extremity (Nontraumatic) Medical Decision Making Patient's vital signs are stable upon arrival. He states he is always slightly hypotensive. Patient's labs show white count of 10.3. He is anemic with a hemoglobin of 8.0. He states he does have a history of anemia. Looking at previous labs it looks like patient has had a slow decline of his hemoglobin since around December of last year. He is denying black or tarry stools. No bloody emesis. Patient states he has an appointment with primary care next week and I asked him to discuss these results with them which he agrees to. Patient does have an elevated uric acid at 9.2 supporting the diagnosis of gout in his left wrist. CRP is elevated at almost 70. Again patient is not a candidate for allopurinol, colchicine, indomethacin secondary to kidney disease. He is normally treated successfully with steroids. We will go ahead and place a referral for orthopedics in case symptoms do not seem to be improving. They can evaluate further with wrist aspiration/fluid analysis if indicated. Return ED precautions given. Lab Data 04/13/22 09:50 04/13/22 09:50 Radiology Impressions Wrist X-Ray 04/13/22 09:34 IMPRESSION: Negative exam. No acute bony abnormalities. Laboratory Results WBC 10.3 10^3/uL (4.0-10.0) H 04/13/22 09:50 RBC 2.99 10^6/uL (4.1-5.3) L 04/13/22 09:50 Hgb 8.0 g/dL (11.7-16.6) L 04/13/22 09:50 Hct 27.4 % (42.0-52.0) L 04/13/22 09:50 MCV 91.6 fl (80-94) 04/13/22 09:50 MCH 26.8 pg (28.0-34.0) L 04/13/22 09:50 MCHC 29.2 g/dL (30.0-36.0) L 04/13/22 09:50 RDW 19.1 % (12.1-15.1) H 04/13/22 09:50 Plt Count 340 10^3/cmm (130-400) 04/13/22 09:50 MPV 9.7 fL (7.4-10.4) 04/13/22 09:50 Neut % (Auto) 77.3 % 04/13/22 09:50 Lymph % (Auto) 11.2 % 04/13/22 09:50 [place] % (Auto) 8.9 % 04/13/22 09:50 Eos % (Auto) 0.6 % 04/13/22 09:50 Baso % (Auto) 0.8 % 04/13/22 09:50 Neut # (Auto) 7.96 10^3/uL (1.8-7.7) H 04/13/22 09:50 Lymph # (Auto) 1.2 10^3/uL (0.8-4.8) 04/13/22 09:50 [place] # (Auto) 0.9 10^3/uL (0.2-0.9) 04/13/22 09:50 Eos # (Auto) 0.1 10^3/uL (0.0-0.8) 04/13/22 09:50 Baso # (Auto) 0.1 10^3/uL (0.0-0.1) 04/13/22 09:50 Nucleated RBC % (auto) 0 % 04/13/22 09:50 Nucleated RBCs # 0.0 /100WBC 04/13/22 09:50 Sodium 135 mmol/L (136-145) L 04/13/22 09:50 Potassium 4.2 mmol/L (3.5-5.1) 04/13/22 09:50 Chloride 103 mmol/L (98-107) 04/13/22 09:50 Carbon Dioxide 19 mmol/L (22-29) L 04/13/22 09:50 Anion Gap 17.2 (5-19) 04/13/22 09:50 BUN 30 mg/dL (6-20) H 04/13/22 09:50 Creatinine 1.0 mg/dL (0.7-1.2) 04/13/22 09:50 GFR Calculation 76.7 mL/min (90-130) L 04/13/22 09:50 Glucose 166 mg/dL (65-115) H 04/13/22 09:50 Calculated Osmolality 290 mOsm/kg (285-295) 04/13/22 09:50 Uric Acid 9.2 mg/dL (3.4-7.0) H 04/13/22 09:50 Calcium 8.6 mg/dL (8.5-10.5) 04/13/22 09:50 Total Bilirubin 0.7 mg/dL (0.15-1.2) 04/13/22 09:50 AST 27 U/L (0-40) 04/13/22 09:50 ALT 26 U/L (0-41) 04/13/22 09:50 Alkaline Phosphatase 169 U/L (40-130) H 04/13/22 09:50 C-Reactive Protein 69.5 mg/L (0.0-4.9) H 04/13/22 09:50 Total Protein 6.3 g/dL (6.6-8.7) L 04/13/22 09:50 Albumin 3.5 g/dL (3.5-5.2) 04/13/22 09:50 Globulin 2.8 g/dL (1.3-4.6) 04/13/22 09:50 Discharge Plan Discharge Patient Disposition: Home Clinical Impression: Acute gout of left wrist Qualifiers: Gout etiology: unspecified cause Qualified Code(s): M10.9 - Gout, unspecified Condition: Stable Prescriptions: New prednisone 10 mg tablet 10 mg PO DAILY 10 Days Qty: 22 0RF Rx Instructions: 4 tabs on days 1-4, 3 tabs on day 5, 2 tabs on day 6, and 1 tab on day 7 Changed hydrocodone-acetaminophen 5-325 mg tablet 1 tab PO Q6H PRN (Reason: pain) Qty: 14 0RF No Action warfarin 10 mg Tablet 3 mg PO DAILY aspirin 81 mg Tablet,Delayed Release (Dr/Ec) 81 mg PO QAM Victoza 3-Lenny 0.6 mg/0.1 mL (18 mg/3 mL) Pen Injector 0.6 mg SUBCUT DAILY@21 insulin lispro [Humalog KwikPen Insulin] 100 unit/mL insulin pen See Rx Instructions .ROUTE .COMPLEX Qty: 3 0RF Rx Instructions: sliding scale tid prn Toujeo SoloStar U-300 Insulin 300 unit/mL (1.5 mL) insulin pen 15 unit SUBCUT DAILY@21 hydrocodone-acetaminophen 5-325 mg tablet 1 tab PO Q6H PRN (Reason: pain) Qty: 6 0RF Dalvance 500 mg Solution 1,500 mg IV .[id number] Rx Instructions: every 2 weeks for supression citalopram 20 mg tablet 20 mg PO DAILY amlodipine 5 mg Tablet 5 mg PO DAILY fluconazole 400 mg PO DAILY Discharge Orders: Discharge ED (Routine); Ordered 04/13/22 Ordered By: Norma Matamoros Referrals: Jose Maciel MD [Primary Care Provider] - Patient Instructions: Gout (ED), Opioid Safety, Pain Management Activity Restrictions/Additional Instructions: As we have discussed I would like you to follow-up with orthopedics in case steroids do not seem to alleviate pain/discomfort. Consideration would be for a joint aspiration analysis for definitive gout confirmation. Case management should contact you early this week to set you up with your appointment. You need to return to the emergency department immediately for worsening pain or swelling, redness to the joint or red streaking up your arm, fevers, inability to use the wrist or hand secondary to pain, or any other concerns you may have. I hope you begin to feel better soon. Coding Level of Care Code ED Online Communications Manager for Chg Fwd Exam Expanded Problem Focused
[2022-04-13 10:06] LABS: Basophils # 0.1 10^3/uL (0.0-0.1); Basophils % 0.8 %; Eosinophils # 0.1 10^3/uL (0.0-0.8); Eosinophils % 0.6 %; Hematocrit 27.4 % (42.0-52.0); Lymphocytes # 1.2 10^3/uL (0.8-4.8); Lymphocytes % 11.2 %; Mean Corpuscular HGB Conc 29.2 g/dL (30.0-36.0); Mean Corpuscular Hemoglobin 26.8 pg (28.0-34.0); Mean Corpuscular Volume 91.6 fl (80-94); Mean Platelet Volume 9.7 fL (7.4-10.4); Monocytes # 0.9 10^3/uL (0.2-0.9); Monocytes % 8.9 %; Neutrophils # 7.96 10^3/uL (1.8-7.7); Neutrophils % 77.3 %; Nucleated Red Blood Cells % 0 %; Platelet Count 340 10^3/cmm (130-400); Red Blood Count 2.99 10^6/uL (4.1-5.3); Red Cell Distribution Width 19.1 % (12.1-15.1); White Blood Count 10.3 10^3/uL (4.0-10.0)
[2022-04-13 10:18] VITALS: RESP 18
[2022-04-13] MEDS: morphine 4 mg/mL SDV 1 mL IM (10:18)
[2022-04-13 10:27] LABS: Alanine Aminotransferase 26 U/L (0-41); Albumin Level 3.5 g/dL (3.5-5.2); Alkaline Phosphatase 169 U/L (40-130); Anion Gap 17.2 (5-19); Aspartate Amino Transferase 27 U/L (0-40); Blood Urea Nitrogen 30 mg/dL (6-20); C Reactive Protein 69.5 mg/L (0.0-4.9); Calcium 8.6 mg/dL (8.5-10.5); Carbon Dioxide 19 mmol/L (22-29); Chloride 103 mmol/L (98-107); Globulin 2.8 g/dL (1.3-4.6); Glomerular Filtration Rate 76.7 mL/min (90-130); Glucose 166 mg/dL (65-115); Osmolality Calculated 290 mOsm/kg (285-295); Potassium 4.2 mmol/L (3.5-5.1); Sodium 135 mmol/L (136-145); Total Bilirubin 0.7 mg/dL (0.15-1.2); Total Protein 6.3 g/dL (6.6-8.7); Uric Acid 9.2 mg/dL (3.4-7.0)
== END 2022-04-13 11:10 | disposition home or self-care (01) ==
PROVIDERS: Emergency Provider Physician Assistant; PCP Family Medicine
DX: M10.9 Gout, unspecified (principal); Z79.01 Long term (current) use of anticoagulants; Z79.82 Long term (current) use of aspirin; Z79.4 Long term (current) use of insulin; I25.10 Atherosclerotic heart disease of native coronary artery without angina pectoris; I13.0 Hypertensive heart and chronic kidney disease with heart failure and stage 1 through stage 4 chronic kidney disease, or unspecified chronic kidney disease; E11.22 Type 2 diabetes mellitus with diabetic chronic kidney disease; N18.9 Chronic kidney disease, unspecified; I50.9 Heart failure, unspecified
CPT/HCPCS: 73110; 80053; 84550; 85025; 86140; 96372; 99284; J2270

== ENCOUNTER 2022-05-11 17:36 | Emergency (ER) | payer MEDICARE, SELFPAY ==
[2022-05-11 17:45] VITALS: PULSE 84; TEMP 36.7; O2SAT 98; BMI 21.2
[2022-05-11 17:48] VITALS: BP 82/70; PULSE 104; RESP 16; O2SAT 100
--- NOTE | 2022-05-11 18:13 | ED_ITS ---
HPI - Extremity Problem General: Chief complaint: Extremity Problem,Nontraumatic Stated complaint: ankle/left wrist/knee pain Time Seen by Provider: 05/11/22 17:57 History of Present Illness: Patient is a 56-year-old male who comes to the ED with gout flare. Patient has a history of gout and says this is like his past gout flareups. Symptoms started approximately 2 days ago. He rates his pain currently 8 out of 10. His flareup is currently in both right and left great toes and in left wrist. Both great toes are very sensitive to any touch and that causes worsening pain. Bilateral great toes also have some mild erythema and warmth. He also reports having some knee pain as well. Associated symptoms: Deny chest pain, fever(s) or rash Review of Systems Const: Denies: fever(s), chills or fatigue Eyes: Denies: change in vision or eye discomfort ENMT: Denies: throat pain, odynophagia, nasal discharge or nasal congestion Card: Denies: chest pain, palpitations, edema, swelling of feet/ankles, dyspnea on exertion or orthopnea Resp: Denies: dyspnea, productive cough or non-productive cough GI: Denies: abdominal pain, nausea, vomiting, diarrhea, constipation or hematochezia : Denies: flank pain, difficulty urinating, dysuria or hematuria Musc: Reports: extremity pain (Bilateral great toe pain ) and extremity swelling (Bilateral great toe swelling); Denies: neck pain or back pain Skin/Breast: Denies: rash or new lesions Neuro: Denies: headache(s), numbness in extremities or weakness in extremities PFS ED PFSH: Medical History Arrhythmia CAD (coronary artery disease) Cardiac defibrillator in place CHF (congestive heart failure) Cholecystectomy planned Cholecystitis Chronic kidney disease Diabetes Encounter for central line placement Gallbladder disease Gout Hypertension Ischemic cardiomyopathy LVAD (left ventricular assist device) present Type II diabetes mellitus Surgical History H/O cardiac catheterization History of esophagogastroduodenoscopy (EGD) S/P coronary artery stent placement Social History Smoking and tobacco status: never smoked Second hand smoke exposure: No Alcohol intake: never Physical Exam Const: COMMON NORMALS: no acute distress, patient oriented x3 and alert GENERAL APPEARANCE: cooperative HENMT: COMMON NORMALS: normocephalic HEAD & SCALP: normocephalic MOUTH: Normal oral and palatal mucosa present THROAT: posterior oropharynx normal and uvula midline Neck/C-Spine: COMMON NORMALS: supple GENERAL: Yes normal visual inspection Resp: COMMON NORMALS: normal respiratory effort, No retractions, No use of accessory muscles and clear to auscultation bilaterally AUSCULTATION: clear to auscultation bilaterally Cardio: COMMON NORMALS: regular rate, regular rhythm, S1 normal heart sound present, S2 normal heart sound present, No gallops present (Cardio), No clicks present (Cardio), No murmurs present (Cardio) and Peripheral pulses 2+ throughout RATE: regular rate RHYTHM: regular rhythm HEART SOUNDS: S1 normal heart sound present and S2 normal heart sound present PERIPHERAL PULSES: Peripheral pulses 2+ throughout GI: COMMON NORMALS: Normal to inspection, nondistended, normoactive bowel sounds present, Soft to palpation, non-tender and no masses PALPATION: Yes Soft to palpation : COMMON NORMALS: Yes no CVA tenderness BLADDER/KIDNEY EXAM: Yes no CVA tenderness Back/Pelvis: COMMON NORMALS: no CVA tenderness Extremity: NARRATIVE EXTREMITY EXAM: Bilateral first digit metatarsophalangeal joint erythema, warmth and tenderness. Findings suggestive of gout Neuro: COMMON NORMALS: patient oriented x3 SENSORIUM/ORIENTATION: Yes alert GAIT: Yes Normal gait present Skin: GENERAL SKIN EXAM: dry skin Course Vital Signs: Vital signs: Vital Signs Temperature 98.1 F 05/11/22 17:45 Pulse Rate 103 H 05/11/22 18:49 Respiratory Rate 18 05/11/22 18:49 Blood Pressure 82/77 05/11/22 18:49 Pulse Oximetry 99 05/11/22 18:49 Oxygen Delivery Me thod 05/11/22 17:45 MDM - Extremity (Nontraumatic) Medical Decision Making Patient is a 56-year-old male who comes to the ED with gout flare up in bilateral great toes. Patient has a history of gout and says this is like his past gout flareups. Symptoms started approximately 2 days ago. Vitals are stable. Bilateral first digit metatarsophalangeal joint erythema, warmth and tenderness. Findings suggestive of gout. Patient was given doses of colchicine here in the ED, along with hydrocodone for pain and steroid shot. Told to follow-up with his PCP in the next week for reevaluation. He was sent home with a prescription for hydrocodone to help with pain and a short course of steroid. Return to ED precautions given. Patient understood and agreed with plan. Discharge Plan Discharge Patient Disposition: Home Clinical Impression: Gout attack Qualifiers: Gout site: toe Gout etiology: unspecified cause Laterality: unspecified laterality Qualified Code(s): M10.9 - Gout, unspecified Condition: Stable Prescriptions: New prednisone 20 mg tablet 20 mg PO TID 3 Days Qty: 9 0RF No Action warfarin 10 mg Tablet 3 mg PO DAILY aspirin 81 mg Tablet,Delayed Release (Dr/Ec) 81 mg PO QAM Victoza 3-Lenny 0.6 mg/0.1 mL (18 mg/3 mL) Pen Injector 0.6 mg SUBCUT DAILY@21 insulin lispro [Humalog KwikPen Insulin] 100 unit/mL insulin pen See Rx Instructions .ROUTE .COMPLEX Qty: 3 0RF Rx Instructions: sliding scale tid prn Toujeo SoloStar U-300 Insulin 300 unit/mL (1.5 mL) insulin pen 15 unit SUBCUT DAILY@21 hydrocodone-acetaminophen 5-325 mg tablet 1 tab PO Q6H PRN (Reason: pain) Qty: 6 0RF Dalvance 500 mg Solution 1,500 mg IV .[id number] Rx Instructions: every 2 weeks for supression citalopram 20 mg tablet 20 mg PO DAILY amlodipine 5 mg Tablet 5 mg PO DAILY fluconazole 400 mg PO DAILY hydrocodone-acetaminophen 5-325 mg tablet 1 tab PO Q6H PRN (Reason: pain) Qty: 14 0RF Discharge Orders: Discharge ED (Routine); Ordered 05/11/22 Ordered By: Juanito Pineda Referrals: Jose Maciel MD [Primary Care Provider] - Discharge Diet: Regular Discharge Activity: Increase activity as tolerated Patient Instructions: Gout (ED), Opioid Safety Activity Restrictions/Additional Instructions: Follow-up with medical provider as directed in the next 1-2 days for reevaluation. Take 1 colchicine tab approximately 1 hour after your initial dose here in the ED. You can then take your second colchicine tab approximately 2 hours following that dose. Take medications as prescribed. Make sure to check your blood sugars closely since you you will be taking a couple days of prednisone. Return to the ER or your medical provider if condition worsens. Please read and understand discharge instructions. Thank you for choosing [facility] for your healthcare needs today. Please realize this is an emergency room and that we are providing you with a medical screening exam and this may not be complete and all inclusive of all the testing and or work up that you may need to determine your ailment or severity of your illness. It is very important that you follow up as instructed or that you return to the Emergency Department should you have concerns or if your condition changes or worsens in any way. Coding Level of Care Code ED Washing Machine Install[employer] for Yossi Andujar
[2022-05-11] MEDS: colchicine 0.6 mg Tablet 1.2 MG PO ×2 (18:20→18:43)
[2022-05-11] MEDS: HYDROcodone-acetaminophen 7.5-325 mg Tablet 1 TAB PO (18:20)
[2022-05-11 18:49] VITALS: BP 82/77; PULSE 103; RESP 18; O2SAT 99
== END 2022-05-11 18:51 | disposition home or self-care (01) ==
PROVIDERS: Emergency Provider Physician Assistant; PCP Family Medicine
DX: M10.9 Gout, unspecified (principal); Z79.01 Long term (current) use of anticoagulants; Z79.82 Long term (current) use of aspirin; Z79.4 Long term (current) use of insulin; I25.10 Atherosclerotic heart disease of native coronary artery without angina pectoris; I13.0 Hypertensive heart and chronic kidney disease with heart failure and stage 1 through stage 4 chronic kidney disease, or unspecified chronic kidney disease; E11.22 Type 2 diabetes mellitus with diabetic chronic kidney disease; N18.9 Chronic kidney disease, unspecified; I50.9 Heart failure, unspecified; Z95.810 Presence of automatic (implantable) cardiac defibrillator
CPT/HCPCS: 96372; 99284; J2930

== ENCOUNTER 2022-05-14 08:53 | Outpatient (RCR) | payer MEDICARE, SELFPAY ==
[2022-04-18 09:14] VITALS: BP 108/93; PULSE 78; RESP 18; TEMP 36.4; O2SAT 100
--- NOTE | 2022-04-18 09:30 | PC.NURSE ---
Pt to GI infusions for weekly lab draw and infusion of Dalvance. Dilcia catheter to left neck flushed per protocol following blood draw. Lab results faxed to [facility] Infectious Disease and LVAD office as ordered. Hg up to 8.4 from 8.0 on 04/13/22. Dalvance 1500 mg infused without difficulty. Pt tolerated well.
[2022-04-18 09:31] LABS: Basophils # 0.1 10^3/uL (0.0-0.1); Basophils % 0.5 %; Eosinophils # 0.1 10^3/uL (0.0-0.8); Eosinophils % 0.5 %; Hematocrit 28.5 % (42.0-52.0); Hemoglobin 8.4 g/dL (11.7-16.6); Lymphocytes # 2.2 10^3/uL (0.8-4.8); Mean Corpuscular HGB Conc 29.5 g/dL (30.0-36.0); Mean Corpuscular Hemoglobin 26.7 pg (28.0-34.0); Mean Corpuscular Volume 90.5 fl (80-94); Mean Platelet Volume 9.7 fL (7.4-10.4); Neutrophils # 8.52 10^3/uL (1.8-7.7); Neutrophils % 71.2 %; Nucleated Red Blood Cells % 0 %; Platelet Count 373 10^3/cmm (130-400); Red Blood Count 3.15 10^6/uL (4.1-5.3); Red Cell Distribution Width 18.8 % (12.1-15.1)
[2022-04-18] MEDS: dalbavancin 1,500 MG in dextrose 5% 250 ML 250 MG IV (09:35)
[2022-04-18 09:51] LABS: INR 1.59 (0.8-1.2)
[2022-04-18 09:55] LABS: Alanine Aminotransferase 29 U/L (0-41); Albumin Level 3.7 g/dL (3.5-5.2); Alkaline Phosphatase 162 U/L (40-130); Anion Gap 19.9 (5-19); Aspartate Amino Transferase 20 U/L (0-40); Blood Urea Nitrogen 39 mg/dL (6-20); Calcium 8.6 mg/dL (8.5-10.5); Carbon Dioxide 19 mmol/L (22-29); Chloride 105 mmol/L (98-107); Globulin 2.5 g/dL (1.3-4.6); Glomerular Filtration Rate 56.7 mL/min (90-130); Glucose 167 mg/dL (65-115); Lactate Dehydrogenase 198 U/L (135-225); Osmolality Calculated 303 mOsm/kg (285-295); Potassium 3.9 mmol/L (3.5-5.1); Sodium 140 mmol/L (136-145); Total Bilirubin 0.4 mg/dL (0.15-1.2); Total Protein 6.2 g/dL (6.6-8.7)
[2022-04-18 09:56] LABS: Creatinine Clr Calc Pharmacy 72.6138
--- NOTE | 2022-04-23 09:05 | PC.NURSE ---
Pt to GI infusions for dressing change to left Dilcia catheter. Sutures remain in place and patent. No blood return from red hub lumen. Positional blood return from purple hub lumen. Dual lumens flushed per protocol. Pt tolerated well. Lab results faxed to [facility] and LVAD offices as requested.
[2022-04-23 09:31] LABS: Basophils # 0.1 10^3/uL (0.0-0.1); Eosinophils # 0.1 10^3/uL (0.0-0.8); Hematocrit 29.1 % (42.0-52.0); Hemoglobin 8.6 g/dL (11.7-16.6); Lymphocytes # 1.2 10^3/uL (0.8-4.8); Lymphocytes % 11.8 %; Mean Corpuscular HGB Conc 29.6 g/dL (30.0-36.0); Mean Corpuscular Hemoglobin 26.8 pg (28.0-34.0); Mean Corpuscular Volume 90.7 fl (80-94); Mean Platelet Volume 9.9 fL (7.4-10.4); Monocytes # 0.9 10^3/uL (0.2-0.9); Monocytes % 8.8 %; Neutrophils # 8.06 10^3/uL (1.8-7.7); Neutrophils % 76.7 %; Nucleated Red Blood Cells % 0 %; Platelet Count 306 10^3/cmm (130-400); Red Blood Count 3.21 10^6/uL (4.1-5.3); Red Cell Distribution Width 18.1 % (12.1-15.1); White Blood Count 10.5 10^3/uL (4.0-10.0)
[2022-04-23 09:37] LABS: INR 1.37 (0.8-1.2)
[2022-04-23 09:42] LABS: Alanine Aminotransferase 17 U/L (0-41); Albumin Level 3.5 g/dL (3.5-5.2); Alkaline Phosphatase 161 U/L (40-130); Anion Gap 18.2 (5-19); Aspartate Amino Transferase 14 U/L (0-40); Blood Urea Nitrogen 23 mg/dL (6-20); Calcium 8.6 mg/dL (8.5-10.5); Carbon Dioxide 22 mmol/L (22-29); Chloride 101 mmol/L (98-107); Globulin 2.5 g/dL (1.3-4.6); Glomerular Filtration Rate 62.2 mL/min (90-130); Glucose 127 mg/dL (65-115); Lactate Dehydrogenase 183 U/L (135-225); Osmolality Calculated 289 mOsm/kg (285-295); Potassium 4.2 mmol/L (3.5-5.1); Sodium 137 mmol/L (136-145)
[2022-04-23 10:09] VITALS: BP 98/77; PULSE 105; RESP 18; TEMP 36.4; O2SAT 100
[2022-04-30 09:11] VITALS: BP 96/67; PULSE 103; RESP 18; TEMP 35.9; O2SAT 100
[2022-04-30] MEDS: dalbavancin 1,500 MG in dextrose 5% 250 ML 500 MG IV (09:32)
[2022-04-30 09:45] LABS: Basophils # 0.1 10^3/uL (0.0-0.1); Eosinophils # 0.1 10^3/uL (0.0-0.8); Eosinophils % 1.6 %; Hematocrit 27.5 % (42.0-52.0); Hemoglobin 8.1 g/dL (11.7-16.6); Lymphocytes # 0.8 10^3/uL (0.8-4.8); Lymphocytes % 13.7 %; Mean Corpuscular HGB Conc 29.5 g/dL (30.0-36.0); Mean Corpuscular Hemoglobin 25.7 pg (28.0-34.0); Mean Corpuscular Volume 87.3 fl (80-94); Mean Platelet Volume 10.2 fL (7.4-10.4); Monocytes # 0.6 10^3/uL (0.2-0.9); Monocytes % 10.4 %; Neutrophils # 4.43 10^3/uL (1.8-7.7); Nucleated Red Blood Cells % 0 %; Platelet Count 266 10^3/cmm (130-400); Red Blood Count 3.15 10^6/uL (4.1-5.3); White Blood Count 6.1 10^3/uL (4.0-10.0)
[2022-04-30 10:10] LABS: Alanine Aminotransferase 10 U/L (0-41); Albumin Level 3.4 g/dL (3.5-5.2); Alkaline Phosphatase 160 U/L (40-130); Anion Gap 16.9 (5-19); Aspartate Amino Transferase 15 U/L (0-40); Blood Urea Nitrogen 18 mg/dL (6-20); Calcium 8.7 mg/dL (8.5-10.5); Carbon Dioxide 22 mmol/L (22-29); Chloride 101 mmol/L (98-107); Globulin 2.7 g/dL (1.3-4.6); Glomerular Filtration Rate 62.2 mL/min (90-130); Glucose 133 mg/dL (65-115); Lactate Dehydrogenase 190 U/L (135-225); Osmolality Calculated 288 mOsm/kg (285-295); Sodium 137 mmol/L (136-145); Total Bilirubin 0.8 mg/dL (0.15-1.2); Total Protein 6.1 g/dL (6.6-8.7)
[2022-04-30 10:18] LABS: Potassium 2.9 mmol/L (3.5-5.1)
[2022-04-30 10:56] LABS: INR 1.41 (0.8-1.2)
--- NOTE | 2022-04-30 13:25 | PC.NURSE ---
LVAD office, Arabella, notified of pt K+ 2.9. Pt to increase oral dose of potassium at home and come in Friday for repeat CMP.
[2022-05-03 08:28] VITALS: BP 106/87; PULSE 70; RESP 18; TEMP 36.3; O2SAT 98
[2022-05-03 08:32] LABS: INR 1.79 (0.8-1.2)
[2022-05-03 09:12] LABS: Alanine Aminotransferase 13 U/L (0-41); Albumin Level 3.7 g/dL (3.5-5.2); Alkaline Phosphatase 165 U/L (40-130); Anion Gap 19.6 (5-19); Aspartate Amino Transferase 18 U/L (0-40); Blood Urea Nitrogen 40 mg/dL (6-20); Carbon Dioxide 18 mmol/L (22-29); Chloride 106 mmol/L (98-107); Globulin 2.9 g/dL (1.3-4.6); Glomerular Filtration Rate 41.6 mL/min (90-130); Glucose 174 mg/dL (65-115); Osmolality Calculated 302 mOsm/kg (285-295); Potassium 4.6 mmol/L (3.5-5.1); Sodium 139 mmol/L (136-145); Total Bilirubin 0.4 mg/dL (0.15-1.2); Total Protein 6.6 g/dL (6.6-8.7)
--- NOTE | 2022-05-07 09:00 | PC.NURSE ---
Pt states after dressing change last week, he had extreme pain and burning at suture sites for Dilcia catheter. States he had to use ice to help relieve the pain. Upon investigation of catheter to left neck and suture sites, it appears sutures pulled out of patient skin. Remaining suture material removed. Stat lock placed to secure catheter. Message left for Gaby at [facility]. Labs faxed to both LVAD office and [facility].
[2022-05-07 09:12] LABS: Basophils % 0.2 %; Hematocrit 30.6 % (42.0-52.0); Hemoglobin 8.8 g/dL (11.7-16.6); Lymphocytes # 0.8 10^3/uL (0.8-4.8); Lymphocytes % 7.2 %; Mean Corpuscular HGB Conc 28.8 g/dL (30.0-36.0); Mean Corpuscular Hemoglobin 25.4 pg (28.0-34.0); Mean Corpuscular Volume 88.2 fl (80-94); Monocytes # 0.4 10^3/uL (0.2-0.9); Monocytes % 3.6 %; Neutrophils # 9.34 10^3/uL (1.8-7.7); Neutrophils % 87.3 %; Nucleated Red Blood Cells % 0 %; Platelet Count 434 10^3/cmm (130-400); Red Blood Count 3.47 10^6/uL (4.1-5.3); Red Cell Distribution Width 16.7 % (12.1-15.1); White Blood Count 10.7 10^3/uL (4.0-10.0)
[2022-05-07 09:23] LABS: INR 1.46 (0.8-1.2)
[2022-05-07 09:28] LABS: Alanine Aminotransferase 25 U/L (0-41); Albumin Level 3.6 g/dL (3.5-5.2); Alkaline Phosphatase 166 U/L (40-130); Anion Gap 18.4 (5-19); Aspartate Amino Transferase 22 U/L (0-40); Blood Urea Nitrogen 42 mg/dL (6-20); Calcium 8.6 mg/dL (8.5-10.5); Carbon Dioxide 19 mmol/L (22-29); Chloride 104 mmol/L (98-107); Globulin 2.8 g/dL (1.3-4.6); Glomerular Filtration Rate 52.1 mL/min (90-130); Glucose 293 mg/dL (65-115); Lactate Dehydrogenase 191 U/L (135-225); Osmolality Calculated 305 mOsm/kg (285-295); Potassium 4.4 mmol/L (3.5-5.1); Sodium 137 mmol/L (136-145); Total Bilirubin 0.6 mg/dL (0.15-1.2); Total Protein 6.4 g/dL (6.6-8.7)
[2022-05-07 09:38] VITALS: BP 104/85; PULSE 86; RESP 18; TEMP 36; O2SAT 100
[2022-05-14] MEDS: dalbavancin 1,500 MG in dextrose 5% 250 ML 500 MG IV (08:58)
[2022-05-14 09:00] VITALS: BP 106/90; PULSE 80; RESP 18; TEMP 36.5; O2SAT 99
[2022-05-14 09:17] LABS: Basophils % 0.1 %; Hematocrit 30.1 % (42.0-52.0); Hemoglobin 8.7 g/dL (11.7-16.6); Lymphocytes # 0.8 10^3/uL (0.8-4.8); Lymphocytes % 5.7 %; Mean Corpuscular HGB Conc 28.9 g/dL (30.0-36.0); Mean Corpuscular Hemoglobin 24.8 pg (28.0-34.0); Mean Corpuscular Volume 85.8 fl (80-94); Mean Platelet Volume 10.2 fL (7.4-10.4); Monocytes # 0.8 10^3/uL (0.2-0.9); Monocytes % 5.3 %; Neutrophils # 12.81 10^3/uL (1.8-7.7); Neutrophils % 87.8 %; Nucleated Red Blood Cells % 0 %; Platelet Count 367 10^3/cmm (130-400); Red Blood Count 3.51 10^6/uL (4.1-5.3); Red Cell Distribution Width 16.6 % (12.1-15.1); White Blood Count 14.6 10^3/uL (4.0-10.0)
[2022-05-14 09:29] LABS: INR 1.88 (0.8-1.2)
[2022-05-14 09:33] LABS: Alanine Aminotransferase 20 U/L (0-41); Albumin Level 3.7 g/dL (3.5-5.2); Alkaline Phosphatase 161 U/L (40-130); Anion Gap 18.9 (5-19); Aspartate Amino Transferase 13 U/L (0-40); Blood Urea Nitrogen 55 mg/dL (6-20); Calcium 9.3 mg/dL (8.5-10.5); Carbon Dioxide 20 mmol/L (22-29); Chloride 102 mmol/L (98-107); Globulin 2.6 g/dL (1.3-4.6); Glomerular Filtration Rate 56.7 mL/min (90-130); Glucose 239 mg/dL (65-115); Lactate Dehydrogenase 152 U/L (135-225); Osmolality Calculated 307 mOsm/kg (285-295); Potassium 3.9 mmol/L (3.5-5.1); Sodium 137 mmol/L (136-145); Total Bilirubin 0.4 mg/dL (0.15-1.2); Total Protein 6.3 g/dL (6.6-8.7)
[2022-05-14 09:36] LABS: Creatinine Clr Calc Pharmacy 72.6138
--- NOTE | 2022-05-14 09:49 | PC.NURSE ---
Pt to GI infusions for lab draw and infusion of Dalvance. Labs faxed to [facility] and [facility] office as requested. Tolerated infusion well. Left Dilcia catheter in place and patent.
== END 2022-05-14 23:59 | disposition home or self-care (01) ==
LOC: GILAB 08:53
PROVIDERS: Internal Medicine; PCP Family Medicine; Visit Provider Internal Medicine
DX: Z95.811 Presence of heart assist device (principal)
CPT/HCPCS: 36592; 80053; 83615; 85025; 85610; 96365; J0875; J7060

== ENCOUNTER → 2022-06-07 11:15 | Outpatient (BNVA) | payer MEDICARE, SELFPAY | PROVIDERS: PCP Family Medicine; Visit Provider Student in an Organized Health Care Education/Training Program | DX: M19.071 Primary osteoarthritis, right ankle and foot (principal); M25.572 Pain in left ankle and joints of left foot; M10.9 Gout, unspecified; E11.22 Type 2 diabetes mellitus with diabetic chronic kidney disease; N18.9 Chronic kidney disease, unspecified; Z79.4 Long term (current) use of insulin; M71.162 Other infective bursitis, left knee | CPT/HCPCS: 20600; 20605; 73560; 73565; 99203; J1100; J3301 ==

== ENCOUNTER 2022-06-11 09:08 | Outpatient (RCR) | payer MEDICARE, SELFPAY ==
[2022-05-21 09:00] VITALS: BP 97/63; PULSE 92; RESP 18; TEMP 36.3; O2SAT 100
[2022-05-21 09:23] LABS: Basophils % 0.4 %; Eosinophils # 0.1 10^3/uL (0.0-0.8); Hematocrit 30.9 % (42.0-52.0); Hemoglobin 8.8 g/dL (11.7-16.6); Lymphocytes # 1.5 10^3/uL (0.8-4.8); Lymphocytes % 14.7 %; Mean Corpuscular HGB Conc 28.5 g/dL (30.0-36.0); Mean Corpuscular Volume 84.4 fl (80-94); Mean Platelet Volume 10.2 fL (7.4-10.4); Monocytes # 0.8 10^3/uL (0.2-0.9); Monocytes % 8.1 %; Neutrophils % 74.6 %; Nucleated Red Blood Cells % 0 %; Platelet Count 267 10^3/cmm (130-400); Red Blood Count 3.66 10^6/uL (4.1-5.3); Red Cell Distribution Width 16.2 % (12.1-15.1); White Blood Count 10.3 10^3/uL (4.0-10.0)
--- NOTE | 2022-05-21 09:30 | PC.NURSE ---
Pt to GI infusions for lab draw and dressing change. Dressing changed to left neck Dilcia catheter using sterile technique. Labs drawn and faxed to [facility] and [facility] offices as requested.
[2022-05-21 09:38] LABS: Alanine Aminotransferase 23 U/L (0-41); Albumin Level 3.5 g/dL (3.5-5.2); Alkaline Phosphatase 123 U/L (40-130); Anion Gap 16.5 (5-19); Aspartate Amino Transferase 16 U/L (0-40); Blood Urea Nitrogen 34 mg/dL (6-20); Calcium 8.6 mg/dL (8.5-10.5); Carbon Dioxide 23 mmol/L (22-29); Chloride 103 mmol/L (98-107); Globulin 2.4 g/dL (1.3-4.6); Glomerular Filtration Rate 56.5 mL/min (90-130); Glucose 123 mg/dL (65-115); Lactate Dehydrogenase 159 U/L (135-225); Osmolality Calculated 297 mOsm/kg (285-295); Potassium 3.5 mmol/L (3.5-5.1); Sodium 139 mmol/L (136-145); Total Bilirubin 0.8 mg/dL (0.15-1.2); Total Protein 5.9 g/dL (6.6-8.7)
[2022-05-21 09:40] LABS: INR 2.19 (0.8-1.2)
[2022-05-28 09:06] LABS: Basophils # 0.1 10^3/uL (0.0-0.1); Eosinophils # 0.1 10^3/uL (0.0-0.8); Eosinophils % 1.7 %; Hematocrit 28.3 % (42.0-52.0); Hemoglobin 8.3 g/dL (11.7-16.6); Lymphocytes # 0.8 10^3/uL (0.8-4.8); Mean Corpuscular HGB Conc 29.3 g/dL (30.0-36.0); Mean Corpuscular Volume 85.2 fl (80-94); Monocytes # 0.7 10^3/uL (0.2-0.9); Monocytes % 9.8 %; Neutrophils # 5.48 10^3/uL (1.8-7.7); Neutrophils % 75.9 %; Nucleated Red Blood Cells % 0 %; Platelet Count 229 10^3/cmm (130-400); Red Blood Count 3.32 10^6/uL (4.1-5.3); Red Cell Distribution Width 17.5 % (12.1-15.1); White Blood Count 7.2 10^3/uL (4.0-10.0)
[2022-05-28 09:16] LABS: INR 2.01 (0.8-1.2)
[2022-05-28 09:20] VITALS: BP 97/80; PULSE 99; RESP 18; TEMP 36.7; O2SAT 100
[2022-05-28 09:21] LABS: Alanine Aminotransferase 22 U/L (0-41); Albumin Level 3.4 g/dL (3.5-5.2); Alkaline Phosphatase 172 U/L (40-130); Anion Gap 19.2 (5-19); Aspartate Amino Transferase 30 U/L (0-40); Blood Urea Nitrogen 23 mg/dL (6-20); Calcium 8.5 mg/dL (8.5-10.5); Carbon Dioxide 20 mmol/L (22-29); Chloride 102 mmol/L (98-107); Globulin 2.7 g/dL (1.3-4.6); Glomerular Filtration Rate 51.9 mL/min (90-130); Glucose 105 mg/dL (65-115); Lactate Dehydrogenase 164 U/L (135-225); Osmolality Calculated 290 mOsm/kg (285-295); Potassium 3.2 mmol/L (3.5-5.1); Sodium 138 mmol/L (136-145); Total Bilirubin 0.7 mg/dL (0.15-1.2); Total Protein 6.1 g/dL (6.6-8.7)
--- NOTE | 2022-05-28 09:43 | PC.NURSE ---
Pt to GI infusions for left Dilcia catheter maintenance and Dalvance infusion. Dressing to left Dilcia catheter changed using sterile technique. Site clear without redness, drainage, or pain. Pt tolerated infusion without difficulty. Lab results faxed to [facility] office and [facility] as requested.
[2022-06-04 09:15] VITALS: BP 109/91; PULSE 80; RESP 18; TEMP 36.4; O2SAT 99
[2022-06-04 09:30] LABS: Basophils % 0.2 %; Eosinophils # 0.1 10^3/uL (0.0-0.8); Eosinophils % 0.7 %; Hematocrit 30.8 % (42.0-52.0); Hemoglobin 8.9 g/dL (11.7-16.6); Lymphocytes # 2.1 10^3/uL (0.8-4.8); Lymphocytes % 18.9 %; Mean Corpuscular HGB Conc 28.9 g/dL (30.0-36.0); Mean Corpuscular Hemoglobin 23.9 pg (28.0-34.0); Mean Corpuscular Volume 82.6 fl (80-94); Mean Platelet Volume 10.1 fL (7.4-10.4); Monocytes % 9.3 %; Neutrophils # 7.74 10^3/uL (1.8-7.7); Neutrophils % 68.8 %; Nucleated Red Blood Cells % 0 %; Platelet Count 407 10^3/cmm (130-400); Red Blood Count 3.73 10^6/uL (4.1-5.3); Red Cell Distribution Width 17.2 % (12.1-15.1); White Blood Count 11.2 10^3/uL (4.0-10.0)
--- NOTE | 2022-06-04 09:30 | PC.NURSE ---
Pt to GI infusions for left Dilcia catheter dressing change and lab draw. Pt states after last weeks infusion of Dalvance on Friday, he had a nose bleed for 12 hours on Friday. Pt states he used the medicine from his last nose bleed and was able to stop the bleeding. Hg noted at 8.9 today. Leonie at [facility] ID notified of nose bleed. Pt states he suffered a fall at home and landed on right elbow. Right elbow noted to be bruised. Pt states he also pulled on his LVAD cord slightly. Leonie at [facility] ID notified of this as well.
[2022-06-04 10:01] LABS: Alanine Aminotransferase 25 U/L (0-41); Albumin Level 3.6 g/dL (3.5-5.2); Alkaline Phosphatase 120 U/L (40-130); Anion Gap 18.4 (5-19); Aspartate Amino Transferase 21 U/L (0-40); Blood Urea Nitrogen 46 mg/dL (6-20); Calcium 8.6 mg/dL (8.5-10.5); Carbon Dioxide 20 mmol/L (22-29); Chloride 106 mmol/L (98-107); Globulin 2.5 g/dL (1.3-4.6); Glomerular Filtration Rate 44.5 mL/min (90-130); Glucose 145 mg/dL (65-115); Lactate Dehydrogenase 193 U/L (135-225); Osmolality Calculated 306 mOsm/kg (285-295); Potassium 3.4 mmol/L (3.5-5.1); Sodium 141 mmol/L (136-145); Total Bilirubin 0.6 mg/dL (0.15-1.2); Total Protein 6.1 g/dL (6.6-8.7)
[2022-06-04 10:12] LABS: INR 2.28 (0.8-1.2)
[2022-06-11] MEDS: dalbavancin 1,500 MG in dextrose 5% 250 ML 500 MG IV (09:25)
[2022-06-11 09:42] LABS: Basophils % 0.1 %; Eosinophils % 0.1 %; Hematocrit 29.5 % (42.0-52.0); Hemoglobin 8.4 g/dL (11.7-16.6); Lymphocytes # 0.9 10^3/uL (0.8-4.8); Mean Corpuscular HGB Conc 28.5 g/dL (30.0-36.0); Mean Corpuscular Hemoglobin 23.4 pg (28.0-34.0); Mean Corpuscular Volume 82.2 fl (80-94); Mean Platelet Volume 10.5 fL (7.4-10.4); Monocytes # 1.3 10^3/uL (0.2-0.9); Monocytes % 9.3 %; Neutrophils # 11.13 10^3/uL (1.8-7.7); Neutrophils % 82.2 %; Nucleated Red Blood Cells % 0 %; Platelet Count 339 10^3/cmm (130-400); Red Blood Count 3.59 10^6/uL (4.1-5.3); Red Cell Distribution Width 17.7 % (12.1-15.1); White Blood Count 13.5 10^3/uL (4.0-10.0)
[2022-06-11 09:49] LABS: INR 2.59 (0.8-1.2)
[2022-06-11 09:56] LABS: Alanine Aminotransferase 23 U/L (0-41); Albumin Level 3.4 g/dL (3.5-5.2); Alkaline Phosphatase 155 U/L (40-130); Anion Gap 16.6 (5-19); Aspartate Amino Transferase 20 U/L (0-40); Blood Urea Nitrogen 42 mg/dL (6-20); Calcium 8.4 mg/dL (8.5-10.5); Carbon Dioxide 21 mmol/L (22-29); Chloride 104 mmol/L (98-107); Globulin 2.7 g/dL (1.3-4.6); Glomerular Filtration Rate 47.9 mL/min (90-130); Glucose 176 mg/dL (65-115); Lactate Dehydrogenase 203 U/L (135-225); Osmolality Calculated 301 mOsm/kg (285-295); Potassium 3.6 mmol/L (3.5-5.1); Sodium 138 mmol/L (136-145); Total Bilirubin 0.5 mg/dL (0.15-1.2); Total Protein 6.1 g/dL (6.6-8.7)
[2022-06-11 09:58] VITALS: BP 112/91; PULSE 70; RESP 18; TEMP 36.2; O2SAT 100
--- NOTE | 2022-06-11 09:59 | PC.NURSE ---
Pt to GI infusions for left Dilcia catheter dressing change, lab draws, and Dalvance infusion. Pt states he fell at home in his kitchen on Friday after slipping on a wet floor while washing dishes. Landed on his buttock area. Complaining of pain today. States he plans to go by ER after visit for pain relief and to get checked out. Pt states he had another nosebleed on Friday, following his fall Friday. Pt Hg 8.4 today. Tolerated Dalvance infusion without difficulty. Dilcia catheter dressing noted to no longer be occlusive and open to air at insertion site when dressing changed. Site flushes without difficulty. Somewhat difficult to get blood return, but able to get labs. No redness, drainage, hematoma, or signs of infection noted a catheter insertion site to left neck.
--- NOTE | 2022-06-11 10:15 | PC.NURSE ---
Pt to ER via wheelchair accompanied by his sister.
== END 2022-06-14 23:59 | disposition home or self-care (01) ==
LOC: GILAB 09:08
PROVIDERS: Internal Medicine; PCP Family Medicine; Visit Provider Internal Medicine
DX: T82.7XXA Infection and inflammatory reaction due to other cardiac and vascular devices, implants and grafts, initial encounter (principal); Y83.8 Other surgical procedures as the cause of abnormal reaction of the patient, or of later complication, without mention of misadventure at the time of the procedure; Z79.01 Long term (current) use of anticoagulants
CPT/HCPCS: 36592; 80053; 83615; 85025; 85610; 96365; J0875; J7060

== ENCOUNTER 2022-06-11 10:21 | Emergency (ER) | payer MEDICARE, SELFPAY ==
[2022-06-11 11:01] VITALS: BP 107/81; PULSE 110; RESP 18; TEMP 36.6; O2SAT 98; BMI 28.8
--- NOTE | 2022-06-11 11:06 | PC.NURSE ---
had called pt name in waiting room for triage, visitor reports pt is in the restroom currently
--- NOTE | 2022-06-11 11:07 | ED_ITS ---
HPI - Back Pain/Injury General: Chief Complaint: Back Pain/Injury Stated Complaint: fall, back pain Time Seen by Provider: 06/11/22 10:51 Source: patient Mode of arrival: ambulatory Limitations: no limitations History of Present Illness: Patient is a 57-year-old male who presents to ED today with a complaint of lower back pain. Patient states approximately 3 days ago he slipped and fell in his kitchen and landed directly onto his buttocks/back. Patient states he did not notice immediate pain but that following evening and into yesterday began noticing worsening pain and feeling like the lower back was swollen to touch. He is not having any radicular symptoms into his lower extremity. He denies tailbone/coccyx discomfort. He is not having any upper back pain or abdominal pains. MD elicited complaint: back pain, back injury and fall Pertinent past history: recent trauma Onset (ago): day(s) Timing: constant Severity: moderate Similar Symptoms Previously: No Quality: dull Location: lumbar spine Radiation: none Exacerbating factors: movement Relieving factors: none Context: fall and trauma Associated symptoms: Reports no associated symptoms; Deny abdominal pain, difficulty walking, hematuria or syncope Work related injury: No Review of Systems Card: Denies: chest pain, palpitations, lightheadedness, syncope or pre-syncope Resp: Denies: dyspnea GI: Denies: abdominal pain : Denies: flank pain or hematuria Musc: Reports: back pain; Denies: neck pain, extremity pain, extremity swelling, joint pain or joint swelling Neuro: Denies: numbness in extremities, weakness in extremities, sensory changes or difficulty walking [facility] ED PFSH: Medical History Arrhythmia CAD (coronary artery disease) Cardiac defibrillator in place CHF (congestive heart failure) Cholecystectomy planned Cholecystitis Chronic kidney disease Diabetes Encounter for central line placement Gallbladder disease Gout Hypertension Ischemic cardiomyopathy LVAD (left ventricular assist device) present Type II diabetes mellitus Surgical History H/O cardiac catheterization History of esophagogastroduodenoscopy (EGD) S/P coronary artery stent placement Social History Smoking and tobacco status: never smoked Second hand smoke exposure: No Alcohol intake: never Marital status: Current occupational status: disabled Physical Exam Const: COMMON NORMALS: no acute distress, patient oriented x3, no limitations, alert and well nourished ORIENTATION/CONSCIOUSNESS: Yes awake, Yes oriented to person, Yes oriented to place and Yes oriented to time HENMT: COMMON NORMALS: normocephalic and atraumatic HEAD & SCALP: normal to inspection, normocephalic and atraumatic Resp: COMMON NORMALS: normal respiratory effort and clear to auscultation bilaterally AUSCULTATION: clear to auscultation bilaterally Cardio: COMMON NORMALS: regular rate and regular rhythm RATE: regular rate RHYTHM: regular rhythm GI: COMMON NORMALS: Normal to inspection, nondistended, normoactive bowel sounds present, Soft to palpation and non-tender PALPATION: Yes Soft to palpation : COMMON NORMALS: Yes no CVA tenderness BLADDER/KIDNEY EXAM: Yes no CVA tenderness Back/Pelvis: COMMON NORMALS: no CVA tenderness THORACIC SPINE/UPPER BACK: Yes normal to inspection, No pain with ROM, No thoracic spinal tenderness and No paraspinal muscle tenderness LUMBAR SPINE/LOWER BACK: Yes ROM limited, Yes pain with ROM, Yes lumbar spinal tenderness, Yes paraspinal muscle tenderness Lumbar paraspinal muscle tenderness: right, No paraspinal muscle spasm and Yes straight leg raise negative bilaterally PELVIS: Yes buttocks normal SACROILIAC JOINTS: Yes SI joints normal SACRUM: no tenderness COCCYX: no tenderness Extremity: COMMON NORMALS: normal to inspection and full ROM GENERAL: Yes normal exam except as noted Neuro: COMMON NORMALS: patient oriented x3, moves all extremities, no focal motor deficits, no sensory deficits noted and gait normal SENSORIUM/ORIENTATION: Yes alert, Yes oriented to person, Yes oriented to place and Yes oriented to time MOTOR EXAM: 5/5 motor strength present throughout Skin: TRAUMA: no lacerations or abrasions Course Vital Signs: Vital signs: Vital Signs Temperature 97.9 F 06/11/22 11:01 Pulse Rate 110 H 06/11/22 11:01 Respiratory Rate 17 06/11/22 11:50 Blood Pressure 107/81 06/11/22 11:01 Pulse Oximetry 98 06/11/22 11:01 Oxygen Delivery Me thod 06/11/22 11:01 MDM - Back Pain/Injury Medical Decision Making Patient here for a slip and fall a few days ago with complaints of lower back pain. CT imaging shows an acute compression fracture of his L1 vertebrae with 50% body height loss. Minimal retropulsion. There was a slight concern from Dr. Parra in regards to some fluid surrounding his spleen. Dr. Parra felt this most likely was secondary to ascites however requested CT abdomen/pelvis without to evaluate for blood given the history of trauma and patient on anticoagulation. CT scan showing no evidence of organ injury or laceration. He does have ascites and diffuse anasarca. 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 Recommend he follow-up with them. Patient states he has an upcoming fishing trip and will be doing a lot of bending over and twisting and requesting an LSO brace which I think is appropriate. Referral will be placed to Dr. Coker for follow-up and evaluation for the L1 compression fracture. Labs 06/11/22 13:07 06/11/22 13:07 Radiology Impressions Lumbar Spine CT 06/11/22 11:23 IMPRESSION: 1. Acute compression fracture superior endplate L1 with loss of approximately 50% vertebral body height. Minimal retropulsion with slight narrowing of the RIGHT subarticular recess. No high-grade central canal stenosis. 2. RIGHT unilateral pars defect with sclerosis and moderate to severe bilateral L5-S1 foraminal narrowing worse on the LEFT. 3. Small amount of fluid about the spleen. Noncontrast CT abdomen pelvis is pending Notified JOSE Capone at 06/11/2022 12:01 PM. Abdomen/Pelvis CT 06/11/22 12:06 IMPRESSION: 1. No evidence of solid organ injury or laceration. 2. Mild perihepatic and perisplenic ascites with mild to moderate ascites in the pelvis. Diffuse body wall anasarca and mesenteric edema. Recommend correlation with fluid overload/heart failure. 3. Marked cardiomegaly with LVAD. 4. Increased attenuation RIGHT renal cortical lesion measuring 12 mm unchanged since 2021 Laboratory Results WBC 13.1 10^3/uL (4.0-10.0) H 06/11/22 13:07 RBC 3.76 10^6/uL (4.1-5.3) L 06/11/22 13:07 Hgb 8.9 g/dL (11.7-16.6) L 06/11/22 13:07 Hct 30.8 % (42.0-52.0) L 06/11/22 13:07 MCV 81.9 fl (80-94) 06/11/22 13:07 MCH 23.7 pg (28.0-34.0) L 06/11/22 13:07 MCHC 28.9 g/dL (30.0-36.0) L 06/11/22 13:07 RDW 17.8 % (12.1-15.1) H 06/11/22 13:07 Plt Count 316 10^3/cmm (130-400) 06/11/22 13:07 MPV 10.3 fL (7.4-10.4) 06/11/22 13:07 Neut % (Auto) 82.2 % 06/11/22 13:07 Lymph % (Auto) 7.6 % 06/11/22 13:07 Peach % (Auto) 8.9 % 06/11/22 13:07 Eos % (Auto) 0.0 % 06/11/22 13:07 Baso % (Auto) 0.1 % 06/11/22 13:07 Neut # (Auto) 10.78 10^3/uL (1.8-7.7) H 06/11/22 13:07 Lymph # (Auto) 1.0 10^3/uL (0.8-4.8) 06/11/22 13:07 Peach # (Auto) 1.2 10^3/uL (0.2-0.9) H 06/11/22 13:07 Eos # (Auto) 0.0 10^3/uL (0.0-0.8) 06/11/22 13:07 Baso # (Auto) 0.0 10^3/uL (0.0-0.1) 06/11/22 13:07 Nucleated RBC % (auto) 0 % 06/11/22 13:07 Nucleated RBCs # 0.0 /100WBC 06/11/22 13:07 Sodium Cancelled 06/11/22 13:07 Potassium Cancelled 06/11/22 13:07 Chloride Cancelled 06/11/22 13:07 Carbon Dioxide Cancelled 06/11/22 13:07 Anion Gap Cancelled 06/11/22 13:07 BUN Cancelled 06/11/22 13:07 Creatinine Cancelled 06/11/22 13:07 GFR Calculation Cancelled 06/11/22 13:07 Glucose Cancelled 06/11/22 13:07 Calculated Osmolality Cancelled 06/11/22 13:07 Calcium Cancelled 06/11/22 13:07 Total Bilirubin Cancelled 06/11/22 13:07 AST Cancelled 06/11/22 13:07 ALT Cancelled 06/11/22 13:07 Alkaline Phosphatase Cancelled 06/11/22 13:07 Total Protein Cancelled 06/11/22 13:07 Albumin Cancelled 06/11/22 13:07 Globulin Cancelled 06/11/22 13:07 Discharge Plan Discharge Patient Disposition: Home Clinical Impression: Closed compression fracture of L1 vertebra Qualifiers: Encounter type: initial encounter Qualified Code(s): S32.010A - Wedge compression fracture of first lumbar vertebra, initial encounter for closed fracture Condition: Stable Prescriptions: New cyclobenzaprine 10 mg tablet 10 mg PO TID Qty: 14 0RF hydrocodone-acetaminophen 5-325 mg tablet 1 tab PO Q6H PRN (Reason: pain) Qty: 15 0RF No Action cephalexin 500 mg capsule 500 mg PO Q8H 10 Days Qty: 30 0RF warfarin 10 mg Tablet 3 mg PO DAILY aspirin 81 mg Tablet,Delayed Release (Dr/Ec) 81 mg PO QAM Victoza 3-Lenny 0.6 mg/0.1 mL (18 mg/3 mL) Pen Injector 0.6 mg SUBCUT DAILY@21 insulin lispro [Humalog KwikPen Insulin] 100 unit/mL insulin pen See Rx Instructions .ROUTE .COMPLEX Qty: 3 0RF Rx Instructions: sliding scale tid prn Toujeo SoloStar U-300 Insulin 300 unit/mL (1.5 mL) insulin pen 15 unit SUBCUT DAILY@21 Dalvance 500 mg Solution 1,500 mg IV .[id number] Rx Instructions: every 2 weeks for supression citalopram 20 mg tablet 20 mg PO DAILY amlodipine 5 mg Tablet 5 mg PO DAILY fluconazole 400 mg PO DAILY hydrocodone-acetaminophen 5-325 mg tablet 1 tab PO Q6H PRN (Reason: pain) Qty: 14 0RF Discharge Orders: Discharge ED (Routine); Ordered 06/11/22 Ordered By: Norma Matamoros Referrals: Eyal Coker DO [Physician] - Patient Instructions: Fractures - Compression, Vertebral Compression Fracture (ED), Vertebroplasty (DC), Opioid Safety, Pain Management Activity Restrictions/Additional Instructions: As we discussed I have placed a referral with case management so they can set you up with a follow-up appointment with Dr. Coker for further evaluation and possible treatment options for your L1 compression fracture. Coding Level of Care Code ED [employer] for Yossi Andujar
--- NOTE | 2022-06-11 11:23 | CT_ITS ---
WS: [id number] CT LUMBAR SPINE TECHNIQUE: Noncontrast CT of the lumbar spine with coronal and sagittal reformatted images. CLINICAL INFORMATION: slip and fall; back pain/swelling COMPARISON: CT abdomen pelvis November 20, 2021 DLP: 977.[address] scans at [place] use at least one of these dose optimization techniques: automated e xposure control; mA and/or kV adjustment per patient size (includes targeted exams where dose is matc hed to clinical indication); or iterative reconstruction. FINDINGS: Mild lumbar curve. Acute compression fracture superior endplate L1 with loss of approximately 50% tyra tebral body height. Minimal retropulsion of the posterior superior cortex eccentric to the RIGHT with slight effacement of the RIGHT ventral thecal sac. No high-grade central canal stenosis. Associated paravertebral edema. No other acute fractures. Disc space narrowing worse L5-S1 with chronic RIGHT unilateral pars defects with sclerosis. Mild disc bulging L3-L4 and L4-L5. Severe LEFT and moderate RIGHT L5-S1 foraminal narrowing Diffuse body wall anasarca. Trace partially visualized pleural fluid. Small amount of fluid/ascites a bout the spleen partially visualized. Chronic sclerosis RIGHT SI joint. CT/CT lumbar spine wo con* [id number] IMPRESSION: 1. Acute compression fracture superior endplate L1 with loss of approximately 50% vertebral body height. Minimal retropulsion with slight narrowing of the RI GHT subarticular recess. No high-grade central canal stenosis. 2. RIGHT unilateral pars defect with sclerosis and moderate to severe bilatera l L5-S1 foraminal narrowing worse on the LEFT. 3. Small amount of fluid about the spleen. Noncontrast CT abdomen pelvis is pe nding Notified JOSE Capone at 06/11/2022 12:01 PM.
[2022-06-11 11:50] VITALS: RESP 17
[2022-06-11] MEDS: morphine 4 mg/mL SDV 1 mL IM (11:50)
--- NOTE | 2022-06-11 12:06 | CT_ITS ---
WS: [id number] CT ABDOMEN PELVIS TECHNIQUE: Noncontrast CT of the abdomen and pelvis with coronal and sagittal reformatted images. CLINICAL INFORMATION: abnormal finding on CT lumbar COMPARISON: None. DLP: 975.[address] scans at [facility] use at least one of these dose optimization techniques: automated e xposure control; mA and/or kV adjustment per patient size (includes targeted exams where dose is matc hed to clinical indication); or iterative reconstruction. FINDINGS: Cardiomegaly. Lung bases are well aerated. Chronic LEFT rib fractures. No visualized acute rib fractu res. L1 compression fracture described on lumbar spine. Normal pelvic bony structures. Small amount of perihepatic and perisplenic ascites. Mild diffuse body wall anasarca. Fatty atrophy o f the pancreas. Adrenal glands are normal. No hydronephrosis in either kidney. Mesenteric edema. Smal l to moderate pelvic ascites. Increased attenuation 11 mm RIGHT renal cortical lesion unchanged since September 06, 2021. Normal caliber abdominal aorta. Aortic calcification. Fat-containing umbilical hernia . Sigmoid diverticulosis. No other remarkable findings. CT/CT abdomen pelvis con [id number] IMPRESSION: 1. No evidence of solid organ injury or laceration. 2. Mild perihepatic and perisplenic ascites with mild to moderate ascites in t he pelvis. Diffuse body wall anasarca and mesenteric edema. Recommend correlati on with fluid overload/heart failure. 3. Marked cardiomegaly with LVAD. 4. Increased attenuation RIGHT renal cortical lesion measuring 12 mm unchanged since 2021
[2022-06-11 13:26] LABS: Basophils % 0.1 %; Hematocrit 30.8 % (42.0-52.0); Hemoglobin 8.9 g/dL (11.7-16.6); Lymphocytes % 7.6 %; Mean Corpuscular HGB Conc 28.9 g/dL (30.0-36.0); Mean Corpuscular Hemoglobin 23.7 pg (28.0-34.0); Mean Corpuscular Volume 81.9 fl (80-94); Mean Platelet Volume 10.3 fL (7.4-10.4); Monocytes # 1.2 10^3/uL (0.2-0.9); Monocytes % 8.9 %; Neutrophils # 10.78 10^3/uL (1.8-7.7); Neutrophils % 82.2 %; Nucleated Red Blood Cells % 0 %; Platelet Count 316 10^3/cmm (130-400); Red Blood Count 3.76 10^6/uL (4.1-5.3); Red Cell Distribution Width 17.8 % (12.1-15.1); White Blood Count 13.1 10^3/uL (4.0-10.0)
--- NOTE | 2022-06-11 15:11 | DCPLANNER ---
Addendum entered by Yumiko Brice 06/14/22 08:43: Patient had a follow up appointment with ortho - patient did attend appointment Addendum entered by Yumiko Brice 06/12/22 11:27: Patient has a follow up appointment scheduled for , June 13, 2022 at 9:00 with Mitesh Crews at ortho. Original Note: day spa manager had message to schedule a follow up appointment for patient with ortho. day spa manager sent patients information to the front office staff at ortho. Patients information will be printed and reviewed. Clinic will call patient with appointment information.
== END 2022-06-11 13:53 | disposition home or self-care (01) ==
PROVIDERS: Emergency Provider Physician Assistant
DX: S32.010A Wedge compression fracture of first lumbar vertebra, initial encounter for closed fracture (principal); Z79.01 Long term (current) use of anticoagulants; Z79.82 Long term (current) use of aspirin; Z79.4 Long term (current) use of insulin; I25.10 Atherosclerotic heart disease of native coronary artery without angina pectoris; I13.0 Hypertensive heart and chronic kidney disease with heart failure and stage 1 through stage 4 chronic kidney disease, or unspecified chronic kidney disease; E11.22 Type 2 diabetes mellitus with diabetic chronic kidney disease; N18.9 Chronic kidney disease, unspecified; I50.9 Heart failure, unspecified; Z95.811 Presence of heart assist device; W01.0XXA Fall on same level from slipping, tripping and stumbling without subsequent striking against object, initial encounter
CPT/HCPCS: 36415; 72131; 74176; 85025; 96372; 97760; 99284; J2270; L0637

== ENCOUNTER → 2022-06-13 09:16 | Outpatient (BNVA) | payer MEDICARE, SELFPAY | PROVIDERS: Referring Provider Physician Assistant; Visit Provider Physician Assistant | DX: S32.010A Wedge compression fracture of first lumbar vertebra, initial encounter for closed fracture (principal); W01.0XXA Fall on same level from slipping, tripping and stumbling without subsequent striking against object, initial encounter | CPT/HCPCS: 72100 ==

== ENCOUNTER 2022-06-13 14:33 | Outpatient (CLI) | payer MEDICARE, SELFPAY | END 2022-06-13 14:34 | disposition home or self-care (01) | LOC: SPT 14:34 | PROVIDERS: Visit Provider Physician Assistant | DX: Z46.89 Encounter for fitting and adjustment of other specified devices (principal); M54.59 Other low back pain | CPT/HCPCS: 97760; 99203; L0456 ==

== ENCOUNTER → 2022-06-27 09:17 | Outpatient (BNVA) | payer MEDICARE, SELFPAY | PROVIDERS: PCP Family Medicine; Visit Provider Physician Assistant | DX: S32.010A Wedge compression fracture of first lumbar vertebra, initial encounter for closed fracture (principal); X58.XXXA Exposure to other specified factors, initial encounter | CPT/HCPCS: 72100; 99213 ==

== ENCOUNTER → 2022-07-08 14:46 | Outpatient (BNVA) | payer MEDICARE, SELFPAY | PROVIDERS: PCP Family Medicine; Visit Provider Podiatrist Foot & Ankle Surgery | DX: E11.22 Type 2 diabetes mellitus with diabetic chronic kidney disease (principal); Z79.4 Long term (current) use of insulin; N18.9 Chronic kidney disease, unspecified; M10.9 Gout, unspecified; M19.071 Primary osteoarthritis, right ankle and foot | CPT/HCPCS: 99213 ==

== ENCOUNTER 2022-07-09 09:04 | Outpatient (RCR) | payer MEDICARE, SELFPAY ==
[2022-06-18 08:48] VITALS: BP 120/80; PULSE 75; RESP 18; TEMP 36.2; O2SAT 98
--- NOTE | 2022-06-18 08:50 | PC.NURSE ---
Pt to GI infusions for dressing change to left Dilcia catheter and lab draw. Pt tolerated well.
[2022-06-18 09:09] LABS: Basophils # 0.1 10^3/uL (0.0-0.1); Basophils % 0.7 %; Eosinophils # 0.1 10^3/uL (0.0-0.8); Eosinophils % 1.1 %; Hematocrit 28.2 % (42.0-52.0); Hemoglobin 8.1 g/dL (11.7-16.6); Lymphocytes # 1.1 10^3/uL (0.8-4.8); Lymphocytes % 11.3 %; Mean Corpuscular HGB Conc 28.7 g/dL (30.0-36.0); Mean Corpuscular Hemoglobin 23.9 pg (28.0-34.0); Mean Corpuscular Volume 83.2 fl (80-94); Mean Platelet Volume 10.5 fL (7.4-10.4); Monocytes # 0.7 10^3/uL (0.2-0.9); Monocytes % 7.6 %; Neutrophils # 7.54 10^3/uL (1.8-7.7); Neutrophils % 78.6 %; Nucleated Red Blood Cells % 0 %; Platelet Count 217 10^3/cmm (130-400); Red Blood Count 3.39 10^6/uL (4.1-5.3); Red Cell Distribution Width 19.3 % (12.1-15.1); White Blood Count 9.6 10^3/uL (4.0-10.0)
[2022-06-18 09:17] LABS: INR 1.79 (0.8-1.2)
[2022-06-18 10:03] LABS: Alanine Aminotransferase 17 U/L (0-41); Albumin Level 3.6 g/dL (3.5-5.2); Alkaline Phosphatase 174 U/L (40-130); Anion Gap 17.8 (5-19); Aspartate Amino Transferase 22 U/L (0-40); Blood Urea Nitrogen 27 mg/dL (6-20); Calcium 8.9 mg/dL (8.5-10.5); Carbon Dioxide 20 mmol/L (22-29); Chloride 105 mmol/L (98-107); Glomerular Filtration Rate 51.9 mL/min (90-130); Glucose 121 mg/dL (65-115); Lactate Dehydrogenase 192 U/L (135-225); Osmolality Calculated 294 mOsm/kg (285-295); Potassium 3.8 mmol/L (3.5-5.1); Sodium 139 mmol/L (136-145); Total Bilirubin 0.8 mg/dL (0.15-1.2); Total Protein 6.6 g/dL (6.6-8.7)
[2022-06-25 08:39] VITALS: BP 96/74; PULSE 107; RESP 18; TEMP 36.3; O2SAT 98
[2022-06-25 09:06] LABS: Basophils # 0.1 10^3/uL (0.0-0.1); Eosinophils # 0.1 10^3/uL (0.0-0.8); Eosinophils % 2.1 %; Hematocrit 26.9 % (42.0-52.0); Hemoglobin 7.9 g/dL (11.7-16.6); Lymphocytes # 0.8 10^3/uL (0.8-4.8); Lymphocytes % 13.3 %; Mean Corpuscular HGB Conc 29.4 g/dL (30.0-36.0); Mean Corpuscular Hemoglobin 24.1 pg (28.0-34.0); Mean Platelet Volume 9.7 fL (7.4-10.4); Monocytes # 0.7 10^3/uL (0.2-0.9); Monocytes % 10.9 %; Neutrophils # 4.56 10^3/uL (1.8-7.7); Neutrophils % 72.2 %; Nucleated Red Blood Cells % 0 %; Platelet Count 261 10^3/cmm (130-400); Red Blood Count 3.28 10^6/uL (4.1-5.3); Red Cell Distribution Width 21.2 % (12.1-15.1); White Blood Count 6.3 10^3/uL (4.0-10.0)
[2022-06-25 09:31] LABS: INR 1.34 (0.8-1.2)
[2022-06-25 09:35] LABS: Alanine Aminotransferase 16 U/L (0-41); Albumin Level 3.4 g/dL (3.5-5.2); Alkaline Phosphatase 161 U/L (40-130); Anion Gap 18.6 (5-19); Aspartate Amino Transferase 26 U/L (0-40); Blood Urea Nitrogen 30 mg/dL (6-20); Calcium 8.6 mg/dL (8.5-10.5); Carbon Dioxide 20 mmol/L (22-29); Chloride 102 mmol/L (98-107); Globulin 3.1 g/dL (1.3-4.6); Glucose 103 mg/dL (65-115); Lactate Dehydrogenase 188 U/L (135-225); Osmolality Calculated 290 mOsm/kg (285-295); Potassium 3.6 mmol/L (3.5-5.1); Sodium 137 mmol/L (136-145); Total Protein 6.5 g/dL (6.6-8.7)
--- NOTE | 2022-06-25 09:45 | PC.NURSE ---
Pt to GI lab for Dalvance 1500 mg IV and dressing change and lab draw from left Dilcia catheter. Pt tolerated infusion well. Lab results to be sent to [facility] and [facility] office.
[2022-07-02 09:10] VITALS: BP 102/77; PULSE 107; RESP 18; TEMP 36; O2SAT 96
--- NOTE | 2022-07-02 09:12 | PC.NURSE ---
Pt to GI infusion for dressing change to left Dilcia catheter and lab draw. Results to be sent to [facility] U ID and LVAD office as requested.
[2022-07-02 09:37] LABS: Basophils # 0.1 10^3/uL (0.0-0.1); Basophils % 0.8 %; Eosinophils # 0.1 10^3/uL (0.0-0.8); Eosinophils % 1.7 %; Hematocrit 27.3 % (42.0-52.0); Hemoglobin 8.3 g/dL (11.7-16.6); Lymphocytes # 0.7 10^3/uL (0.8-4.8); Lymphocytes % 9.6 %; Mean Corpuscular HGB Conc 30.4 g/dL (30.0-36.0); Mean Corpuscular Hemoglobin 23.6 pg (28.0-34.0); Mean Corpuscular Volume 77.8 fl (80-94); Mean Platelet Volume 9.6 fL (7.4-10.4); Monocytes # 0.7 10^3/uL (0.2-0.9); Monocytes % 8.7 %; Neutrophils % 78.8 %; Nucleated Red Blood Cells % 0 %; Platelet Count 323 10^3/cmm (130-400); Red Blood Count 3.51 10^6/uL (4.1-5.3); Red Cell Distribution Width 20.8 % (12.1-15.1); White Blood Count 7.5 10^3/uL (4.0-10.0)
[2022-07-02 09:55] LABS: INR 3.05 (0.8-1.2)
[2022-07-02 09:57] LABS: Alanine Aminotransferase 13 U/L (0-41); Albumin Level 3.4 g/dL (3.5-5.2); Alkaline Phosphatase 218 U/L (40-130); Anion Gap 18.5 (5-19); Aspartate Amino Transferase 40 U/L (0-40); Blood Urea Nitrogen 35 mg/dL (6-20); Calcium 8.5 mg/dL (8.5-10.5); Carbon Dioxide 17 mmol/L (22-29); Chloride 103 mmol/L (98-107); Globulin 3.2 g/dL (1.3-4.6); Glomerular Filtration Rate 44.5 mL/min (90-130); Glucose 128 mg/dL (65-115); Lactate Dehydrogenase 263 U/L (135-225); Osmolality Calculated 290 mOsm/kg (285-295); Potassium 3.5 mmol/L (3.5-5.1); Sodium 135 mmol/L (136-145); Total Bilirubin 1.2 mg/dL (0.15-1.2); Total Protein 6.6 g/dL (6.6-8.7)
[2022-07-09 09:10] VITALS: BP 104/72; PULSE 103; RESP 18; TEMP 36.7; O2SAT 100
[2022-07-09 09:33] LABS: Basophils % 0.1 %; Hematocrit 28.9 % (42.0-52.0); Hemoglobin 8.4 g/dL (11.7-16.6); Lymphocytes # 0.3 10^3/uL (0.8-4.8); Lymphocytes % 4.5 %; Mean Corpuscular HGB Conc 29.1 g/dL (30.0-36.0); Mean Corpuscular Hemoglobin 23.5 pg (28.0-34.0); Mean Corpuscular Volume 80.7 fl (80-94); Mean Platelet Volume 10.1 fL (7.4-10.4); Monocytes # 0.3 10^3/uL (0.2-0.9); Monocytes % 4.5 %; Neutrophils # 6.76 10^3/uL (1.8-7.7); Neutrophils % 89.3 %; Nucleated Red Blood Cells % 0 %; Platelet Count 396 10^3/cmm (130-400); Red Blood Count 3.58 10^6/uL (4.1-5.3); Red Cell Distribution Width 20.5 % (12.1-15.1); White Blood Count 7.6 10^3/uL (4.0-10.0)
[2022-07-09 09:50] LABS: Alanine Aminotransferase 16 U/L (0-41); Albumin Level 3.3 g/dL (3.5-5.2); Alkaline Phosphatase 187 U/L (40-130); Anion Gap 24.8 (5-19); Aspartate Amino Transferase 39 U/L (0-40); Blood Urea Nitrogen 32 mg/dL (6-20); Calcium 8.4 mg/dL (8.5-10.5); Carbon Dioxide 15 mmol/L (22-29); Chloride 97 mmol/L (98-107); Globulin 3.6 g/dL (1.3-4.6); Glomerular Filtration Rate 51.9 mL/min (90-130); Glucose 268 mg/dL (65-115); Osmolality Calculated 292 mOsm/kg (285-295); Potassium 3.8 mmol/L (3.5-5.1); Sodium 133 mmol/L (136-145); Total Bilirubin 1.6 mg/dL (0.15-1.2); Total Protein 6.9 g/dL (6.6-8.7)
[2022-07-09 09:55] LABS: Lactate Dehydrogenase 276 U/L (135-225)
[2022-07-09 10:21] LABS: INR 5.36 (0.8-1.2)
--- NOTE | 2022-07-09 10:34 | PC.NURSE ---
Pt to GI infusions for left Dilcia catheter dressing change, lab draw, and Dalvance 1500 mg IV infusion. After patient left, lab called with critical INR 5.3 and PT 51.2. Arabella, LVAD coordinator at [place] notified. This nurse called patient instructing him of his increased PT/INR and to hold Coumadin for today and recheck PT/INR tomorrow. Arabella stated she would be calling patient with further instructions. Pt educated to go to ER for any bleeding.
== END 2022-07-14 23:59 | disposition home or self-care (01) ==
LOC: GILAB 09:04
PROVIDERS: Internal Medicine; PCP Family Medicine; Visit Provider Internal Medicine
DX: T82.7XXA Infection and inflammatory reaction due to other cardiac and vascular devices, implants and grafts, initial encounter (principal); Z79.01 Long term (current) use of anticoagulants; Z95.811 Presence of heart assist device; Y92.239 Unspecified place in hospital as the place of occurrence of the external cause
CPT/HCPCS: 36592; 80053; 83615; 85025; 85610; 96365; J0875; J7060

== ENCOUNTER 2022-07-17 09:27 | Emergency (ER) | payer MEDICARE, SELFPAY ==
[2022-07-17 09:58] VITALS: PULSE 97; RESP 17; O2SAT 99
--- NOTE | 2022-07-17 10:28 | ED_ITS ---
HPI - Extremity Problem General: Chief complaint: Extremity Injury, Upper Stated complaint: hand pain Time Seen by Provider: 07/17/22 09:37 Source: patient Mode of arrival: ambulatory Limitations: no limitations History of Present Illness: Patient is a nice 57-year-old male who is well-known to me from previous ED encounters here for complaints of redness and swelling to his bilateral hands that he states is secondary to gout. Patient has a longstanding history of gout infections affecting multiple joints including wrists, knees, ankles, feet, and occasionally hands. He states his symptoms today are consistent with previous flares. He states he normally cannot use colchicine, indomethacin, allopurinol secondary to kidney disease. He states his flares are normally treated successfully with steroids. He has been seen by our orthopedic/podiatry clinic multiple times. He states this particular episode started approximately 4 days ago. MD Complaint: extremity pain and extremity swelling Onset (ago): day(s) Pain Consistency: constant Location: left, right and upper extremity Radiation: none Relieving factors: nothing Exacerbating factors: nothing Associated symptoms: Reports no associated symptoms; Deny chest pain or fever(s) Context: history of gout Review of Systems Const: Denies: fever(s), chills, body aches, fatigue or malaise Card: Denies: chest pain Resp: Denies: dyspnea GI: Denies: nausea or vomiting Musc: Reports: extremity pain (bilateral hands) and extremity swelling (bilateral hands); Denies: neck pain or back pain Neuro: Denies: headache(s), numbness in extremities, weakness in extremities or sensory changes PFS ED PFSH: Medical History Arrhythmia CAD (coronary artery disease) Cardiac defibrillator in place CHF (congestive heart failure) Cholecystectomy planned Cholecystitis Chronic kidney disease Diabetes Encounter for central line placement Gallbladder disease Gout Hypertension Ischemic cardiomyopathy LVAD (left ventricular assist device) present Type II diabetes mellitus Surgical History H/O cardiac catheterization History of esophagogastroduodenoscopy (EGD) S/P coronary artery stent placement Social History Smoking and tobacco status: never smoked Second hand smoke exposure: No Alcohol intake: never Substance/Drug Use: never Marital status: Current occupational status: disabled Physical Exam Const: COMMON NORMALS: no acute distress, average body habitus, patient oriented x3, no limitations, alert and well nourished ORIENTATION/CONSCIOUSNESS: Yes awake, Yes oriented to person, Yes oriented to place and Yes oriented to time Resp: COMMON NORMALS: normal respiratory effort and clear to auscultation bilaterally AUSCULTATION: clear to auscultation bilaterally Cardio: COMMON NORMALS: regular rate and regular rhythm RATE: regular rate RHYTHM: regular rhythm Extremity: COMMON NORMALS: full ROM and capillary refill normal GENERAL: Yes normal exam except as noted RIGHT UPPER EXTREMITY: Yes hand & digits LEFT UPPER EXTREMITY: Yes hand & digits OTHER: Patient has redness/swelling affecting bilateral dorsal hands and digits. Painful range of motion. Radial pulse and cap refill as well as sensation all appear normal. He states his symptoms today are identical to previous gouty flares. I have seen patient previously for flares to his wrist extending down into his hands that appear similar. Neuro: COMMON NORMALS: patient oriented x3, moves all extremities, no focal motor deficits and no sensory deficits noted SENSORIUM/ORIENTATION: Yes alert, Yes oriented to person, Yes oriented to place and Yes oriented to time Course Vital Signs: Vital signs: Vital Signs Pulse Rate 97 07/17/22 09:58 Respiratory Rate 17 07/17/22 09:58 Pulse Oximetry 99 07/17/22 09:58 Oxygen Delivery Me thod Room Air 07/17/22 09:58 MDM - Extremity (Nontraumatic) Medical Decision Making I have personally seen patient previously for gout flares to other areas. I have seen him for flares to his wrist extending down into his hand that has appeared similar to today's presentation. Patient had labs drawn as an outpatient earlier today therefore labs were not completed from an ED standpoint. They were reviewed. Kidney function seems to be at baseline. He has chronic anemia with hemoglobins in the 8.0s. Potassium was slightly low at 3.0. He was given oral supplementation for this. He did have a little bit of a white count of 17,000. No evidence for infection based on his physical exam. INR was therapeutic. Patient will be treated like he has been previously with steroids as he states these usually successfully treat his flares. Return ED precautions given. He states he has follow-up with his [facility] team tomorrow. Discharge Plan Discharge Patient Disposition: Home Clinical Impression: Acute gout of hand Qualifiers: Gout etiology: unspecified cause Laterality: unspecified laterality Qualified Code(s): M10.9 - Gout, unspecified Condition: Stable Prescriptions: New hydrocodone-acetaminophen 5-325 mg tablet 1 tab PO Q6H PRN (Reason: pain) Qty: 14 0RF prednisone 10 mg tablet 10 mg PO DAILY 10 Days Qty: 20 0RF Rx Instructions: Take 5 tabs on day 1-2, 4 tabs on day 3, 3 tabs on day 4, 2 tabs on day 5, and 1 tab on day 6 No Action (DME) TLSO See Rx Instructions .Route .MEDSUPPLY Qty: 1 0RF Rx Instructions: As directed cyclobenzaprine 10 mg tablet 10 mg PO TID Qty: 14 0RF hydrocodone-acetaminophen 5-325 mg tablet 1 tab PO Q6H PRN (Reason: pain) 5 Days Qty: 30 0RF warfarin 10 mg Tablet 3 mg PO DAILY aspirin 81 mg Tablet,Delayed Release (Dr/Ec) 81 mg PO QAM Victoza 3-Lenny 0.6 mg/0.1 mL (18 mg/3 mL) Pen Injector 0.6 mg SUBCUT DAILY@21 insulin lispro [Humalog KwikPen Insulin] 100 unit/mL insulin pen See Rx Instructions .ROUTE .COMPLEX Qty: 3 0RF Rx Instructions: sliding scale tid prn Toujeo SoloStar U-300 Insulin 300 unit/mL (1.5 mL) insulin pen 15 unit SUBCUT DAILY@21 Dalvance 500 mg Solution 1,500 mg IV .[id number] Rx Instructions: every 2 weeks for supression citalopram 20 mg tablet 20 mg PO DAILY amlodipine 5 mg Tablet 5 mg PO DAILY hydrocodone-acetaminophen 5-325 mg tablet 1 tab PO Q6H PRN (Reason: pain) Qty: 14 0RF Discharge Orders: Discharge ED (Routine); Ordered 07/17/22 Ordered By: Norma Matamoros Referrals: Jose Maciel MD [Primary Care Provider] - Patient Instructions: Gout (ED) Activity Restrictions/Additional Instructions: You need to follow-up with your primary care provider by the end of the week and certainly by early next week for reevaluation of your hand pain/probable gout flare. You need to return to the emergency department for worsening hand pain, swelling, redness, red streaking up your arm, fevers, or any other concerns you may have. I hope you begin to feel better soon. Coding Level of Care Code ED Machine Coil Assembler for Yossi Andujar
[2022-07-17] MEDS: hydrocortisone 100 mg/2 mL SDV 75 MG IM (11:48)
[2022-07-17] MEDS: potassium chloride ER 20 mEq Tablet 40 MEQ PO (11:48)
== END 2022-07-17 12:07 | disposition home or self-care (01) ==
PROVIDERS: Emergency Provider Physician Assistant; PCP Family Medicine
DX: M10.9 Gout, unspecified (principal); Z79.01 Long term (current) use of anticoagulants; Z79.82 Long term (current) use of aspirin; Z79.4 Long term (current) use of insulin; I25.10 Atherosclerotic heart disease of native coronary artery without angina pectoris; I50.9 Heart failure, unspecified; I13.0 Hypertensive heart and chronic kidney disease with heart failure and stage 1 through stage 4 chronic kidney disease, or unspecified chronic kidney disease; E11.22 Type 2 diabetes mellitus with diabetic chronic kidney disease; N18.9 Chronic kidney disease, unspecified
CPT/HCPCS: 96372; 99284; J1720

== ENCOUNTER 2022-08-06 08:34 | Outpatient (RCR) | payer MEDICARE, SELFPAY ==
[2022-07-17 09:06] VITALS: BP 120/70; PULSE 95; RESP 18; TEMP 36.7; O2SAT 97
[2022-07-17 09:29] LABS: Basophils % 0.2 %; Eosinophils % 0.2 %; Hematocrit 28.2 % (42.0-52.0); Hemoglobin 8.2 g/dL (11.7-16.6); Lymphocytes # 0.8 10^3/uL (0.8-4.8); Lymphocytes % 4.8 %; Mean Corpuscular HGB Conc 29.1 g/dL (30.0-36.0); Mean Corpuscular Hemoglobin 23.3 pg (28.0-34.0); Mean Corpuscular Volume 80.1 fl (80-94); Mean Platelet Volume 10.5 fL (7.4-10.4); Monocytes # 1.4 10^3/uL (0.2-0.9); Monocytes % 8.3 %; Neutrophils # 14.64 10^3/uL (1.8-7.7); Neutrophils % 85.2 %; Nucleated Red Blood Cells % 0 %; Platelet Count 347 10^3/cmm (130-400); Red Blood Count 3.52 10^6/uL (4.1-5.3); White Blood Count 17.2 10^3/uL (4.0-10.0)
--- NOTE | 2022-07-17 09:30 | PC.NURSE ---
Pt to GI infusions for left Dilcia catheter dressing change and lab draw. Pt c/o severe pain to bilateral hands. Pt states he thinks it is a gout flare-up. Bilat hands noted to be swollen and red. Pt requesting to be seen in ER for pain. Pt taken to ER via wheelchair following lab draw and dressing change.
[2022-07-17 09:40] LABS: INR 2.02 (0.8-1.2)
[2022-07-17 09:49] LABS: Alanine Aminotransferase 24 U/L (0-41); Albumin Level 3.3 g/dL (3.5-5.2); Alkaline Phosphatase 263 U/L (40-130); Aspartate Amino Transferase 39 U/L (0-40); Blood Urea Nitrogen 31 mg/dL (6-20); Calcium 8.6 mg/dL (8.5-10.5); Carbon Dioxide 22 mmol/L (22-29); Chloride 95 mmol/L (98-107); Globulin 2.9 g/dL (1.3-4.6); Glomerular Filtration Rate 56.5 mL/min (90-130); Glucose 188 mg/dL (65-115); Lactate Dehydrogenase 206 U/L (135-225); Osmolality Calculated 286 mOsm/kg (285-295); Sodium 132 mmol/L (136-145); Total Bilirubin 2.4 mg/dL (0.15-1.2); Total Protein 6.2 g/dL (6.6-8.7)
[2022-08-06 09:08] LABS: Basophils # 0.1 10^3/uL (0.0-0.1); Basophils % 1.6 %; Eosinophils # 0.2 10^3/uL (0.0-0.8); Eosinophils % 2.7 %; Hematocrit 30.2 % (42.0-52.0); Lymphocytes % 14.6 %; Mean Corpuscular HGB Conc 29.8 g/dL (30.0-36.0); Mean Corpuscular Hemoglobin 24.8 pg (28.0-34.0); Mean Corpuscular Volume 83.2 fl (80-94); Mean Platelet Volume 9.4 fL (7.4-10.4); Monocytes # 0.8 10^3/uL (0.2-0.9); Monocytes % 11.2 %; Neutrophils # 4.79 10^3/uL (1.8-7.7); Nucleated Red Blood Cells % 0 %; Platelet Count 300 10^3/cmm (130-400); Red Blood Count 3.63 10^6/uL (4.1-5.3); Red Cell Distribution Width 23.9 % (12.1-15.1); White Blood Count 6.9 10^3/uL (4.0-10.0)
[2022-08-06 09:21] VITALS: BP 97/48; PULSE 80; RESP 18; TEMP 35.7; O2SAT 93
--- NOTE | 2022-08-06 09:22 | PC.NURSE ---
Pt to GI infusions for IV Dalvance and lab draws. Pt has been hospitalized at [facility] in [place] for the last two weeks. Pt states he suffered another fall at home a few days ago. Complains of back pain due to fall. Dilcia catheter to left neck in place and patent. Prior to hospitalization at [facility], Dilcia cath noted to have external cath length of 2 cm. No external cath length noted at this time. Dressing changed to left Dilcia cath. Site clear with no S&S of infection. Lab results to be faxed to LVAD and [facility] offices as requested.
[2022-08-06 09:45] LABS: INR 2.26 (0.8-1.2)
--- NOTE | 2022-08-06 09:45 | PC.NURSE ---
Pt IV [place] complete. Assisted into chair x 2 assist. Pt A&O at that time. When being wheeled out in wheelchair, pt had 10 second window of looking into space and then shaking. Pt taken to ER via wheelchair. Pt came back to awareness quickly and stated, Where are we going. Pt alert and able to answer questions at ER registration. Pt sister Carrol called and informed that patient was taken to ER for evaluation. [facility] and LVAD team also called and notified.
[2022-08-06 09:49] LABS: Alanine Aminotransferase 86 U/L (0-41); Alkaline Phosphatase 303 U/L (40-130); Anion Gap 20.9 (5-19); Aspartate Amino Transferase 121 U/L (0-40); Blood Urea Nitrogen 51 mg/dL (6-20); Calcium 9.5 mg/dL (8.5-10.5); Carbon Dioxide 21 mmol/L (22-29); Chloride 96 mmol/L (98-107); Globulin 3.8 g/dL (1.3-4.6); Glomerular Filtration Rate 34.4 mL/min (90-130); Glucose 189 mg/dL (65-115); Osmolality Calculated 295 mOsm/kg (285-295); Potassium 4.9 mmol/L (3.5-5.1); Sodium 133 mmol/L (136-145); Total Bilirubin 0.8 mg/dL (0.15-1.2); Total Protein 7.8 g/dL (6.6-8.7)
[2022-08-06 10:00] LABS: Lactate Dehydrogenase 236 U/L (135-225)
--- NOTE | 2022-08-13 09:16 | PC.NURSE ---
Pt late for appointment. Attempted to call patient with no answer. Pt sister, Carrol, reached by phone. Pt sister states [facility] to start tomorrow for weekly dressing changes and lab draws. Pt to still come every other week to [facility] for Dalvance infusion.
== END 2022-08-14 23:59 | disposition home or self-care (01) ==
LOC: GILAB 08:34
PROVIDERS: Internal Medicine; PCP Family Medicine; Visit Provider Internal Medicine
DX: T82.7XXA Infection and inflammatory reaction due to other cardiac and vascular devices, implants and grafts, initial encounter (principal); Y99.9 Unspecified external cause status; Z95.811 Presence of heart assist device; Z79.01 Long term (current) use of anticoagulants
CPT/HCPCS: 36592; 80053; 83615; 85025; 85610; 96365; 96372; 99284; J0875; J1720; J7060

== ENCOUNTER 2022-08-06 09:52 | Emergency (ER) | payer MEDICARE, SELFPAY ==
[2022-08-06 10:05] VITALS: BP 102/87; PULSE 86; RESP 16; TEMP 36.5; O2SAT 90
--- NOTE | 2022-08-06 10:13 | ECG_ITS ---
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 Measurements Intervals [place] Rate: 90 P: 5 MO: 213 QRS: -78 QRSD: 204 T: 71 QT: 460 QTc: 564 Interpretive Statements SINUS RHYTHM WITH FIRST DEGREE AV BLOCK RIGHT BUNDLE BRANCH BLOCK [120+ ms QRS DURATION, UPRIGHT V1, 40+ ms S IN I/aVL/V4/V5/V6] INFERIOR MYOCARDIAL INFARCTION , POSSIBLY ACUTE [40+ ms Q WAVE AND/OR ST/T ABNORMALITY IN II/aVF] ANTEROLATERAL MYOCARDIAL INFARCTION , PROBABLY RECENT [40+ ms Q WAVE IN I/aVL/V3-V6] ACUTE CT Compared to ECG 03/07/2017 23:28:24 First degree AV block now present.Right bundle-branch block now present Myocardial infarct finding now present.Intraventricular conduction delay no longer present.Left ventricular hypertrophy no longer present ST (T wave) deviation no longer present Electronically Signed On 08-07-2022 1:15:23 CDT by Amrit Almazan M.D. [id number]
--- NOTE | 2022-08-06 10:15 | ED_ITS ---
HPI - Syncope General: Chief Complaint: Syncope Stated Complaint: Seizure Time Seen by Provider: 08/06/22 10:05 Source: patient Mode of arrival: ambulatory History of Present Illness: With an LVAD pump who presents to the emergency room after a syncopal episode in the infusion center. He receives dalbavancin every 2 weeks for LVAD I. He is seen at [facility] for his LVAD he has had it for quite some time he has an ischemic cardiomyopathy. Pain he had a brief approximately 10 to 15-second unresponsive episode while he was completing his infusion. He is asymptomatic at the time he arrives in the emergency room room. No recent medication changes. [facility] for his LVAD pump and was discharged from there yesterday. MD complaint: loss of consciousness Onset (ago): minute(s) Prodromal symptoms: none Witnessed: Yes - by Bystander Context: at rest Injuries sustained associated with event: none Associated symptoms: Deny abdominal pain, chest pain, fever(s), headache(s), lightheadedness, nausea, short of breath, vertigo or weakness Treatments prior to arrival: none Review of Systems Const: Denies: fever(s) or chills ENMT: Denies: throat pain, ear or mastoid pain, nasal discharge or nasal congestion Card: Reports: syncope; Denies: chest pain, palpitations, edema, swelling of feet/ankles or lightheadedness Resp: Denies: dyspnea, productive cough or non-productive cough GI: Denies: abdominal pain or nausea : Denies: flank pain, dysuria, urinary frequency or urinary urgency Skin/Breast: Denies: rash or pruritus Neuro: Denies: headache(s) or vertigo [facility] PFSH: Medical History Arrhythmia CAD (coronary artery disease) Cardiac defibrillator in place CHF (congestive heart failure) Cholecystectomy planned Cholecystitis Chronic kidney disease Diabetes Encounter for central line placement Gallbladder disease Gout Hypertension Ischemic cardiomyopathy LVAD (left ventricular assist device) present Type II diabetes mellitus Surgical History H/O cardiac catheterization History of esophagogastroduodenoscopy (EGD) S/P coronary artery stent placement Social History (Reviewed 08/06/22 @ 10:20 by KIRILL Marsh Smoking and tobacco status: never smoked Second hand smoke exposure: No Alcohol intake: never Substance/Drug Use: never Marital status: Current occupational status: disabled Physical Exam HENMT: COMMON NORMALS: normocephalic, atraumatic and hearing grossly normal bilaterally HEAD & SCALP: normocephalic and atraumatic Resp: COMMON NORMALS: normal respiratory effort, No retractions, No use of accessory muscles and clear to auscultation bilaterally AUSCULTATION: clear to auscultation bilaterally Cardio: COMMON NORMALS: regular rate, regular rhythm and No murmurs present (Cardio) RATE: regular rate RHYTHM: regular rhythm GI: COMMON NORMALS: Soft to palpation and No hepatosplenomegaly present AUSCULTATION: Yes normoactive bowel sounds PALPATION: Yes Soft to palpation, No Tenderness to palpation present (GI), No Guarding due to palpation present (GI) and Yes No hepatosplenomegaly present Extremity: COMMON NORMALS: normal to inspection, capillary refill normal, no clubbing, cyanosis or edema, no calf tenderness and no pedal edema Skin: COMMON NORMALS: no rashes or lesions noted GENERAL SKIN EXAM: no rashes or lesions noted Course Vital Signs: Vital signs: Vital Signs Temperature 97.7 F 08/06/22 10:05 Pulse Rate 91 08/06/22 12:30 Respiratory Rate 18 08/06/22 10:39 Blood Pressure 88/69 08/06/22 12:30 Pulse Oximetry 100 08/06/22 12:30 Oxygen Delivery Me thod Room Air 08/06/22 12:30 MDM - Syncope Medical Decision Making Cardiology team at [facility]. They had just dismissed the patient yesterday we reviewed the labs that were done here and compared to what they had yesterday no significant changes. His troponin is elevated cardiology thought that was to be expected a second troponin showed a slight downturn. They felt he was safe to be discharged home and recommended that he contact them for further follow-up reviewed with the patient he is feeling well he said no further episodes. Advised to return if he has any other symptoms. Otherwise he should contact his cardiology team tomorrow at [facility]. Medical Records I reviewed the patient's medical records. Lab Data I reviewed the patient's lab results. Laboratory Results Troponin T Baseline 147 ng/L (0-15) H* 08/06/22 10:35 Troponin T 120 Minute 137.6 ng/L (0-15) H 08/06/22 12:43 Delta Troponin T -9.4 ABS# (0-10) L 08/06/22 12:43 Urine Color Yellow (Yellow) 08/06/22 11:20 Urine Appearance Clear (CLEAR) 08/06/22 11:20 Urine pH 6 (5-7) 08/06/22 11:20 Ur Specific [place] 1.020 (1.005-1.030) 08/06/22 11:20 Urine Protein Neg (Negative) 08/06/22 11:20 Urine Glucose (UA) 2+ (Normal) H 08/06/22 11:20 Urine Ketones Negative (Negative) 08/06/22 11:20 Urine Blood Neg (Negative) 08/06/22 11:20 Urine Nitrate Negative (Negative) 08/06/22 11:20 Urine Bilirubin Neg (Negative) 08/06/22 11:20 Urine Urobilinogen Norm mg/dL (Negative) 08/06/22 11:20 Ur Leukocyte Esterase Negative (Negative) 08/06/22 11:20 Discharge Plan Discharge Patient Disposition: Home Clinical Impression: Syncope Condition: Stable Prescriptions: No Action (DME) TLSO See Rx Instructions .Route .MEDSUPPLY Qty: 1 0RF Rx Instructions: As directed cyclobenzaprine 10 mg tablet 10 mg PO TID Qty: 14 0RF aspirin 81 mg Tablet,Delayed Release (Dr/Ec) 81 mg PO QAM Victoza 3-Lenny 0.6 mg/0.1 mL (18 mg/3 mL) Pen Injector 0.6 mg SUBCUT DAILY@21 insulin lispro [Humalog KwikPen Insulin] 100 unit/mL insulin pen See Rx Instructions .ROUTE .COMPLEX Qty: 3 0RF Rx Instructions: sliding scale tid prn Dalvance 500 mg Solution 1,500 mg IV .[id number] Rx Instructions: every 2 weeks for supression hydrocodone-acetaminophen 5-325 mg tablet 1 tab PO Q6H PRN (Reason: pain) Qty: 14 0RF allopurinol 100 mg tablet 100 mg PO DAILY spironolactone 25 mg tablet 25 mg PO DAILY warfarin 3 mg tablet 3 mg PO DAILY vitamin B complex Tablet 1 tab PO DAILY furosemide 20 mg tablet 20 mg PO DAILY Jardiance 10 mg tablet 10 mg PO DAILY citalopram 20 mg tablet 20 mg PO DAILY amlodipine 5 mg Tablet 5 mg PO DAILY Discharge Orders: Discharge ED (Routine); Ordered 08/06/22 Ordered By: Cheng Doan Referrals: Jose Maciel MD [Primary Care Provider] - Discharge Diet: Usual diet Discharge Activity: Increase activity as tolerated Patient Instructions: Opioid Safety, Pain Management Activity Restrictions/Additional Instructions: You are seen today after an episode of syncope in the GI lab. We discussed with the cardiology team from [facility]. We compared labs that you had had done recently there there were no significant changes your troponins are elevated but remain unchanged on the second troponin. [facility] cardiology group felt he could be discharged home recommend that you contact them for further follow-up. Coding Level of Care Code ED Equipment Operator for Yossi Andujar
[2022-08-06 10:39] VITALS: BP 102/87; PULSE 91; RESP 18; O2SAT 93
[2022-08-06 11:02] LABS: Troponin(5th) Baseline 147 ng/L (0-15)
[2022-08-06 11:31] LABS: Add Urine Microscopic? NO; Charge for UA Resulting for Rev
[2022-08-06 11:45] LABS: Bilirubin Urine Neg (Negative); Blood Urine Neg (Negative); Glucose Urine UA 2+ (Normal); Ketones Urine Negative (Negative); Leukocyte Esterase Urine Negative (Negative); Nitrate Urine Negative (Negative); Protein Urine Neg (Negative); Urine Appearance Clear (CLEAR); Urine Color Yellow (Yellow); Urobilinogen Urine Norm (Negative); pH Urine 6 (5-7)
--- NOTE | 2022-08-06 12:29 | ECG_ITS ---
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 Measurements Intervals [place] Rate: 89 P: 19 AK: 195 QRS: 265 QRSD: 220 T: 85 QT: 476 QTc: 582 Interpretive Statements SINUS RHYTHM WITH OCCASIONAL VENTRICULAR PREMATURE COMPLEXES INTRAVENTRICULAR CONDUCTION DELAY [130+ ms QRS DURATION] LATERAL MYOCARDIAL INFARCTION , OF INDETERMINATE AGE [40+ ms Q WAVE AND/OR ST/T ABNORMALITY IN I/aVL/V5/V6] Inferior wall myocardial infarction Compared to ECG 08/06/2022 10:19:42 Ventricular premature complex(es) now present Intraventricular conduction delay now present First degree AV block no longer present Right bundle-branch block no longer present Myocardial infarct finding still present Electronically Signed On 08-07-2022 22:30:18 CDT by Amrit Almazan M.D. [email or web address]/[id number]
[2022-08-06 12:30] VITALS: BP 88/69; PULSE 91; O2SAT 100
[2022-08-06 13:18] LABS: Troponin 5 2HR 137.6 ng/L (0-15); Troponin 5 2HR Delta -9.4 ABS# (0-10)
== END 2022-08-06 14:02 | disposition home or self-care (01) ==
PROVIDERS: Emergency Provider Family Medicine; PCP Family Medicine
DX: R55 Syncope and collapse (principal); Z79.82 Long term (current) use of aspirin; Z79.4 Long term (current) use of insulin; Z79.01 Long term (current) use of anticoagulants; I25.10 Atherosclerotic heart disease of native coronary artery without angina pectoris; I13.0 Hypertensive heart and chronic kidney disease with heart failure and stage 1 through stage 4 chronic kidney disease, or unspecified chronic kidney disease; E11.22 Type 2 diabetes mellitus with diabetic chronic kidney disease; N18.9 Chronic kidney disease, unspecified; I50.9 Heart failure, unspecified
CPT/HCPCS: 81003; 84484; 93005; 99284

== ENCOUNTER → 2022-08-22 09:22 | Outpatient (BNVA) | payer MEDICARE, SELFPAY | PROVIDERS: PCP Family Medicine; Visit Provider Student in an Organized Health Care Education/Training Program | DX: M10.9 Gout, unspecified (principal); M25.562 Pain in left knee | CPT/HCPCS: 20610; 73562; 80503; 87081; 87205; 89050; 99214; J3301 ==

== ENCOUNTER 2022-09-05 03:44 | Emergency (ER) | payer MEDICARE, SELFPAY ==
[2022-09-05] VITALS (9 sets, daily range): BP systolic 87–107; BP diastolic 73–76; PULSE 86–93; RESP 16–30; TEMP 36.7; O2SAT 96–100; BMI 19.2
--- NOTE | 2022-09-05 03:48 | XRR_ITS ---
PROCEDURE INFORMATION: Exam: XR Chest Exam date and time: 09/05/2022 4:11 AM Age: 57 years old Clinical indication: Pain; Chest pressure; Prior surgery; Surgery date: 6+ months; Surgery type: Pacemaker, port; Additional info: Cp TECHNIQUE: Imaging protocol: Radiologic exam of the chest. Views: 1 view. Total images: 940 COMPARISON: CT chest abdomen w con* 09/06/2021 8:54 AM FINDINGS: Tubes, catheters and devices: AICD projects in satisfactory location. A left internal jugular central venous catheter is present, with its tip at the caval atrial junction. Lungs: Trace atelectasis or scar noted in the left suprahilar area and lung base. Pleural spaces: Unremarkable. No pleural effusion. No pneumothorax. Heart/Mediastinum: Left ventricular assist device noted. Heart is enlarged but stable when compared to the prior exam. Bones/joints: Changes of sternotomy are noted. Osseous structures are unchanged from the prior exam. XR/XR chest 1V portable [id number] IMPRESSION: 1. Heart is enlarged but stable when compared to the prior exam. 2. A left internal jugular central venous catheter is present, with its tip at the caval atrial junction. 3. Trace atelectasis or scar noted in the left suprahilar area and lung base.
--- NOTE | 2022-09-05 03:53 | ECG_ITS ---
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 Measurements Intervals [place] Rate: 94 P: 41 MO: 176 QRS: -79 QRSD: 182 T: 89 QT: 450 QTc: 565 Interpretive Statements SINUS RHYTHM WITH FREQUENT VENTRICULAR PREMATURE COMPLEXES POSSIBLE LEFT ATRIAL ENLARGEMENT [-0.1mV P-WAVE IN V1/V2] INTRAVENTRICULAR CONDUCTION DELAY [130+ ms QRS DURATION] LATERAL MYOCARDIAL INFARCTION , OF INDETERMINATE AGE [40+ ms Q WAVE AND/OR ST/T ABNORMALITY IN I/aVL/V5/V6] INFERIOR MYOCARDIAL INFARCTION , OF INDETERMINATE AGE [40+ ms Q WAVE AND/OR ST/T ABNORMALITY IN II/aVF] Compared to ECG 08/06/2022 12:29:13 No significant changes Electronically Signed On 09-05-2022 10:32:16 CDT by Shira Deshpande M.D. [email or web address] [email or web address] [id number]
--- NOTE | 2022-09-05 04:09 | ED_ITS ---
Documented by User: Severiano Marrero MD 09/05/22 04:12 HPI - Chest Pain General: Chief Complaint: Chest Pain Stated Complaint: chest pain Time Seen by Provider: 09/05/22 03:48 Source: patient Mode of arrival: ambulatory Limitations: no limitations History of Present Illness: 57-year-old male with a history of LVAD he has had for 6 years he states that lenard has been having a severe sharp pain in the center of her chest with some shortness of breath he states pain is much worse with breathing. Rates the pain an 8 out of 10 currently has had no vomiting no diarrhea denies any recent cough or fever. Associated symptoms: Reports dyspnea; Deny abdominal pain, fever(s), nausea or vomiting Review of Systems Const: Denies: fever(s), chills, body aches or change in appetite ENMT: Denies: throat pain or dental pain Card: Reports: chest pain Resp: Reports: dyspnea GI: Denies: abdominal pain, nausea, vomiting or diarrhea : Denies: dysuria Musc: Denies: neck pain or back pain Skin/Breast: Denies: rash Neuro: Denies: headache(s) PFSH ED PFSH: Medical History Arrhythmia CAD (coronary artery disease) Cardiac defibrillator in place CHF (congestive heart failure) Cholecystectomy planned Cholecystitis Chronic kidney disease Diabetes Encounter for central line placement Gallbladder disease Gout Hypertension Ischemic cardiomyopathy LVAD (left ventricular assist device) present Type II diabetes mellitus Surgical History H/O cardiac catheterization History of esophagogastroduodenoscopy (EGD) S/P coronary artery stent placement Social History Smoking and tobacco status: never smoked Second hand smoke exposure: No Alcohol intake: never Substance/Drug Use: never Marital status: Current occupational status: disabled Physical Exam Const: COMMON NORMALS: patient oriented x3 HENMT: COMMON NORMALS: normocephalic and atraumatic HEAD & SCALP: normocephalic and atraumatic Eye: COMMON NORMALS: conjunctivae normal CONJUNCTIVA: Yes conjunctivae normal Neck/C-Spine: COMMON NORMALS: full ROM and supple Chest: COMMONS NORMALS: normal inspection of the chest and normal palpation of entire chest wall Resp: COMMON NORMALS: normal respiratory effort, No retractions, No use of accessory muscles and clear to auscultation bilaterally AUSCULTATION: clear to auscultation bilaterally Cardio: COMMON NORMALS: regular rate and regular rhythm RATE: regular rate RHYTHM: regular rhythm GI: COMMON NORMALS: Normal to inspection, nondistended, normoactive bowel shahram nds present, Soft to palpation, non-tender and no masses PALPATION: Yes Soft to palpation Extremity: COMMON NORMALS: normal to inspection and full ROM Neuro: COMMON NORMALS: patient oriented x3, moves all extremities and no focal motor deficits Psych: COMMON NORMALS: mental status grossly normal, Normal thought process present and cooperative THOUGHT PROCESS: Normal thought process present Skin: COMMON NORMALS: no rashes or lesions noted and no wounds GENERAL SKIN EXAM: no rashes or lesions noted Course Vital Signs: Vital signs: Vital Signs Temperature 98.1 F 09/05/22 03:50 Pulse Rate 86 09/05/22 08:54 Respiratory Rate 19 H 09/05/22 06:44 Blood Pressure 87/73 09/05/22 08:54 Pulse Oximetry 97 09/05/22 08:54 Oxygen Delivery Me thod Room Air 09/05/22 06:45 MDM - Chest Pain Lab Data 09/05/22 04:10 09/05/22 04:10 Radiology Impressions Chest X-Ray 09/05/22 03:48 IMPRESSION: 1. Heart is enlarged but stable when compared to the prior exam. 2. A left internal jugular central venous catheter is present, with its tip at the caval atrial junction. 3. Trace atelectasis or scar noted in the left suprahilar area and lung base. Chest CTA 09/05/22 04:17 IMPRESSION: 1. Heart is enlarged but stable when compared to the prior exam. 2. Streaky opacities extending from the ayde in the upper and lower lobes with architectural distortion felt to represent scarring and appears similar to prior exam. 3. Mild irregular ground-glass opacity seen in the dependent portions of the lungs felt to represent atelectasis or mild edema. 4. No pulmonary artery embolism identified. 5. Reflux of injected contrast material into hepatic veins suggests decreased cardiac output. 6. Study performed as CTA pulmonary. Left atrium, left ventricle, ventricular assist device, and aorta are minimally opacified and unchanged in appearance from the prior exam. Laboratory Results WBC 9.0 10^3/uL (4.0-10.0) 09/05/22 04:10 RBC 2.83 10^6/uL (4.1-5.3) L 09/05/22 04:10 Hgb 8.3 g/dL (11.7-16.6) L 09/05/22 04:10 Hct 27.0 % (42.0-52.0) L 09/05/22 04:10 MCV 95.4 fl (80-94) H 09/05/22 04:10 MCH 29.3 pg (28.0-34.0) 09/05/22 04:10 MCHC 30.7 g/dL (30.0-36.0) 09/05/22 04:10 RDW 23.3 % (12.1-15.1) H 09/05/22 04:10 Plt Count 201 10^3/cmm (130-400) 09/05/22 04:10 MPV 10.4 fL (7.4-10.4) 09/05/22 04:10 Neut % (Auto) 74.1 % 09/05/22 04:10 Lymph % (Auto) 12.3 % 09/05/22 04:10 [place] % (Auto) 11.4 % 09/05/22 04:10 Eos % (Auto) 0.6 % 09/05/22 04:10 Baso % (Auto) 0.9 % 09/05/22 04:10 Neut # (Auto) 6.70 10^3/uL (1.8-7.7) 09/05/22 04:10 Lymph # (Auto) 1.1 10^3/uL (0.8-4.8) 09/05/22 04:10 [place] # (Auto) 1.0 10^3/uL (0.2-0.9) H 09/05/22 04:10 Eos # (Auto) 0.1 10^3/uL (0.0-0.8) 09/05/22 04:10 Baso # (Auto) 0.1 10^3/uL (0.0-0.1) 09/05/22 04:10 Nucleated RBC % (auto) 0 % 09/05/22 04:10 Nucleated RBCs # 0.0 /100WBC 09/05/22 04:10 PT 21.00 SECONDS (12.1-14.9) H 09/05/22 04:10 INR 1.74 (0.8-1.2) H 09/05/22 04:10 Sodium 137 mmol/L (136-145) 09/05/22 04:10 Potassium 3.7 mmol/L (3.5-5.1) 09/05/22 04:10 Chloride 108 mmol/L (98-107) H 09/05/22 04:10 Carbon Dioxide 16 mmol/L (22-29) L 09/05/22 04:10 Anion Gap 16.7 (5-19) 09/05/22 04:10 BUN 19 mg/dL (6-20) 09/05/22 04:10 Creatinine 1.0 mg/dL (0.7-1.2) 09/05/22 04:10 GFR Calculation 76.5 mL/min (90-130) L 09/05/22 04:10 Glucose 84 mg/dL (65-115) 09/05/22 04:10 POC Glucose 93 mg/dL (70-110) 09/05/22 05:04 Calculated Osmolality 285 mOsm/kg (285-295) 09/05/22 04:10 Calcium 8.6 mg/dL (8.5-10.5) 09/05/22 04:10 Total Bilirubin 0.8 mg/dL (0.15-1.2) 09/05/22 04:10 AST 40 U/L (0-40) 09/05/22 04:10 ALT 56 U/L (0-41) H 09/05/22 04:10 Alkaline Phosphatase 280 U/L (40-130) H 09/05/22 04:10 Troponin T Baseline 97 ng/L (0-15) H 09/05/22 04:10 Troponin T 120 Minute 97.85 ng/L (0-15) H 09/05/22 06:05 Delta Troponin T 0.85 ABS# (0-10) 09/05/22 06:05 NT-Pro-B Natriuret Pep 46510 pg/mL (0-125) H 09/05/22 04:10 Total Protein 5.7 g/dL (6.6-8.7) L 09/05/22 04:10 Albumin 3.4 g/dL (3.5-5.2) L 09/05/22 04:10 Globulin 2.3 g/dL (1.3-4.6) 09/05/22 04:10 Lipase 58 U/L (13-60) 09/05/22 04:10 Discharge Plan Discharge Patient Disposition: Home Clinical Impression: Atypical chest pain, Left ventricular assist device present, Chronic kidney disease Condition: Stable Prescriptions: No Action (DME) TLSO See Rx Instructions .Route .MEDSUPPLY Qty: 1 0RF Rx Instructions: As directed cyclobenzaprine 10 mg tablet 10 mg PO TID Qty: 14 0RF aspirin 81 mg Tablet,Delayed Release (Dr/Ec) 81 mg PO QAM Victoza 3-Lenny 0.6 mg/0.1 mL (18 mg/3 mL) Pen Injector 0.6 mg SUBCUT DAILY@21 insulin lispro [Humalog KwikPen Insulin] 100 unit/mL insulin pen See Rx Instructions .ROUTE .COMPLEX Qty: 3 0RF Rx Instructions: sliding scale tid prn Dalvance 500 mg Solution 1,500 mg IV .[id number] Rx Instructions: every 2 weeks for supression hydrocodone-acetaminophen 5-325 mg tablet 1 tab PO Q6H PRN (Reason: pain) Qty: 14 0RF allopurinol 100 mg tablet 100 mg PO DAILY spironolactone 25 mg tablet 25 mg PO DAILY warfarin 3 mg tablet 3 mg PO DAILY vitamin B complex Tablet 1 tab PO DAILY furosemide 20 mg tablet 20 mg PO DAILY Jardiance 10 mg tablet 10 mg PO DAILY citalopram 20 mg tablet 20 mg PO DAILY amlodipine 5 mg Tablet 5 mg PO DAILY Discharge Orders: Discharge ED (Routine); Ordered 09/05/22 Ordered By: Cheng Doan Referrals: Jose Maciel MD [Primary Care Provider] - Discharge Diet: Usual diet Discharge Activity: Limit activity as instructed Patient Instructions: Opioid Safety, Pain Management Activity Restrictions/Additional Instructions: Avoid exertional activity. Contact the cardiology clinic that manages your LVAD device and advised them you were in the emergency room. Your EKGs are difficult to interpret and does not show anything acute but are somewhat limited because of your LVAD. Your cardiac enzymes were negative. Coding Level of Care Code ED Direct Care Worker for Chg Fwd Documented by User: Cheng Doan DO 09/06/22 05:07 HPI - Chest Pain General: Chief Complaint: Chest Pain Stated Complaint: chest pain Time Seen by Provider: 09/05/22 03:48 PFSH ED PFSH: Medical History Arrhythmia CAD (coronary artery disease) Cardiac defibrillator in place CHF (congestive heart failure) Cholecystectomy planned Cholecystitis Chronic kidney disease Diabetes Encounter for central line placement Gallbladder disease Gout Hypertension Ischemic cardiomyopathy LVAD (left ventricular assist device) present Type II diabetes mellitus Surgical History H/O cardiac catheterization History of esophagogastroduodenoscopy (EGD) S/P coronary artery stent placement Social History Smoking and tobacco status: never smoked Second hand smoke exposure: No Alcohol intake: never Substance/Drug Use: never Marital status: Current occupational status: disabled Course Vital Signs: Vital signs: Vital Signs Temperature 98.1 F 09/05/22 03:50 Pulse Rate 86 09/05/22 08:54 Respiratory Rate 19 H 09/05/22 06:44 Blood Pressure 87/73 09/05/22 08:54 Pulse Oximetry 97 09/05/22 08:54 Oxygen Delivery Me thod Room Air 09/05/22 06:45 MDM - Chest Pain Medical Decision Making Care assumed at change of shift from Dr. Marrero. Second troponin is a delta that is not significant. Patient is pain-free at this time. Will discharge home. Continue current routine cares for his LVAD including his IV antibiotic infusion that he had scheduled. Advised him to contact clinic at [facility] let him know that he was here his next follow-up is on October 03. I had seen this patient last month with similar complaint cardiac enzymes were negative and then discharge the patient home with routine follow-up. Cardiology clinic phone number is [phone]. Discussed with on-call physician he concurs given work-up does not feel that transfer or admission is necessary. Medical Records I reviewed the patient's medical records. Lab Data I reviewed the patient's lab results. 09/05/22 04:10 09/05/22 04:10 Radiology Impressions Chest X-Ray 09/05/22 03:48 IMPRESSION: 1. Heart is enlarged but stable when compared to the prior exam. 2. A left internal jugular central venous catheter is present, with its tip at the caval atrial junction. 3. Trace atelectasis or scar noted in the left suprahilar area and lung base. Chest CTA 09/05/22 04:17 IMPRESSION: 1. Heart is enlarged but stable when compared to the prior exam. 2. Streaky opacities extending from the ayde in the upper and lower lobes with architectural distortion felt to represent scarring and appears similar to prior exam. 3. Mild irregular ground-glass opacity seen in the dependent portions of the lungs felt to represent atelectasis or mild edema. 4. No pulmonary artery embolism identified. 5. Reflux of injected contrast material into hepatic veins suggests decreased cardiac output. 6. Study performed as CTA pulmonary. Left atrium, left ventricle, ventricular assist device, and aorta are minimally opacified and unchanged in appearance from the prior exam. Laboratory Results WBC 9.0 10^3/uL (4.0-10.0) 09/05/22 04:10 RBC 2.83 10^6/uL (4.1-5.3) L 09/05/22 04:10 Hgb 8.3 g/dL (11.7-16.6) L 09/05/22 04:10 Hct 27.0 % (42.0-52.0) L 09/05/22 04:10 MCV 95.4 fl (80-94) H 09/05/22 04:10 MCH 29.3 pg (28.0-34.0) 09/05/22 04:10 MCHC 30.7 g/dL (30.0-36.0) 09/05/22 04:10 RDW 23.3 % (12.1-15.1) H 09/05/22 04:10 Plt Count 201 10^3/cmm (130-400) 09/05/22 04:10 MPV 10.4 fL (7.4-10.4) 09/05/22 04:10 Neut % (Auto) 74.1 % 09/05/22 04:10 Lymph % (Auto) 12.3 % 09/05/22 04:10 [place] % (Auto) 11.4 % 09/05/22 04:10 Eos % (Auto) 0.6 % 09/05/22 04:10 Baso % (Auto) 0.9 % 09/05/22 04:10 Neut # (Auto) 6.70 10^3/uL (1.8-7.7) 09/05/22 04:10 Lymph # (Auto) 1.1 10^3/uL (0.8-4.8) 09/05/22 04:10 [place] # (Auto) 1.0 10^3/uL (0.2-0.9) H 09/05/22 04:10 Eos # (Auto) 0.1 10^3/uL (0.0-0.8) 09/05/22 04:10 Baso # (Auto) 0.1 10^3/uL (0.0-0.1) 09/05/22 04:10 Nucleated RBC % (auto) 0 % 09/05/22 04:10 Nucleated RBCs # 0.0 /100WBC 09/05/22 04:10 PT 21.00 SECONDS (12.1-14.9) H 09/05/22 04:10 INR 1.74 (0.8-1.2) H 09/05/22 04:10 Sodium 137 mmol/L (136-145) 09/05/22 04:10 Potassium 3.7 mmol/L (3.5-5.1) 09/05/22 04:10 Chloride 108 mmol/L (98-107) H 09/05/22 04:10 Carbon Dioxide 16 mmol/L (22-29) L 09/05/22 04:10 Anion Gap 16.7 (5-19) 09/05/22 04:10 BUN 19 mg/dL (6-20) 09/05/22 04:10 Creatinine 1.0 mg/dL (0.7-1.2) 09/05/22 04:10 GFR Calculation 76.5 mL/min (90-130) L 09/05/22 04:10 Glucose 84 mg/dL (65-115) 09/05/22 04:10 POC Glucose 93 mg/dL (70-110) 09/05/22 05:04 Calculated Osmolality 285 mOsm/kg (285-295) 09/05/22 04:10 Calcium 8.6 mg/dL (8.5-10.5) 09/05/22 04:10 Total Bilirubin 0.8 mg/dL (0.15-1.2) 09/05/22 04:10 AST 40 U/L (0-40) 09/05/22 04:10 ALT 56 U/L (0-41) H 09/05/22 04:10 Alkaline Phosphatase 280 U/L (40-130) H 09/05/22 04:10 Troponin T Baseline 97 ng/L (0-15) H 09/05/22 04:10 Troponin T 120 Minute 97.85 ng/L (0-15) H 09/05/22 06:05 Delta Troponin T 0.85 ABS# (0-10) 09/05/22 06:05 NT-Pro-B Natriuret Pep 43077 pg/mL (0-125) H 09/05/22 04:10 Total Protein 5.7 g/dL (6.6-8.7) L 09/05/22 04:10 Albumin 3.4 g/dL (3.5-5.2) L 09/05/22 04:10 Globulin 2.3 g/dL (1.3-4.6) 09/05/22 04:10 Lipase 58 U/L (13-60) 09/05/22 04:10 Discharge Plan Discharge Patient Disposition: Home Clinical Impression: Atypical chest pain, Left ventricular assist device present, Chronic kidney disease Condition: Stable Prescriptions: No Action (DME) TLSO See Rx Instructions .Route .MEDSUPPLY Qty: 1 0RF Rx Instructions: As directed cyclobenzaprine 10 mg tablet 10 mg PO TID Qty: 14 0RF aspirin 81 mg Tablet,Delayed Release (Dr/Ec) 81 mg PO QAM Victoza 3-Lenny 0.6 mg/0.1 mL (18 mg/3 mL) Pen Injector 0.6 mg SUBCUT DAILY@21 insulin lispro [Humalog KwikPen Insulin] 100 unit/mL insulin pen See Rx Instructions .ROUTE .COMPLEX Qty: 3 0RF Rx Instructions: sliding scale tid prn Dalvance 500 mg Solution 1,500 mg IV .[id number] Rx Instructions: every 2 weeks for supression hydrocodone-acetaminophen 5-325 mg tablet 1 tab PO Q6H PRN (Reason: pain) Qty: 14 0RF allopurinol 100 mg tablet 100 mg PO DAILY spironolactone 25 mg tablet 25 mg PO DAILY warfarin 3 mg tablet 3 mg PO DAILY vitamin B complex Tablet 1 tab PO DAILY furosemide 20 mg tablet 20 mg PO DAILY Jardiance 10 mg tablet 10 mg PO DAILY citalopram 20 mg tablet 20 mg PO DAILY amlodipine 5 mg Tablet 5 mg PO DAILY Discharge Orders: Discharge ED (Routine); Ordered 09/05/22 Ordered By: Cheng Doan Referrals: Jose Maciel MD [Primary Care Provider] - Discharge Diet: Usual diet Discharge Activity: Limit activity as instructed Patient Instructions: Opioid Safety, Pain Management Activity Restrictions/Additional Instructions: Avoid exertional activity. Contact the cardiology clinic that manages your LVAD device and advised them you were in the emergency room. Your EKGs are difficult to interpret and does not show anything acute but are somewhat limited because of your LVAD. Your cardiac enzymes were negative. Coding Level of Care Code ED Direct Care Worker for Yossi Andujar
--- NOTE | 2022-09-05 04:17 | CTR_ITS ---
PROCEDURE INFORMATION: Exam: CTA Chest With Contrast Exam date and time: 09/05/2022 4:49 AM Age: 57 years old Clinical indication: Chest pressure; Prior surgery; Surgery date: 1-6 months; Surgery type: Lvad, port; Patient HX: Extreme chest pain; Additional info: Cp TECHNIQUE: Imaging protocol: Computed tomographic angiography of the chest with contrast. Exam focused on the arteries. 3D rendering (Not supervised by radiologist): MIP and/or 3D reconstructed images were created by the technologist. Total images: 414 Radiation optimization: All CT scans at this facility use at least one of these dose optimization techniques: automated exposure control; mA and/or kV adjustment per patient size (includes targeted exams where dose is matched to clinical indication); or iterative reconstruction. Contrast material: OMNI 350; Contrast volume: 100 ml; Contrast route: INTRAVENOUS (IV); REPORTING DATA: Count of CT and Cardiac NM exams in prior 12 months: This patient has received 4 known CTs and 0 known cardiac nuclear medicine studies in the 12 months prior to the current study. COMPARISON: CT chest abdomen w con* 09/06/2021 8:54 AM RADIATION DOSE METRICS: Total DLP (mGy-cm): 437.39 FINDINGS: Tubes, catheters and devices: AICD projects in satisfactory location. Left ventricular assist device noted unchanged from prior exam. Pulmonary arteries: Pulmonary artery evaluation of good technical quality with no pulmonary artery embolism identified. Aorta: See Lungs finding. Lungs: Streaky opacities extending from the ayde in the upper and lower lobes with architectural distortion felt to represent scarring and appears similar to prior exam. Mild irregular ground-glass opacity seen in the dependent portions of the lungs felt to represent atelectasis or mild edema. Study performed as CTA pulmonary. Left atrium, left ventricle, ventricular assist device, and aorta are minimally opacified and unchanged in appearance from the prior exam. Pleural spaces: Unremarkable. No pneumothorax. No pleural effusion. Heart: Heart is enlarged but stable when compared to the prior exam. Reflux of injected contrast material into hepatic veins suggests decreased cardiac output. Lymph nodes: Unremarkable. No enlarged lymph nodes. Bones/joints: Changes of sternotomy are noted. Soft tissues: Unremarkable. CT/CT angio chest PE protcl [id number] IMPRESSION: 1. Heart is enlarged but stable when compared to the prior exam. 2. Streaky opacities extending from the ayde in the upper and lower lobes with architectural distortion felt to represent scarring and appears similar to prior exam. 3. Mild irregular ground-glass opacity seen in the dependent portions of the lungs felt to represent atelectasis or mild edema. 4. No pulmonary artery embolism identified. 5. Reflux of injected contrast material into hepatic veins suggests decreased cardiac output. 6. Study performed as CTA pulmonary. Left atrium, left ventricle, ventricular assist device, and aorta are minimally opacified and unchanged in appearance from the prior exam.
--- NOTE | 2022-09-05 04:19 | PC.NURSE ---
MD notified of being unable to obtain accurate SpO2. MD said to still give Hydromorphone. Resp contacted for a forehead prob.
[2022-09-05] MEDS: HYDROmorphone 1 mg/mL INJ 1 mL IVP (04:22)
[2022-09-05 04:27] LABS: Basophils # 0.1 10^3/uL (0.0-0.1); Basophils % 0.9 %; Eosinophils # 0.1 10^3/uL (0.0-0.8); Eosinophils % 0.6 %; Hemoglobin 8.3 g/dL (11.7-16.6); Lymphocytes # 1.1 10^3/uL (0.8-4.8); Lymphocytes % 12.3 %; Mean Corpuscular HGB Conc 30.7 g/dL (30.0-36.0); Mean Corpuscular Hemoglobin 29.3 pg (28.0-34.0); Mean Corpuscular Volume 95.4 fl (80-94); Mean Platelet Volume 10.4 fL (7.4-10.4); Monocytes % 11.4 %; Neutrophils % 74.1 %; Nucleated Red Blood Cells % 0 %; Platelet Count 201 10^3/cmm (130-400); Red Blood Count 2.83 10^6/uL (4.1-5.3); Red Cell Distribution Width 23.3 % (12.1-15.1)
[2022-09-05] MEDS: ondansetron 2 mg/ML SDV 2 mL 4 MG IVP (04:27)
[2022-09-05 04:44] LABS: Troponin(5th) Baseline 97 ng/L (0-15)
[2022-09-05 04:57] LABS: Alanine Aminotransferase 56 U/L (0-41); Albumin Level 3.4 g/dL (3.5-5.2); Alkaline Phosphatase 280 U/L (40-130); Anion Gap 16.7 (5-19); Aspartate Amino Transferase 40 U/L (0-40); Blood Urea Nitrogen 19 mg/dL (6-20); Calcium 8.6 mg/dL (8.5-10.5); Carbon Dioxide 16 mmol/L (22-29); Chloride 108 mmol/L (98-107); Globulin 2.3 g/dL (1.3-4.6); Glomerular Filtration Rate 76.5 mL/min (90-130); Glucose 84 mg/dL (65-115); Lipase 58 U/L (13-60); Osmolality Calculated 285 mOsm/kg (285-295); Potassium 3.7 mmol/L (3.5-5.1); Sodium 137 mmol/L (136-145); Total Bilirubin 0.8 mg/dL (0.15-1.2); Total Protein 5.7 g/dL (6.6-8.7)
[2022-09-05] MEDS: iohexol 350 mg/mL 500 mL Btl (per mL) IV (04:57)
[2022-09-05 05:08] LABS: Glucose Point of Care 93 mg/dL (70-110)
[2022-09-05 05:12] LABS: INR 1.74 (0.8-1.2)
--- NOTE | 2022-09-05 05:16 | PC.NURSE ---
Pt MAP 82 via manual cuff/doppler.
--- NOTE | 2022-09-05 05:48 | ECG_ITS ---
[facility] Test Date: 2022-09-05 Pat Name: Damian Escalona Department: Room: Gender: Male [employer]: : 1965 Requested By: Severiano Marrero Order Number: [id number] Chang MD: Shira Deshpande M.D. Measurements Intervals [place] Rate: 90 P: 36 WV: 166 QRS: -77 QRSD: 210 T: 88 QT: 531 QTc: 652 Interpretive Statements SINUS RHYTHM POSSIBLE LEFT ATRIAL ENLARGEMENT [-0.1mV P-WAVE IN V1/V2] INTRAVENTRICULAR CONDUCTION DELAY [130+ ms QRS DURATION] POSSIBLE ANTERIOR MYOCARDIAL INFARCTION , OF INDETERMINATE AGE [30 ms Q WAVE IN V3/V4, OR R < 0.2 mV IN V4] PROLONGED QT INTERVAL CRITICAL TEST RESULT Compared to ECG 09/05/2022 03:53:25 Prolonged QT interval now present Ventricular premature complex(es) no longer present Myocardial infarct finding still present Electronically Signed On 09-05-2022 10:33:25 CDT by Shira Deshpande M.D. [id number]
[2022-09-05 06:36] LABS: Troponin 5 2HR 97.85 ng/L (0-15)
[2022-09-05 06:41] LABS: Troponin 5 2HR Delta 0.85 ABS# (0-10)
== END 2022-09-05 08:56 | disposition home or self-care (01) ==
PROVIDERS: Emergency Medicine; Emergency Provider Family Medicine; PCP Family Medicine
DX: R07.89 Other chest pain (principal); Z95.811 Presence of heart assist device; I13.0 Hypertensive heart and chronic kidney disease with heart failure and stage 1 through stage 4 chronic kidney disease, or unspecified chronic kidney disease; E11.22 Type 2 diabetes mellitus with diabetic chronic kidney disease; N18.9 Chronic kidney disease, unspecified; I50.9 Heart failure, unspecified
CPT/HCPCS: 36416; 71045; 71275; 80053; 82962; 83690; 83880; 84484; 85025; 85610; 93005; 96374; 96375; 99285; J1170; J2405; Q9967

== ENCOUNTER 2022-09-10 09:00 | Outpatient (RCR) | payer MEDICARE, SELFPAY ==
[2022-08-27 09:08] VITALS: PULSE 100; RESP 18; TEMP 36.1; O2SAT 94
[2022-08-27 09:28] LABS: Basophils % 0.1 %; Hemoglobin 9.1 g/dL (11.7-16.6); Lymphocytes # 1.1 10^3/uL (0.8-4.8); Lymphocytes % 10.5 %; Mean Corpuscular HGB Conc 31.4 g/dL (30.0-36.0); Mean Corpuscular Hemoglobin 28.3 pg (28.0-34.0); Mean Corpuscular Volume 90.1 fl (80-94); Mean Platelet Volume 9.2 fL (7.4-10.4); Monocytes % 9.3 %; Neutrophils # 8.57 10^3/uL (1.8-7.7); Neutrophils % 79.2 %; Nucleated Red Blood Cells % 0 %; Platelet Count 384 10^3/cmm (130-400); Red Blood Count 3.22 10^6/uL (4.1-5.3); Red Cell Distribution Width 25.1 % (12.1-15.1); White Blood Count 10.8 10^3/uL (4.0-10.0)
--- NOTE | 2022-08-27 09:40 | PC.NURSE ---
Pt to GI infusions for left Dilcia catheter dressing change and lab draw. Pt has had multiple admissions to [facility] in [place] over the last 3 weeks due to low blood pressure and other issues. Lab results faxed to [facility] ID and the LVAD office as requested. Pt states he is feeling much better and is home now. He states he has a significant other that checks on him. Pt assisted to vehicle via wheelchair.
[2022-08-27 09:47] LABS: INR 1.88 (0.8-1.2)
[2022-08-27 09:48] LABS: Alanine Aminotransferase 158 U/L (0-41); Albumin Level 3.8 g/dL (3.5-5.2); Alkaline Phosphatase 273 U/L (40-130); Anion Gap 18.2 (5-19); Aspartate Amino Transferase 108 U/L (0-40); Blood Urea Nitrogen 41 mg/dL (6-20); Calcium 9.1 mg/dL (8.5-10.5); Carbon Dioxide 17 mmol/L (22-29); Chloride 105 mmol/L (98-107); Globulin 3.2 g/dL (1.3-4.6); Glomerular Filtration Rate 86.4 mL/min (90-130); Glucose 153 mg/dL (65-115); Lactate Dehydrogenase 207 U/L (135-225); Osmolality Calculated 295 mOsm/kg (285-295); Potassium 4.2 mmol/L (3.5-5.1); Sodium 136 mmol/L (136-145); Total Bilirubin 0.5 mg/dL (0.15-1.2)
[2022-09-03] MEDS: dalbavancin 1,500 MG in dextrose 5% 250 ML 500 MG IV (09:15)
[2022-09-03 09:24] LABS: Basophils % 0.4 %; Eosinophils % 0.5 %; Hematocrit 26.8 % (42.0-52.0); Lymphocytes % 13.1 %; Mean Corpuscular HGB Conc 29.9 g/dL (30.0-36.0); Mean Corpuscular Hemoglobin 28.2 pg (28.0-34.0); Mean Corpuscular Volume 94.4 fl (80-94); Mean Platelet Volume 10.6 fL (7.4-10.4); Monocytes # 0.8 10^3/uL (0.2-0.9); Monocytes % 10.7 %; Neutrophils # 5.53 10^3/uL (1.8-7.7); Neutrophils % 74.6 %; Nucleated Red Blood Cells % 0 %; Platelet Count 198 10^3/cmm (130-400); Red Blood Count 2.84 10^6/uL (4.1-5.3); Red Cell Distribution Width 23.7 % (12.1-15.1); White Blood Count 7.4 10^3/uL (4.0-10.0)
[2022-09-03 09:36] VITALS: BP 106/74; PULSE 94; RESP 18; TEMP 36.6; O2SAT 98
[2022-09-03 09:46] LABS: Alanine Aminotransferase 60 U/L (0-41); Albumin Level 3.4 g/dL (3.5-5.2); Alkaline Phosphatase 214 U/L (40-130); Anion Gap 11.6 (5-19); Aspartate Amino Transferase 37 U/L (0-40); Blood Urea Nitrogen 22 mg/dL (6-20); Calcium 8.3 mg/dL (8.5-10.5); Carbon Dioxide 18 mmol/L (22-29); Chloride 112 mmol/L (98-107); Globulin 2.4 g/dL (1.3-4.6); Glomerular Filtration Rate 86.4 mL/min (90-130); Glucose 101 mg/dL (65-115); Lactate Dehydrogenase 168 U/L (135-225); Osmolality Calculated 289 mOsm/kg (285-295); Potassium 3.6 mmol/L (3.5-5.1); Sodium 138 mmol/L (136-145); Total Bilirubin 0.9 mg/dL (0.15-1.2); Total Protein 5.8 g/dL (6.6-8.7)
[2022-09-03 09:51] LABS: INR 1.74 (0.8-1.2)
[2022-09-10 09:05] VITALS: BP 95/81; PULSE 98; RESP 18; TEMP 36.1; O2SAT 95
--- NOTE | 2022-09-10 09:25 | PC.NURSE ---
Pt to GI infusions for dressing change to left Dilcia catheter and lab draw. Pt noted to have bruised face with stitches below right eye. Pt states he fell last week getting gas due to wearing flip flops. States the flip flop got caught on something while he was walking and he fell face first. Pt states he has an appointment with his PCP to get the stitches removed this week. Lab results to be faxed to LVAD office and [facility] as requested.
[2022-09-10 09:34] LABS: Basophils # 0.1 10^3/uL (0.0-0.1); Basophils % 0.9 %; Eosinophils # 0.1 10^3/uL (0.0-0.8); Eosinophils % 1.8 %; Hematocrit 27.6 % (42.0-52.0); Hemoglobin 8.3 g/dL (11.7-16.6); Lymphocytes # 0.9 10^3/uL (0.8-4.8); Lymphocytes % 13.1 %; Mean Corpuscular HGB Conc 30.1 g/dL (30.0-36.0); Mean Corpuscular Hemoglobin 28.4 pg (28.0-34.0); Mean Corpuscular Volume 94.5 fl (80-94); Mean Platelet Volume 9.9 fL (7.4-10.4); Monocytes # 0.4 10^3/uL (0.2-0.9); Monocytes % 5.5 %; Neutrophils # 5.16 10^3/uL (1.8-7.7); Neutrophils % 78.2 %; Nucleated Red Blood Cells % 0 %; Platelet Count 179 10^3/cmm (130-400); Red Blood Count 2.92 10^6/uL (4.1-5.3); Red Cell Distribution Width 22.3 % (12.1-15.1); White Blood Count 6.6 10^3/uL (4.0-10.0)
[2022-09-10 09:54] LABS: INR 1.36 (0.8-1.2)
[2022-09-10 10:24] LABS: Alanine Aminotransferase 32 U/L (0-41); Albumin Level 3.4 g/dL (3.5-5.2); Alkaline Phosphatase 220 U/L (40-130); Anion Gap 15.7 (5-19); Aspartate Amino Transferase 35 U/L (0-40); Blood Urea Nitrogen 21 mg/dL (6-20); Calcium 8.4 mg/dL (8.5-10.5); Carbon Dioxide 20 mmol/L (22-29); Chloride 107 mmol/L (98-107); Globulin 2.7 g/dL (1.3-4.6); Glomerular Filtration Rate 76.5 mL/min (90-130); Glucose 158 mg/dL (65-115); Lactate Dehydrogenase 157 U/L (135-225); Osmolality Calculated 294 mOsm/kg (285-295); Potassium 3.7 mmol/L (3.5-5.1); Sodium 139 mmol/L (136-145); Total Bilirubin 0.6 mg/dL (0.15-1.2); Total Protein 6.1 g/dL (6.6-8.7)
== END 2022-09-13 23:59 | disposition home or self-care (01) ==
LOC: GILAB 09:00
PROVIDERS: Internal Medicine; PCP Family Medicine; Visit Provider Internal Medicine
DX: T82.7XXA Infection and inflammatory reaction due to other cardiac and vascular devices, implants and grafts, initial encounter (principal); Y99.9 Unspecified external cause status
CPT/HCPCS: 36592; 80053; 83615; 85025; 85610; 96365; J0875; J7060

== ENCOUNTER 2022-09-17 22:36 | Emergency (ER) | payer MEDICARE, SELFPAY ==
[2022-09-17 22:41] VITALS: BP 106/70; PULSE 44; RESP 12; TEMP 36.9; O2SAT 99; BMI 21.8
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
[2022-09-18] MEDS: morphine 4 mg/mL SDV 1 mL IVP (00:12)
[2022-09-18] MEDS: ondansetron 2 mg/ML SDV 2 mL 4 MG IVP (00:12)
[2022-09-18] MEDS: oxyCODONE 5 mg IR Tab/Cap PO (01:20)
[2022-09-18 02:00] VITALS: BP 106/70; PULSE 44; RESP 12; TEMP 36.9; O2SAT 99
== END 2022-09-18 02:01 | disposition home or self-care (01) ==
PROVIDERS: Emergency Provider Emergency Medicine; PCP Family Medicine
DX: S20.319A Abrasion of unspecified front wall of thorax, initial encounter (principal); S40.812A Abrasion of left upper arm, initial encounter; S40.811A Abrasion of right upper arm, initial encounter; S20.219A Contusion of unspecified front wall of thorax, initial encounter; S40.022A Contusion of left upper arm, initial encounter; S40.021A Contusion of right upper arm, initial encounter; S59.902A Unspecified injury of left elbow, initial encounter; Y04.2XXA Assault by strike against or bumped into by another person, initial encounter
CPT/HCPCS: 71045; 71100; 73030; 73060; 73090; 73110; 73130; 96374; 96375; 99284; J2270; J2405

== ENCOUNTER 2022-09-23 19:26 | Emergency (ER) | payer MEDICARE, SELFPAY ==
[2022-09-23 19:37] VITALS: BP 90/64; PULSE 103; RESP 18; TEMP 37.5; O2SAT 92; BMI 21.8
--- NOTE | 2022-09-23 20:05 | XRR_ITS ---
PROCEDURE INFORMATION: Exam: XR Chest Exam date and time: 09/23/2022 8:19 PM Age: 57 years old Clinical indication: Other: Chf; Additional info: Peripheral edema, lvad for chf TECHNIQUE: Imaging protocol: Radiologic exam of the chest. Views: 1 view. COMPARISON: CR (CHEST, ) 09/17/2022 11:54 PM FINDINGS: Tubes, catheters and devices: Left chest pacemaker is unchanged. LVAD is unchanged. Stable left-sided venous catheter. Lungs: Unchanged left suprahilar region scarring or atelectasis. No consolidation. Pleural spaces: Unremarkable. No pleural effusion. No pneumothorax. Heart/Mediastinum: Cardiomegaly is unchanged. Bones/joints: Sternotomy changes are stable. XR/XR chest 1V [id number] IMPRESSION: No acute findings.
--- NOTE | 2022-09-23 20:06 | ECG_ITS ---
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 Measurements Intervals Radisson Rate: 98 P: 46 HI: 238 QRS: -84 QRSD: 194 T: 64 QT: 441 QTc: 564 Interpretive Statements SINUS RHYTHM WITH FIRST DEGREE AV BLOCK WITH OCCASIONAL VENTRICULAR PREMATURE COMPLEXES RIGHT BUNDLE BRANCH BLOCK INFERIOR MYOCARDIAL INFARCTION , OF INDETERMINATE AGE ANTERIOR MYOCARDIAL INFARCTION , OF INDETERMINATE AGE Compared to ECG 09/05/2022 06:04:39 Ventricular premature complex(es) now present First degree AV block now present Right bundle-branch block now present Intraventricular conduction delay no longer present Prolonged QT interval no longer present Myocardial infarct finding still present Electronically Signed On 09-24-2022 9:53:20 CDT by Shira Deshpande M.D. [email or web address]
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
[2022-09-23] MEDS: FUROsemide 10 mg/mL SDV 4mL 40 MG IVP (20:33)
[2022-09-23 20:35] LABS: INR 1.49 (0.8-1.2)
[2022-09-23 20:36] LABS: Partial Thromboplastin Time 45.7 SECONDS (23.9-36.7)
[2022-09-23 20:43] LABS: Erythrocyte Sedimentation Rate 27 mm/hr (0-10)
[2022-09-23 20:48] LABS: Troponin(5th) Baseline 85 ng/L (0-15)
[2022-09-23 20:55] LABS: NT Pro B Type Natriuretic Pept 33248 pg/mL (0-125); Procalcitonin 1.96 ng/mL (0-0.5)
--- NOTE | 2022-09-23 20:59 | CTR_ITS ---
PROCEDURE INFORMATION: Exam: CT Head Without Contrast Exam date and time: 09/23/2022 9:08 PM Age: 57 years old Clinical indication: Injury or trauma; Fall; Blunt trauma (contusions or hematomas); Consciousness not specified; Altered mental status/memory loss; Additional info: Confusion, anticoagulated, multiple falls and facial contusions TECHNIQUE: Imaging protocol: Computed tomography of the head without contrast. Radiation optimization: All CT scans at this facility use at least one of these dose optimization techniques: automated exposure control; mA and/or kV adjustment per patient size (includes targeted exams where dose is matched to clinical indication); or iterative reconstruction. REPORTING DATA: Count of CT and Cardiac NM exams in prior 12 months: This patient has received 4 known CTs and 0 known cardiac nuclear medicine studies in the 12 months prior to the current study. COMPARISON: No relevant prior studies available. RADIATION DOSE METRICS: Total DLP (mGy-cm): 1150.84 FINDINGS: Brain: No acute infarct. No hemorrhage. Unremarkable white matter for age. No mass effect. Cerebral ventricles: No ventriculomegaly. Paranasal sinuses: Scattered paranasal sinus mucosal thickening, without air-fluid level present. Mastoid air cells: Visualized mastoid air cells are well aerated. Bones/joints: Unremarkable. No acute fracture. Soft tissues: Unremarkable. CT/CT head wo con* [id number] IMPRESSION: No acute intracranial abnormality.
[2022-09-23 21:07] LABS: Alanine Aminotransferase 23 U/L (0-41); Albumin Level 2.8 g/dL (3.5-5.2); Alkaline Phosphatase 194 U/L (40-130); Anion Gap 19.2 (5-19); Aspartate Amino Transferase 35 U/L (0-40); Blood Urea Nitrogen 20 mg/dL (6-20); C Reactive Protein 222.2 mg/L (0.0-4.9); Calcium 8.5 mg/dL (8.5-10.5); Carbon Dioxide 15 mmol/L (22-29); Chloride 103 mmol/L (98-107); Globulin 2.8 g/dL (1.3-4.6); Glucose 58 mg/dL (65-115); Osmolality Calculated 278 mOsm/kg (285-295); Potassium 3.2 mmol/L (3.5-5.1); Sodium 134 mmol/L (136-145); Total Bilirubin 1.4 mg/dL (0.15-1.2); Total Protein 5.6 g/dL (6.6-8.7)
[2022-09-23 21:22] VITALS: RESP 18; O2SAT 92
[2022-09-23] MEDS: oxyCODONE 5 mg IR Tab/Cap PO (21:22)
[2022-09-23 21:27] LABS: Add Urine Microscopic? YES; Bacteria Urine TRACE /hpf; Bilirubin Urine Neg (Negative); Blood Urine Neg (Negative); Glucose Urine UA Norm (Normal); Ketones Urine 1+ (Negative); Leukocyte Esterase Urine Negative (Negative); Mucus Urine 1+ /hpf; Nitrate Urine Negative (Negative); Protein Urine Trace (Negative); Transitional Epi Cells Urine 0-4 /hpf; Urine Appearance Clear (CLEAR); Urine Color Yellow (Yellow); Urobilinogen Urine 4 mg/dL (Negative); pH Urine 6 (5-7)
[2022-09-23 21:28] LABS: Add Urine Culture? No; Amorphous Sediment Urine 1+ /hpf
[2022-09-23 21:54] LABS: Basophils % 0.4 %; Eosinophils % 0.5 %; Hematocrit 23.5 % (42.0-52.0); Hemoglobin 7.4 g/dL (11.7-16.6); Lymphocytes # 0.5 10^3/uL (0.8-4.8); Lymphocytes % 7.2 %; Mean Corpuscular HGB Conc 31.5 g/dL (30.0-36.0); Mean Corpuscular Hemoglobin 29.1 pg (28.0-34.0); Mean Corpuscular Volume 92.5 fl (80-94); Mean Platelet Volume 10.6 fL (7.4-10.4); Monocytes # 0.5 10^3/uL (0.2-0.9); Monocytes % 7.2 %; Neutrophils # 6.16 10^3/uL (1.8-7.7); Neutrophils % 84.3 %; Nucleated Red Blood Cells % 0 %; Platelet Count 169 10^3/cmm (130-400); Red Blood Count 2.54 10^6/uL (4.1-5.3); Red Cell Distribution Width 18.2 % (12.1-15.1); White Blood Count 7.3 10^3/uL (4.0-10.0)
[2022-09-23 22:09] VITALS: RESP 18
[2022-09-23] MEDS: HYDROmorphone 1 mg/mL INJ 1 mL 0.5 MG IVP (22:09)
[2022-09-23 22:22] VITALS: BP 102/74; PULSE 90; RESP 18; O2SAT 99
== END 2022-09-23 22:34 | disposition home or self-care (01) ==
PROVIDERS: Emergency Provider Physician Assistant; PCP Family Medicine
DX: R60.0 Localized edema (principal); I13.0 Hypertensive heart and chronic kidney disease with heart failure and stage 1 through stage 4 chronic kidney disease, or unspecified chronic kidney disease; N18.9 Chronic kidney disease, unspecified; I50.9 Heart failure, unspecified; E11.22 Type 2 diabetes mellitus with diabetic chronic kidney disease; I25.10 Atherosclerotic heart disease of native coronary artery without angina pectoris; Z79.4 Long term (current) use of insulin; Z79.84 Long term (current) use of oral hypoglycemic drugs; Z79.85 Long-term (current) use of injectable non-insulin antidiabetic drugs; Z79.899 Other long term (current) drug therapy; Z95.811 Presence of heart assist device; Z95.5 Presence of coronary angioplasty implant and graft
CPT/HCPCS: 70450; 71045; 80053; 81001; 83880; 84145; 84484; 85025; 85610; 85651; 85730; 86140; 93005; 96374; 96375; 99285; J1170; J1940

== ENCOUNTER 2022-10-10 09:08 | Outpatient (RCR) | payer MEDICARE, SELFPAY ==
[2022-09-19 09:15] VITALS: BP 96/66; PULSE 72; RESP 18; TEMP 36.3; O2SAT 96
[2022-09-19] MEDS: dalbavancin 1,500 MG in dextrose 5% 250 ML 500 MG IV (09:26)
[2022-09-19 09:36] LABS: Basophils % 0.8 %; Eosinophils # 0.1 10^3/uL (0.0-0.8); Eosinophils % 2.7 %; Hemoglobin 7.9 g/dL (11.7-16.6); Lymphocytes # 0.8 10^3/uL (0.8-4.8); Mean Corpuscular HGB Conc 30.4 g/dL (30.0-36.0); Mean Corpuscular Hemoglobin 28.8 pg (28.0-34.0); Mean Corpuscular Volume 94.9 fl (80-94); Mean Platelet Volume 9.4 fL (7.4-10.4); Monocytes # 0.6 10^3/uL (0.2-0.9); Monocytes % 11.6 %; Neutrophils # 3.24 10^3/uL (1.8-7.7); Neutrophils % 68.1 %; Nucleated Red Blood Cells % 0 %; Platelet Count 186 10^3/cmm (130-400); Red Blood Count 2.74 10^6/uL (4.1-5.3); White Blood Count 4.8 10^3/uL (4.0-10.0)
[2022-09-19 09:49] LABS: INR 1.56 (0.8-1.2)
[2022-09-19 09:54] LABS: Alanine Aminotransferase 28 U/L (0-41); Albumin Level 3.3 g/dL (3.5-5.2); Alkaline Phosphatase 227 U/L (40-130); Anion Gap 14.7 (5-19); Aspartate Amino Transferase 33 U/L (0-40); Blood Urea Nitrogen 18 mg/dL (6-20); Calcium 8.6 mg/dL (8.5-10.5); Carbon Dioxide 22 mmol/L (22-29); Chloride 107 mmol/L (98-107); Globulin 2.8 g/dL (1.3-4.6); Glomerular Filtration Rate 68.5 mL/min (90-130); Glucose 99 mg/dL (65-115); Lactate Dehydrogenase 158 U/L (135-225); Osmolality Calculated 292 mOsm/kg (285-295); Potassium 3.7 mmol/L (3.5-5.1); Sodium 140 mmol/L (136-145); Total Bilirubin 0.7 mg/dL (0.15-1.2); Total Protein 6.1 g/dL (6.6-8.7)
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
--- NOTE | 2022-09-24 09:45 | PC.NURSE ---
No call no show for appointment today. Unable to reach pt by phone. Attempted to call pt brother with no success. Left message for patient sister that pt missed appointment.
[2022-09-26 09:45] VITALS: BP 87/66; PULSE 50; RESP 18; TEMP 36; O2SAT 98
--- NOTE | 2022-09-26 09:45 | PC.NURSE ---
Pt to GI infusions for dressing change to left Dilcia catheter and lab draw. Pt states he got his dates mixed up for his appointment and that is why he was a no show on Friday. Left Dilcia cath patent. Flushed without difficulty. Lab results faxed to [facility] office and [facility] as requested.
[2022-09-26 10:08] LABS: Hematocrit 27.3 % (42.0-52.0); Hemoglobin 8.6 g/dL (11.7-16.6); Lymphocytes # 0.3 10^3/uL (0.8-4.8); Lymphocytes % 6.8 %; Mean Corpuscular HGB Conc 31.5 g/dL (30.0-36.0); Mean Corpuscular Hemoglobin 29.1 pg (28.0-34.0); Mean Corpuscular Volume 92.2 fl (80-94); Mean Platelet Volume 9.8 fL (7.4-10.4); Monocytes # 0.1 10^3/uL (0.2-0.9); Monocytes % 2.7 %; Neutrophils # 3.68 10^3/uL (1.8-7.7); Neutrophils % 89.8 %; Nucleated Red Blood Cells % 0 %; Platelet Count 228 10^3/cmm (130-400); Red Blood Count 2.96 10^6/uL (4.1-5.3); Red Cell Distribution Width 17.9 % (12.1-15.1); White Blood Count 4.1 10^3/uL (4.0-10.0)
[2022-09-26 10:26] LABS: Alanine Aminotransferase 19 U/L (0-41); Alkaline Phosphatase 218 U/L (40-130); Anion Gap 24.2 (5-19); Aspartate Amino Transferase 26 U/L (0-40); Blood Urea Nitrogen 40 mg/dL (6-20); Calcium 8.1 mg/dL (8.5-10.5); Carbon Dioxide 16 mmol/L (22-29); Chloride 99 mmol/L (98-107); Globulin 3.4 g/dL (1.3-4.6); Glomerular Filtration Rate 41.5 mL/min (90-130); Glucose 178 mg/dL (65-115); Lactate Dehydrogenase 155 U/L (135-225); Osmolality Calculated 296 mOsm/kg (285-295); Potassium 3.2 mmol/L (3.5-5.1); Sodium 136 mmol/L (136-145); Total Protein 6.4 g/dL (6.6-8.7)
[2022-09-26 10:27] LABS: INR 1.44 (0.8-1.2)
[2022-10-01 09:20] VITALS: BP 108/85; PULSE 109; RESP 18; TEMP 36.6; O2SAT 99
[2022-10-01] MEDS: dalbavancin 1,500 MG in dextrose 5% 250 ML 500 MG IV (09:30)
[2022-10-01 09:54] LABS: Hematocrit 26.5 % (42.0-52.0); Hemoglobin 8.4 g/dL (11.7-16.6); Lymphocytes # 0.5 10^3/uL (0.8-4.8); Lymphocytes % 6.7 %; Mean Corpuscular HGB Conc 31.7 g/dL (30.0-36.0); Mean Corpuscular Volume 94.6 fl (80-94); Mean Platelet Volume 9.9 fL (7.4-10.4); Monocytes # 0.4 10^3/uL (0.2-0.9); Monocytes % 4.4 %; Neutrophils # 6.97 10^3/uL (1.8-7.7); Neutrophils % 85.8 %; Nucleated Red Blood Cells % 0 %; Platelet Count 353 10^3/cmm (130-400); Red Cell Distribution Width 19.1 % (12.1-15.1); White Blood Count 8.1 10^3/uL (4.0-10.0)
[2022-10-01 10:07] LABS: INR 1.35 (0.8-1.2)
[2022-10-01 10:42] LABS: Alanine Aminotransferase 86 U/L (0-41); Albumin Level 3.5 g/dL (3.5-5.2); Alkaline Phosphatase 218 U/L (40-130); Anion Gap 17.7 (5-19); Aspartate Amino Transferase 128 U/L (0-40); Blood Urea Nitrogen 33 mg/dL (6-20); Calcium 8.5 mg/dL (8.5-10.5); Carbon Dioxide 20 mmol/L (22-29); Chloride 104 mmol/L (98-107); Globulin 2.6 g/dL (1.3-4.6); Glucose 245 mg/dL (65-115); Lactate Dehydrogenase 210 U/L (135-225); Osmolality Calculated 301 mOsm/kg (285-295); Potassium 3.7 mmol/L (3.5-5.1); Sodium 138 mmol/L (136-145); Total Bilirubin 0.7 mg/dL (0.15-1.2); Total Protein 6.1 g/dL (6.6-8.7)
[2022-10-10 09:10] VITALS: BP 150/60; PULSE 72; RESP 18; TEMP 36.8; O2SAT 96
--- NOTE | 2022-10-10 09:10 | PC.NURSE ---
Pt to GI infusions for dressing change to left Dilcia catheter and lab draw. Lab results faxed to [facility] and [facility] office as requested.
[2022-10-10 09:32] LABS: Basophils % 0.7 %; Eosinophils # 0.1 10^3/uL (0.0-0.8); Eosinophils % 1.3 %; Hematocrit 25.2 % (42.0-52.0); Hemoglobin 7.8 g/dL (11.7-16.6); Lymphocytes # 1.1 10^3/uL (0.8-4.8); Lymphocytes % 18.3 %; Mean Corpuscular Hemoglobin 29.7 pg (28.0-34.0); Mean Corpuscular Volume 95.8 fl (80-94); Mean Platelet Volume 10.4 fL (7.4-10.4); Monocytes # 0.7 10^3/uL (0.2-0.9); Monocytes % 10.7 %; Neutrophils # 4.16 10^3/uL (1.8-7.7); Neutrophils % 68.7 %; Nucleated Red Blood Cells % 0 %; Platelet Count 202 10^3/cmm (130-400); Red Blood Count 2.63 10^6/uL (4.1-5.3); Red Cell Distribution Width 19.3 % (12.1-15.1); White Blood Count 6.1 10^3/uL (4.0-10.0)
[2022-10-10 09:56] LABS: Alanine Aminotransferase 65 U/L (0-41); Albumin Level 3.4 g/dL (3.5-5.2); Alkaline Phosphatase 264 U/L (40-130); Anion Gap 15.3 (5-19); Aspartate Amino Transferase 71 U/L (0-40); Blood Urea Nitrogen 30 mg/dL (6-20); Calcium 8.6 mg/dL (8.5-10.5); Carbon Dioxide 25 mmol/L (22-29); Chloride 101 mmol/L (98-107); Globulin 2.7 g/dL (1.3-4.6); Glomerular Filtration Rate 68.5 mL/min (90-130); Glucose 98 mg/dL (65-115); Lactate Dehydrogenase 184 U/L (135-225); Osmolality Calculated 292 mOsm/kg (285-295); Potassium 3.3 mmol/L (3.5-5.1); Sodium 138 mmol/L (136-145); Total Bilirubin 0.8 mg/dL (0.15-1.2); Total Protein 6.1 g/dL (6.6-8.7)
[2022-10-10 10:02] LABS: INR 1.68 (0.8-1.2)
== END 2022-10-14 23:59 | disposition home or self-care (01) ==
LOC: GILAB 09:08
PROVIDERS: Internal Medicine; PCP Family Medicine; Visit Provider Internal Medicine
DX: T82.7XXA Infection and inflammatory reaction due to other cardiac and vascular devices, implants and grafts, initial encounter (principal); Z95.811 Presence of heart assist device; Y71.8 Miscellaneous cardiovascular devices associated with adverse incidents, not elsewhere classified; Z79.899 Other long term (current) drug therapy
CPT/HCPCS: 36592; 80053; 83615; 85025; 85610; 96365; J0875; J7060

== ENCOUNTER 2022-10-14 13:34 | Emergency (ER) | payer MEDICARE, SELFPAY ==
[2022-10-14] VITALS (11 sets, daily range): BP systolic 69–88; BP diastolic 47–70; PULSE 89–98; RESP 14–24; TEMP 36.7; O2SAT 90–99; BMI 21.2
--- NOTE | 2022-10-14 14:00 | XRR_ITS ---
PROCEDURE INFORMATION: Exam: XR Right Hip Exam date and time: 10/14/2022 2:06 PM Age: 57 years old Clinical indication: Injury or trauma; Fall; Blunt trauma (contusions or hematomas); Right; Hip; Additional info: Fall, hip pain, rotated TECHNIQUE: Imaging protocol: Radiologic exam of the right hip. Views: 1 view hip with pelvis when performed. COMPARISON: CT abdomen pelvis wo con [id number] 06/11/2022 12:38 PM FINDINGS: Tubes, catheters and devices: Several clips are seen projecting over the right hip. Bones/joints: A there is a mildly displaced right femoral neck fracture. Joint space is unremarkable. Soft tissues: Unremarkable. XR/XR hip RT 2-3V wo/w pel* [id number] IMPRESSION: Right femoral neck fracture.
--- NOTE | 2022-10-14 14:02 | W.ED.FALL ---
HPI - Fall General: Chief Complaint: Fall Stated Complaint: RT HIP PAIN. POSSIBLE HIP FX Time Seen by Provider: 10/14/22 13:44 History of Present Illness: Patient presents to the ER by EMS with fall and right hip pain. Patient's right extremity is externally rotated and very tender to touch. Patient fell when he was outside working after he became hot and weak try to get back into his house. Patient did not have right leg pain before this Patient was given 50 mcg of fentanyl per EMS. Review of Systems General: Reports: 10 or more systems reviewed and unremarkable except in HPI and below PFSH ED PFSH: Medical History Arrhythmia CAD (coronary artery disease) Cardiac defibrillator in place CHF (congestive heart failure) Cholecystectomy planned Cholecystitis Chronic kidney disease Diabetes Encounter for central line placement Gallbladder disease Gout Hypertension Ischemic cardiomyopathy LVAD (left ventricular assist device) present Type II diabetes mellitus Surgical History H/O cardiac catheterization History of esophagogastroduodenoscopy (EGD) S/P coronary artery stent placement Social History Smoking and tobacco status: never smoked Second hand smoke exposure: No Alcohol intake: never Substance/Drug Use: never Marital status: Current occupational status: disabled Physical Exam Const: COMMON NORMALS: no acute distress, average body habitus, patient oriented x3, no limitations, healthy appearing, alert and well nourished HENMT: COMMON NORMALS: normocephalic, atraumatic, hearing grossly normal bilaterally, external ears normal, Normal external nose present and moist oral mucous membranes HEAD & SCALP: normocephalic and atraumatic NOSE: Normal external nose present EXTERNAL EAR: Yes external ears normal Neck/C-Spine: COMMON NORMALS: full ROM, no lymphadenopathy, supple, no meningeal signs, no JVD and Thyroid normal THYROID: Thyroid normal Chest: COMMONS NORMALS: normal inspection of the chest and normal palpation of entire chest wall Resp: COMMON NORMALS: normal respiratory effort, No retractions, No use of accessory muscles and clear to auscultation bilaterally AUSCULTATION: clear to auscultation bilaterally Cardio: COMMON NORMALS: no JVD, regular rate, regular rhythm, S1 normal heart sound present, S2 normal heart sound present, No gallops present (Cardio) and No clicks present (Cardio) RATE: regular rate RHYTHM: regular rhythm HEART SOUNDS: S1 normal heart sound present and S2 normal heart sound present GI: COMMON NORMALS: Normal to inspection, nondistended, normoactive bowel sounds present, Soft to palpation, non-tender, No hepatosplenomegaly present and no masses PALPATION: Yes Soft to palpation and Yes No hepatosplenomegaly present Extremity: NARRATIVE EXTREMITY EXAM: Right hip externally rotated very tender to palpate limited range of motion secondary to pain Neuro: COMMON NORMALS: patient oriented x3 SENSORIUM/ORIENTATION: Yes alert MENINGEAL SIGNS: Yes no meningeal signs Course Vital Signs: Vital signs: Vital Signs Temperature 98.1 F 10/14/22 13:41 Pulse Rate 97 10/14/22 16:39 Respiratory Rate 18 10/14/22 15:05 Blood Pressure 87/70 10/14/22 16:39 Pulse Oximetry 90 10/14/22 16:39 Oxygen Delivery Me thod Room Air 10/14/22 16:39 MDM - Fall Medical Decision Making Presents to the ER by EMS after falling and landing on his right hip. Same was performed work was obtained as well as hip and pelvis x-ray which showed right femoral neck fracture. Lab work is pending at this time. Ortho will be consulted kitty Isaac n.p.o. after midnight and surgery tomorrow per Anastasiia Isaac notified and accepted the patient for further evaluation and treatment. Change in plans [facility] called the director of the LVAD program wants him transferred to the ER. Dr. Talamantes ER physician was notified and accepted in transfer. This will be ER to ER transfer Differential Diagnosis Unlikely syncope, dislocation of shoulder region, fracture of wrist, compression fracture, concussion with loss of consciousness or concussion without loss of consciousness Medical Records I reviewed the patient's medical records. Lab Data I reviewed the patient's lab results. 10/14/22 14:40 10/14/22 14:40 Radiology Impressions Hip/Pelvis X-Ray 10/14/22 14:00 IMPRESSION: Right femoral neck fracture. Chest X-Ray 10/14/22 14:20 IMPRESSION: Stable nonacute findings. Laboratory Results WBC 4.3 10^3/uL (4.0-10.0) 10/14/22 14:40 RBC 2.88 10^6/uL (4.1-5.3) L 10/14/22 14:40 Hgb 8.5 g/dL (11.7-16.6) L 10/14/22 14:40 Hct 27.9 % (42.0-52.0) L 10/14/22 14:40 MCV 96.9 fl (80-94) H 10/14/22 14:40 MCH 29.5 pg (28.0-34.0) 10/14/22 14:40 MCHC 30.5 g/dL (30.0-36.0) 10/14/22 14:40 RDW 18.6 % (12.1-15.1) H 10/14/22 14:40 Plt Count 118 10^3/cmm (130-400) L 10/14/22 14:40 MPV 10.9 fL (7.4-10.4) H 10/14/22 14:40 Neut % (Auto) 77.8 % 10/14/22 14:40 Lymph % (Auto) 13.1 % 10/14/22 14:40 [place] % (Auto) 6.6 % 10/14/22 14:40 Eos % (Auto) 1.6 % 10/14/22 14:40 Baso % (Auto) 0.7 % 10/14/22 14:40 Neut # (Auto) 3.31 10^3/uL (1.8-7.7) 10/14/22 14:40 Lymph # (Auto) 0.6 10^3/uL (0.8-4.8) L 10/14/22 14:40 [place] # (Auto) 0.3 10^3/uL (0.2-0.9) 10/14/22 14:40 Eos # (Auto) 0.1 10^3/uL (0.0-0.8) 10/14/22 14:40 Baso # (Auto) 0.0 10^3/uL (0.0-0.1) 10/14/22 14:40 Nucleated RBC % (auto) 0 % 10/14/22 14:40 Nucleated RBCs # 0.0 /100WBC 10/14/22 14:40 PT 21.50 SECONDS (12.1-14.9) H 10/14/22 15:09 INR 1.80 (0.8-1.2) H 10/14/22 15:09 Sodium 138 mmol/L (136-145) 10/14/22 14:40 Potassium 3.4 mmol/L (3.5-5.1) L 10/14/22 14:40 Chloride 103 mmol/L (98-107) 10/14/22 14:40 Carbon Dioxide 22 mmol/L (22-29) 10/14/22 14:40 Anion Gap 16.4 (5-19) 10/14/22 14:40 BUN 31 mg/dL (6-20) H 10/14/22 14:40 Creatinine 1.4 mg/dL (0.7-1.2) H 10/14/22 14:40 GFR Calculation 51.9 mL/min (90-130) L 10/14/22 14:40 Glucose 91 mg/dL (65-115) 10/14/22 14:40 Calculated Osmolality 292 mOsm/kg (285-295) 10/14/22 14:40 Calcium 8.4 mg/dL (8.5-10.5) L 10/14/22 14:40 Total Bilirubin 0.8 mg/dL (0.15-1.2) 10/14/22 14:40 AST 79 U/L (0-40) H 10/14/22 14:40 ALT 48 U/L (0-41) H 10/14/22 14:40 Alkaline Phosphatase 234 U/L (40-130) H 10/14/22 14:40 NT-Pro-B Natriuret Pep 43341 pg/mL (0-125) H 10/14/22 14:40 Total Protein 5.4 g/dL (6.6-8.7) L 10/14/22 14:40 Albumin 3.3 g/dL (3.5-5.2) L 10/14/22 14:40 Globulin 2.1 g/dL (1.3-4.6) 10/14/22 14:40 Blood Type O Positive 10/14/22 14:40 Rho(D) Type Positive 10/14/22 14:40 Antibody Screen Positive 10/14/22 14:40 Antibody Identification Anti-E 10/14/22 14:40 Discharge Plan Discharge Patient Disposition: Xfer Short-Term Hosp Admit Provider: Kimani Laurent Clinical Impression: Chronic kidney disease, Closed fracture of neck of right femur, Ischemic cardiomyopathy Condition: Stable Coding Level of Care Code ED Certified Ophthalmic Technician for Yossi Andujar
--- NOTE | 2022-10-14 14:20 | XRR_ITS ---
PROCEDURE INFORMATION: Exam: XR Chest Exam date and time: 10/14/2022 2:29 PM Age: 57 years old Clinical indication: Injury or trauma; Fall; Blunt trauma (contusions or hematomas) TECHNIQUE: Imaging protocol: Radiologic exam of the chest. Views: 1 view. COMPARISON: CR (CHEST, ) 09/23/2022 8:19 PM FINDINGS: Tubes, catheters and devices: There is stable intact pacemaker hardware and left ventricular assist hardware. Lungs: Unremarkable. No consolidation. Pleural spaces: Unremarkable. No pleural effusion. No pneumothorax. Heart/Mediastinum: Stable cardiomegaly. Bones/joints: Sternal sutures are again seen. No acute findings. XR/XR chest 1V portable [id number] IMPRESSION: Stable nonacute findings.
--- NOTE | 2022-10-14 14:20 | ECG_ITS ---
[facility] Test Date: 2022-10-14 Pat Name: Damian Escalona Department: Room: Gender: Male Parts Representative: : 1965 Requested By: sJ Jhaveri Order Number: [id number] Chang MD: Jasper Lazar M.D. Measurements Intervals [place] Rate: 92 P: 21 IA: 177 QRS: -64 QRSD: 184 T: 61 QT: 419 QTc: 519 Interpretive Statements SINUS RHYTHM INTRAVENTRICULAR CONDUCTION DELAY [130+ ms QRS DURATION] LATERAL MYOCARDIAL INFARCTION , OF INDETERMINATE AGE [40+ ms Q WAVE AND/OR ST/T ABNORMALITY IN I/aVL/V5/V6] INFERIOR MYOCARDIAL INFARCTION , PROBABLY OLD [40+ ms Q WAVE AND/OR ST/T ABNORMALITY IN II/aVF] Compared to ECG 09/23/2022 20:26:04 Intraventricular conduction delay now present First degree AV block no longer present Right bundle-branch block no longer present Myocardial infarct finding still present Electronically Signed On 10-14-2022 16:11:35 CDT by Jasper Lazar M.D. [id number]
[2022-10-14] MEDS: HYDROmorphone 1 mg/mL INJ 1 mL IVP ×2 (14:42→16:54)
[2022-10-14] MEDS: ondansetron 2 mg/ML SDV 2 mL 4 MG IVP (14:42)
[2022-10-14 14:51] LABS: Basophils % 0.7 %; Eosinophils # 0.1 10^3/uL (0.0-0.8); Eosinophils % 1.6 %; Hematocrit 27.9 % (42.0-52.0); Hemoglobin 8.5 g/dL (11.7-16.6); Lymphocytes # 0.6 10^3/uL (0.8-4.8); Lymphocytes % 13.1 %; Mean Corpuscular HGB Conc 30.5 g/dL (30.0-36.0); Mean Corpuscular Hemoglobin 29.5 pg (28.0-34.0); Mean Corpuscular Volume 96.9 fl (80-94); Mean Platelet Volume 10.9 fL (7.4-10.4); Monocytes # 0.3 10^3/uL (0.2-0.9); Monocytes % 6.6 %; Neutrophils # 3.31 10^3/uL (1.8-7.7); Neutrophils % 77.8 %; Nucleated Red Blood Cells % 0 %; Platelet Count 118 10^3/cmm (130-400); Red Blood Count 2.88 10^6/uL (4.1-5.3); Red Cell Distribution Width 18.6 % (12.1-15.1); White Blood Count 4.3 10^3/uL (4.0-10.0)
--- NOTE | 2022-10-14 15:13 | P.CONIM_ITS ---
Providers/Reason For Consult Consulting Physician/Specialty*: Bertram Pineda DO/orthopedic surgery Reason for Consult*: Right displaced femoral neck fracture Requesting Physician: Dr. Jhaveri Primary Care Provider: Jose Maciel MD History of Present Illness History of Present Illness Damian Escalona is a 57 year old male who sustained a ground-level fall onto the right hip. Brought to the emergency department found to have a displaced right femoral neck fracture. Internal medicine was consulted for evaluation and admission as well as orthopedics was consulted for treatment evaluation recommendations. Patient is known to my practice as I treated him for his gout flares he has had cortisone injections in his knees and this is helped. Patient does have a history of an LVAD that is implanted and managed by [facility]. On my evaluation the patient her plans were for n.p.o. at midnight with plan for surgical intervention the following day however once the LVAD director was contacted [facility] requested the patient be transferred to [place] for further management and to hold off on surgical intervention at this time. Patient complains of pain to the right hip denies pain elsewhere at this point in time. Denies any fevers chills Review of Systems General: Reports: 10 or more systems reviewed and unremarkable except in HPI and below Medications/Allergies Home Medications Medication Instructions Recorded Confirmed Last Taken Type aspirin 81 mg tablet,delayed 81 mg PO QAM 03/17/19 10/14/22 10/14/22 History release liraglutide 0.6 mg/0.1 mL (18 mg/3 0.6 mg SUBCUT DAILY@21 03/17/19 10/14/22 History mL) subcutaneous pen injector (Victoza 3-Lenny) insulin lispro 100 unit/mL See Rx Instructions .Route 04/04/20 10/14/22 09/19/22 Rx subcutaneous pen (Humalog KwikPen .COMPLEX #3 mL (U-100) Insulin) amlodipine 5 mg tablet 5 mg PO DAILY 11/15/21 10/14/22 10/14/22 History dalbavancin 500 mg intravenous 1,500 mg IV .[id number] 03/26/22 10/14/22 10/01/22 History solution (Dalvance) TLSO #1 ea 06/13/22 10/14/22 09/19/22 Rx cyclobenzaprine 10 mg tablet 10 mg PO TID #14 tabs 06/27/22 10/14/22 09/19/22 Rx allopurinol 100 mg tablet 100 mg PO DAILY 08/06/22 10/14/22 09/19/22 History furosemide 20 mg tablet 20 mg PO DAILY PRN Edema 08/06/22 10/14/22 09/19/22 History vitamin B complex 1 tab PO DAILY 08/06/22 10/14/22 10/14/22 History warfarin 3 mg tablet 3 mg PO DAILY 08/06/22 10/14/22 10/14/22 History citalopram 40 mg tablet 40 mg PO DAILY 10/14/22 10/14/22 10/14/22 History insulin glargine U-300 conc 300 25 unit SUBCUT BEDTIME 10/14/22 10/14/22 10/13/22 History unit/mL (1.5 mL) subcutaneous pen (Toujeo SoloStar U-300 Insulin) midodrine 10 mg tablet 10 mg PO TID 10/14/22 10/14/22 10/14/22 History warfarin 2 mg tablet See Rx Instructions .Route .COMPLEX 10/14/22 10/14/22 10/14/22 History Allergies Allergy/AdvReac Type Severity Reaction Status Date / Time pravastatin Allergy Severe ADR-Cramping Verified 09/23/22 19:34 of the Muscles doxycycline Allergy Mild ALGY-Rash Verified 09/23/22 19:34 PFSH Acute PFSH: Medical History Arrhythmia CAD (coronary artery disease) Cardiac defibrillator in place CHF (congestive heart failure) Cholecystectomy planned Cholecystitis Chronic kidney disease Diabetes Encounter for central line placement Gallbladder disease Gout Hypertension Ischemic cardiomyopathy LVAD (left ventricular assist device) present Type II diabetes mellitus Surgical History H/O cardiac catheterization History of esophagogastroduodenoscopy (EGD) S/P coronary artery stent placement Social History Smoking and tobacco status: never smoked Second hand smoke exposure: No Alcohol intake: never Substance/Drug Use: never Marital status: Current occupational status: disabled Vitals/I&O/Wt Last Vital Signs Temp 98.1 F 10/14/22 13:41 Pulse 94 10/14/22 15:05 Resp 18 10/14/22 15:05 BP 88/63 10/14/22 15:05 Pulse Ox 96 10/14/22 15:05 O2 Del Method Room Air 10/14/22 15:05 Weight last 48 hrs Weight 165 lb Physical Exam Narrative: Orthopedic examination: Examination of the right lower extremity demonstrates patient's right lower extremity is shortened and externally rotated. Patient has significant tenderness to palpation of the right hip. Positive logroll. Gross motor and sensory intact of the right lower extremity. Patient is unable to perform [place] secondary to pain and discomfort. Distal pulses are palpable Patient has LVAD in place Secondary survey examination denies any tenderness to palpation of the lumbar spine bilateral shoulders elbows wrist and hands. No tenderness to palpation of the left lower extremity with normal range of motion and negative logroll gross motor and sensory intact. Data 10/14/22 14:40 10/14/22 14:40 Xray Ortho: My impression: X-rays reviewed and demonstrate a displaced right femoral neck fracture A&P Assessment and plan (1) Closed fracture of neck of right femur: Qualifiers: Encounter type: initial encounter Qualified Code(s): S72.001A - Fracture of unspecified part of neck of right femur, initial encounter for closed fracture Plan N.p.o. at midnight Pain control Ice as needed Nonweightbearing right lower extremity Admission to hospitalist Orthopedics consultation Imaging reviewed Labs reviewed Plan for surgical intervention right hip fracture tomorrow Patient was seen evaluated the emergency department after my evaluation we were contacted by [facility] given patient has an LVAD and the director of LVAD requested he be transferred to the ER for evaluation and treatment at [facility] given the complexly of his case with an LVAD. As result we were instructed to transfer patient and hold off on any surgery at this time. As result patient was transferred to [facility] through the emergency department team. Patient understands and agrees with current plan. All questions answered. Will defer to [facility] for the rest of his care. Consult Attestations Medical Necessity Statement: Right displaced femoral neck fracture Coding Level of Care Code Acute Code for Chg Fwd Diagnoses Closed fracture of neck of right femur S72.001A Encounter type: initial encounter Time Spent (min) 40
[2022-10-14 15:28] LABS: Alanine Aminotransferase 48 U/L (0-41); Albumin Level 3.3 g/dL (3.5-5.2); Alkaline Phosphatase 234 U/L (40-130); Aspartate Amino Transferase 79 U/L (0-40); Blood Urea Nitrogen 31 mg/dL (6-20); Calcium 8.4 mg/dL (8.5-10.5); Carbon Dioxide 22 mmol/L (22-29); Chloride 103 mmol/L (98-107); Globulin 2.1 g/dL (1.3-4.6); Glomerular Filtration Rate 51.9 mL/min (90-130); Glucose 91 mg/dL (65-115); NT Pro B Type Natriuretic Pept 11725 pg/mL (0-125); Osmolality Calculated 292 mOsm/kg (285-295); Sodium 138 mmol/L (136-145); Total Bilirubin 0.8 mg/dL (0.15-1.2); Total Protein 5.4 g/dL (6.6-8.7)
[2022-10-14 15:29] LABS: Anion Gap 16.4 (5-19); Potassium 3.4 mmol/L (3.5-5.1)
[2022-10-14] MEDS: morphine 4 mg/mL SDV 1 mL IVP ×2 (18:32→19:53)
== END 2022-10-14 20:28 | disposition short-term general hospital (02) ==
LOC: ER 15:13 → MEDSURG 15:51 → ER 20:10
PROVIDERS: Emergency Provider Emergency Medicine; PCP Family Medicine
DX: I25.5 Ischemic cardiomyopathy (principal); S72.001A Fracture of unspecified part of neck of right femur, initial encounter for closed fracture; I13.0 Hypertensive heart and chronic kidney disease with heart failure and stage 1 through stage 4 chronic kidney disease, or unspecified chronic kidney disease; E11.22 Type 2 diabetes mellitus with diabetic chronic kidney disease; N18.9 Chronic kidney disease, unspecified; I50.9 Heart failure, unspecified; I25.10 Atherosclerotic heart disease of native coronary artery without angina pectoris; Z95.811 Presence of heart assist device; W19.XXXA Unspecified fall, initial encounter
CPT/HCPCS: 36415; 71045; 73502; 80053; 80503; 83880; 85025; 85610; 86850; 86870; 86900; 86902; 86920; 93005; 96374; 96375; 96376; 99285; J1170; J2270; J2405

== ENCOUNTER 2022-12-10 09:19 | Outpatient (RCR) | payer MEDICARE, SELFPAY ==
[2022-12-06] MEDS: dalbavancin 1,500 MG in dextrose 5% 250 ML 500 MG IV (09:45)
[2022-12-06] MEDS: alteplase 1 mg/mL SDV 2 mL 2 MG INTRACATH (10:06)
[2022-12-06 10:08] VITALS: BP 93/80; PULSE 70; RESP 18; TEMP 36.2; O2SAT 93
--- NOTE | 2022-12-06 10:09 | PC.NURSE ---
Pt to GI infusions for Dalvance infusion and lab draw. Since last visit, pt suffered a fall and broke hip. Pt recently discharged from rehab center. New Dilcia catheter to right chest noted. Pt states cath has not been flushed for approx 2 weeks. Double lumens flush without difficulty, but no blood return noted from either port. TPA administered as ordered. Sterile dressing change performed to insertion site.
--- NOTE | 2022-12-06 10:30 | PC.NURSE ---
Attempted to draw blood following Tpa administration. Able to withdraw 6 mL of blood and discarded, but then blood return stopped. Flushed with NS without difficulty. Attempts at blood draw unsuccessful even with repositioning of patient. Peripheral lab draw performed. [facility].
[2022-12-06 10:48] LABS: Basophils % 0.8 %; Eosinophils # 0.3 10^3/uL (0.0-0.8); Eosinophils % 6.8 %; Hematocrit 25.8 % (37-53); Lymphocytes # 0.7 10^3/uL (0.8-4.8); Lymphocytes % 17.3 %; Mean Corpuscular HGB Conc 29.8 g/dL (30-55); Mean Corpuscular Hemoglobin 29.3 pg (27-33); Mean Corpuscular Volume 98.1 fl (82-101); Mean Platelet Volume 10.7 fL (7.4-10.4); Monocytes # 0.3 10^3/uL (0.2-0.9); Monocytes % 6.8 %; Neutrophils # 2.72 10^3/uL (1.8-7.7); Nucleated Red Blood Cells % 0 %; Platelet Count 181 10^3/cmm (157-399); Red Blood Count 2.63 10^6/uL (3.85-5.65); Red Cell Distribution Width 20.1 % (12.1-15.1); White Blood Count 3.99 10^3/uL (3.29-11.43)
[2022-12-06 11:02] LABS: INR 1.88 (0.8-1.2)
[2022-12-06 11:10] LABS: Alanine Aminotransferase 15 U/L (0-41); Albumin Level 3.4 g/dL (3.5-5.2); Alkaline Phosphatase 332 U/L (40-130); Anion Gap 15.6 (5-19); Aspartate Amino Transferase 29 U/L (0-40); Blood Urea Nitrogen 23 mg/dL (6-20); Calcium 9.2 mg/dL (8.5-10.5); Carbon Dioxide 21 mmol/L (22-29); Chloride 103 mmol/L (98-107); Globulin 3.7 g/dL (1.3-4.6); Glomerular Filtration Rate 56.5 mL/min (90-130); Glucose 97 mg/dL (65-115); Lactate Dehydrogenase 188 U/L (135-225); Osmolality Calculated 286 mOsm/kg (285-295); Potassium 3.6 mmol/L (3.5-5.1); Sodium 136 mmol/L (136-145); Total Bilirubin 0.8 mg/dL (0.15-1.2); Total Protein 7.1 g/dL (6.6-8.7)
[2022-12-10 09:30] VITALS: BP 99/75; PULSE 70; RESP 18; TEMP 36.2; O2SAT 96
--- NOTE | 2022-12-10 09:30 | PC.NURSE ---
Pt to GI infusions for blood draw via right chest Dilcia cath. Good blood return noted today. Dressing changed using sterile technique. Lab results to be faxed to [facility] and [facility] office as requested.
[2022-12-10 09:42] LABS: Basophils % 1.1 %; Eosinophils # 0.3 10^3/uL (0.0-0.8); Hematocrit 25.2 % (37-53); Lymphocytes % 27.1 %; Mean Corpuscular HGB Conc 31.3 g/dL (30-55); Mean Corpuscular Hemoglobin 29.6 pg (27-33); Mean Corpuscular Volume 94.4 fl (82-101); Mean Platelet Volume 9.6 fL (7.4-10.4); Monocytes # 0.3 10^3/uL (0.2-0.9); Monocytes % 8.4 %; Neutrophils # 2.06 10^3/uL (1.8-7.7); Neutrophils % 55.9 %; Nucleated Red Blood Cells % 0 %; Platelet Count 220 10^3/cmm (157-399); Red Blood Count 2.67 10^6/uL (3.85-5.65); Red Cell Distribution Width 19.9 % (12.1-15.1); White Blood Count 3.69 10^3/uL (3.29-11.43)
[2022-12-10 09:56] LABS: INR 1.38 (0.8-1.2)
[2022-12-10 10:00] LABS: Alanine Aminotransferase 12 U/L (0-41); Albumin Level 3.2 g/dL (3.5-5.2); Alkaline Phosphatase 278 U/L (40-130); Anion Gap 13.8 (5-19); Aspartate Amino Transferase 34 U/L (0-40); Blood Urea Nitrogen 15 mg/dL (6-20); Calcium 8.9 mg/dL (8.5-10.5); Carbon Dioxide 22 mmol/L (22-29); Chloride 104 mmol/L (98-107); Globulin 3.3 g/dL (1.3-4.6); Glomerular Filtration Rate 68.5 mL/min (90-130); Glucose 74 mg/dL (65-115); Lactate Dehydrogenase 188 U/L (135-225); Osmolality Calculated 281 mOsm/kg (285-295); Potassium 3.8 mmol/L (3.5-5.1); Sodium 136 mmol/L (136-145); Total Bilirubin 0.8 mg/dL (0.15-1.2); Total Protein 6.5 g/dL (6.6-8.7)
== END 2022-12-14 23:59 | disposition home or self-care (01) ==
LOC: GILAB 09:19
PROVIDERS: Internal Medicine; PCP Family Medicine; Visit Provider Internal Medicine
DX: T82.7XXA Infection and inflammatory reaction due to other cardiac and vascular devices, implants and grafts, initial encounter (principal)
CPT/HCPCS: 36415; 36592; 80053; 83615; 85025; 85610; 96365; J0875; J2997; J7060

== ENCOUNTER 2022-12-31 08:55 | Outpatient (RCR) | payer MEDICARE, SELFPAY ==
--- NOTE | 2022-12-17 09:32 | PC.NURSE ---
Pt did not attend appointment. Multiple attempts to contact patient via phone with no answer. Pt brother, Erwin, contacted and states he will go check on patient.
[2022-12-18 09:24] VITALS: BP 90/69; PULSE 70; RESP 18; TEMP 36.3; O2SAT 93
[2022-12-18 10:23] LABS: Basophils # 0.1 10^3/uL (0.0-0.1); Basophils % 1.6 %; Eosinophils # 0.2 10^3/uL (0.0-0.8); Eosinophils % 4.2 %; Hematocrit 26.5 % (37-53); Lymphocytes # 1.2 10^3/uL (0.8-4.8); Lymphocytes % 30.9 %; Mean Corpuscular HGB Conc 29.8 g/dL (30-55); Mean Corpuscular Hemoglobin 29.7 pg (27-33); Mean Corpuscular Volume 99.6 fl (82-101); Mean Platelet Volume 9.9 fL (7.4-10.4); Monocytes # 0.5 10^3/uL (0.2-0.9); Monocytes % 12.3 %; Neutrophils # 1.93 10^3/uL (1.8-7.7); Neutrophils % 50.5 %; Nucleated Red Blood Cells % 0 %; Platelet Count 222 10^3/cmm (157-399); Red Blood Count 2.66 10^6/uL (3.85-5.65); Red Cell Distribution Width 17.9 % (12.1-15.1); White Blood Count 3.82 10^3/uL (3.29-11.43)
--- NOTE | 2022-12-18 10:23 | PC.NURSE ---
Pt to GI infusions for Dalvance 1500 mg IVPB and lab draw. Dressing to right Dilcia catheter changed using sterile technique. Blood return sluggish and positional. Lab results to be faxed to [facility] and LV[facility] office as requested. Pt c/o frequent diarrhea. Had to go to the bathroom during infusion.
[2022-12-18 10:27] LABS: INR 2.53 (0.8-1.2)
[2022-12-31 09:43] VITALS: BP 93/62; PULSE 92; RESP 18; TEMP 36.3; O2SAT 92
[2022-12-31 09:45] LABS: Basophils # 0.1 10^3/uL (0.0-0.1); Basophils % 1.8 %; Eosinophils # 0.2 10^3/uL (0.0-0.8); Eosinophils % 4.4 %; Hematocrit 23.5 % (37-53); Lymphocytes # 1.1 10^3/uL (0.8-4.8); Lymphocytes % 27.1 %; Mean Corpuscular HGB Conc 31.1 g/dL (30-55); Mean Corpuscular Hemoglobin 28.9 pg (27-33); Mean Corpuscular Volume 92.9 fl (82-101); Mean Platelet Volume 10.1 fL (7.4-10.4); Monocytes # 0.3 10^3/uL (0.2-0.9); Monocytes % 7.8 %; Neutrophils # 2.27 10^3/uL (1.8-7.7); Neutrophils % 58.6 %; Nucleated Red Blood Cells % 0 %; Platelet Count 265 10^3/cmm (157-399); Red Blood Count 2.53 10^6/uL (3.85-5.65); Red Cell Distribution Width 16.2 % (12.1-15.1); White Blood Count 3.87 10^3/uL (3.29-11.43)
[2022-12-31 09:58] LABS: INR 2.98 (0.8-1.2)
[2022-12-31 10:00] LABS: Alanine Aminotransferase 22 U/L (0-41); Albumin Level 3.3 g/dL (3.5-5.2); Alkaline Phosphatase 205 U/L (40-130); Anion Gap 14.2 (5-19); Aspartate Amino Transferase 51 U/L (0-40); Blood Urea Nitrogen 21 mg/dL (6-20); Carbon Dioxide 22 mmol/L (22-29); Chloride 106 mmol/L (98-107); Globulin 3.4 g/dL (1.3-4.6); Glomerular Filtration Rate 76.5 mL/min (90-130); Glucose 79 mg/dL (65-115); Lactate Dehydrogenase 171 U/L (135-225); Osmolality Calculated 290 mOsm/kg (285-295); Potassium 3.2 mmol/L (3.5-5.1); Sodium 139 mmol/L (136-145); Total Bilirubin 0.5 mg/dL (0.15-1.2); Total Protein 6.7 g/dL (6.6-8.7)
--- NOTE | 2022-12-31 10:30 | PC.NURSE ---
Pt to GI infusions for Dalvance infusion and lab draw via right chest Dlicia catheter. Lab results faxed to [facility] and [facility] office as requested.
== END 2023-01-14 23:59 | disposition home or self-care (01) ==
LOC: GILAB 08:55
PROVIDERS: Internal Medicine; PCP Family Medicine; Visit Provider Nurse Practitioner Adult Health
DX: T82.7XXA Infection and inflammatory reaction due to other cardiac and vascular devices, implants and grafts, initial encounter (principal)
CPT/HCPCS: 36592; 80053; 83615; 85025; 85610; 96365; J0875; J7060

== ENCOUNTER 2023-01-03 11:03 | Emergency (ER) | payer MEDICARE, SELFPAY ==
[2023-01-03] VITALS (9 sets, daily range): PULSE 82–97; RESP 14–26; O2SAT 95–100; BMI 18.4
--- NOTE | 2023-01-03 11:08 | XR_ITS ---
WS: [id number] Portable AP semiupright chest, 01/03/2023 Clinical Data: dyspnea/cough Comparison: Portable chest, 10/14/2022 Findings: The heart remains enlarged. There is a right small diameter line which appears to cross int o the left subclavian vein. There is a cardiac pacemaker with the generator in the left axilla. There are midline sternotomy sutures. The heart is enlarged. There is a left ventricular assist device ove rlying the left upper quadrant. No nodules, masses or effusions are seen. No pneumonia or pneumothora x is seen. Impression: 1. No change in cardiomegaly. 2. Cardiac pacemaker and left ventricular assist device unchanged.
--- NOTE | 2023-01-03 11:15 | ED_ITS ---
Documented by User: Cheng Doan DO 01/05/23 13:54 HPI - General Adult 2 General: Chief complaint: Weakness Stated complaint: weakness Time Seen by Provider: 01/03/23 11:06 Source: patient Mode of arrival: ambulatory History of Present Illness: 57-year-old male presents to the emergency room with complaints of diarrhea and generalized weakness. Patient has an LVAD that he has had for several years he gets antibiotic infusions and routine lab work related to his LVAD for the last month he has had diarrhea stools. He has not had any hematochezia melena hematemesis or coffee-ground emesis. He is on oral anticoagulation warfarin daily. He gets Dalvance every 2 weeks. Onset (ago): minute(s) PFSH ED 2 PFSH: Medical History Arrhythmia CAD (coronary artery disease) Cardiac defibrillator in place CHF (congestive heart failure) Cholecystectomy planned Cholecystitis Chronic kidney disease Diabetes Encounter for central line placement Gallbladder disease Gout Hypertension Ischemic cardiomyopathy LVAD (left ventricular assist device) present Type II diabetes mellitus Surgical History H/O cardiac catheterization History of esophagogastroduodenoscopy (EGD) S/P coronary artery stent placement Social History Smoking and tobacco/nicotine status: never used tobacco/nicotine Second hand smoke exposure: No Alcohol intake: never Substance/Drug Use: never Marital status: Current occupational status: disabled Course 2 Vital Signs: Vital signs: Vital Signs Temperature 97.9 F 01/05/23 13:29 Pulse Rate 94 01/05/23 13:29 Respiratory Rate 18 01/05/23 13:29 Pulse Oximetry 98 01/05/23 13:29 Oxygen Delivery Me thod Room Air 01/05/23 12:00 MDM - General Adult Medical Decision Making Care signed out to Dr. Pritchard at change of shift. See final notes for diagnosis and disposition. 01/05/23 0301: On brief reexamination, patient appears stable. Please ask for pain medicine a couple of times, which we have granted. Laboratory was redrawn the morning of 01/04. Hemoglobin is 6.6. INR was 3.72. Rechecking this morning. If has fallen appropriately, will restart warfarin. Daily medications were ordered otherwise. Still awaiting a bed at [facility] in [place]. He has been accepted there. 01/05/2023 1:51 PM [place] has called was a bed available. We did opt to give the patient a unit of blood due to his worsening hemoglobin. We also consulted hospitalist for ongoing care after this we received a call that a bed is available at [place] will transfer via [facility]. The day the first patient arrived I had talked to the physician on-call for the LVAD clinic he recommended transfer based on the patient's complaints and felt they should further evaluate patient there. Medical Records I reviewed the patient's medical records. Lab Data I reviewed the patient's lab results. 01/04/23 06:58 01/04/23 06:58 Laboratory Results WBC 3.23 10^3/uL (3.29-11.43) L 01/04/23 06:58 WBC Cancelled 01/04/23 06:58 Corrected WBC Cancelled 01/04/23 06:58 RBC 2.23 10^6/uL (3.85-5.65) L 01/04/23 06:58 RBC Cancelled 01/04/23 06:58 Hgb 6.60 g/dL (11.27-16.99) L 01/04/23 06:58 Hgb Cancelled 01/04/23 06:58 Hct 20.6 % (37-53) L* 01/04/23 06:58 Hct Cancelled 01/04/23 06:58 MCV 92.4 fl (82-101) 01/04/23 06:58 MCV Cancelled 01/04/23 06:58 MCH 29.6 pg (27-33) 01/04/23 06:58 MCH Cancelled 01/04/23 06:58 MCHC 32.0 g/dL (30-55) 01/04/23 06:58 MCHC Cancelled 01/04/23 06:58 RDW 16.5 % (12.1-15.1) H 01/04/23 06:58 RDW Cancelled 01/04/23 06:58 Plt Count 249 10^3/cmm (157-399) 01/04/23 06:58 Plt Count Cancelled 01/04/23 06:58 MPV 9.8 fL (7.4-10.4) 01/04/23 06:58 MPV Cancelled 01/04/23 06:58 Neut % (Auto) 52.0 % 01/04/23 06:58 Lymph % (Auto) 28.8 % 01/04/23 06:58 Gillespie % (Auto) 10.8 % 01/04/23 06:58 Eos % (Auto) 6.2 % 01/04/23 06:58 Baso % (Auto) 1.9 % 01/04/23 06:58 Neut # (Auto) 1.68 10^3/uL (1.8-7.7) L 01/04/23 06:58 Lymph # (Auto) 0.9 10^3/uL (0.8-4.8) 01/04/23 06:58 Gillespie # (Auto) 0.4 10^3/uL (0.2-0.9) 01/04/23 06:58 Eos # (Auto) 0.2 10^3/uL (0.0-0.8) 01/04/23 06:58 Baso # (Auto) 0.1 10^3/uL (0.0-0.1) 01/04/23 06:58 Nucleated RBC % (auto) 0 % 01/04/23 06:58 Total Counted Cancelled 01/04/23 06:58 Atypical Lymphs % Cancelled 01/04/23 06:58 Absolute Neutrophils Cancelled 01/04/23 06:58 Segmented Neutrophils Cancelled 01/04/23 06:58 Abs Segm Neuts (Man) Cancelled 01/04/23 06:58 Band Neutrophils Cancelled 01/04/23 06:58 Abs Band Neuts (Man) Cancelled 01/04/23 06:58 Absolute Lymphocytes Cancelled 01/04/23 06:58 Lymphocytes (Manual) Cancelled 01/04/23 06:58 Monocytes (Manual) Cancelled 01/04/23 06:58 Absolute Monocytes Cancelled 01/04/23 06:58 Eosinophils (Manual) Cancelled 01/04/23 06:58 Absolute Eosinophils Cancelled 01/04/23 06:58 Basophils (Manual) Cancelled 01/04/23 06:58 Absolute Basophils Cancelled 01/04/23 06:58 Metamyelocytes Cancelled 01/04/23 06:58 Myelocytes Cancelled 01/04/23 06:58 Promyelocytes Cancelled 01/04/23 06:58 Nucleated RBCs Cancelled 01/04/23 06:58 Nucleated RBCs # 0.0 /100WBC 01/04/23 06:58 Pathologist Review Cancelled 01/04/23 06:58 Hypersegmented Polys Cancelled 01/04/23 06:58 Blast Cells Cancelled 01/04/23 06:58 Smudge Cells Cancelled 01/04/23 06:58 Toxic Granulation Cancelled 01/04/23 06:58 Toxic Vacuolation Cancelled 01/04/23 06:58 Dohle Bodies Cancelled 01/04/23 06:58 Zora Rods Cancelled 01/04/23 06:58 Platelet Estimate Cancelled 01/04/23 06:58 Giant Platelets Cancelled 01/04/23 06:58 Polychromasia Cancelled 01/04/23 06:58 Hypochromasia Cancelled 01/04/23 06:58 Poikilocytosis Cancelled 01/04/23 06:58 Basophilic Stippling Cancelled 01/04/23 06:58 Anisocytosis Cancelled 01/04/23 06:58 Microcytosis Cancelled 01/04/23 06:58 Macrocytosis Cancelled 01/04/23 06:58 Spherocytes Cancelled 01/04/23 06:58 Sickle Cells Cancelled 01/04/23 06:58 Target Cells Cancelled 01/04/23 06:58 Tear Drop Cells Cancelled 01/04/23 06:58 Ovalocytes Cancelled 01/04/23 06:58 Stomatocytes Cancelled 01/04/23 06:58 Helmet Cells Cancelled 01/04/23 06:58 [place] Bodies Cancelled 01/04/23 06:58 [place] Cells Cancelled 01/04/23 06:58 Crenated Cell Cancelled 01/04/23 06:58 Acanthocytes (Spur) Cancelled 01/04/23 06:58 Rouleaux Cancelled 01/04/23 06:58 Schistocytes Cancelled 01/04/23 06:58 RBC Morph Comment Cancelled 01/04/23 06:58 PT 35.60 SECONDS (12.1-14.9) H 01/05/23 06:41 INR 3.39 (0.8-1.2) H 01/05/23 06:41 APTT 75.9 SECONDS (23.9-36.7) H 01/04/23 06:58 Sodium 137 mmol/L (136-145) 01/04/23 06:58 Potassium 4.1 mmol/L (3.5-5.1) 01/04/23 06:58 Chloride 106 mmol/L (98-107) 01/04/23 06:58 Carbon Dioxide 21 mmol/L (22-29) L 01/04/23 06:58 Anion Gap 14.1 (5-19) 01/04/23 06:58 BUN 21 mg/dL (6-20) H 01/04/23 06:58 Creatinine 0.9 mg/dL (0.7-1.2) 01/04/23 06:58 GFR Calculation 86.4 mL/min (90-130) L 01/04/23 06:58 Glucose 100 mg/dL (65-115) 01/04/23 06:58 POC Glucose 75 mg/dL (70-110) 01/05/23 11:29 Calculated Osmolality 287 mOsm/kg (285-295) 01/04/23 06:58 Calcium 9.0 mg/dL (8.5-10.5) 01/04/23 06:58 Total Bilirubin 0.4 mg/dL (0.15-1.2) 01/04/23 06:58 AST 64 U/L (0-40) H 01/04/23 06:58 ALT 30 U/L (0-41) 01/04/23 06:58 Alkaline Phosphatase 201 U/L (40-130) H 01/04/23 06:58 Total Protein 6.1 g/dL (6.6-8.7) L 01/04/23 06:58 Albumin 3.0 g/dL (3.5-5.2) L 01/04/23 06:58 Globulin 3.1 g/dL (1.3-4.6) 01/04/23 06:58 Urine Color Yellow (Yellow) 01/04/23 08:30 Urine Appearance Clear (CLEAR) 01/04/23 08:30 Urine pH 5 (5-7) 01/04/23 08:30 Ur Specific Vanderbilt 1.010 (1.005-1.030) 01/04/23 08:30 Urine Protein Trace (Negative) 01/04/23 08:30 Urine Glucose (UA) Norm (Normal) 01/04/23 08:30 Urine Ketones Negative (Negative) 01/04/23 08:30 Urine Blood Neg (Negative) 01/04/23 08:30 Urine Nitrate Negative (Negative) 01/04/23 08:30 Urine Bilirubin Neg (Negative) 01/04/23 08:30 Urine Urobilinogen Norm mg/dL (Negative) 01/04/23 08:30 Ur Leukocyte Esterase Negative (Negative) 01/04/23 08:30 Urine RBC None /hpf (0-2) 01/04/23 08:30 Urine WBC 0-4 /hpf (0-5) H 01/04/23 08:30 Ur Squamous Epith Cells 0-4 /hpf (0-5) H 01/04/23 08:30 Amorphous Sediment Not Reportable 01/04/23 08:30 Urine Bacteria 1+ /hpf (NONE) H 01/04/23 08:30 Urine Mucus Trace /hpf 01/04/23 08:30 Blood Type O Positive 01/05/23 06:41 Rho(D) Type Positive 01/05/23 06:41 Antibody Screen Positive 01/05/23 06:41 Antibody Identification Anti-E 01/05/23 06:41 Crossmatch See Detail 01/05/23 06:41 All radiology interpretation(s) finalized by discharge Discharge Plan Discharge Patient Disposition: Xfer Short-Term Hosp Condition: Stable Referrals: Jose Maciel MD [Referring] - Coding Level of Care Code ED Product Applications Engineer for Chg Fwd Documented by User: Ramírez Pritchard DO 01/05/23 16:59 HPI - General Adult 2 General: Chief complaint: Weakness Stated complaint: weakness Time Seen by Provider: 01/03/23 11:06 PFSH ED 2 PFSH: Medical History Arrhythmia CAD (coronary artery disease) Cardiac defibrillator in place CHF (congestive heart failure) Cholecystectomy planned Cholecystitis Chronic kidney disease Diabetes Encounter for central line placement Gallbladder disease Gout Hypertension Ischemic cardiomyopathy LVAD (left ventricular assist device) present Type II diabetes mellitus Surgical History H/O cardiac catheterization History of esophagogastroduodenoscopy (EGD) S/P coronary artery stent placement Social History Smoking and tobacco/nicotine status: never used tobacco/nicotine Second hand smoke exposure: No Alcohol intake: never Substance/Drug Use: never Marital status: Current occupational status: disabled Course 2 Vital Signs: Vital signs: Vital Signs Temperature 97.9 F 01/05/23 13:29 Pulse Rate 94 01/05/23 13:29 Respiratory Rate 18 01/05/23 13:29 Pulse Oximetry 98 01/05/23 13:29 Oxygen Delivery Me thod Room Air 01/05/23 12:00 [facility] - General Adult Medical Decision Making 01/05/23 0301: On brief reexamination, patient appears stable. Please ask for pain medicine a couple of times, which we have granted. Laboratory was redrawn the morning of 01/04. Hemoglobin is 6.6. INR was 3.72. Rechecking this morning. If has fallen appropriately, will restart warfarin. Daily medications were ordered otherwise. Still awaiting a bed at [facility] in [place]. He has been accepted there. Lab Data 01/04/23 06:58 01/04/23 06:58 Laboratory Results WBC 3.23 10^3/uL (3.29-11.43) L 01/04/23 06:58 WBC Cancelled 01/04/23 06:58 Corrected WBC Cancelled 01/04/23 06:58 RBC 2.23 10^6/uL (3.85-5.65) L 01/04/23 06:58 RBC Cancelled 01/04/23 06:58 Hgb 6.60 g/dL (11.27-16.99) L 01/04/23 06:58 Hgb Cancelled 01/04/23 06:58 Hct 20.6 % (37-53) L* 01/04/23 06:58 Hct Cancelled 01/04/23 06:58 MCV 92.4 fl (82-101) 01/04/23 06:58 MCV Cancelled 01/04/23 06:58 MCH 29.6 pg (27-33) 01/04/23 06:58 MCH Cancelled 01/04/23 06:58 MCHC 32.0 g/dL (30-55) 01/04/23 06:58 MCHC Cancelled 01/04/23 06:58 RDW 16.5 % (12.1-15.1) H 01/04/23 06:58 RDW Cancelled 01/04/23 06:58 Plt Count 249 10^3/cmm (157-399) 01/04/23 06:58 Plt Count Cancelled 01/04/23 06:58 MPV 9.8 fL (7.4-10.4) 01/04/23 06:58 MPV Cancelled 01/04/23 06:58 Neut % (Auto) 52.0 % 01/04/23 06:58 Lymph % (Auto) 28.8 % 01/04/23 06:58 Gillespie % (Auto) 10.8 % 01/04/23 06:58 Eos % (Auto) 6.2 % 01/04/23 06:58 Baso % (Auto) 1.9 % 01/04/23 06:58 Neut # (Auto) 1.68 10^3/uL (1.8-7.7) L 01/04/23 06:58 Lymph # (Auto) 0.9 10^3/uL (0.8-4.8) 01/04/23 06:58 Gillespie # (Auto) 0.4 10^3/uL (0.2-0.9) 01/04/23 06:58 Eos # (Auto) 0.2 10^3/uL (0.0-0.8) 01/04/23 06:58 Baso # (Auto) 0.1 10^3/uL (0.0-0.1) 01/04/23 06:58 Nucleated RBC % (auto) 0 % 01/04/23 06:58 Total Counted Cancelled 01/04/23 06:58 Atypical Lymphs % Cancelled 01/04/23 06:58 Absolute Neutrophils Cancelled 01/04/23 06:58 Segmented Neutrophils Cancelled 01/04/23 06:58 Abs Segm Neuts (Man) Cancelled 01/04/23 06:58 Band Neutrophils Cancelled 01/04/23 06:58 Abs Band Neuts (Man) Cancelled 01/04/23 06:58 Absolute Lymphocytes Cancelled 01/04/23 06:58 Lymphocytes (Manual) Cancelled 01/04/23 06:58 Monocytes (Manual) Cancelled 01/04/23 06:58 Absolute Monocytes Cancelled 01/04/23 06:58 Eosinophils (Manual) Cancelled 01/04/23 06:58 Absolute Eosinophils Cancelled 01/04/23 06:58 Basophils (Manual) Cancelled 01/04/23 06:58 Absolute Basophils Cancelled 01/04/23 06:58 Metamyelocytes Cancelled 01/04/23 06:58 Myelocytes Cancelled 01/04/23 06:58 Promyelocytes Cancelled 01/04/23 06:58 Nucleated RBCs Cancelled 01/04/23 06:58 Nucleated RBCs # 0.0 /100WBC 01/04/23 06:58 Pathologist Review Cancelled 01/04/23 06:58 Hypersegmented Polys Cancelled 01/04/23 06:58 Blast Cells Cancelled 01/04/23 06:58 Smudge Cells Cancelled 01/04/23 06:58 Toxic Granulation Cancelled 01/04/23 06:58 Toxic Vacuolation Cancelled 01/04/23 06:58 Dohle Bodies Cancelled 01/04/23 06:58 Zora Rods Cancelled 01/04/23 06:58 Platelet Estimate Cancelled 01/04/23 06:58 Giant Platelets Cancelled 01/04/23 06:58 Polychromasia Cancelled 01/04/23 06:58 Hypochromasia Cancelled 01/04/23 06:58 Poikilocytosis Cancelled 01/04/23 06:58 Basophilic Stippling Cancelled 01/04/23 06:58 Anisocytosis Cancelled 01/04/23 06:58 Microcytosis Cancelled 01/04/23 06:58 Macrocytosis Cancelled 01/04/23 06:58 Spherocytes Cancelled 01/04/23 06:58 Sickle Cells Cancelled 01/04/23 06:58 Target Cells Cancelled 01/04/23 06:58 Tear Drop Cells Cancelled 01/04/23 06:58 Ovalocytes Cancelled 01/04/23 06:58 Stomatocytes Cancelled 01/04/23 06:58 Helmet Cells Cancelled 01/04/23 06:58 [place] Bodies Cancelled 01/04/23 06:58 [place] Cells Cancelled 01/04/23 06:58 Crenated Cell Cancelled 01/04/23 06:58 Acanthocytes (Spur) Cancelled 01/04/23 06:58 Rouleaux Cancelled 01/04/23 06:58 Schistocytes Cancelled 01/04/23 06:58 RBC Morph Comment Cancelled 01/04/23 06:58 PT 35.60 SECONDS (12.1-14.9) H 01/05/23 06:41 INR 3.39 (0.8-1.2) H 01/05/23 06:41 APTT 75.9 SECONDS (23.9-36.7) H 01/04/23 06:58 Sodium 137 mmol/L (136-145) 01/04/23 06:58 Potassium 4.1 mmol/L (3.5-5.1) 01/04/23 06:58 Chloride 106 mmol/L (98-107) 01/04/23 06:58 Carbon Dioxide 21 mmol/L (22-29) L 01/04/23 06:58 Anion Gap 14.1 (5-19) 01/04/23 06:58 BUN 21 mg/dL (6-20) H 01/04/23 06:58 Creatinine 0.9 mg/dL (0.7-1.2) 01/04/23 06:58 GFR Calculation 86.4 mL/min (90-130) L 01/04/23 06:58 Glucose 100 mg/dL (65-115) 01/04/23 06:58 POC Glucose 75 mg/dL (70-110) 01/05/23 11:29 Calculated Osmolality 287 mOsm/kg (285-295) 01/04/23 06:58 Calcium 9.0 mg/dL (8.5-10.5) 01/04/23 06:58 Total Bilirubin 0.4 mg/dL (0.15-1.2) 01/04/23 06:58 AST 64 U/L (0-40) H 01/04/23 06:58 ALT 30 U/L (0-41) 01/04/23 06:58 Alkaline Phosphatase 201 U/L (40-130) H 01/04/23 06:58 Total Protein 6.1 g/dL (6.6-8.7) L 01/04/23 06:58 Albumin 3.0 g/dL (3.5-5.2) L 01/04/23 06:58 Globulin 3.1 g/dL (1.3-4.6) 01/04/23 06:58 Urine Color Yellow (Yellow) 01/04/23 08:30 Urine Appearance Clear (CLEAR) 01/04/23 08:30 Urine pH 5 (5-7) 01/04/23 08:30 Ur Specific Vanderbilt 1.010 (1.005-1.030) 01/04/23 08:30 Urine Protein Trace (Negative) 01/04/23 08:30 Urine Glucose (UA) Norm (Normal) 01/04/23 08:30 Urine Ketones Negative (Negative) 01/04/23 08:30 Urine Blood Neg (Negative) 01/04/23 08:30 Urine Nitrate Negative (Negative) 01/04/23 08:30 Urine Bilirubin Neg (Negative) 01/04/23 08:30 Urine Urobilinogen Norm mg/dL (Negative) 01/04/23 08:30 Ur Leukocyte Esterase Negative (Negative) 01/04/23 08:30 Urine RBC None /hpf (0-2) 01/04/23 08:30 Urine WBC 0-4 /hpf (0-5) H 01/04/23 08:30 Ur Squamous Epith Cells 0-4 /hpf (0-5) H 01/04/23 08:30 Amorphous Sediment Not Reportable 01/04/23 08:30 Urine Bacteria 1+ /hpf (NONE) H 01/04/23 08:30 Urine Mucus Trace /hpf 01/04/23 08:30 Blood Type O Positive 01/05/23 06:41 Rho(D) Type Positive 01/05/23 06:41 Antibody Screen Positive 01/05/23 06:41 Antibody Identification Anti-E 01/05/23 06:41 Crossmatch See Detail 01/05/23 06:41 Discharge Plan Discharge Patient Disposition: Xfer Short-Term Hosp Condition: Stable Referrals: Jose Maciel MD [Referring] - Coding Level of Care Code ED Product Applications Engineer for Chg Fwd
[2023-01-03 11:23] LABS: Basophils # 0.1 10^3/uL (0.0-0.1); Basophils % 1.4 %; Eosinophils # 0.2 10^3/uL (0.0-0.8); Eosinophils % 5.2 %; Hematocrit 21.5 % (37-53); Lymphocytes # 0.9 10^3/uL (0.8-4.8); Lymphocytes % 25.1 %; Mean Corpuscular HGB Conc 31.6 g/dL (30-55); Mean Corpuscular Hemoglobin 29.2 pg (27-33); Mean Corpuscular Volume 92.3 fl (82-101); Mean Platelet Volume 9.6 fL (7.4-10.4); Monocytes # 0.4 10^3/uL (0.2-0.9); Monocytes % 10.7 %; Neutrophils # 2.11 10^3/uL (1.8-7.7); Neutrophils % 57.6 %; Nucleated Red Blood Cells % 0 %; Platelet Count 255 10^3/cmm (157-399); Red Blood Count 2.33 10^6/uL (3.85-5.65); Red Cell Distribution Width 16.4 % (12.1-15.1); White Blood Count 3.66 10^3/uL (3.29-11.43)
--- NOTE | 2023-01-03 11:27 | ECG_ITS ---
[facility] Test Date: 2023-01-03 Pat Name: Damian Escalona Department: Room: Gender: Male Ramp Manager: : [id number] Requested By: Cheng Leiva Order Number: [id number] Chang MD: Jasper Lazar M.D. Measurements Intervals Calvin Rate: 83 P: 73 ND: 224 QRS: -75 QRSD: 190 T: 84 QT: 500 QTc: 591 Interpretive Statements SINUS RHYTHM WITH FIRST DEGREE AV BLOCK LEFT AXIS DEVIATION [QRS AXIS < -30] RIGHT BUNDLE BRANCH BLOCK [120+ ms QRS DURATION, UPRIGHT V1, 40+ ms S IN I/aVL/V4/V5/V6] ANTEROSEPTAL MYOCARDIAL INFARCTION , OF INDETERMINATE AGE [40+ ms Q WAVE IN V1-V4] Compared to ECG 10/14/2022 14:53:33 First degree AV block now present Left-axis deviation now present Right bundle-branch block now present Intraventricular conduction delay no longer present Myocardial infarct finding still present Electronically Signed On 01-03-2023 11:57:57 CDT by Jasper Lazar M.D. [email or web address]
[2023-01-03 11:40] LABS: INR 3.51 (0.8-1.2)
[2023-01-03 11:45] LABS: Alanine Aminotransferase 27 U/L (0-41); Albumin Level 3.1 g/dL (3.5-5.2); Alkaline Phosphatase 201 U/L (40-130); Anion Gap 14.1 (5-19); Aspartate Amino Transferase 57 U/L (0-40); Blood Urea Nitrogen 23 mg/dL (6-20); Carbon Dioxide 21 mmol/L (22-29); Chloride 104 mmol/L (98-107); Globulin 3.3 g/dL (1.3-4.6); Glomerular Filtration Rate 86.4 mL/min (90-130); Glucose 67 mg/dL (65-115); Osmolality Calculated 282 mOsm/kg (285-295); Potassium 4.1 mmol/L (3.5-5.1); Sodium 135 mmol/L (136-145); Total Bilirubin 0.4 mg/dL (0.15-1.2); Total Protein 6.4 g/dL (6.6-8.7)
--- NOTE | 2023-01-03 12:49 | XR_ITS ---
WS: [id number] Sacrum and coccyx, 3 views, 01/03/2023 Clinical Data: fall Comparison: AP pelvis and right hip. 10/14/2022 Findings: No fractures or dislocations are seen. The SI joints and pubic symphysis are unremarkable. No bone de struction or erosion is seen. There is degenerative disc narrowing at L5-S1 There is a right hip arthroplasty. There are clips in the right inguinal region. Impression: Negative sacrum and coccyx.
--- NOTE | 2023-01-03 13:57 | PC.PHAR ---
pt states he takes care of his own medications-pt states colchicine 0.6mg bid filled 11/29/22 15d/s,mirtazapine 7.5mg daily filled 11/29/22 30d/s,spironolactone 25mg daily rx filled 07/26/22 30d/s,and jardiance 10mg daily filled 07/26/22 30d/s was dced-pt states he has tujeo solostar 300 u/ml ([facility] states hasnt filled)25 units daily prn ,victoza 0.6mg daily prn ([facility] states not filled) and humalog kwikpen ss tid prn rx filled 11/29/22-pt states uses prn on all insulin-pt states he takes lasix prn rx filled 11/29/22 30d/s 20mg bid-ext shows oxycodone 5mg q4h prn filled 11/29/22 18d/s pt states he is out-notes are made in the pharmacy comments
[2023-01-03 13:59] LABS: Add Urine Microscopic? YES; Bilirubin Urine Neg (Negative); Blood Urine Neg (Negative); Glucose Urine UA Norm (Normal); Ketones Urine Negative (Negative); Leukocyte Esterase Urine Negative (Negative); Nitrate Urine Negative (Negative); Protein Urine Trace (Negative); Urine Appearance Clear (CLEAR); Urine Color Yellow (Yellow); Urobilinogen Urine Norm (Negative); pH Urine 5 (5-7)
[2023-01-03 14:00] LABS: Squamous Epithelial Cell Urine RARE /hpf (0-5); WBC Urine RARE /hpf (0-5)
--- NOTE | 2023-01-03 16:52 | DCPLANNER ---
I spoke with Kristine at 1641 with [facility] and she advised that Dr. salinas with LVAD team accepted the patient and will potentially have beds on 01/04 after discharges.
--- NOTE | 2023-01-03 19:54 | PC.NURSE ---
MAP 78 with doppler and manual cuff.
[2023-01-03] MEDS: mirtazapine 15 mg Tablet PO (20:01)
[2023-01-03] MEDS: oxyCODONE-APAP 5-325 mg Tablet 1 TAB PO ×2 (20:02→23:35)
--- NOTE | 2023-01-03 23:34 | PC.NURSE ---
Pt MAP 82 via manual cuff and doppler.
[2023-01-04] VITALS (151 sets, daily range): PULSE 86–105; RESP 2–28; O2SAT 91–100
--- NOTE | 2023-01-04 00:47 | PC.NURSE ---
Spoke with [facility] for pt update at this time. Pt still on wait list.
--- NOTE | 2023-01-04 06:31 | PC.NURSE ---
Pt MAP 72 via manual cuff and doppler.
[2023-01-04 07:28] LABS: Alanine Aminotransferase 30 U/L (0-41); Alkaline Phosphatase 201 U/L (40-130); Anion Gap 14.1 (5-19); Aspartate Amino Transferase 64 U/L (0-40); Blood Urea Nitrogen 21 mg/dL (6-20); Carbon Dioxide 21 mmol/L (22-29); Chloride 106 mmol/L (98-107); Globulin 3.1 g/dL (1.3-4.6); Glomerular Filtration Rate 86.4 mL/min (90-130); Glucose 100 mg/dL (65-115); Osmolality Calculated 287 mOsm/kg (285-295); Potassium 4.1 mmol/L (3.5-5.1); Sodium 137 mmol/L (136-145); Total Bilirubin 0.4 mg/dL (0.15-1.2); Total Protein 6.1 g/dL (6.6-8.7)
[2023-01-04 07:53] LABS: INR 3.72 (0.8-1.2)
[2023-01-04 07:57] LABS: Basophils # 0.1 10^3/uL (0.0-0.1); Basophils % 1.9 %; Eosinophils # 0.2 10^3/uL (0.0-0.8); Eosinophils % 6.2 %; Lymphocytes # 0.9 10^3/uL (0.8-4.8); Lymphocytes % 28.8 %; Mean Corpuscular Hemoglobin 29.6 pg (27-33); Mean Corpuscular Volume 92.4 fl (82-101); Mean Platelet Volume 9.8 fL (7.4-10.4); Monocytes # 0.4 10^3/uL (0.2-0.9); Monocytes % 10.8 %; Neutrophils # 1.68 10^3/uL (1.8-7.7); Nucleated Red Blood Cells % 0 %; Platelet Count 249 10^3/cmm (157-399); Red Blood Count 2.23 10^6/uL (3.85-5.65); Red Cell Distribution Width 16.5 % (12.1-15.1); White Blood Count 3.23 10^3/uL (3.29-11.43)
[2023-01-04 08:01] LABS: Hematocrit 20.6 % (37-53); Partial Thromboplastin Time 75.9 SECONDS (23.9-36.7)
[2023-01-04 08:48] LABS: Add Urine Microscopic? YES; Bilirubin Urine Neg (Negative); Blood Urine Neg (Negative); Glucose Urine UA Norm (Normal); Ketones Urine Negative (Negative); Leukocyte Esterase Urine Negative (Negative); Nitrate Urine Negative (Negative); Protein Urine Trace (Negative); Urine Appearance Clear (CLEAR); Urine Color Yellow (Yellow); Urobilinogen Urine Norm (Negative); pH Urine 5 (5-7)
[2023-01-04 08:49] LABS: Add Urine Culture? No; Bacteria Urine 1+ /hpf; Mucus Urine TRACE /hpf; Squamous Epithelial Cell Urine 0-4 /hpf (0-5); WBC Urine 0-4 /hpf (0-5)
--- NOTE | 2023-01-04 09:40 | PC.NURSE ---
this nurse updated pt on bed status update. pt still on waitlist for [facility].
--- NOTE | 2023-01-04 10:24 | PC.NURSE ---
pt's MAP 85 via manual cuff and doppler in L arm by this nurse.
--- NOTE | 2023-01-04 11:33 | PC.NURSE ---
pt resting comfortably at this time, when this nurse asked if pt needed anything, pt responded with just to take a nap. pt chest rise equal bilaterally, respirations even and unlabored.
--- NOTE | 2023-01-04 18:32 | PC.NURSE ---
pts MAP is 80. this nurse took MAP via manual b/p with doppler in R arm.
[2023-01-04] MEDS: oxyCODONE-APAP 5-325 mg Tablet 2 TAB PO (19:01)
--- NOTE | 2023-01-04 21:53 | PC.NURSE ---
this nurse spoke with Terry from [facility] transfer center, per Terry, possibly have bed tomorrow (Friday) after discharges. this nurse updated Terry on patient status. Terry had no further questions or concerns.
[2023-01-05] VITALS (8 sets, daily range): PULSE 93–100; RESP 18–22; TEMP 36.6–37.7; O2SAT 94–98
--- NOTE | 2023-01-05 01:25 | PC.NURSE ---
patient requesting more pain medication for his shoulder and tailbone. Per verbal order, dr jackson okangelique to give same as before.
[2023-01-05] MEDS: oxyCODONE-APAP 5-325 mg Tablet 2 TAB PO (01:30)
--- NOTE | 2023-01-05 06:48 | PC.NURSE ---
pt's MAP 85 via manual cuff and doppler in L arm by this nurse.
[2023-01-05 06:49] LABS: Glucose Point of Care 75 mg/dL (70-110)
[2023-01-05 07:35] LABS: INR 3.39 (0.8-1.2)
[2023-01-05] MEDS: HYDROcodone-acetaminophen 5-325 mg Tablet 1 TAB PO (07:45)
[2023-01-05] MEDS: midodrine 5 mg TABLET 10 MG PO (08:40)
[2023-01-05 11:33] LABS: Glucose Point of Care 75 mg/dL (70-110)
--- NOTE | 2023-01-05 19:53 | PM.CONSULT ---
Providers/Reason For Consult Consulting Physician/Specialty*: Devante Mandujano Reason for Consult*: Acute Diarrhea, Anemia, LVAD. Primary Care Provider: Brianna Dimas NP History of Present Illness History of Present Illness Damian Escalona is a 57 year old male with PMH of CAD, CHF, LVAD, TIIDM, HTN who presented to ER with c/o weakness and diarrhea. Was asked by ER physician to evaluate patient for possible admission while awaiting transfer to [facility] for evaluation of his LVAD. Patient states that he had been having several daily bouts of diarrhea. He denies any melena or blood in stool. Has been on oral anticoagulation with coumadin and he is receiving Dalvance every 2 weeks. He denies any pain at this time. [facility] had been contacted and agreed to transfer of the patient to evaluate his LVAD. He is currently awaiting a bed. Review of Systems General: Reports: 10 or more systems reviewed and unremarkable except in HPI and below Const: Denies: fever(s) or chills Eyes: Denies: change in vision Card: Reports: irregular heart rhythm; Denies: chest pain or palpitations Resp: Reports: dyspnea GI: Reports: abdominal pain, nausea and diarrhea; Denies: vomiting, hematemesis, coffee ground emesis or dysphagia : Denies: flank pain Musc: Denies: neck pain Skin/Breast: Denies: rash Psych: Denies: anxiety or depression Medications/Allergies Home Medications Medication Instructions Recorded Confirmed Last Taken Type aspirin 81 mg tablet,delayed 81 mg PO QAM 03/17/19 01/03/23 01/03/23 History release liraglutide 0.6 mg/0.1 mL (18 mg/3 0.6 mg SUBCUT DAILY PRN blood sugar 03/17/19 01/03/23 12/17/22 History mL) subcutaneous pen injector (Victoza 3-Lenny) insulin lispro 100 unit/mL See Rx Instructions .Route 04/04/20 01/03/23 12/17/22 Rx subcutaneous pen (Humalog KwikPen .COMPLEX #3 mL (U-100) Insulin) dalbavancin 500 mg intravenous 1,500 mg IV Q14D 03/26/22 01/03/23 12/31/22 History solution (Dalvance) TLSO #1 ea 06/13/22 01/03/2323 Rx furosemide 20 mg tablet 20 mg PO BID PRN Edema 08/06/22 01/03/23 12/17/22 History vitamin B complex 1 tab PO QAM 08/06/22 01/03/23 01/03/23 History citalopram 40 mg tablet 40 mg PO BEDTIME 10/14/22 01/03/23 01/02/23 History insulin glargine U-300 conc 300 25 unit SUBCUT DAILY PRN blood 10/14/22 01/03/23 12/17/22 History unit/mL (1.5 mL) subcutaneous pen sugar (Toujeo SoloStar U-300 Insulin) midodrine 10 mg tablet 10 mg PO TID 10/14/22 01/03/23 01/03/23 09:00 History sildenafil 100 mg tablet 100 mg PO DAILY PRN Erectile 01/03/23 01/03/23 Unknown History Dysfunction warfarin 1 mg tablet See Rx Instructions .Route .COMPLEX 01/03/23 01/03/23 Unknown History Allergies Allergy/AdvReac Type Severity Reaction Status Date / Time pravastatin Allergy Severe ADR-Cramping Verified 01/03/23 12:49 of the Muscles doxycycline Allergy Mild ALGY-Rash Verified 01/03/23 12:49 PFSH Acute PFSH: Medical History Arrhythmia CAD (coronary artery disease) Cardiac defibrillator in place CHF (congestive heart failure) Cholecystectomy planned Cholecystitis Chronic kidney disease Diabetes Encounter for central line placement Gallbladder disease Gout Hypertension Ischemic cardiomyopathy LVAD (left ventricular assist device) present Type II diabetes mellitus Surgical History H/O cardiac catheterization History of esophagogastroduodenoscopy (EGD) S/P coronary artery stent placement Social History Smoking and tobacco/nicotine status: never used tobacco/nicotine Second hand smoke exposure: No Alcohol intake: never Substance/Drug Use: never Marital status: Current occupational status: disabled Vitals/I&O/Wt Last Vital Signs Temp 97.9 F 01/05/23 13:29 Pulse 94 01/05/23 13:29 Resp 18 10/22/23 13:29 Pulse Ox 98 01/05/23 13:29 O2 Del Method Room Air 01/05/23 12:00 01/05/23 01/05/23 01/05/23 06:59 14:59 22:59 Intake Total 350 / 350 Balance 350 / 350 Physical Exam Narrative: General: Cooperative patient in no apparent distress. Well developed. HEENT: Normocephalic, Atraumatic. External ears normal. Nasal passages patent without drainage. MMM. Heart: LVAD in place. Resp: LCTA. No respiratory distress, no use of accessory muscles. Abd: Soft, non-tender. Non-distended. Extremities: No edema. Skin: No rash or lesions on exposed areas. Neuro: No focal motor or sensory loss. Data 01/04/23 06:58 01/04/23 06:58 A&P Assessment and plan (1) Left ventricular assist device present: (2) Diarrhea: (3) Anemia: Plan 57 y/o M seen today for consult at request of ER physician. Received one unit of blood due to drop in Hgb. coumadin was held appropriately until INR was back in therapeutic range. [facility] has been notified and during my encounter with the patient, had called to inform that a bed was available and could proceed with transfer. ER is arranging and he will be transported via ambulance. Consult Attestations Medical Necessity Statement: Transferred to [facility] for higher level of care and evaluation of his LVAD. Coding Level of Care Code Acute Code for Chg Fwd Straight Forward MDM includes number and complexity of problems actively addressed during encounter, amount and/or complexity of data reviewed/ordered and described risk of complication, morbidity or mortality of management as documented Diagnoses Left ventricular assist device present Z95.811 Diarrhea R19.7 Anemia D64.9
== END 2023-01-05 14:15 | disposition short-term general hospital (02) ==
PROVIDERS: Emergency Medicine; Emergency Provider Family Medicine; PCP Nurse Practitioner Family
DX: R53.1 Weakness (principal); I25.10 Atherosclerotic heart disease of native coronary artery without angina pectoris; I13.0 Hypertensive heart and chronic kidney disease with heart failure and stage 1 through stage 4 chronic kidney disease, or unspecified chronic kidney disease; E11.22 Type 2 diabetes mellitus with diabetic chronic kidney disease; N18.9 Chronic kidney disease, unspecified; I50.9 Heart failure, unspecified; Z95.811 Presence of heart assist device
CPT/HCPCS: 36416; 36430; 71045; 72220; 80053; 81001; 82962; 85025; 85610; 85730; 86850; 86870; 86900; 86902; 86920; 93005; 99285; P9016